=== PATIENT | female | born 1940 | race Caucasian/White ===

== ENCOUNTER 2017-02-23 02:13 | Emergency (ER) | payer BC, OTHER ==
[~2017-02-23] VITALS: Ht 172.7 cm; Wt 88.4 kg
[2017-02-23] MEDS ORDERED: SODIUM CHLORIDE 0.9% 1000ML 1,000 ML IV SCH (02:14)
[2017-02-23] MEDS ORDERED: SUCCINYLCHOLINE CHLORIDE 20 MG/ML 10 ML VIAL IV ONE (02:16)
[2017-02-23] MEDS ORDERED: ETOMIDATE 2 MG/ML 20 ML VIAL IV ONE (02:16)
[2017-02-23] MEDS ORDERED: MIDAZOLAM HCL 5 MG/ML 1 ML VIAL IV ONE (02:16)
[2017-02-23] MEDS ORDERED: FENTANYL CITRATE INJ 50 MCG/1 ML 2 ML VIAL IV ONE ×3 (02:16→03:00)
[2017-02-23 02:20] VITALS: Ht 172.7 cm; Wt 88.4 kg
[2017-02-23] MEDS ORDERED: DIAZEPAM INJ 5 MG/ML 2 ML CARP IV STA (02:24)
[2017-02-23] MEDS ORDERED: ONDANSETRON INJ 2 MG/ML 2 ML VIAL ONE (02:28)
[2017-02-23] MEDS ORDERED: LABETALOL HCL IV 5 MG/ML 20ML IV ONE (02:28)
--- NOTE | 2017-02-23 02:35 | EMERGENCY ROOM VISIT NOTE ---
History Report prepared by Lele: Fredy Garibay Under the Supervision of: Dr. Sylvester Bray M.D. First contact with patient: 02:14 Stated Complaint: STROKE ALERT History of Present Illness The patient is a 76 year old female who presents to the Emergency Room with complaints of acute stroke symptoms that started when she woke up at approximately 0200 this morning. She was feeling completely fine when she went to bed between [id number].The patient woke up with a severe headache and dizziness, as well as right-sided weakness. She was initially unable to use her right arm or leg. She also had a right facial droop and her noticed that she was slurring her speech. EMS gave her 4 mg Zofran en route. Upon arrival to the ED, the patient's right arm weakness was improving. She was taken to CT scan immediately upon arrival, and had continued improvement of her right arm and leg weakness. Her facial droop and speech slurring resolved. She is still feeling severely nauseous and dizzy. She has also been vomiting. The patient denies any recent injuries or trauma. She is on Plavix. She denies any history of strokes. She does have a history of hypertension, diabetes, and dyslipidemia. She is s/p open heart surgery 20 years ago. The patient had a stress test within the past few years which her believes was normal. She has been very anxious and stressed recently. Her believes that the patient has been taking her medications. Source of History: patient, spouse/significant other Onset: 0200 this morning Position: other (neurologic) Quality: other (stroke symptoms) Timing: other (acute) Associated Symptoms: + nausea, + vomiting, + weakness Review of Systems See HPI for pertinent positives & negatives. A total of 10 systems reviewed and were otherwise negative. Past Medical & Surgical Medical Problems: (1) Diabetes (2) Dyslipidemia (3) HTN (hypertension) Surgical Problems: (1) History of open heart surgery Family History No pertinent family history Social History Marital Status: Housing Status: lives with family Current/Historical Medications Scheduled Aspirin (Aspirin Ec), 81 MG PO DAILY Atorvastatin (Lipitor), 40 MG PO DAILY Carvedilol (Coreg), 25 MG PO BIDM Clopidogrel (Plavix), 75 MG PO DAILY Isosorbide Mononitrate (Isosorbide Mononitrate ER), 60 MG PO BID Metformin Hcl (Glucophage), 500 MG PO BIDM Nitroglycerin (Nitrostat), 0.4 MG UT PRN Valsartan (Diovan), 160 MG PO DAILY Allergies Coded Allergies: Niacin (Verified Allergy, Intermediate, RASH, 02/23/17) PALPITATIONS Morphine (Verified Allergy, Unknown, unknown, 02/23/17) Penicillins (Verified Allergy, Unknown, unknown, 02/23/17) Physical Exam Vital Signs Date Time Temp Pulse Resp B/P Pulse Ox O2 Delivery O2 Flow Rate FiO2 02/23/17 04:30 190/86 02/23/17 04:27 69 98 02/23/17 04:25 182/80 02/23/17 04:22 71 98 02/23/17 04:22 71 12 174/83 98 Mechanical Ventilator 02/23/17 03:58 69 99 02/23/17 03:55 130/62 02/23/17 03:54 143/71 02/23/17 03:53 70 100 02/23/17 03:48 212/101 02/23/17 03:25 162/79 02/23/17 03:20 66 154/74 97 02/23/17 03:16 143/71 02/23/17 03:10 66 137/79 97 02/23/17 03:05 67 138/72 97 02/23/17 03:00 67 135/72 02/23/17 02:58 50 02/23/17 02:55 72 142/76 98 02/23/17 02:54 166/92 02/23/17 02:50 68 247/120 99 02/23/17 02:48 248/104 02/23/17 02:47 66 02/23/17 02:47 227/119 02/23/17 02:43 99 02/23/17 02:40 70 88 02/23/17 02:37 202/116 02/23/17 02:20 77 20 231/107 99 Room Air Physical Exam GENERAL: Patient is severely upset and anxious appearing, persistently vomiting on exam. Covered in vomit. HEENT: No acute trauma, normocephalic atraumatic, mucous membranes moist, no nasal congestion, no scleral icterus. NECK: No stridor, no adenopathy, no meningismus, trachea is midline. LUNGS: No dyspnea. Clear to auscultation and equal bilaterally. No wheeze, no rhonchi. HEART: Regular rate and rhythm. No murmurs, rubs, gallops appreciated. ABDOMEN: Soft, nontender, bowel sounds positive, no masses appreciated, no peritonitis. BACK: No midline tenderness, no CVA tenderness EXTREMITIES: Normal motion all extremities, no cyanosis, no edema. NEUROLOGIC: Generalized weakness all extremities without focal deficits. Severe horizontal left nystagmus, unable to get visual field acuity. SKIN: No rash, no jaundice, no diaphoresis. Medical Decision & Procedures ER Provider Diagnostic Interpretation: X ray results are stated below per my interpretation. Chest: One view mildly rotated: Diffuse haziness bilateral lung perrin without overt infiltrate nor effusion. Enlarged heart with previous sternotomy. ET tube appears to be in place. Radiology results and stated below per my review and radiologist interpretation: CT HEAD: No evidence of acute intracranial hemorrhage or abnormal extra axial fluid collection. Nagy-white matter differentiation appears preserved. There is patchy hypoattenuation in the periventricular and deep cerebral white matter, likely the sequel of chronic small vessel ischemic disease. There is intracranial atherosclerosis. No evidence of skull fracture. Mild mucosal thickening in the ethmoid air cells. Visualized paranasal sinuses and mastoid air cells are otherwise clear. Radiologist: Cleve Bonilla MD. CTA HEAD Bilateral intracranial vertebral arteries, basilar artery, and bilateral P1 segments are patent. The bilateral intracranial internal carotid arteries demonstrate atherosclerotic calcifications with multifocal mild narrowing. The bilateral M1 segments are patent. The bilateral A1 segments are patent with hypoplastic right A1 segment. The anterior communicating artery is visualized. No evidence of vascular malformation or aneurysm. Radiologist Cleve Bonilla MD. Laboratory Results 02/23/17 02:38 Red Blood Count 4.21, Mean Corpuscular Volume 91.9, Mean Corpuscular Hemoglobin 30.9, Mean Corpuscular Hemoglobin Concent 33.6, Mean Platelet Volume 11.0, Neutrophils (%) (Auto) 54.0, Lymphocytes (%) (Auto) 32.8, Monocytes (%) (Auto) 9.0, Eosinophils (%) (Auto) 3.3, Basophils (%) (Auto) 0.7, Neutrophils # (Auto) 4.96, Lymphocytes # (Auto) 3.01, Monocytes # (Auto) 0.83, Eosinophils # (Auto) 0.30, Basophils # (Auto) 0.06 02/23/17 02:38 Test 02/23/17 02:27 02/23/17 02:38 02/23/17 03:05 02/23/17 03:15 Bedside Prothrombin Time INR 1.0 (0.9-1.1) White Blood Count 9.18 K/uL (4.8-10.8) Red Blood Count 4.21 M/uL (4.2-5.4) Hemoglobin 13.0 g/dL (12.0-16.0) Hematocrit 38.7 % (37-47) Mean Corpuscular Volume 91.9 fL (80-100) Mean Corpuscular Hemoglobin 30.9 pg (25-34) Mean Corpuscular Hemoglobin Concent 33.6 g/dl (32-36) Platelet Count 228 K/uL (130-400) Mean Platelet Volume 11.0 fL (7.4-10.4) Neutrophils (%) (Auto) 54.0 % Lymphocytes (%) (Auto) 32.8 % Monocytes (%) (Auto) 9.0 % Eosinophils (%) (Auto) 3.3 % Basophils (%) (Auto) 0.7 % Neutrophils # (Auto) 4.96 K/uL (1.4-6.5) Lymphocytes # (Auto) 3.01 K/uL (1.2-3.4) Monocytes # (Auto) 0.83 K/uL (0.11-0.59) Eosinophils # (Auto) 0.30 K/uL (0-0.5) Basophils # (Auto) 0.06 K/uL (0-0.2) RDW Standard Deviation 45.8 fL (36.4-46.3) RDW Coefficient of Variation 13.6 % (11.5-14.5) Immature Granulocyte % (Auto) 0.2 % Immature Granulocyte # (Auto) 0.02 K/uL (0.00-0.02) Prothrombin Time 10.3 SECONDS (9.0-12.0) Prothromb Time International Ratio 1.0 (0.9-1.1) Activated Partial Thromboplast Time 20.9 SECONDS (21.0-31.0) Partial Thromboplastin Ratio 0.8 Anion Gap 8.0 mmol/L (3-11) Est Creatinine Clear Calc Drug Dose 57.4 ml/min Estimated GFR () 65.8 Estimated GFR (Non- 56.7 BUN/Creatinine Ratio 20.8 (10-20) Calcium Level 9.1 mg/dl (8.5-10.1) Total Creatine Kinase 66 U/L (26-192) Creatine Kinase MB 0.5 ng/ml (0.5-3.6) Creatine Kinase MB Ratio 0.8 (0-3.0) Troponin I < 0.015 ng/ml (0-0.045) Chemistry Specimen Hemolysis Urine Opiates Screen NEG (NEG) Urine Methadone, Qualitative NEG (NEG) Urine Barbiturates NEG (NEG) Urine Phencyclidine (PCP) Level NEG (NEG) Ur Amphetamine/Methamphetamine NEG (NEG) MDMA (Ecstasy) Screen NEG (NEG) Urine Benzodiazepines Screen NEG (NEG) Urine Cocaine Metabolite NEG (NEG) Urine Marijuana (THC) NEG (NEG) Arterial Blood pH 7.39 (7.35-7.45) Arterial Blood Partial Pressure CO2 45 mmHg (35-46) Arterial Blood Partial Pressure O2 80 mm/Hg (80-95) Arterial Blood HCO3 27 mmol/L (19-24) Arterial Blood Oxygen Saturation 95.8 % (90-95) Arterial Blood Base Excess 1.3 mEq/L (-9-1.8) Arterial Blood Gas Delivery 50% Huseyin Test POS (POS) Laboratory results as reviewed by me. Medications Administered Medications (Trade) Dose Ordered Sig/Isidra Route Start Time Stop Time Status Last Admin Dose Admin Sodium Chloride (Nss 1000ml) 1,000 ml @ 50 mls/hr Q20H IV 02/23/17 02:14 02/23/17 05:20 DC 02/23/17 03:12 50 MLS/HR Ondansetron HCl (Zofran Inj) 4 mg STK-MED ONCE .ROUTE 02/23/17 02:28 02/23/17 02:29 DC 02/23/17 02:35 4 MG Labetalol HCl (Normodyne IV) 5 mg STK-MED ONCE IV 02/23/17 02:28 02/23/17 02:29 DC 02/23/17 02:34 20 MG Diazepam (Valium Inj) 5 mg NOW STAT IV 02/23/17 02:24 02/23/17 02:25 DC 02/23/17 02:34 5 MG Midazolam HCl (Versed Inj) 5 mg NOW STAT IV 02/23/17 02:47 02/23/17 02:49 DC 02/23/17 02:49 5 MG Fentanyl Citrate (Fentanyl Inj) 100 mcg NOW ONCE IV 02/23/17 03:00 02/23/17 03:01 DC 02/23/17 02:51 100 MCG Propofol (Diprivan Iv Emulsion 100ml Vial) 1 dose UD PRN IV 02/23/17 03:00 02/23/17 05:20 DC 02/23/17 03:08 1 DOSE Fentanyl Citrate (Fentanyl Inj) 50 mcg NOW STAT IV 02/23/17 03:50 02/23/17 03:51 DC 02/23/17 03:54 50 MCG Midazolam HCl (Versed Inj) 5 mg NOW STAT IV 02/23/17 03:50 02/23/17 03:51 DC 02/23/17 03:54 5 MG Midazolam HCl (Versed Inj) 10 mg STK-MED ONCE .ROUTE 02/23/17 04:54 02/23/17 04:55 DC 02/23/17 04:50 5 MG Procedure Endotracheal Intubation Indication: Respiratory failure and protection of airway. The patient was on 100% oxygen via NRB prior to the procedure. Suction, airway equipment, RSI drugs, respiratory equipment, and appropriate personnel were prepared prior to the initiation of the procedure. A time out was taken. Induction was performed with 20 mg Etomidate 150 mg succinylcholine. After observing the clinical benefit of the medications, the airway was easily visualized utilizing a GlideScope. Emesis was noted in the posterior pharynx. There was erythema and mild edema of the arytenoids. A 7.5 size ETT tube was placed atraumatically to 23 cm at the lip using standard technique. The cuff inflated without signs of malfunction. There were bilateral breath sounds, positive colormetric change, no gastric sounds, a good capnography waveform, and oxygen saturation was maintained throughout the procedure. Post intubation sedation and paralysis was administered using versed, fentanyl, and a propofol infusion. There were no complications. ECG Indication: weakness Rate (beats per minute): 81 Rhythm: normal sinus Findings: no acute ischemic change, no ectopy ED Course 0210: The patient was evaluated in room B1. A complete history and physical exam was performed. 0214: NSS 1000 ml @ 50 mls/hr. 0220: The patient is still vomiting. 0224: Valium 5 mg IV. 0228: The [facility] was paged. 0238: The patient became unresponsive. I discussed the pros and cons of intubation with the and he agrees. 0242: Endotracheal intubation performed. Please see procedural note above. 0247: Versed 5 mg IV. 0250: Normodyne 20 mg IV. 0250: Updated the patient's . 0257: Propofol 150 mg IV. 0258: The patient's blood pressure is down to 140/80. 0300: Fentanyl 100 mcg IV, Fentanyl 50 mcg IV. 0310: Discussed the case with Dr. Funes, [facility]. He agrees with getting a CTA. 0330: Discussed the case with Dr. Stover, [facility]. They will accept the patient for transfer. 0345: The patient is biting her tube and coughing. Her blood pressure is up to 210. 0350: Versed 5 mg IV, Fentanyl 50 mcg IV. 0412: The patient is periodically moving hands and feet. She is calm and heavily sedated. Blood pressure 145/77. 0440: [facility] is at bedside. The patient is starting to fight against the vent and is moving more with increased blood pressure. Medical Decision Differential: Sepsis, Infectious (UTI/Pneumonia/Meningitis/etc), Metabolic/ Electrolyte Abnormality, Cardiac, Hepatic, Endocrine, Toxicologic, Neurologic, amongst other pathologies entertained. 76 yr old female with history of HTN, DMII, CAD, DLP who is on Plavix amongst other medications. CABG 20 yrs ago. Notes increased stress over last few weeks. Severely stressed today. Went to bed normal at 11-1130pm. awoke to hear commotion in her room. She was unable to use right arm/leg/face. Slurred speech. Vomiting. EMS arrived and confirmed symptoms. Stroke alert called prior to arrival. Quite hypertensive to SBP 240 on arrival. Vomiting profusely with severe vertiginous symptoms and horizontal nystagmus. No focal neuro deficits though generally weak. No meningitic findings nor evidence of sepsis by exam history. Sent immediately to CT with negative CT head on arrival. Given Labetalol for BP and Valium for vertiginous symptoms. Initially doing better symptom koenig, SBP improving to 200 and talking though started vomiting again and became obtunded. Unable to awaken and patient dry heaving not protecting airway. RSI for airway protection. Sedation given with improvement further in BP. Sent to CTA head which read as negative for acute findings. During this discussed with [facility] ED physician and will transfer emergently there for possibly neuro intervention. Unclear if this is posterior stroke, hypertensive emergency, complex seizure, though clearly element of this is severe stress. Symptoms highly concerning for posterior stroke which we are unable to care for here in this facility. Given EMS confirms she was acutely weak on right side and had slurred speech, along with vertiginous symptoms and nystagmus found here she will need stroke neurologist. Throughout I did do phone consultation with [facility] though with patient being [facility] will transfer to [facility] for definitive care. BP did start going up when patient started awakening thus propofol increased along with PRN dosing fentanyl/versed. Unfortunately due to weather helicopter had to turn around. If this is basilar stroke may still benefit several hours out I feel ground transport with CC team is reasonable at this time. Throughout this all I kept in close contact with patient making him aware of findings and reasons we are doing what we are doing. He agreed with intubation and transfer. Consults Time Called: 227 Consulting Physician: [facility]. Returned Call: [phone]: Discussed the case with [facility]. Additional Consults: Time Called: 032 Consulted Physician: Dr. Stover, [facility] ED Returned Call: 0330 Additional Comments: 0330: Discussed the case with Dr. Stover [facility] ED. They will accept the patient for transfer. Impression Primary Impression: Altered mental status Additional Impressions: Acute right-sided weakness HTN (hypertension) Vertigo Respiratory failure Critical Care I have personally spent greater than 180 minutes of critical care time in the direct management of this patient. This was a life/limb threatening event. This includes time spent evaluating patient, direct bedside care, chart review, placing orders, interpretation of diagnostic studies, discussion with consultants, patient, and family members, as well as other required patient management activities. This 180 minutes is in excess of all separately billable procedures. Scribe Attestation The scribe's documentation has been prepared under my direction and personally reviewed by me in its entirety. I confirm that the note above accurately reflects all work, treatment, procedures, and medical decision making performed by me. Departure Information Dispostion Transfer Acute Care Facility Stroke History Time Last Known Well 2300 Stroke t-PA Criteria Reviewed Does NOT meet criteria for t-PA Reason t-PA Not Given Treatment not indicated (improvement of symptoms ) Strict Exclusion Criteria Complete resolution of symptoms (NI (Still with vertigo/vomiting/headache though no further focal weaknesses. Labile HTN. Unclear etiology of symptoms.) Problem Qualifiers Primary Impression: Altered mental status Altered mental status type: stupor Qualified Codes: R40.1 - Stupor Additional Impressions: Respiratory failure Chronicity: acute Respiratory failure complication: unspecified whether with hypoxia or hypercapnia Qualified Codes: J96.00 - Acute respiratory failure, unspecified whether with hypoxia or hypercapnia
[2017-02-23] MEDS ORDERED: GLC/500 PO (02:41)
[2017-02-23] MEDS ORDERED: ISOS-10 PO (02:43)
[2017-02-23] MEDS ORDERED: ATOR-24 PO (02:44)
[2017-02-23] MEDS ORDERED: RAPID SEQUENCE INDUCTION BAG ONE (02:44)
[2017-02-23] MEDS ORDERED: CARV25TA2 PO (02:45)
[2017-02-23] MEDS ORDERED: DVN/160 PO (02:46)
[2017-02-23] MEDS ORDERED: CLOP1TAB15 PO (02:47)
[2017-02-23] MEDS ORDERED: MIDAZOLAM HCL 5 MG/ML 1 ML VIAL IV STA ×2 (02:47→03:50)
[2017-02-23 02:48] LABS: BASO % 0.7 %; BASO ABS # 0.06 K/uL (0-0.2); COMPLETE YES; EOS % 3.3 %; HEMATOCRIT 38.7 % (37-47); IG% 0.2 %; LYMPH % 32.8 %; LYMPH ABS # 3.01 K/uL (1.2-3.4); MEAN CELL VOLUME 91.9 fL (80-100); MEAN CORPUSCULAR HEMOGLOBIN 30.9 pg (25-34); MEAN CORPUSCULAR HGB CONC 33.6 g/dl (32-36); PLATELET COUNT 228 K/uL (130-400); RED BLOOD COUNT 4.21 M/uL (4.2-5.4); WHITE BLOOD COUNT 9.18 K/uL (4.8-10.8)
[2017-02-23] MEDS ORDERED: LABETALOL HCL IV 5 MG/ML 20ML IV STA ×3 (02:50→05:14)
[2017-02-23] MEDS ORDERED: ASPI81TA28 PO (02:51)
[2017-02-23] MEDS ORDERED: NTRGSL/4 UT (02:53)
[2017-02-23] MEDS ORDERED: PROPOFOL IV EMULSION 10 MG/ML 20 ML VIAL IV STA (02:57)
[2017-02-23 02:58] LABS: PARTIAL THROMBOPLASTIN RATIO 0.8; PROTHROMBIN TIME (PATIENT) 10.3 SECONDS (9.0-12.0)
[2017-02-23] MEDS ORDERED: PROPOFOL IV EMULSION 10 MG/ML 100 ML VIAL IV PRN (03:00)
[2017-02-23 03:14] LABS: BLOOD UREA NITROGEN 20 mg/dl (7-18); BUN/CREATININE RATIO 20.8 (10-20); CALCIUM 9.1 mg/dl (8.5-10.1); CARBON DIOXIDE 26 mmol/L (21-32); CHLORIDE 110 mmol/L (98-107); CKMB/CK RATIO 0.8 (0-3.0); CREATININE 0.97 mg/dl (0.60-1.20); GLUCOSE 121 mg/dl (70-99); POTASSIUM 4.4 mmol/L (3.5-5.1); SODIUM 144 mmol/L (136-145)
[2017-02-23 03:23] LABS: ARTERIAL BLD GAS O2 SATURATION 95.8 % (90-95); ARTERIAL BLOOD GAS BASE EXCESS 1.3 mEq/L (-9-1.8); ARTERIAL BLOOD GAS HCO3 27 mmol/L (19-24); ARTERIAL BLOOD GAS PO2 80 mm/Hg (80-95); ARTERIAL BLOOD GAS pH 7.39 (7.35-7.45)
[2017-02-23 03:25] LABS: ALLEN TEST POS (POS); O2 ADMINISTRATION 50%
[2017-02-23] MEDS ORDERED: OPTIRAY 320 IV PRN (03:30)
[2017-02-23 03:36] LABS: BENZODIAZEPINE, URINE NEG (NEG); COCAINE,URINE NEG (NEG); PHENCYCLIDINE, URINE NEG (NEG)
[2017-02-23] MEDS ORDERED: FENTANYL CITRATE INJ 50 MCG/1 ML 2 ML VIAL IV STA ×2 (03:50→05:13)
[2017-02-23] MEDS ORDERED: MIDAZOLAM HCL 5 MG/ML 2ML VIAL ONE ×2 (03:58→04:54)
[2017-02-23 04:27] VITALS: PULSE 69; O2SAT 98
[2017-02-23 04:30] VITALS: BP 190/86
[2017-02-23] MEDS ORDERED: NURSING VERBAL MED ORDER ONE (05:00)
[2017-02-23] MEDS ORDERED: MIDAZOLAM HCL 5 MG/ML 2ML VIAL IV STA (05:12)
--- NOTE | 2017-02-23 06:38 | DIAGNOSTIC IMAGING REPORT ---
HEAD CTA HISTORY: Mental status change stroke TECHNIQUE: Multiaxial CT images of the head were performed both before and after the intravenous administration of contrast to evaluate the major cerebral vessels. Maximum intensity projection images were also obtained. COMPARISON: None. FINDINGS: There is no mass, hematoma, midline shift, or acute infarct. Visualized intracranial internal carotid arteries, distal vertebral arteries, and basilar artery are widely patent. There is no significant stenosis, occlusion, or aneurysm seen within the bilateral ACAs, MCAs, or trauma counsellor. Findings of mild scattered atherosclerotic plaque formation. Several minimal to very mild areas of narrowing including right A1 segment, intracranial carotid arterial vasculature, with minimal scattered additional intracranial narrowing. The major component of narrowing is not appreciated IMPRESSION: No significant stenosis, occlusion, or aneurysm within the [place]. Minimal to very mild scattered atelectatic change Electronically signed by: Bruce Hemphill M.D. 02/23/2017 6:36 AM Dictated Date/Time: 02/23/2017 6:35 AM
--- NOTE | 2017-02-23 06:40 | DIAGNOSTIC IMAGING REPORT ---
HEAD CT NONCONTRAST CT DOSE: 614.27 mGy.cm HISTORY: Mental status change Stroke TECHNIQUE: Multiaxial CT images of the head were performed without the use of intravenous contrast. Comparison: None. Findings: The paranasal sinuses and mastoid air cells are clear. The calvarium and skull base are intact. The ventricles and sulci are within normal limits. There is no mass, hematoma, midline shift, or acute infarct. Impression: No acute intracranial abnormality. Chronic small vessel change Electronically signed by: Bruce Hemphill M.D. 02/23/2017 6:38 AM Dictated Date/Time: 02/23/2017 6:37 AM
--- NOTE | 2017-02-23 07:13 | DIAGNOSTIC IMAGING REPORT ---
CHEST ONE VIEW PORTABLE CLINICAL HISTORY: Post intubation. COMPARISON STUDY: No previous studies for comparison. FINDINGS: The tip of the endotracheal tube is 4 cm above the clarissa. There are median sternotomy wires. The patient is rotated. This may account for mediastinal widening. There is mild interstitial thickening which suggests pulmonary edema. There is no lobar consolidation. Mild cardiomegaly is noted. There is no pneumothorax. IMPRESSION: 1. Tip of endotracheal tube 4 cm above the clarissa. 2. Interstitial thickening suggestive of mild pulmonary edema. Electronically signed by: [place] March M.D. 02/23/2017 7:11 AM Dictated Date/Time: 02/23/2017 7:09 AM
== END 2017-02-23 05:03 | disposition short-term general hospital (02) ==
LOC: EDUNIT# 02:13 → C.EDB 02:15
DX: R41.82 Altered mental status, unspecified (principal); R53.1 Weakness; I10 Essential (primary) hypertension; R42 Dizziness and giddiness; J96.90 Respiratory failure, unspecified, unspecified whether with hypoxia or hypercapnia; E11.9 Type 2 diabetes mellitus without complications; E78.5 Hyperlipidemia, unspecified; Z98.890 Other specified postprocedural states; Z79.82 Long term (current) use of aspirin; Z79.84 Long term (current) use of oral hypoglycemic drugs; Z79.899 Other long term (current) drug therapy; Z88.0 Allergy status to penicillin; Z88.5 Allergy status to narcotic agent; Z88.8 Allergy status to other drugs, medicaments and biological substances

== ENCOUNTER → 2017-11-10 | Outpatient (CLI) | payer OTHER ==
[~2017-11-10] MED LIST: ACET-1311 PO; AMOX500T PO; ASPI81TA28 PO; ATOR-24 PO; BISA10SU3 PR; CARV25TA2 PO; CLOP1TAB15 PO; CYCL10TA6 PO; DVN/160 PO; EMOL-63 TOP; FLUO10CA48 PO; GLC/500 PO; IPRASOL4 INH; ISOS-10 PO; MOMLX PO; NTRGSL/4 UT; ONDA4TAB46 PO; OXYC-57 PO; RXC5 PO; SKINCRE34 TOP; VLTG EXT; WARF1TAB6 PO; [UNRECOGNIZED DRUG - OTHER] RE
[2017-11-10 06:58] LABS: BASO % 0.3 %; BASO ABS # 0.03 K/uL (0-0.2); EOS % 1.6 %; EOS ABS # 0.14 K/uL (0-0.5); HEMATOCRIT 32.1 % (37-47); HEMOGLOBIN 10.4 g/dL (12.0-16.0); IG# 0.02 K/uL (0.00-0.02); LYMPH % 18.4 %; LYMPH ABS # 1.58 K/uL (1.2-3.4); MEAN CELL VOLUME 92.8 fL (80-100); MEAN CORPUSCULAR HEMOGLOBIN 30.1 pg (25-34); MEAN CORPUSCULAR HGB CONC 32.4 g/dl (32-36); MEAN PLATELET VOLUME 10.2 fL (7.4-10.4); MONO % 10.8 %; MONO ABS # 0.93 K/uL (0.11-0.59); NEUT % 68.7 %; NEUT ABS # 5.91 K/uL (1.4-6.5); PLATELET COUNT 252 K/uL (130-400); RED CELL DISTRIBUTION WIDTH CV 15.1 % (11.5-14.5); RED CELL DISTRIBUTION WIDTH SD 51.2 fL (36.4-46.3); WHITE BLOOD COUNT 8.61 K/uL (4.8-10.8)
[2017-11-10 07:10] LABS: ALBUMIN 2.5 gm/dl (3.4-5.0); ALT/SGPT 24 U/L (12-78); AST/SGOT 32 U/L (15-37); BLOOD UREA NITROGEN 8 mg/dl (7-18); CALCIUM 8.5 mg/dl (8.5-10.1); CARBON DIOXIDE 28 mmol/L (21-32); CREATININE 0.71 mg/dl (0.60-1.20); GLUCOSE 116 mg/dl (70-99); POTASSIUM 4.3 mmol/L (3.5-5.1); SODIUM 140 mmol/L (136-145)
[2017-11-10 07:13] LABS: ALKALINE PHOSPHATASE 70 U/L (45-117); TOTAL PROTEIN 6.3 gm/dl (6.4-8.2)
--- NOTE | 2017-11-16 07:57 | CODING QUERY NO DIAGNOSIS ---
TREATMENT RENDERED WITHOUT A DIAGNOSIS Edilma AVILA, To promote full compliance with coding requirements relating to patient care, physician participation is requested in all cases of institutional cook uncertainty. Please assist us with providing a diagnosis/symptom for the test(s) below: A diagnosis/symptom was not documented on your Order. A valid diagnosis/symptom is required to bill all insurances. Please remember that we are unable to code a diagnosis of rule out, probable, possible, questionable, or suspected. Tests that require a diagnosis: * CBC W/AUTO DIFF DIAGNOSIS: * SED RATE AUTOMATED DIAGNOSIS: * CMP DIAGNOSIS: DATE OF SERVICE: 11/10/17 Provider Signature: Date: Thank you Les Caruso [facility] Information Management Once completed, please kindly fax back to [phone] For questions please call [phone]
== END | disposition home or self-care (01) ==
LOC: C.LABUPNIT 10:26
PROVIDERS: ATTEND Nurse Practitioner Family
DX: R79.9 Abnormal finding of blood chemistry, unspecified (principal); R73.09 Other abnormal glucose

== ENCOUNTER 2017-11-13 13:41 | Inpatient (IN) | payer OTHER ==
[~2017-11-13] VITALS: Ht 165.1 cm; Wt 83.9 kg
[2017-11-13] VITALS (12 sets, daily range): BP systolic 107–159; BP diastolic 65–93; PULSE 80–88; TEMP 36.5–37.1; O2SAT 94–99; Ht 165.1 cm; Wt 83.9 kg
[~2017-11-13 13:41] MED LIST changes: -ACET-1311 PO; -AMOX500T PO; -BISA10SU3 PR; -CYCL10TA6 PO; -EMOL-63 TOP; -FLUO10CA48 PO; -IPRASOL4 INH; -MOMLX PO; -ONDA4TAB46 PO; -OXYC-57 PO; -RXC5 PO; -SKINCRE34 TOP; -VLTG EXT; -WARF1TAB6 PO; -[UNRECOGNIZED DRUG - OTHER] RE
[2017-11-13] MEDS ORDERED: SODIUM CHLORIDE 0.9% 1000ML 1,000 ML IV STA (14:20)
[2017-11-13 14:34] LABS: BASO % 0.3 %; BASO ABS # 0.03 K/uL (0-0.2); EOS % 1.3 %; EOS ABS # 0.13 K/uL (0-0.5); HEMOGLOBIN 8.5 g/dL (12.0-16.0); IG# 0.03 K/uL (0.00-0.02); LYMPH % 19.7 %; LYMPH ABS # 1.92 K/uL (1.2-3.4); MEAN CELL VOLUME 91.8 fL (80-100); MEAN CORPUSCULAR HEMOGLOBIN 28.9 pg (25-34); MEAN CORPUSCULAR HGB CONC 31.5 g/dl (32-36); MEAN PLATELET VOLUME 9.9 fL (7.4-10.4); MONO % 11.3 %; NEUT % 67.1 %; NEUT ABS # 6.56 K/uL (1.4-6.5); PLATELET COUNT 310 K/uL (130-400); RED CELL DISTRIBUTION WIDTH CV 14.5 % (11.5-14.5); RED CELL DISTRIBUTION WIDTH SD 48.9 fL (36.4-46.3); WHITE BLOOD COUNT 9.77 K/uL (4.8-10.8)
--- NOTE | 2017-11-13 14:34 | DIAGNOSTIC IMAGING REPORT ---
CHEST ONE VIEW PORTABLE CLINICAL HISTORY: EVALUATE ALTERED MENTAL STATUS/WEAKNESS mental status change COMPARISON STUDY: 02/23/2017 FINDINGS: Mild stable cardiomegaly. Prior median sternotomy. Chronic bibasilar atelectatic change. Mid and upper lungs are considered clear. IMPRESSION: Chronic and postoperative change. No acute process. The above report was generated using voice recognition software. It may contain grammatical, syntax or spelling errors. Electronically signed by: Bruce Hemphill M.D. 11/13/2017 2:33 PM Dictated Date/Time: 11/13/2017 2:31 PM
[2017-11-13 14:43] LABS: ALBUMIN 2.2 gm/dl (3.4-5.0); ALT/SGPT 24 U/L (12-78); BLOOD UREA NITROGEN 18 mg/dl (7-18); CALCIUM 8.3 mg/dl (8.5-10.1); CARBON DIOXIDE 33 mmol/L (21-32); CREATININE 0.86 mg/dl (0.60-1.20); GLUCOSE 93 mg/dl (70-99); LIPASE 92 U/L (73-393); POTASSIUM 4.4 mmol/L (3.5-5.1); SODIUM 138 mmol/L (136-145)
--- NOTE | 2017-11-13 14:49 | DIAGNOSTIC IMAGING REPORT ---
CT SCAN OF THE BRAIN WITHOUT IV CONTRAST CLINICAL HISTORY: Change in mental status. COMPARISON STUDY: CT of the brain dated 02/23/2017. TECHNIQUE: Unenhanced axial CT scan of the brain is performed from the vertex to the skull base. A dose lowering technique was utilized adhering to the principles of ALARA. CT DOSE: 537.48 mGy.cm FINDINGS: Brain parenchyma: There are age-related involutional changes noting mild subcortical and periventricular microangiopathic change. Foci of encephalomalacia in the left desmond and the left cerebellar hemisphere consistent with remote infarcts. There is no hemorrhage, mass effect, or evidence of acute territorial ischemia by CT criteria. Nagy-white matter is preserved. No extra-axial fluid collection is seen. Ventricles, sulci, cisterns: Prominent secondary to involutional change. Intracranial vasculature: There is atherosclerotic calcification of the cavernous carotid and vertebral arteries. Calvarium: Unremarkable. Sinuses and mastoids: The visualized paranasal sinuses are clear. The mastoid air cells are well pneumatized. Orbits: The bony orbits are grossly intact. There are bilateral ocular lens implants. IMPRESSION: 1. There is no hemorrhage, mass effect, or evidence of acute territorial ischemia by CT criteria. 2. 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 Electronically signed by: Juan J Amaya M.D. 11/13/2017 2:47 PM Dictated Date/Time: 11/13/2017 2:45 PM
[2017-11-13 14:51] LABS: ALKALINE PHOSPHATASE 62 U/L (45-117); AST/SGOT 40 U/L (15-37); CKMB 3.2 ng/ml (0.5-3.6); TOTAL PROTEIN 6.1 gm/dl (6.4-8.2)
[2017-11-13 14:58] LABS: INR 4.3 (0.9-1.1)
[2017-11-13] MEDS ORDERED: MOMLX PO (16:02)
[2017-11-13] MEDS ORDERED: AMOX500T PO (16:02)
[2017-11-13] MEDS ORDERED: ONDA4TAB46 PO (16:02)
[2017-11-13] MEDS ORDERED: ACET-1311 PO (16:02)
[2017-11-13] MEDS ORDERED: WARF1TAB6 PO (16:02)
[2017-11-13] MEDS ORDERED: OXYC-57 PO (16:02)
[2017-11-13] MEDS ORDERED: OPTIRAY 320 IV PRN (16:15)
[2017-11-13] MEDS ORDERED: BISA10SU3 PR (16:26)
[2017-11-13] MEDS ORDERED: EMOL-63 TOP (16:26)
[2017-11-13] MEDS ORDERED: FLUO10CA48 PO (16:26)
[2017-11-13] MEDS ORDERED: CYCL10TA6 PO (16:26)
[2017-11-13] MEDS ORDERED: SKINCRE34 TOP (16:26)
[2017-11-13] MEDS ORDERED: IPRA-64 INH (16:26)
[2017-11-13] MEDS ORDERED: [UNRECOGNIZED DRUG - OTHER] RE (16:26)
--- NOTE | 2017-11-13 16:49 | DIAGNOSTIC IMAGING REPORT ---
ABD/PELVIS IV CONTRAST ONLY CLINICAL HISTORY: 77 years-old Female presenting with r/o retroperitoneal bleeding. TECHNIQUE: Multidetector CT of the abdomen and pelvis was performed after the administration of intravenous contrast. IV contrast: 93 mL of Optiray 320. A dose lowering technique was used consistent with the principles of ALARA (as low as reasonably achievable). COMPARISON: None. CT DOSE (mGy.cm): The estimated cumulative dose is 736.30 mGy.cm. FINDINGS: [employer] Steward/Stewardess topogram: Cholecystectomy clips noted. Lung bases: Minimal basilar opacities, likely atelectasis. Multichamber enlargement of the heart. Coronary artery and aortic valve calcification. No pericardial or pleural effusion. Liver: Normal morphology. No liver lesion. Patent hepatic vasculature. Biliary: Mild biliary ductal prominence likely a reservoir effect in the post cholecystectomy state. Gallbladder surgically absent. Pancreas: Moderate parenchymal atrophy. Spleen: Normal. Adrenal glands: Normal. Kidneys and ureters: Excretion of contrast bilaterally. Renal parenchyma normal. No hydronephrosis. Ureters normal. Bladder: Incompletely evaluated secondary to underdistention. The bladder is decompressed with a Cassidy catheter. Pelvic organs: Uterus and ovaries normal. Bowel: Moderate stool burden in the transverse and right colon. No bowel obstruction. Peritoneal cavity: No free fluid or intraperitoneal gas. Infiltration of the extraperitoneal pelvis along the presacral space and pelvic sidewalls. Trace retroperitoneal fluid in the right lower quadrant. Lymph nodes: No enlarged lymph nodes in the abdomen or pelvis. Vasculature: Atherosclerosis of the abdominal aorta, which demonstrates mild ectasia in the infrarenal portion measuring up to 2.7 cm in maximal transverse dimension. IVC patent. Abdominal wall: Extensive swelling and hyperdensity of the bilateral rectus abdominis in the inferior portion, right greater than left. Diffuse body wall edema greater on the right. Musculoskeletal: Osteopenia. IMPRESSION: 1. Findings consistent with rectus sheath hematoma. The hematoma likely extends into the extraperitoneal pelvis, minimally into the retroperitoneum of the abdomen, and along the right lateral abdominal superficial subcutaneous tissue. The report will be called/faxed according to standard departmental protocol. Electronically signed by: Felipe Malik M.D. 11/13/2017 4:48 PM Dictated Date/Time: 11/13/2017 4:40 PM
[2017-11-13] MEDS ORDERED: PHYTONADIONE INJ 5 MG in SODIUM CHLORIDE 0.9% 50ML 50 ML IV ONE (17:00)
--- NOTE | 2017-11-13 18:06 | EMERGENCY ROOM VISIT NOTE ---
History Report prepared by Lele: Ascencion Morris Under the Supervision of: Dr. Lane Harden D.O. First contact with patient: 14:11 Chief Complaint: STROKE SYMPTOMS Stated Complaint: SLURRED SPEECH Nursing Triage Summary: pt arrived als from [facility], pt states her speech has been altered since sunday pt reports having a stroke in february and she has some deficits from then but the speech problem is new. pt recently treated for celulitis of the leg. pt bp in route 70/50 pt hx of afib, strokes History of Present Illness The patient is a 77 year old female who presents to the Emergency Room with complaints of constant trouble with her speech beginning four days ago. The patient states she had a stroke in February and since then, her speech has been impaired, and she has been weak. She reports she cannot ambulate, and she uses a wheelchair. She states she also has severe arthritis in her knees that makes ambulating difficult. The patient notes her speech worsened yesterday to the point where she had to repeat herself multiple times. She states she was a [facility] for a few days, per her PCP, because her cellulitis was worsening. The patient notes she is on an antibiotic for her cellulitis, but she cannot remember what the name is. The patient reports eating makes her tired, and she has been able to drink okay. She denies any other complaint. Review of EMR shows the patient is on Augmentin. Source of History: patient Onset: four days ago Position: other (global) Quality: other (trouble speaking) Timing: constant Associated Symptoms: + weakness Note: Denies: trouble eating and drinking Review of Systems See HPI for pertinent positives & negatives. A total of 10 systems reviewed and were otherwise negative. Past Medical & Surgical Medical Problems: (1) Diabetes (2) Dyslipidemia (3) HTN (hypertension) (4) Stroke Surgical Problems: (1) History of open heart surgery Family History No pertinent family history Social History Smoking Status: Former Smoker Marital Status: Housing Status: lives with family Current/Historical Medications Scheduled Amoxicillin & Pot Clavulanate (Augmentin 500MG), 500 MG PO TID Atorvastatin (Lipitor), 40 MG PO DAILY Bisacodyl (Dulcolax), 1 SUPP AR PRN UD Carvedilol (Coreg), 25 MG PO BIDM Clopidogrel (Plavix), 75 MG PO DAILY Eucerin (Eucerin), 1 APPLN TOP BID Fluoxetine (Prozac), 10 MG PO DAILY Magnesium Hydroxide (Milk of Magnesia), 30 ML PO UD Mineral Oil (Fleet Oil), 1 UNIT RE PRN UD Valsartan (Diovan), 160 MG PO DAILY Warfarin Sod (Jantoven), 7 MG PO DAILY Scheduled PRN Acetaminophen (Tylenol), 650 MG PO Q6 PRN for Pain or Fever Cyclobenzaprine Hcl (Flexeril), 10 MG PO Q8 PRN for Muscle Spasms Emollient (Eucerin), 1 APPLN TOP Q8 PRN for SOILAGE Ipratropium-Albuterol (Duoneb), 1 TREATMENT INH Q4H PRN for Wheezing Ondansetron Hcl (Zofran), 4 MG PO Q4 PRN for Nausea Oxycodone/Acetaminophen 5MG/325MG (Percocet 5MG/325MG), 1 TABLET PO Q4H PRN for Pain Allergies Coded Allergies: Niacin (Verified Allergy, Intermediate, RASH, 02/23/17) PALPITATIONS Morphine (Verified Allergy, Unknown, unknown, 02/23/17) Penicillins (Verified Allergy, Unknown, unknown, 02/23/17) Physical Exam Vital Signs Date Time Temp Pulse Resp B/P (MAP) Pulse Ox O2 Delivery O2 Flow Rate FiO2 11/13/17 17:57 91 11/13/17 17:19 92 14 105/67 95 11/13/17 16:11 80 20 11/13/17 16:02 116/64 11/13/17 15:56 82 15 11/13/17 15:47 135/63 11/13/17 15:41 77 17 11/13/17 15:32 108/59 11/13/17 15:26 77 17 11/13/17 15:17 113/61 11/13/17 15:11 76 20 11/13/17 15:05 77 16 103/47 98 11/13/17 15:03 102/47 11/13/17 14:31 104/66 11/13/17 14:26 79 20 97 11/13/17 14:17 100/30 11/13/17 14:11 76 16 98 11/13/17 14:03 93 Nasal Cannula 2.0 11/13/17 14:01 107/60 11/13/17 13:57 101/58 11/13/17 13:56 77 21 11/13/17 13:53 78 11/13/17 13:50 36.9 80 20 96/49 93 Room Air 11/13/17 13:46 96/49 Physical Exam VITAL SIGNS: were reviewed as above. GENERAL:Non-toxic in appearance. SKIN: Warm dry and pink. HEAD: Normocephalic and atraumatic. OROPHARYNX: Is clear and dry. NECK: Supple without lymphadenopathy or meningismus. LUNGS: clear. HEART: Regular rate and rhythm. ABDOMEN: Soft and nontender. RECTAL: Guaiac negative. Light brown stool. EXTREMITIES: Warm and well perfused. NEUROLOGICALLY: Converses properly. Generalized weakness. No focal deficits. MUSCULOSKELETAL: Good muscle tone. No evidence of trauma. Medical Decision & Procedures ER Provider Diagnostic Interpretation: Radiology results as stated below per my review and radiologist interpretation: CT SCAN OF THE BRAIN WITHOUT IV CONTRAST CLINICAL HISTORY: Change in mental status. COMPARISON STUDY: CT of the brain dated 02/23/2017. TECHNIQUE: Unenhanced axial CT scan of the brain is performed from the vertex to the skull base. A dose lowering technique was utilized adhering to the principles of ALARA. CT DOSE: 537.48 mGy.cm FINDINGS: Brain parenchyma: There are age-related involutional changes noting mild subcortical and periventricular microangiopathic change. Foci of encephalomalacia in the left desmond and the left cerebellar hemisphere consistent with remote infarcts. There is no hemorrhage, mass effect, or evidence of acute territorial ischemia by CT criteria. Nagy-white matter is preserved. No extra-axial fluid collection is seen. Ventricles, sulci, cisterns: Prominent secondary to involutional change. Intracranial vasculature: There is atherosclerotic calcification of the cavernous carotid and vertebral arteries. Calvarium: Unremarkable. Sinuses and mastoids: The visualized paranasal sinuses are clear. The mastoid air cells are well pneumatized. Orbits: The bony orbits are grossly intact. There are bilateral ocular lens implants. IMPRESSION: 1. There is no hemorrhage, mass effect, or evidence of acute territorial ischemia by CT criteria. 2. 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 Electronically signed by: Juan J Amaya M.D. 11/13/2017 2:47 PM Dictated Date/Time: 11/13/2017 2:45 PM CHEST ONE VIEW PORTABLE CLINICAL HISTORY: EVALUATE ALTERED MENTAL STATUS/WEAKNESS mental status change COMPARISON STUDY: 02/23/2017 FINDINGS: Mild stable cardiomegaly. Prior median sternotomy. Chronic bibasilar atelectatic change. Mid and upper lungs are considered clear. IMPRESSION: Chronic and postoperative change. No acute process. The above report was generated using voice recognition software. It may contain grammatical, syntax or spelling errors. Electronically signed by: Bruce Hemphill M.D. 11/13/2017 2:33 PM Dictated Date/Time: 11/13/2017 2:31 PM ABD/PELVIS IV CONTRAST ONLY CLINICAL HISTORY: 77 years-old Female presenting with r/o retroperitoneal bleeding. TECHNIQUE: Multidetector CT of the abdomen and pelvis was performed after the administration of intravenous contrast. IV contrast: 93 mL of Optiray 320. A dose lowering technique was used consistent with the principles of ALARA (as low as reasonably achievable). COMPARISON: None. CT DOSE (mGy.cm): The estimated cumulative dose is 736.30 mGy.cm. FINDINGS: [employer] topogram: Cholecystectomy clips noted. Lung bases: Minimal basilar opacities, likely atelectasis. Multichamber enlargement of the heart. Coronary artery and aortic valve calcification. No pericardial or pleural effusion. Liver: Normal morphology. No liver lesion. Patent hepatic vasculature. Biliary: Mild biliary ductal prominence likely a reservoir effect in the post cholecystectomy state. Gallbladder surgically absent. Pancreas: Moderate parenchymal atrophy. Spleen: Normal. Adrenal glands: Normal. Kidneys and ureters: Excretion of contrast bilaterally. Renal parenchyma normal. No hydronephrosis. Ureters normal. Bladder: Incompletely evaluated secondary to underdistention. The bladder is decompressed with a Cassidy catheter. Pelvic organs: Uterus and ovaries normal. Bowel: Moderate stool burden in the transverse and right colon. No bowel obstruction. Peritoneal cavity: No free fluid or intraperitoneal gas. Infiltration of the extraperitoneal pelvis along the presacral space and pelvic sidewalls. Trace retroperitoneal fluid in the right lower quadrant. Lymph nodes: No enlarged lymph nodes in the abdomen or pelvis. Vasculature: Atherosclerosis of the abdominal aorta, which demonstrates mild ectasia in the infrarenal portion measuring up to 2.7 cm in maximal transverse dimension. IVC patent. Abdominal wall: Extensive swelling and hyperdensity of the bilateral rectus abdominis in the inferior portion, right greater than left. Diffuse body wall edema greater on the right. Musculoskeletal: Osteopenia. IMPRESSION: 1. Findings consistent with rectus sheath hematoma. The hematoma likely extends into the extraperitoneal pelvis, minimally into the retroperitoneum of the abdomen, and along the right lateral abdominal superficial subcutaneous tissue. The report will be called/faxed according to standard departmental protocol. Electronically signed by: Felipe Malik M.D. 11/13/2017 4:48 PM Dictated Date/Time: 11/13/2017 4:40 PM Laboratory Results 11/13/17 13:25 Red Blood Count 2.94, Mean Corpuscular Volume 91.8, Mean Corpuscular Hemoglobin 28.9, Mean Corpuscular Hemoglobin Concent 31.5, Mean Platelet Volume 9.9, Neutrophils (%) (Auto) 67.1, Lymphocytes (%) (Auto) 19.7, Monocytes (%) (Auto) 11.3, Eosinophils (%) (Auto) 1.3, Basophils (%) (Auto) 0.3, Neutrophils # (Auto ) 6.56, Lymphocytes # (Auto) 1.92, Monocytes # (Auto) 1.10, Eosinophils # (Auto ) 0.13, Basophils # (Auto) 0.03 11/13/17 13:25 Test 11/13/17 13:25 11/13/17 15:30 White Blood Count 9.77 K/uL (4.8-10.8) Red Blood Count 2.94 M/uL (4.2-5.4) Hemoglobin 8.5 g/dL (12.0-16.0) Hematocrit 27.0 % (37-47) Mean Corpuscular Volume 91.8 fL (80-100) Mean Corpuscular Hemoglobin 28.9 pg (25-34) Mean Corpuscular Hemoglobin Concent 31.5 g/dl (32-36) Platelet Count 310 K/uL (130-400) Mean Platelet Volume 9.9 fL (7.4-10.4) Neutrophils (%) (Auto) 67.1 % Lymphocytes (%) (Auto) 19.7 % Monocytes (%) (Auto) 11.3 % Eosinophils (%) (Auto) 1.3 % Basophils (%) (Auto) 0.3 % Neutrophils # (Auto) 6.56 K/uL (1.4-6.5) Lymphocytes # (Auto) 1.92 K/uL (1.2-3.4) Monocytes # (Auto) 1.10 K/uL (0.11-0.59) Eosinophils # (Auto) 0.13 K/uL (0-0.5) Basophils # (Auto) 0.03 K/uL (0-0.2) RDW Standard Deviation 48.9 fL (36.4-46.3) RDW Coefficient of Variation 14.5 % (11.5-14.5) Immature Granulocyte % (Auto) 0.3 % Immature Granulocyte # (Auto) 0.03 K/uL (0.00-0.02) Red Blood Cell Morphology Unremarkable Prothrombin Time 44.1 SECONDS (9.0-12.0) Prothromb Time International Ratio 4.3 (0.9-1.1) Activated Partial Thromboplast Time 51.0 SECONDS (21.0-31.0) Partial Thromboplastin Ratio 2.0 Anion Gap 3.0 mmol/L (3-11) Est Creatinine Clear Calc Drug Dose 60.1 ml/min Estimated GFR () 75.5 Estimated GFR (Non- 65.2 BUN/Creatinine Ratio 20.6 (10-20) Calcium Level 8.3 mg/dl (8.5-10.1) Magnesium Level 2.3 mg/dl (1.8-2.4) Total Bilirubin 0.6 mg/dl (0.2-1) Direct Bilirubin 0.1 mg/dl (0-0.2) Aspartate Amino Transf (AST/SGOT) 40 U/L (15-37) Alanine Aminotransferase (ALT/SGPT) 24 U/L (12-78) Alkaline Phosphatase 62 U/L (45-117) Total Creatine Kinase 529 U/L (26-192) Creatine Kinase MB 3.2 ng/ml (0.5-3.6) Creatine Kinase MB Ratio 0.6 (0-3.0) Troponin I < 0.015 ng/ml (0-0.045) Total Protein 6.1 gm/dl (6.4-8.2) Albumin 2.2 gm/dl (3.4-5.0) Lipase 92 U/L (73-393) Thyroid Stimulating Hormone (TSH) 3.110 uIu/ml (0.300-4.500) Urine Color YELLOW Urine Appearance CLOUDY (CLEAR) Urine pH 5.0 (4.5-7.5) Urine Specific [place] 1.014 (1.000-1.030) Urine Protein NEG (NEG) Urine Glucose (UA) NEG (NEG) Urine Ketones NEG (NEG) Urine Occult Blood NEG (NEG) Urine Nitrite NEG (NEG) Urine Bilirubin NEG (NEG) Urine Urobilinogen NEG (NEG) Urine Leukocyte Esterase NEG (NEG) Urine WBC (Auto) 1-5 /hpf (0-5) Urine RBC (Auto) 0-4 /hpf (0-4) Urine Hyaline Casts (Auto) 1-5 /lpf (0-5) Urine Epithelial Cells (Auto) 10-20 /lpf (0-5) Urine Bacteria (Auto) NEG (NEG) Laboratory results as stated above per my review. Medications Administered Medications (Trade) Dose Ordered Sig/Isidra Route Start Time Stop Time Status Last Admin Dose Admin Sodium Chloride 1,000 ml @ 999 mls/hr Q1H1M STAT IV 11/13/17 14:20 11/13/17 15:20 DC 11/13/17 14:20 999 MLS/HR Phytonadione 5 mg/ Sodium Chloride 50.5 ml @ 101 mls/hr ONE ONCE IV 11/13/17 17:00 11/13/17 17:29 DC 11/13/17 17:24 101 MLS/HR ECG Indication: weakness Rate (beats per minute): 78 Rhythm: normal sinus Findings: no acute ischemic change, no ectopy ED Course 1415: Previous medical records were reviewed. The patient was evaluated in room B10. A complete history and physical examination was performed. 1420: Ordered Sodium Chloride 1000 ml @ 999 mls/hr IV 1554: I reevaluated the patient and performed a rectal exam. Refer to the PE for further information. 1700: Ordered Phytonadione 5mg/Sodium Chloride 50.5 ml @ 101 mls/hr Protocol IV 1721: I discussed the patient's case with Dr. Antoine, [facility] Hospitalist. He states give the patient blood and FFP. Medical Decision Differential includes acute coronary syndrome, myocardial infarction, CVA, TIA, anemia, infection, pneumonia, UTI, pyelonephritis, poor nutrition, dehydration, electrolyte disturbance,hypoglycemia. This is a 77-year-old female who presents to the ED with a chief complaint of some trouble speaking. The patient states that it started on Sunday. Him and started as early as Sunday evening. It seemed to be worse yesterday. The patient has no other specific complaints. She does report a history of CVA. She has some chronic generalized weakness and was recently placed in the [facility] for this. The patient denies any headaches, chest pains or shortness of breath. On exam the patient's mouth was dry. Her vital signs are normal. She was reportedly hypotensive in route here with a blood pressure around 70 systolic by EMS. The blood pressure when I saw her was 109 systolic. The patient currently is on Augmentin for cellulitis of the lower extremities. She has been taking this for the past 4 days. She is not had any diarrhea. The patient's exam did not reveal any focal neurologic deficits. She has generalized weakness primarily to the lower extremities but less so in the upper extremities. She reports that she has been wheelchair-bound since being placed at [facility] last week. The patient currently. Some of her speech difficulty might be related to her dry mouth and dry tongue. A twelve- lead EKG reveals a normal sinus rhythm at a rate of 78. CT scan of the head did not show acute process. There are some chronic strokelike findings. Chest x-ray did not show acute disease. Complete metabolic panel was unremarkable. Hemoglobin is 8.5. INR is 4.3. Troponin was negative and a TSH was normal. Hemoglobin was 10.4, 3 days ago. Guaiac testing of stool is guaiac negative light brown stool. CT scan of the abdomen and pelvis reveals a rectal she hematoma. Details noted above. I did order the patient 5 mg of vitamin K. The hospitalist I spoke with requested that the patient be given FFP as well as 1 unit of packed RBCs. This has been ordered. Medication Reconcilliation Current Medication List: was personally reviewed by me Blood Pressure Screening Patient's blood pressure: Low blood pressure Monitored by hospitalist. Consults Time Called: 1700 Consulting Physician: Dr. Antoine [facility] Hospitalist Returned Call: 1721 I discussed the patient's case with Dr. Antoine [facility] Hospitalist. He states give the patient blood and FFP. Impression Primary Impression: Anemia Additional Impressions: Rectus sheath hematoma Elevated INR Scribe Attestation The scribe's documentation has been prepared under my direction and personally reviewed by me in its entirety. I confirm that the note above accurately reflects all work, treatment, procedures, and medical decision making performed by me. Departure Information Dispostion Being Evaluated By Hospitalist Referrals Ksenia Lund (PCP) Patient Instructions My [facility] Health Problem Qualifiers
[2017-11-13] MEDS ORDERED: MAGNESIUM HYDROXIDE SUSP 30 ML UDC PO PRN ×2 (19:30→19:45)
[2017-11-13] MEDS ORDERED: ALBUT/IPRATROP 3MG/0.5MG NEB 3 ML VIAL INH PRN (19:30)
[2017-11-13] MEDS ORDERED: ACETAMINOPHEN 325 MG TAB PO PRN ×2 (19:30→19:45)
[2017-11-13] MEDS ORDERED: ALUMINUM/MAGNESIUM/SIMETH (MAALOX MAX) 30 ML UDC PO PRN (19:45)
[2017-11-13] MEDS ORDERED: ZOLPIDEM TARTRATE 5 MG TAB PO PRN (19:45)
[2017-11-13] MEDS ORDERED: ONDANSETRON INJ 2 MG/ML 2 ML VIAL ONE (20:07)
[2017-11-13] MEDS: OXYCODONE/ACETAMINOPHEN 5-325 TAB PO PRN (20:12)
--- NOTE | 2017-11-13 20:12 | History and Physical ---
History & Physical Date & Time of Service: Nov 13, 2017 at 19:53 Chief Complaint: Slurred Speech Primary Care Physician: Amish Denise M.D. History of Present Illness Source: patient, family, partner 77 year old female with past medical history of dyslipidemia, hypertension, CAD status post CABG, was recently discharged from [facility] to rehabilitation after being treated for left lower ext on chin of tibia. She was on amoxicillin on rehabilitation. She takes Coumadin for atrial fibrillation. She is also on Plavix for a previous CABG surgery. She felt severely fatigued, weak and had abdominal pain. Pain is mild to severe in the lower part of her abdomen. As per family also started to having some slurred speech from her severe weakness that improved after hydration in ED. CT scan abdomen was done in the ED and showed a rectus sheath hematoma She also was found to have Coumadin coagulopathy , INR 4.6 Hemoglobin dropped from 10.4 to 8.5 She will be admitted for further evaluation of and management Denies any blood in the urine or in the stool Past Medical/Surgical History Medical Problems: (1) Diabetes Status: Chronic (2) Dyslipidemia Status: Chronic (3) HTN (hypertension) Status: Chronic (4) Stroke Status: Resolved Surgical Problems: (1) History of open heart surgery Status: Resolved Family History No pertinent family history Social History Smoking Status: Former Smoker Marital Status: Multi-Drug Resistant Organisms History of MDRO: No Allergies Coded Allergies: Niacin (Verified Allergy, Intermediate, RASH, 02/23/17) PALPITATIONS Morphine (Verified Allergy, Unknown, unknown, 02/23/17) Penicillins (Verified Allergy, Unknown, unknown, 02/23/17) Home Medications Scheduled Amoxicillin & Pot Clavulanate (Augmentin 500MG), 500 MG PO TID Atorvastatin (Lipitor), 40 MG PO DAILY Bisacodyl (Dulcolax), 1 SUPP ME PRN UD Carvedilol (Coreg), 25 MG PO BIDM Clopidogrel (Plavix), 75 MG PO DAILY Eucerin (Eucerin), 1 APPLN TOP BID Fluoxetine (Prozac), 10 MG PO DAILY Magnesium Hydroxide (Milk of Magnesia), 30 ML PO UD Mineral Oil (Fleet Oil), 1 UNIT RE PRN UD Valsartan (Diovan), 160 MG PO DAILY Warfarin Sod (Jantoven), 7 MG PO DAILY Scheduled PRN Acetaminophen (Tylenol), 650 MG PO Q6 PRN for Pain or Fever Cyclobenzaprine Hcl (Flexeril), 10 MG PO Q8 PRN for Muscle Spasms Emollient (Eucerin), 1 APPLN TOP Q8 PRN for SOILAGE Ipratropium-Albuterol (Duoneb), 1 TREATMENT INH Q4H PRN for Wheezing Ondansetron Hcl (Zofran), 4 MG PO Q4 PRN for Nausea Oxycodone/Acetaminophen 5MG/325MG (Percocet 5MG/325MG), 1 TABLET PO Q4H PRN for Pain Review of Systems Constitutional: + weakness, + fatigue, No fever, No chills, No sweats, No weight loss, No problem reported Eyes: No worsening of vision, No eye pain, No redness, No discharge, No diplopia, No problem reported ENT: No hearing loss, No unusual epistaxis, No nasal symptoms, No sore throat, No tinnitus, No dental problems, No trouble swallowing, No problem reported Respiratory: No cough, No sputum, No wheezing, No shortness of breath, No dyspnea on exertion, No dyspnea at rest, No hemoptysis, No problem reported Cardiovascular: No chest pain, No orthopnea, No PND, No edema, No claudication , No palpitations, No problem reported Abdomen: + pain, No nausea, No vomiting, No diarrhea, No constipation, No GI bleeding, No problem reported Musculoskeletal: No joint pain, No muscle pain, No swelling, No calf pain, No problem reported Genitourinary - Female: No dysuria, No urinary frequency, No urinary urgency, No urinary incontinence, No urinary retention, No hematuria, No dysmenorrhea, No menorrhagia, No metrorrhagia, No rash, No vaginal bleeding, No vaginal discharge, No vaginal itching, No vulvodynia, No , No problem reported Neurologic: No memory loss, No paralysis, No weakness, No numbness/tingling, No vertigo, No balance problems, No problem reported Psychiatric: No depression symptoms, No anhedonism, No anxiety, No insomnia, No substance abuse, No problem reported Hematologic / Lymphatic: No abnormal bleeding/bruising, No clotting problems, No swollen lymph nodes, No night sweats, No problem reported Integumentary: No rash, No itch, No new/changing skin lesions, No color change , No bleeding, No problem reported Allergic / Immunologic: No environmental allergies, No seasonal allergies, No pet sensitivities, No food allergies, No hives, No frequent infections, No poor healing, No prolonged convalescence, No problem reported Physical Exam Vital Signs Date Time Temp Pulse Resp B/P (MAP) Pulse Ox O2 Delivery O2 Flow Rate FiO2 11/13/17 19:00 36.7 84 18 119/65 98 11/13/17 18:50 36.6 88 18 114/71 98 11/13/17 18:44 37.0 90 20 112/53 96 Room Air 11/13/17 18:32 116/69 11/13/17 18:31 90 19 11/13/17 18:17 115/63 11/13/17 18:16 90 22 11/13/17 18:02 127/67 11/13/17 18:01 95 33 93 11/13/17 17:57 91 11/13/17 17:47 104/60 11/13/17 17:46 91 19 93 11/13/17 17:31 95 18 126/65 95 11/13/17 17:19 92 14 105/67 95 11/13/17 17:18 105/67 11/13/17 17:16 91 22 97 11/13/17 17:01 90 21 93 11/13/17 16:17 117/58 11/13/17 16:16 80 30 11/13/17 16:11 80 20 11/13/17 16:02 116/64 11/13/17 15:56 82 15 11/13/17 15:47 135/63 11/13/17 15:41 77 17 11/13/17 15:32 108/59 11/13/17 15:26 77 17 11/13/17 15:17 113/61 11/13/17 15:11 76 20 11/13/17 15:05 77 16 103/47 98 11/13/17 15:03 102/47 11/13/17 14:31 104/66 11/13/17 14:26 79 20 97 11/13/17 14:17 100/30 11/13/17 14:11 76 16 98 11/13/17 14:03 93 Nasal Cannula 2.0 11/13/17 14:01 107/60 11/13/17 13:57 101/58 11/13/17 13:56 77 21 11/13/17 13:53 78 11/13/17 13:50 36.9 80 20 96/49 93 Room Air 11/13/17 13:46 96/49 General Appearance: + mild distress Eyes: normal inspection, EOMI ENT: normal ENT inspection, hearing grossly normal Neck: supple Respiratory/Chest: chest non-tender, lungs clear, normal breath sounds, no respiratory distress, no accessory muscle use Cardiovascular: regular rate, rhythm, no edema, no gallop, no JVD, no murmur, normal peripheral pulses Abdomen/GI: normal bowel sounds, soft, no organomegaly, no pulsatile mass, + tenderness Back: normal inspection Extremities/Musculoskelatal: normal inspection, no calf tenderness, + pertinent finding (left lower extremity chin off TPN has 2 x 5 cm superficial wound) Neurologic/Psych: model and dye person II-XII nml as tested, no motor/sensory deficits, alert, normal mood/affect, normal reflexes, oriented x 3 Skin: normal color, warm/dry, no rash Diagnostics Laboratory Results Results Past 24 Hours Test 11/13/17 13:25 11/13/17 15:30 11/13/17 19:33 Range/Units White Blood Count 9.77 4.8-10.8 K/uL Red Blood Count 2.94 4.2-5.4 M/uL Hemoglobin 8.5 12.0-16.0 g/dL Hematocrit 27.0 37-47 % Mean Corpuscular Volume 91.8 80-100 fL Mean Corpuscular Hemoglobin 28.9 25-34 pg Mean Corpuscular Hemoglobin Concent 31.5 32-36 g/dl Platelet Count 310 130-400 K/uL Mean Platelet Volume 9.9 7.4-10.4 fL Neutrophils (%) (Auto) 67.1 % Lymphocytes (%) (Auto) 19.7 % Monocytes (%) (Auto) 11.3 % Eosinophils (%) (Auto) 1.3 % Basophils (%) (Auto) 0.3 % Neutrophils # (Auto) 6.56 1.4-6.5 K/uL Lymphocytes # (Auto) 1.92 1.2-3.4 K/uL Monocytes # (Auto) 1.10 0.11-0.59 K/uL Eosinophils # (Auto) 0.13 0-0.5 K/uL Basophils # (Auto) 0.03 0-0.2 K/uL RDW Standard Deviation 48.9 36.4-46.3 fL RDW Coefficient of Variation 14.5 11.5-14.5 % Immature Granulocyte % (Auto) 0.3 % Immature Granulocyte # (Auto) 0.03 0.00-0.02 K/uL Red Blood Cell Morphology Unremarkable Prothrombin Time 44.1 9.0-12.0 SECONDS Prothromb Time International Ratio 4.3 0.9-1.1 Activated Partial Thromboplast Time 51.0 21.0-31.0 SECONDS Partial Thromboplastin Ratio 2.0 Sodium Level 138 136-145 mmol/L Potassium Level 4.4 3.5-5.1 mmol/L Chloride Level 102 98-107 mmol/L Carbon Dioxide Level 33 21-32 mmol/L Anion Gap 3.0 3-11 mmol/L Blood Urea Nitrogen 18 7-18 mg/dl Creatinine 0.86 0.60-1.20 mg/dl Est Creatinine Clear Calc Drug Dose 60.1 ml/min Estimated GFR () 75.5 Estimated GFR (Non- 65.2 BUN/Creatinine Ratio 20.6 10-20 Random Glucose 93 70-99 mg/dl Calcium Level 8.3 8.5-10.1 mg/dl Magnesium Level 2.3 1.8-2.4 mg/dl Total Bilirubin 0.6 0.2-1 mg/dl Direct Bilirubin 0.1 0-0.2 mg/dl Aspartate Amino Transf (AST/SGOT) 40 15-37 U/L Alanine Aminotransferase (ALT/SGPT) 24 12-78 U/L Alkaline Phosphatase 62 45-117 U/L Total Creatine Kinase 529 26-192 U/L Creatine Kinase MB 3.2 0.5-3.6 ng/ml Creatine Kinase MB Ratio 0.6 0-3.0 Troponin I < 0.015 0-0.045 ng/ml Total Protein 6.1 6.4-8.2 gm/dl Albumin 2.2 3.4-5.0 gm/dl Lipase 92 73-393 U/L Thyroid Stimulating Hormone (TSH) 3.110 0.300-4.500 uIu/ml Urine Color YELLOW Urine Appearance CLOUDY CLEAR Urine pH 5.0 4.5-7.5 Urine Specific [place] 1.014 1.000-1.030 Urine Protein NEG NEG Urine Glucose (UA) NEG NEG Urine Ketones NEG NEG Urine Occult Blood NEG NEG Urine Nitrite NEG NEG Urine Bilirubin NEG NEG Urine Urobilinogen NEG NEG Urine Leukocyte Esterase NEG NEG Urine WBC (Auto) 1-5 0-5 /hpf Urine RBC (Auto) 0-4 0-4 /hpf Urine Hyaline Casts (Auto) 1-5 0-5 /lpf Urine Epithelial Cells (Auto) 10-20 0-5 /lpf Urine Bacteria (Auto) NEG NEG Microbiology Results 11/13/17 Urine Culture, Received Pending Impression Assessment and Plan 77-year-old female with past medical history of CAD status post CABG, hypertension, dyslipidemia, atrial fibrillation on Coumadin presented to the ED with abdominal pain, slurred speech, generalized weakness and fatigue. CT scan head was normal CT scan of abdomen showed a rectus sheath hematoma, labs showed significant hemoglobin drop Assessment Acute rectus sheath hematoma Acute blood loss anemia Coumadin coagulopathy Start speech secondary to anemia and weakness, improved Hypertension currently borderline hypotensive Dyslipidemia Chronic multiple strokes on CT scan head new since February 2017 Paroxysmal A. fib on Coumadin, currently sinus rhythm CAD status post CABG Severe bilateral knee arthritis Left lower extremity cellulitis Plan Hold Coumadin, one unit fresh frozen plasma, one unit packed RBCs Check hemoglobin level every 12 hours Family assured me that patient does not have any prosthetic heart valve and have no history of blood clots, Coumadin is given only for atrial fibrillation Gentle IV fluid hydration Pain control Hold blood pressure medications, except beta ingrid, will lower the dose Hold Plavix, family assured me patient has no stents Lower extremity cellulitis, hold antibiotics, wound appear to be clean, start patient on lactobacillus, wound care consult SCD boot for DVT prophylaxis VTE Prophylaxis VTE Risk Assessment Done? Y/N: Yes Risk Level: High
--- NOTE | 2017-11-13 22:15 | NUR ---
Pt received from ed with c/o altered mental status and changes in speech. she is oriented to person. c/o generalized pain particularly in both legs. ulceration with small amounts of bloody drainage noted to right graham. vital signs stable on 2 liters nasal o2. lungs are diminished, shallow resp effort. nsr 70s on desk monitor. trace lower extremity edema. romero catheter patent for yellow urine. iv saline lock patent. oriented to room and call valle. call valle in reach. no family present at this time and no contact number left on chart. care assumed by Dipesh JONES pts primary nurse.
[2017-11-13] MEDS: SODIUM CHLORIDE 0.9% 1000ML 1,000 ML IV SCH (22:52)
[2017-11-13 22:57] LABS: HEMATOCRIT 27.5 % (37-47); HEMOGLOBIN 9.1 g/dL (12.0-16.0)
--- NOTE | 2017-11-14 | NUR ---
pt sleeping,no needs at this time,call valle in reach,will continue to monitor
--- NOTE | 2017-11-14 04:00 | NUR ---
aa&ox4,medicated for pain,repositioning q2h,call valle in reach,will continue to monitor
[2017-11-14 04:02] VITALS: BP 128/74; PULSE 85; TEMP 37.5; O2SAT 97
[2017-11-14] MEDS: OXYCODONE/ACETAMINOPHEN 5-325 TAB PO PRN ×3 (04:39→20:22)
[2017-11-14] MEDS: ONDANSETRON INJ 2 MG/ML 2 ML VIAL IV PRN (04:41)
[2017-11-14 06:15] LABS: BASO % 0.4 %; BASO ABS # 0.04 K/uL (0-0.2); EOS % 1.6 %; EOS ABS # 0.15 K/uL (0-0.5); HEMATOCRIT 28.2 % (37-47); HEMOGLOBIN 9.3 g/dL (12.0-16.0); IG# 0.03 K/uL (0.00-0.02); LYMPH % 12.6 %; LYMPH ABS # 1.21 K/uL (1.2-3.4); MEAN CELL VOLUME 90.7 fL (80-100); MEAN CORPUSCULAR HEMOGLOBIN 29.9 pg (25-34); MEAN PLATELET VOLUME 9.6 fL (7.4-10.4); MONO % 10.9 %; MONO ABS # 1.05 K/uL (0.11-0.59); NEUT % 74.2 %; NEUT ABS # 7.11 K/uL (1.4-6.5); PLATELET COUNT 286 K/uL (130-400); RED CELL DISTRIBUTION WIDTH CV 14.8 % (11.5-14.5); RED CELL DISTRIBUTION WIDTH SD 49.1 fL (36.4-46.3); WHITE BLOOD COUNT 9.59 K/uL (4.8-10.8)
[2017-11-14 06:46] LABS: ALBUMIN 2.3 gm/dl (3.4-5.0); CALCIUM 8.2 mg/dl (8.5-10.1); CREATININE 0.62 mg/dl (0.60-1.20)
[2017-11-14 08:00] VITALS: BP 118/69; PULSE 79; TEMP 36.6; O2SAT 97
[2017-11-14] MEDS ORDERED: INFLUENZA ADMINISTRATION CHARGE ONE (08:00)
[2017-11-14] MEDS ORDERED: INFLUENZA VIRUS QUAD VACCINE 0.5 ML SYR IM. ONE (08:00)
[2017-11-14] MEDS ORDERED: PNEUMOCOCCAL ADMINISTRATION CHARGE ONE (08:00)
[2017-11-14] MEDS ORDERED: PNEUMOCOCCAL POLYSACCHARIDES 25 MCG/0.5 ML VIAL/SYR IM. ONE (08:00)
--- NOTE | 2017-11-14 08:00 | NUR ---
a: assessment completed, no changes noted from prev shift verbal report. alert/oriented. speech slurred, hx cva with residual. ble contracted with legs flexed at knee and hip. lungs cta/dim. spo2 mid 90s on 1lpm o2 nc. SR. vss/afeb. refused breakfast despite encouragement, refused to discuss menu with kitchen aid. chronic fc. optifoam c/d/i R pretib. old scabbed area L pretib open to air. ns 25 cc/h. repositioned, elevated heels and placed pillow btwn knees. reviewed plan of care.
--- NOTE | 2017-11-14 09:35 | Clinical Documentation Query ---
MESERET Gusman : CLINICAL DOCUMENTATION QUERY Patient is a 77 year old female admitted for evaluation of abdominal pain, weakness, fatigue, and slurred speech. Assessment revealed an acute rectus sheath hematoma and acute blood loss anemia in the setting of Coumadin and Plavix use with INR of 4.3. Coumadin held, Plavix held, FFP transfused, unit of PRBC's transfused, IVF, serial hematology. As appropriate, consider documentation as suggested below as this impacts severity of illness and risk of mortality. In your clinical opinion is this patient being managed for: ( x ) Hemorrhagic disorder due to extrinsic circulating anticoagulants (Coumadin, Plavix) ( ) Not Agree ( ) Other explanation of clinical findings (Please Explain) ( ) Unable to determine (Please Define) ( ) Need to Discuss The medical record reflects the following clinical findings, treatment, and risk factors. Clinical Indicators: As above Treatment: Coumadin held, Plavix held, FFP transfused, unit of PRBC's transfused, IVF, serial hematology Risk Factors: Coumadin and Plavix use, INR 4.3, age CC: Bleeding d/t Therapeutic Anticoagulation Coding [facility] [id number], p14 Question: Should bleeding due to therapeutic anticoagulant be coded as a hemorrhagic disorder (category D68)? Answer: For the most part, "hemorrhagic disorder" or "coagulation defects" must be specifically diagnosed and documented by the provider, in order to assign codes at category D68, Other coagulation defects. However, for bleeding such as hemoptysis, hematuria, hematemesis, hematochezia, etc., that is associated with a drug, as part of anticoagulation therapy, assign code D68.32, Hemorrhagic disorder due to extrinsic circulating anticoagulants. This is supported by the inclusion term at D68.32 of "Drug-induced hemorrhagic disorder." The sequencing of code D68.32 and other codes describing the type or site of bleeding, (e.g., hemoptysis or hematuria), would be dependent on the circumstances of the admission. Copyright (2017), [employer] [facility] [employer] ("[employer]"), [place], [place]. Reproduced with permission. No portion of this publication may be copied without the express, written consent of [employer]. Please clarify and document your clinical opinion in the progress notes and discharge summary. Terms such as "probable", "suspected", "likely", "questionable", "possible", or "still to be ruled out" are acceptable. IF IN AGREEMENT, YOU MUST DOCUMENT ABOVE DIAGNOSTIC STATEMENT IN DAILY PROGRESS NOTES AND DISCHARGE SUMMARY. This document is not part of the patient's record. Thank You, Jose Salmon, KAREN [phone]
[2017-11-14] MEDS: LACTOBACILLUS ACIDOPHILUS 1 GM PACK PO SCH ×3 (09:44→16:44)
[2017-11-14] MEDS: EUCERIN CR 120 GM JAR EXT SCH ×2 (09:45→20:20)
[2017-11-14] MEDS: CARVEDILOL 25 MG TAB PO SCH ×2 (09:45→16:47)
[2017-11-14] MEDS: ATORVASTATIN 20 MG TAB PO SCH (09:46)
[2017-11-14] MEDS: FLUOXETINE HCL 10 MG CAP PO SCH (09:46)
[2017-11-14 10:21] LABS: INR 1.1 (0.9-1.1)
--- NOTE | 2017-11-14 11:14 | NUR ---
c/o ble pain, medicated with tylenol. bedside
[2017-11-14 12:00] VITALS: BP 119/77; PULSE 74; TEMP 36.4; O2SAT 99
--- NOTE | 2017-11-14 12:00 | NUR ---
a: repositioned, "comfortable". reassessed as charted, no changes. vss/afeb. spo2 hi 90s on 1lpm O2 via nc, discontinued nc.
--- NOTE | 2017-11-14 14:30 | NUR ---
Finished PT. PT gave a good explanation to pt of how contractures occur and how they can be reversed. pt asked for pain med, percoset in particular. said "always take medicine for nausea at the same time". po zofran and 1 percoset given for ble pain after stretching contracted lower extremities.
[2017-11-14] MEDS: ONDANSETRON 4 MG TAB PO PRN ×2 (14:33→20:22)
[2017-11-14] MEDS: POLYETHYLENE (MIRALAX) 17 GM PACK PO PRN (14:38)
--- NOTE | 2017-11-14 14:39 | NUR ---
pt states "no bm for a week". offered and pt accepted miralax.
--- NOTE | 2017-11-14 14:48 | NUR ---
Case management note. Pt identified on screening tool as living in snf. Spoke with pt and with permission . Pt does not want to return to [facility]. Pt is dependent with adl's. Pt agreeable to snf. List of snf's given. Pt and choose referral to [facility]. With permission made referrals. [employer] to fax. Will need insurance auth prior to discharge. Case management to follow with pt.
--- NOTE | 2017-11-14 15:05 | NUR ---
CWOCN: RECEIVED REQUEST FOR CONSULT, RE: LEFT LOWER EXT ON CHIN OF TIBIA. FOUND LARGE SUPERFICIAL OPEN BLISTER RIGHT LOWER LEG. WOUND BED CLEAN. RE-EPITHELIZATION NOTED ALONG EDGES. NO SURROUNDING ERYTHEMA. LARGE AMOUNT OF SEROSANGUINEOUS DRAINAGE NOTED ON DRESSING REMOVED. WILL COVER WITH AQUACEL AG AND OPTIFOAM.
--- NOTE | 2017-11-14 15:08 | Progress Note ---
Subjective Date of Service: Nov 14, 2017. Subjective pt is tearful laying on her side saying she does not know where she is or what is happening to her, came here from [facility] with some change in mentation and was found to have a rectus sheath hematoma with pre hospital use of plavix and coumadin. She remains stable with only some abdominal pain, she otherwise has fairly fluent speech. Problem List Medical Problems: (1) Acute right-sided weakness Status: Acute (2) Altered mental status Status: Acute (3) Anemia Status: Acute (4) Elevated INR Status: Acute (5) Rectus sheath hematoma Status: Acute (6) Respiratory failure Status: Acute (7) Vertigo Status: Acute Review of Systems Constitutional: + weakness, No fever, No chills Respiratory: No cough, No shortness of breath, No dyspnea on exertion Cardiac: + edema, No chest pain Abdomen: + pain, No nausea, No vomiting, No diarrhea, No constipation Musculoskeletal: No joint pain, No muscle pain Psychiatric: No depression symptoms, No anxiety Objective Vital Signs Date Time Temp Pulse Resp B/P (MAP) Pulse Ox O2 Delivery O2 Flow Rate FiO2 11/14/17 12:00 36.4 74 20 119/77 (91) 99 Nasal Cannula 1.0 11/14/17 12:00 Nasal Cannula 11/14/17 08:00 Nasal Cannula 2.0 11/14/17 08:00 36.6 79 20 118/69 (85) 97 Nasal Cannula 1.0 11/14/17 04:02 37.5 85 18 128/74 (92) 97 11/14/17 04:00 Nasal Cannula 2.0 11/14/17 00:00 Nasal Cannula 2.0 11/13/17 22:37 37.1 80 19 107/67 94 Nasal Cannula 2.0 11/13/17 21:48 139/96 11/13/17 21:37 87 18 81 11/13/17 21:32 154/89 11/13/17 21:28 36.8 82 18 155/91 98 11/13/17 21:22 83 17 11/13/17 21:17 155/93 11/13/17 21:15 36.7 84 14 155/93 97 11/13/17 21:12 84 23 11/13/17 21:02 132/95 11/13/17 20:57 87 14 11/13/17 20:47 159/82 11/13/17 20:45 36.5 84 16 159/82 97 11/13/17 20:42 85 20 11/13/17 20:32 134/77 11/13/17 20:27 85 19 98 11/13/17 20:17 139/78 11/13/17 20:15 36.8 84 14 136/78 99 11/13/17 20:12 86 15 96 11/13/17 20:02 135/78 11/13/17 20:00 36.6 86 20 135/78 97 11/13/17 19:57 86 10 94 11/13/17 19:46 122/75 11/13/17 19:45 36.7 84 16 122/75 98 11/13/17 19:42 85 16 97 11/13/17 19:40 36.7 84 18 122/68 97 11/13/17 19:37 85 9 132/77 95 11/13/17 19:35 36.6 84 16 132/77 98 11/13/17 19:31 129/81 11/13/17 19:29 36.7 86 16 129/81 98 11/13/17 19:22 84 17 11/13/17 19:17 120/73 11/13/17 19:07 87 12 11/13/17 19:02 119/65 11/13/17 19:01 132/65 11/13/17 19:00 36.7 84 18 119/65 98 11/13/17 18:52 88 21 114/71 96 11/13/17 18:50 36.6 88 18 114/71 98 11/13/17 18:47 136/66 11/13/17 18:44 112/53 11/13/17 18:44 37.0 90 20 112/53 96 Room Air 11/13/17 18:37 86 20 82 11/13/17 18:32 116/69 11/13/17 18:31 90 19 11/13/17 18:17 115/63 11/13/17 18:16 90 22 11/13/17 18:02 127/67 11/13/17 18:01 95 33 93 11/13/17 17:57 91 11/13/17 17:47 104/60 11/13/17 17:46 91 19 93 11/13/17 17:31 95 18 126/65 95 11/13/17 17:19 92 14 105/67 95 11/13/17 17:18 105/67 11/13/17 17:16 91 22 97 11/13/17 17:01 90 21 93 11/13/17 16:17 117/58 11/13/17 16:16 80 30 11/13/17 16:11 80 20 11/13/17 16:02 116/64 11/13/17 15:56 82 15 11/13/17 15:47 135/63 11/13/17 15:41 77 17 11/13/17 15:32 108/59 11/13/17 15:26 77 17 11/13/17 15:17 113/61 11/13/17 15:11 76 20 11/13/17 15:05 77 16 103/47 98 11/13/17 15:03 102/47 Physical Exam General Appearance: WD/WN, + moderate distress Eyes: normal inspection, sclerae normal Neck: supple, no JVD Respiratory/Chest: chest non-tender, + decreased breath sounds Cardiovascular: regular rate, rhythm, no murmur Abdomen: normal bowel sounds, soft, + tenderness Extremities: no pedal edema, no calf tenderness Neurologic/Psychiatric: alert, oriented x 3 Laboratory Results Last 24 Hours Test 11/13/17 15:30 11/13/17 22:34 11/14/17 05:39 11/14/17 09:26 Urine Color YELLOW Urine Appearance CLOUDY Urine pH 5.0 Urine Specific [place] 1.014 Urine Protein NEG Urine Glucose (UA) NEG Urine Ketones NEG Urine Occult Blood NEG Urine Nitrite NEG Urine Bilirubin NEG Urine Urobilinogen NEG Urine Leukocyte Esterase NEG Urine WBC (Auto) 1-5 /hpf Urine RBC (Auto) 0-4 /hpf Urine Hyaline Casts (Auto) 1-5 /lpf Urine Epithelial Cells (Auto) 10-20 /lpf Urine Bacteria (Auto) NEG Hemoglobin 9.1 g/dL 9.3 g/dL Hematocrit 27.5 % 28.2 % White Blood Count 9.59 K/uL Red Blood Count 3.11 M/uL Mean Corpuscular Volume 90.7 fL Mean Corpuscular Hemoglobin 29.9 pg Mean Corpuscular Hemoglobin Concent 33.0 g/dl Platelet Count 286 K/uL Mean Platelet Volume 9.6 fL Neutrophils (%) (Auto) 74.2 % Lymphocytes (%) (Auto) 12.6 % Monocytes (%) (Auto) 10.9 % Eosinophils (%) (Auto) 1.6 % Basophils (%) (Auto) 0.4 % Neutrophils # (Auto) 7.11 K/uL Lymphocytes # (Auto) 1.21 K/uL Monocytes # (Auto) 1.05 K/uL Eosinophils # (Auto) 0.15 K/uL Basophils # (Auto) 0.04 K/uL RDW Standard Deviation 49.1 fL RDW Coefficient of Variation 14.8 % Immature Granulocyte % (Auto) 0.3 % Immature Granulocyte # (Auto) 0.03 K/uL Sodium Level 138 mmol/L Potassium Level 4.0 mmol/L Chloride Level 105 mmol/L Carbon Dioxide Level 30 mmol/L Anion Gap 3.0 mmol/L Blood Urea Nitrogen 12 mg/dl Creatinine 0.62 mg/dl Est Creatinine Clear Calc Drug Dose 82.8 ml/min Estimated GFR () 100.8 Estimated GFR (Non- 87.0 BUN/Creatinine Ratio 19.5 Random Glucose 102 mg/dl Calcium Level 8.2 mg/dl Total Bilirubin 1.0 mg/dl Aspartate Amino Transf (AST/SGOT) 37 U/L Alanine Aminotransferase (ALT/SGPT) 24 U/L Alkaline Phosphatase 61 U/L Total Protein 6.0 gm/dl Albumin 2.3 gm/dl Globulin 3.7 gm/dl Albumin/Globulin Ratio 0.6 Prothrombin Time 11.4 SECONDS Prothromb Time International Ratio 1.1 Assessment and Plan 77F presented with acute blood loss anemia, hemorrhagic disorder due to extrinsic circulating anticoagulants of coumadin and plavis, with past medical history of CAD status post CABG, hypertension, dyslipidemia, atrial fibrillation Acute blood loss anemia is stable, this is secondary to Coumadin coagulopathy, s /p one unit fresh frozen plasma, one unit packed RBCs Acute rectus sheath hematoma, will not continue anticoagulants and have local pain control Start speech secondary to anemia and weakness, improved, will have PT/OT/Speech evaluation Hypertension reduce dose of b ingrid Dyslipidemia Chronic multiple strokes on CT scan head new since February 2017, will hold plavix with hematoma Paroxysmal A. fib currently sinus rhythm, continue lower dose of b ingrid CAD status post CABG Severe bilateral knee arthritis, tylenol for pain Hold Plavix, family assured me patient has no stents Lower extremity cellulitis, hold antibiotics, wound care consult SCD boot for DVT prophylaxis
[2017-11-14 15:48] VITALS: BP 112/58; PULSE 68; TEMP 36.7; O2SAT 96
--- NOTE | 2017-11-14 16:00 | NUR ---
a: son and dgtrnlaw bedside visiting with pt. pt brightens up considerably with son present. smiling/cooperative, more positive attitude. reassessed as charted.
--- NOTE | 2017-11-14 16:57 | NUR ---
pt told son to "feed me" in this rn's presence. Enc'd pt independence, "exercise", warned against disuse. son supportive of pt independence. pt feeding herself without any difficulties.
[2017-11-14 19:36] VITALS: BP 128/64; PULSE 78; TEMP 36.4; O2SAT 94
--- NOTE | 2017-11-14 20:00 | NUR ---
aa&ox4,repositioned,vss,medicated for pain,call valle in reach,will continue to monitor
[2017-11-14] MEDS: BOOST VANILLA OR BOOST GLUCOSE CONTROL CHOCOLATE PO SCH (20:19)
[2017-11-14 20:49] LABS: HEMATOCRIT 29.5 % (37-47); HEMOGLOBIN 9.3 g/dL (12.0-16.0)
[2017-11-14] MEDS: SODIUM CHLORIDE 0.9% 1000ML 1,000 ML IV SCH (22:42)
[2017-11-14 23:40] VITALS: BP 126/61; PULSE 81; TEMP 37.2; O2SAT 91
[2017-11-15 03:40] VITALS: BP 135/72; PULSE 89; TEMP 37.3; O2SAT 90
--- NOTE | 2017-11-15 04:00 | NUR ---
assessment unchanged,vss,repositioned,call valle in reach,will continue to monitor
[2017-11-15] MEDS: OXYCODONE/ACETAMINOPHEN 5-325 TAB PO PRN ×4 (05:24→21:35)
[2017-11-15 07:29] VITALS: BP 126/66; PULSE 84; TEMP 36.9; O2SAT 93
[2017-11-15] MEDS: LACTOBACILLUS ACIDOPHILUS 1 GM PACK PO SCH ×3 (07:58→17:11)
[2017-11-15] MEDS: CARVEDILOL 25 MG TAB PO SCH ×2 (07:58→17:11)
[2017-11-15] MEDS: EUCERIN CR 120 GM JAR EXT SCH ×2 (07:58→21:00)
[2017-11-15] MEDS: BOOST VANILLA OR BOOST GLUCOSE CONTROL CHOCOLATE PO SCH ×2 (07:59→17:11)
[2017-11-15] MEDS: FLUOXETINE HCL 10 MG CAP PO SCH (08:00)
[2017-11-15] MEDS: ATORVASTATIN 20 MG TAB PO SCH (08:02)
[2017-11-15 08:17] LABS: HEMATOCRIT 30.6 % (37-47); HEMOGLOBIN 10.2 g/dL (12.0-16.0)
--- NOTE | 2017-11-15 09:42 | NUR ---
Case Management: Received call from Kristina at [facility]. They are able to offer pt. a bed when medically stable, case management to follow. Addendum: 11/15/17 at 1411 by Georgina Arechiga SERV [facility] is not able to accept pt. at discharge. Will make pt. aware. Addendum: 11/15/17 at 1450 by Georgina Arechiga SERV Made patient and son aware of SNF availability. They are requesting w/c transport at d/c. Dr. De Oliveira says pt. is ready for d/c. Will fax updates to Leelee at [facility] so she can submit for ins. authLuisa Dixon states that pt. has a meeting with her at 930am Sunday. Updated as well.
[2017-11-15 11:43] VITALS: BP 147/76; PULSE 85; TEMP 36.6; O2SAT 90
--- NOTE | 2017-11-15 12:34 | NUR ---
Pt screened for initiation of PO supplement. Please refer to linked assessment Addendum: 11/15/17 at [address] Amended: Links added.
[2017-11-15] MEDS: ONDANSETRON 4 MG TAB PO PRN ×3 (12:44→21:34)
[2017-11-15 15:46] VITALS: BP 138/71; PULSE 81; TEMP 37.1; O2SAT 93
--- NOTE | 2017-11-15 16:51 | Progress Note ---
Subjective Date of Service: Nov 15, 2017. Subjective this pt is still with significant abdominal pain, she is tearful. Reportedly is checking on alf Problem List Medical Problems: (1) Acute right-sided weakness Status: Acute (2) Altered mental status Status: Acute (3) Anemia Status: Acute (4) Elevated INR Status: Acute (5) Rectus sheath hematoma Status: Acute (6) Respiratory failure Status: Acute (7) Vertigo Status: Acute Review of Systems Constitutional: + weakness, + fatigue, No fever, No chills Respiratory: No cough, No shortness of breath Cardiac: No chest pain, No edema Abdomen: + pain, No nausea, No vomiting, No diarrhea Musculoskeletal: No joint pain, No muscle pain Female : No dysuria, No hematuria Psychiatric: + depression symptoms, + anhedonism, + anxiety Objective Vital Signs Date Time Temp Pulse Resp B/P (MAP) Pulse Ox O2 Delivery O2 Flow Rate FiO2 11/15/17 16:00 Room Air 11/15/17 15:46 37.1 81 18 138/71 (93) 93 Room Air 11/15/17 12:00 Room Air 11/15/17 11:43 36.6 85 18 147/76 (99) 90 11/15/17 08:00 Room Air 11/15/17 07:29 36.9 84 18 126/66 (86) 93 11/15/17 04:00 Room Air 11/15/17 03:40 37.3 89 20 135/72 (93) 90 Room Air 11/15/17 00:00 Room Air 11/14/17 23:40 37.2 81 16 126/61 (82) 91 Room Air 11/14/17 20:00 Room Air 11/14/17 19:36 36.4 78 20 128/64 (85) 94 Room Air Physical Exam General Appearance: WD/WN, + moderate distress Eyes: normal inspection, sclerae normal Respiratory/Chest: chest non-tender, lungs clear, normal breath sounds Cardiovascular: regular rate, rhythm, no murmur Abdomen: normal bowel sounds, soft, + tenderness Extremities: normal range of motion, no calf tenderness Neurologic/Psychiatric: alert, oriented x 3 Laboratory Results Last 24 Hours Test 11/14/17 20:35 11/15/17 08:04 Hemoglobin 9.3 g/dL 10.2 g/dL Hematocrit 29.5 % 30.6 % Assessment and Plan 77F presented with acute blood loss anemia, hemorrhagic disorder due to extrinsic circulating anticoagulants of coumadin and plavix, with past medical history of CAD status post CABG, hypertension, dyslipidemia, atrial fibrillation Acute blood loss anemia is stable, this is secondary to Coumadin coagulopathy, s /p one unit fresh frozen plasma, one unit packed RBCs Acute rectus sheath hematoma, will not continue anticoagulants and have local pain control, she still is painful, but improving Start speech secondary to anemia and weakness, improved, will have PT/OT/Speech evaluation, will need subacute rehab Hypertension reduce dose of b ingrid Dyslipidemia Chronic multiple strokes on CT scan head new since February 2017, will hold plavix with hematoma Paroxysmal A. fib currently sinus rhythm, continue lower dose of b ingrid CAD status post CABG Severe bilateral knee arthritis, tylenol for pain Hold Plavix, family assured me patient has no stents Lower extremity cellulitis, hold antibiotics, wound care consult SCD boot for DVT prophylaxis
[2017-11-15 19:41] VITALS: BP 115/70; PULSE 79; TEMP 36.5; O2SAT 92
[2017-11-15 19:43] LABS: HEMATOCRIT 30.6 % (37-47); HEMOGLOBIN 10.1 g/dL (12.0-16.0)
--- NOTE | 2017-11-15 20:00 | NUR ---
Alert and oriented. family at bedside. no complaints of nausea. NSR, slurred speech. lungs diminished on room air. not oob. saline locked x 2. chronic romero draining clear yellow. SNF upon d/c
[2017-11-15] MEDS ORDERED: NURSING VERBAL MED ORDER ONE (22:00)
[2017-11-15 23:51] VITALS: BP 137/74; PULSE 87; TEMP 36.8; O2SAT 90
[2017-11-16] VITALS (8 sets, daily range): BP systolic 92–136; BP diastolic 56–72; PULSE 73–88; TEMP 36.5–37.2; O2SAT 90–93
--- NOTE | 2017-11-16 | NUR ---
A: Pt alert and oriented, VSS on room air. SR on monitor. Pt denies pain or SOB at this time. Cassidy draining clear yellow urine. D/c plans uncertain at this time. Call valle in reach. Will continue to monitor.
[2017-11-16] MEDS: ONDANSETRON 4 MG TAB PO PRN ×2 (03:30→07:48)
[2017-11-16] MEDS: OXYCODONE/ACETAMINOPHEN 5-325 TAB PO PRN ×3 (03:30→11:50)
--- NOTE | 2017-11-16 04:00 | NUR ---
A: Assessment and vitals as charted. Abdominal pain treated with prn medication. No other needs verbalized at this time. Monitoring to continue.
[2017-11-16] MEDS: CARVEDILOL 25 MG TAB PO SCH ×2 (07:48→18:05)
[2017-11-16] MEDS: EUCERIN CR 120 GM JAR EXT SCH ×2 (07:48→20:14)
[2017-11-16] MEDS: LACTOBACILLUS ACIDOPHILUS 1 GM PACK PO SCH ×3 (07:48→18:03)
[2017-11-16] MEDS: ATORVASTATIN 20 MG TAB PO SCH (07:49)
[2017-11-16] MEDS: FLUOXETINE HCL 10 MG CAP PO SCH (07:49)
[2017-11-16 07:50] LABS: HEMOGLOBIN 9.6 g/dL (12.0-16.0)
[2017-11-16] MEDS: BOOST VANILLA OR BOOST GLUCOSE CONTROL CHOCOLATE PO SCH ×3 (07:51→17:50)
[2017-11-16] MEDS ORDERED: hydrOXYzine HCL 25 MG TAB PO ONE (09:00)
--- NOTE | 2017-11-16 09:08 | NUR ---
pt alert and orientedx4, pt anxious and agitated at times, pt forgets about deficits at times, pt lungs dim on ra no sob noted, pt c/o some pain in lower ext and back this am, Percocet and Zofran given prn, pt am care done and sat on side of bed stated she needed to have a bm, pt sat up on side of bed with crissy Root, went to get bedside commode, pt had slid self onto the floor without any assistance, ski maker wood witnessed pt lower self to floor unable to stop her, pt insisted she was falling and was not, pt slid self to floor, no injuries noted, pt denies injuries, pt anxious at times, sr on monitor, pt has legs contracted by herself attempted to do passive range of motion and pt curls legs into chest, pt uncooperative with passive range of motion, at times very anxious and aggressive, pt given prn meds, carmel pac notified of fall and anxiety new orders received, pt has a open area on ankle area, dressing intact will changed today, pt moved repositioned and turned, pt at bedside and notified. pt resting in bed will continue to monitor call valle and monitor intact.
[2017-11-16] MEDS ORDERED: LORAZEPAM 1 MG TAB PO STA (09:35)
--- NOTE | 2017-11-16 10:32 | NUR ---
pt resting in bed at this time, pt much more calmly no c/o at this time, did not give ativan at this time, pt has calmed down, will continue to monitor call valle and monitor intact.
[2017-11-16] MEDS ORDERED: BISACODYL 10 MG SUPP PR SCH (10:45)
--- NOTE | 2017-11-16 11:35 | NUR ---
Case Management Note- Plan remains for patient to discharge to [facility] when medically stable. Per Dr. De Oliveira, anticipate discharge Sunday. Updated Kristina at [facility] with plan. She already obtained insurance auth and will be ready to accept patient tomorrow. Patient will need wheelchair van for transport. Per previous notes, family aware and agree to out of pocket cost. Will continue to follow. Addendum: 11/16/17 at 1321 by Cadence Gallego SERV Patient transferred to room 453. Unit [employer] to follow.
[2017-11-16] MEDS: ONDANSETRON INJ 2 MG/ML 2 ML VIAL IV PRN ×2 (11:51→18:00)
--- NOTE | 2017-11-16 12:02 | NUR ---
pt in bed resting, pt awake and alert stated she only wanted her boost for lunch and did not want suppository until alittle later at this time, pt resting in bed, no c/o sob, pt given pain pill for c/o back and knee pain, pt turned and repositioned, will continue to monitor awaiting transfer.
--- NOTE | 2017-11-16 14:45 | NUR ---
A note: Patient arrived to floor at 1300, patient family present at bedside, call valle in reach, saline locked, vital signs stable, blood pressure runs hypotensive, patient alert and oriented x4 but is very anxious with slurred speech, patient lung sounds clear on RA, trace generalized edema, all pulses palpable, bowel sounds present, patient reported passing gas, patient has orders to void in the bedside commode, patient currently on bedrest with bathroom privileges, bilateral lower legs dry and flaky, optifoam intact to right ankle, patient pain being controlled with percocet, patient currently sleeping in bed, call valle in reach, will continue to monitor
--- NOTE | 2017-11-16 16:01 | Progress Note ---
Subjective Date of Service: Nov 16, 2017. Subjective pt is with B/L knee pain, has difficulty bearing weight, her abdominal pain is fair, will escalate pain control Problem List Medical Problems: (1) Acute right-sided weakness Status: Acute (2) Altered mental status Status: Acute (3) Anemia Status: Acute (4) Elevated INR Status: Acute (5) Rectus sheath hematoma Status: Acute (6) Respiratory failure Status: Acute (7) Vertigo Status: Acute Review of Systems Constitutional: + weakness, + fatigue, No fever, No chills Eyes: No worsening of vision ENT: No hearing loss, No nasal symptoms Respiratory: No cough, No sputum, No wheezing Cardiac: No chest pain, No orthopnea, No PND Abdomen: + pain, No nausea, No vomiting Musculoskeletal: + joint pain, + muscle pain Female : No dysuria, No hematuria Neurologic: No memory loss, No paralysis Psychiatric: + depression symptoms, + anxiety, No anhedonism Objective Vital Signs Date Time Temp Pulse Resp B/P (MAP) Pulse Ox O2 Delivery O2 Flow Rate FiO2 11/16/17 13:37 36.5 73 20 92/56 (68) 93 Room Air 11/16/17 12:02 Room Air 11/16/17 11:14 36.9 80 16 127/59 (81) 90 11/16/17 10:23 37.0 88 20 92 11/16/17 09:11 37.0 88 20 136/72 (93) 92 11/16/17 08:05 Room Air 11/16/17 04:00 Room Air 11/16/17 03:57 37.2 88 20 131/71 (91) 92 Room Air 11/16/17 00:00 Room Air 11/15/17 23:51 36.8 87 22 137/74 (95) 90 Room Air 11/15/17 19:41 36.5 79 18 115/70 (85) 92 Room Air 11/15/17 19:40 Room Air 11/15/17 16:00 Room Air 11/15/17 15:46 37.1 81 18 138/71 (93) 93 Room Air Physical Exam General Appearance: WD/WN, + mild distress Respiratory/Chest: chest non-tender, lungs clear, normal breath sounds Cardiovascular: regular rate, rhythm, no murmur Abdomen: + guarding, + tenderness Extremities: + pedal edema, + swelling Neurologic/Psychiatric: alert, oriented x 3 Laboratory Results Last 24 Hours Test 11/15/17 19:36 11/16/17 07:31 Hemoglobin 10.1 g/dL 9.6 g/dL Hematocrit 30.6 % 30.0 % Assessment and Plan 77F presented with acute blood loss anemia, hemorrhagic disorder due to extrinsic circulating anticoagulants of coumadin and plavix, with past medical history of CAD status post CABG, hypertension, dyslipidemia, atrial fibrillation Acute blood loss anemia remains stable, this is secondary to Coumadin coagulopathy, s/p one unit fresh frozen plasma, one unit packed RBCs Acute rectus sheath hematoma, will not continue anticoagulants and have local pain control, she still is painful, but improving PT/OT/Speech evaluation, will need subacute rehab, pt did have controlled ground level fall Hypertension reduce dose of b ingrid Dyslipidemia Chronic multiple strokes on CT scan head new since February 2017, will hold plavix with hematoma Paroxysmal A. fib currently sinus rhythm, continue lower dose of b ingrid CAD status post CABG Severe bilateral knee arthritis, tylenol for pain will be BID, voltaren gel and oxycodone Hold Plavix, family assured that has no stents Lower extremity cellulitis, hold antibiotics, wound care consult SCD boot for DVT prophylaxis
[2017-11-16] MEDS: ACETAMINOPHEN 500 MG TAB PO SCH (18:07)
[2017-11-16 19:36] LABS: HEMATOCRIT 29.8 % (37-47); HEMOGLOBIN 9.4 g/dL (12.0-16.0)
[2017-11-16] MEDS: OXYCODONE HCL IR 5 MG TAB (IMMEDIATE RELEASE) PO PRN (20:16)
[2017-11-16] MEDS: POLYETHYLENE (MIRALAX) 17 GM PACK PO PRN (20:20)
[2017-11-16] MEDS: DICLOFENAC SOD 1% GEL 100 GM TUBE EXT SCH (20:43)
--- NOTE | 2017-11-17 05:17 | DIAGNOSTIC IMAGING REPORT ---
L HIP UNILATERAL 2 VIEWS CLINICAL HISTORY: 77 years-old Female presenting with LEFT HIP PAIN. TECHNIQUE: Portable crosstable lateral and frog-leg lateral views of the left hip were obtained. COMPARISON: CT performed on 11/13/2017. FINDINGS: Image quality degraded by portable technique, patient body habitus, and suboptimal positioning. Allowing for this, degenerative change at the right hip joint suspected. Right hip joint congruent. No fracture or malalignment. Cortical convexity along the superior femoral neck may indicate degenerative change or chronic impingement. IMPRESSION: No convincing evidence of a displaced fracture. Degenerative changes of the hip suspected. Electronically signed by: Felipe Malik M.D. 11/17/2017 5:16 AM Dictated Date/Time: 11/17/2017 5:12 AM
[2017-11-17] MEDS: OXYCODONE HCL IR 5 MG TAB (IMMEDIATE RELEASE) PO PRN (05:51)
[2017-11-17] MEDS: ONDANSETRON INJ 2 MG/ML 2 ML VIAL IV PRN (05:55)
[2017-11-17 06:45] LABS: HEMATOCRIT 29.7 % (37-47); HEMOGLOBIN 9.6 g/dL (12.0-16.0); MEAN CELL VOLUME 91.4 fL (80-100); MEAN CORPUSCULAR HEMOGLOBIN 29.5 pg (25-34); MEAN CORPUSCULAR HGB CONC 32.3 g/dl (32-36); MEAN PLATELET VOLUME 9.3 fL (7.4-10.4); PLATELET COUNT 345 K/uL (130-400); RED CELL DISTRIBUTION WIDTH CV 14.3 % (11.5-14.5); RED CELL DISTRIBUTION WIDTH SD 47.8 fL (36.4-46.3); WHITE BLOOD COUNT 9.99 K/uL (4.8-10.8)
[2017-11-17 07:14] LABS: CALCIUM 8.5 mg/dl (8.5-10.1); CREATININE 0.68 mg/dl (0.60-1.20); POTASSIUM 4.2 mmol/L (3.5-5.1)
[2017-11-17 07:23] VITALS: BP 123/65; PULSE 73; TEMP 36.7; O2SAT 92
[2017-11-17] MEDS: ATORVASTATIN 20 MG TAB PO SCH (07:23)
[2017-11-17] MEDS: LACTOBACILLUS ACIDOPHILUS 1 GM PACK PO SCH ×2 (07:23→12:00)
[2017-11-17] MEDS: CARVEDILOL 25 MG TAB PO SCH (07:23)
[2017-11-17] MEDS: EUCERIN CR 120 GM JAR EXT SCH (07:24)
[2017-11-17] MEDS: DICLOFENAC SOD 1% GEL 100 GM TUBE EXT SCH (07:25)
[2017-11-17] MEDS: ACETAMINOPHEN 500 MG TAB PO SCH (07:25)
[2017-11-17] MEDS: BOOST VANILLA OR BOOST GLUCOSE CONTROL CHOCOLATE PO SCH ×2 (07:26→12:12)
[2017-11-17] MEDS ORDERED: VLTG EXT (07:53)
[2017-11-17] MEDS ORDERED: ACET-1311 PO (07:53)
[2017-11-17] MEDS ORDERED: RXC5 PO (07:53)
--- NOTE | 2017-11-17 07:58 | Discharge Instructions ---
Discharge Instructions Date of Service Nov 17, 2017. Admission Reason for Admission: Abdominal Hemorrhage Discharge Discharge Diagnosis / Problem: RECTUS SHEATH HEMATOMA FROM COUMADIN Discharge Goals Goal(s): Diagnostic testing, Therapeutic intervention Activity Recommendations Activity Level: Assistance Required Therapies: Physical Therapy, Occupational Therapy . Additional Information Patient informed of condition: Yes Advance Directives: Yes DNR: No Level of Care: Skilled Communicable Disease: No Prognosis: Stable Cassidy Catheter: No Instructions / Follow-Up Instructions / Follow-Up 77F presented with acute blood loss anemia, hemorrhagic disorder due to extrinsic circulating anticoagulants of coumadin and plavix, with past medical history of CAD status post CABG, hypertension, dyslipidemia, atrial fibrillation Acute blood loss anemia remains stable, this is secondary to Coumadin coagulopathy, s/p one unit fresh frozen plasma, one unit packed RBCs, She typically takes coumadin for reduced risk of embolic issues from afib, this has been reversed, recommend restarting anticoagulation once rectus sheath heals. will recommend restart plavix on discharge Acute rectus sheath hematoma, will not continue anticoagulants and have local pain control, she still is painful, but improving Depression, pt is markedly tearful and at times refuses care, prozac dose increased transfer to subacute rehab with continued rehab for recent CVA Hypertension reduce dose of b ingrid, stopped ARB Dyslipidemia, continue statin this is also secondary risk prevention for stroke Chronic multiple strokes on CT scan head new since February 2017,plavix Paroxysmal A. fib currently sinus rhythm, continue lower dose of b ingrid CAD status post CABG Severe bilateral knee arthritis, tylenol for pain will be BID, voltaren gel and oxycodone Pt has had some issues with LE cellulitis in past and attention to edema will help to reduce this Current Hospital Diet Patient's current hospital diet: AHA Diet (Heart Healthy) Discharge Diet Recommended Diet: Regular Diet Pending Studies Studies pending at discharge: no Medical Emergencies . Who to Call and When: Medical Emergencies: If at any time you feel your situation is an emergency, please call 911 immediately. . Non-Emergent Contact Non-Emergency issues call your: Primary Care Provider Call Non-Emergent contact if: temperature is above 101, your pain is unusual for you . . "Provider Documentation" section prepared by Franklyn De Oliveira. . Core Measure Problem Core Measures: None
[2017-11-17] MEDS ORDERED: FLUOXETINE HCL 20 MG CAP PO SCH (08:00)
--- NOTE | 2017-11-17 09:00 | NUR ---
ID: Patient admitted with abdominal hemorrhage. A&OX4. Denies N/V. Patient appears to be SOB but denies it, oxygen level is 96% on room air. Patient complains of generalized pain, PO medication given, will continue to monitor. Trace BLE edema, weak pedal pulses. Lungs are clear on room air. Abdomen is soft, nontender, nondistended. Poor appetite, pt refused breakfast but did drink her boost. Cassidy intact, chronic. SL left hand. Pt may be discharged this afternoon to a SNF. Q2h turn and reposition. Generalized weakness noted. Pillow between legs due to lower extremities being contracted. Bed alarm on. Hourly rounding. Encouraged to ring for assistance. Will continue to monitor.
[2017-11-17 10:10] VITALS: BP 123/65; PULSE 73; TEMP 36.7; O2SAT 92
--- NOTE | 2017-11-17 11:00 | NUR ---
Case Management Note- Per MD, patient ready for discharge. Spoke with KAREN Dawkins, at [facility] and they are able to accept patient today. [facility] Link to provide transportation viz wheelchair van at 12:00pm. Consultant and RN aware. Unable to reach patient . Messages left, awaiting call back. Addendum: 11/17/17 at 1118 by Cadence StyleQ SERV 2 more calls made to , but unable to reach. Another message left. Awaiting call back. Addendum: 11/17/17 at 1123 by [employer] SERV Notified KAREN Dawkins, at [facility] of discharge time Addendum: 11/17/17 at 1149 by Cadence Gallego SERV Met with patient and , Terence, at bedside. They are both aware of discharge plan and agree. No further needs at this time.
--- NOTE | 2017-11-17 12:34 | NUR ---
Pt discharged to [facility]. All belongings packed with patient. is taking them. IV site removed. Copy of chart, discharge instructions and prescriptions sent to SNF with patient. [facility] the patient. Report called to KAREN Dawkins.
--- NOTE | 2017-11-17 12:41 | Discharge Summary ---
Discharge Summary Date of Service Nov 17, 2017. Discharge Summary Admission Date: Nov 13, 2017 at 19:47 Discharge Date: Nov 17, 2017 Discharge Disposition: nursing home facility Principal Diagnosis: rectus sheath hematoma from coagulathy from extrinsic medications Medication Reconciliation New Medications: Diclofenac Sod (Voltaren) 100 Appln/100 Gm Gel 1 APPLN EXT BID, #1 TUBE Oxycodone HCl (Oxycodone HCl) 5 Mg Tab 10 MG PO Q6 PRN for Pain, #30 TAB Changed Medications: Acetaminophen (Tylenol) 325 Mg Tab 1000 MG PO BID, #30 TAB (Changed from: 650 MG; Q6; Removed Reason; Removed Instructions) Continued Medications: Atorvastatin (Lipitor) 40 Mg Tab 40 MG PO DAILY, TAB Bisacodyl (Dulcolax) 10 Mg Sup 1 SUPP TN PRN UD for Constipation, SUP Carvedilol (Coreg) 25 Mg Tab 12.5 MG PO BIDM, TAB Clopidogrel (Plavix) 75 Mg Tab 75 MG PO DAILY, TAB Emollient (Eucerin) 1 Lot Lot 1 APPLN TOP Q8 PRN for SOILAGE Eucerin (Eucerin) Cre 1 APPLN TOP BID APPLY TO B/L LOWER EXTREMITIES Fluoxetine (Prozac) 10 Mg Cap 20 MG PO DAILY, CAP Ipratropium-Albuterol (Duoneb) 3 Ml Nebu 1 TREATMENT INH Q4H PRN for Wheezing, INHA STOP 11/16/17 Magnesium Hydroxide (Milk of Magnesia) 30 Ml Susp 30 ML PO UD GIVE Q 72HR IF NO BM Mineral Oil (Fleet Oil) 1 Mindy Mindy 1 UNIT RE PRN UD Ondansetron Hcl (Zofran) 4 Mg Tab 4 MG PO Q4 PRN for Nausea, TAB Discontinued Medications: Amoxicillin & Pot Clavulanate (Augmentin 500MG) 1 Tab Tab 500 MG PO TID for 7 Days, TAB END 11/17/17 Cyclobenzaprine Hcl (Flexeril) 10 Mg Tab 10 MG PO Q8 PRN for Muscle Spasms, #21 TAB Oxycodone/Acetaminophen 5MG/325MG (Percocet 5MG/325MG) Tab 1 TABLET PO Q4H PRN for Pain, TAB PAIN Valsartan (Diovan) 160 Mg Tab 160 MG PO DAILY, TAB Warfarin Sod (Jantoven) 1 Mg Tab 7 MG PO DAILY, TAB Discharge Exam Review of Systems: Constitutional: No fever, No chills Respiratory: No cough, No sputum, No shortness of breath Cardiovascular: No chest pain, No orthopnea, No edema Abdomen: + pain, No nausea, No vomiting Musculoskeletal: + joint pain, + problem reported (OA of knees), No swelling Physical Exam: General Appearance: WD/WN, + mild distress Eyes: normal inspection, sclerae normal Respiratory/Chest: chest non-tender, lungs clear, normal breath sounds Cardiovascular: regular rate, rhythm, no murmur Abdomen / GI: normal bowel sounds, + tenderness Neurologic/Psychiatric: alert, oriented x 3 Hospital Course 77F presented with acute blood loss anemia, hemorrhagic disorder due to extrinsic circulating anticoagulants of coumadin and plavix, with past medical history of CAD status post CABG, hypertension, dyslipidemia, atrial fibrillation Acute blood loss anemia remains stable, this is secondary to Coumadin coagulopathy, s/p one unit fresh frozen plasma, one unit packed RBCs, She typically takes coumadin for reduced risk of embolic issues from afib, this has been reversed, recommend restarting anticoagulation once rectus sheath heals. will recommend restart plavix on discharge Acute rectus sheath hematoma, will not continue anticoagulants and have local pain control, she still is painful, but improving Depression, pt is markedly tearful and at times refuses care, prozac dose increased transfer to subacute rehab with continued rehab for recent CVA Hypertension reduce dose of b ingrid, stopped ARB Dyslipidemia, continue statin this is also secondary risk prevention for stroke Chronic multiple strokes on CT scan head new since February 2017,plavix Paroxysmal A. fib currently sinus rhythm, continue lower dose of b ingrid CAD status post CABG Severe bilateral knee arthritis, tylenol for pain will be BID, voltaren gel and oxycodone Pt has had some issues with LE cellulitis in past and attention to edema will help to reduce this Total Time Spent: Greater than 30 minutes This includes examination of the patient, discharge planning, medication reconciliation, and communication with other providers. Discharge Instructions Please refer to the electronic Patient Visit Report (Discharge Instructions) for additional information.
[2017-12-25] MEDS ORDERED: LRS10 PO (10:51)
[2017-12-25] MEDS ORDERED: CEPH500C2 PO (10:51)
[2017-12-25] MEDS ORDERED: ACET-1256 PO (10:51)
[2017-12-25] MEDS ORDERED: ATV5 PO (10:51)
[2017-12-25] MEDS ORDERED: CLC100 PO (10:51)
[2017-12-28] MEDS ORDERED: IPRA-64 INH (15:44)
[2018-01-08] MEDS ORDERED: BACL1TAB PO (10:10)
[2018-01-08] MEDS ORDERED: MRPL PO (10:10)
[2018-01-08] MEDS ORDERED: FLUO10CA24 PO (10:10)
[2018-01-08] MEDS ORDERED: IBUP-1450 PO (10:10)
[2018-01-08] MEDS ORDERED: NRN300 PO (10:10)
[2018-01-08] MEDS ORDERED: ONDA8TAB62 SL (10:10)
== END 2017-11-17 12:35 | DRG 813 ==
LOC: EDBD 13:41 → C.EDB 13:42 → C.2T 19:47 → ENRESERV 19:54 → EDBEDREQ 11-16 10:36 → ENRESERV 11-16 11:58 → C.MS4W 11-16 13:05
PROVIDERS: ADMIT Internal Medicine; ATTEND Internal Medicine
DX: D68.32 Hemorrhagic disorder due to extrinsic circulating anticoagulants (principal); D62 Acute posthemorrhagic anemia; L03.116 Cellulitis of left lower limb; M79.81 Nontraumatic hematoma of soft tissue; T45.515A Adverse effect of anticoagulants, initial encounter; T45.8X5A Adverse effect of other primarily systemic and hematological agents, initial encounter; M17.0 Bilateral primary osteoarthritis of knee; I25.10 Atherosclerotic heart disease of native coronary artery without angina pectoris; I11.9 Hypertensive heart disease without heart failure; I48.0 Paroxysmal atrial fibrillation; E78.5 Hyperlipidemia, unspecified; E11.9 Type 2 diabetes mellitus without complications; F32.9 Major depressive disorder, single episode, unspecified; Z79.899 Other long term (current) drug therapy; Z79.01 Long term (current) use of anticoagulants; Z79.02 Long term (current) use of antithrombotics/antiplatelets; Z86.73 Personal history of transient ischemic attack (TIA), and cerebral infarction without residual deficits; Z95.1 Presence of aortocoronary bypass graft; Z87.891 Personal history of nicotine dependence

== ENCOUNTER → 2017-11-13 | Outpatient (CLI) | payer OTHER ==
[2017-11-13 09:07] LABS: INR 3.5 (0.9-1.1); PROTHROMBIN TIME (PATIENT) 35.9 SECONDS (9.0-12.0)
== END ==
LOC: C.LABUPNIT 08:37
PROVIDERS: ATTEND Nurse Practitioner Family
DX: I25.10 Atherosclerotic heart disease of native coronary artery without angina pectoris (principal)

== ENCOUNTER → 2017-11-27 | Outpatient (CLI) | payer OTHER ==
[~2017-11-27] MED LIST changes: +ACET-1311 PO; -ASPI81TA28 PO; +BISA10SU3 PR; -DVN/160 PO; +EMOL-63 TOP; +FLUO10CA48 PO; -GLC/500 PO; +IPRASOL4 INH; -ISOS-10 PO; +MOMLX PO; -NTRGSL/4 UT; +ONDA4TAB46 PO; +RXC5 PO; +SKINCRE34 TOP; +VLTG EXT; +[UNRECOGNIZED DRUG - OTHER] RE
[2017-11-27 08:16] LABS: HEMATOCRIT 33.7 % (37-47); HEMOGLOBIN 10.8 g/dL (12.0-16.0); MEAN CELL VOLUME 91.3 fL (80-100); MEAN CORPUSCULAR HEMOGLOBIN 29.3 pg (25-34); MEAN PLATELET VOLUME 9.9 fL (7.4-10.4); PLATELET COUNT 373 K/uL (130-400); RED CELL DISTRIBUTION WIDTH CV 15.3 % (11.5-14.5); RED CELL DISTRIBUTION WIDTH SD 50.8 fL (36.4-46.3); WHITE BLOOD COUNT 5.89 K/uL (4.8-10.8)
== END ==
LOC: C.LABCC 07:57
PROVIDERS: ATTEND Internal Medicine
DX: S36.62XA Contusion of rectum, initial encounter (principal); X58.XXXA Exposure to other specified factors, initial encounter

== ENCOUNTER 2017-12-22 14:18 | Inpatient (IN) | payer OTHER ==
[2017-12-22] VITALS (7 sets, daily range): BP systolic 102–125; BP diastolic 59–72; PULSE 81–82; TEMP 36.5–36.6; O2SAT 95–97; Ht 165.1 cm; Wt 90.3 kg
[~2017-12-22] VITALS: Ht 165.1 cm; Wt 90.3 kg
[2017-12-22] MEDS ORDERED: SODIUM CHLORIDE 0.9% 500ML 500 ML IV STA (14:48)
[2017-12-22] MEDS ORDERED: ONDANSETRON INJ 2 MG/ML 2 ML VIAL IV STA (14:52)
[2017-12-22] MEDS ORDERED: SULF800T23 PO (15:08)
[2017-12-22] MEDS ORDERED: DABI150C PO (15:08)
[2017-12-22] MEDS ORDERED: CEPH500C2 PO (15:08)
[2017-12-22] MEDS ORDERED: ACET-1256 PO (15:12)
[2017-12-22 15:24] LABS: BASO % 0.3 %; BASO ABS # 0.03 K/uL (0-0.2); EOS % 0.5 %; EOS ABS # 0.05 K/uL (0-0.5); HEMATOCRIT 33.6 % (37-47); HEMOGLOBIN 10.9 g/dL (12.0-16.0); IG# 0.03 K/uL (0.00-0.02); LYMPH % 11.6 %; LYMPH ABS # 1.25 K/uL (1.2-3.4); MEAN CELL VOLUME 92.1 fL (80-100); MEAN CORPUSCULAR HEMOGLOBIN 29.9 pg (25-34); MEAN CORPUSCULAR HGB CONC 32.4 g/dl (32-36); MEAN PLATELET VOLUME 9.6 fL (7.4-10.4); MONO % 9.1 %; MONO ABS # 0.98 K/uL (0.11-0.59); NEUT % 78.2 %; NEUT ABS # 8.39 K/uL (1.4-6.5); PLATELET COUNT 337 K/uL (130-400); RED CELL DISTRIBUTION WIDTH CV 15.3 % (11.5-14.5); RED CELL DISTRIBUTION WIDTH SD 52.1 fL (36.4-46.3); WHITE BLOOD COUNT 10.73 K/uL (4.8-10.8)
[2017-12-22 15:38] LABS: INR 1.1 (0.9-1.1); PTT PATIENT 32.8 SECONDS (21.0-31.0)
[2017-12-22 15:41] LABS: BLOOD UREA NITROGEN 11 mg/dl (7-18); CALCIUM 8.8 mg/dl (8.5-10.1); CARBON DIOXIDE 27 mmol/L (21-32); CREATININE 0.83 mg/dl (0.60-1.20); GLUCOSE 109 mg/dl (70-99); SODIUM 135 mmol/L (136-145)
[2017-12-22 15:46] LABS: CKMB 7.6 ng/ml (0.5-3.6)
[2017-12-22 16:20] LABS: ALBUMIN 3.1 gm/dl (3.4-5.0); ALKALINE PHOSPHATASE 94 U/L (45-117); ALT/SGPT 17 U/L (12-78); AST/SGOT 29 U/L (15-37); TOTAL PROTEIN 6.9 gm/dl (6.4-8.2)
--- NOTE | 2017-12-22 16:22 | DIAGNOSTIC IMAGING REPORT ---
CT OF THE HEAD WITHOUT CONTRAST CLINICAL HISTORY: Stroke. Weakness. COMPARISON STUDY: Head CT November 13, 2017. CT DOSE: 1228.53 mGy.cm TECHNIQUE: Helical axial images of the head were obtained without IV contrast. Automated exposure control was utilized for the study. A dose lowering technique was utilized adhering to the principles of ALARA. FINDINGS: Exam is moderately compromised by motion artifact. No acute intracranial hemorrhage, midline shift or mass effect is present. Ventricular system is stable. The basilar cisterns are patent. Old infarcts within the left cerebellar hemisphere and left aspect of the desmond are unchanged. White matter hypodensity suggests small vessel disease. No calvarial fracture is identified. Mastoid air cells are clear. There is no significant sinus opacification. IMPRESSION: 1. No acute intracranial findings. 2. Old infarcts within the left cerebral hemisphere and left aspect of the desmond. 3. Study mildly compromised by motion artifact. Electronically signed by: Berlin March M.D. 12/22/2017 4:20 PM Dictated Date/Time: 12/22/2017 4:14 PM
--- NOTE | 2017-12-22 16:24 | DIAGNOSTIC IMAGING REPORT ---
CHEST ONE VIEW PORTABLE CLINICAL HISTORY: Stroke. Weakness. COMPARISON STUDY: Chest radiograph November 13, 2017. FINDINGS: Patient is rotated. There are median sternotomy wires and mediastinal surgical clips. Mild cardiomegaly is unchanged. There's no evidence for pulmonary edema. There is mild left basilar retrocardiac opacity. There is no pneumothorax or pleural effusion. There are cholecystectomy clips. IMPRESSION: 1. Mild left basilar retrocardiac opacity which could reflect atelectasis or a small focus of pneumonia. 2. Mild cardiomegaly without evidence of pulmonary edema. Electronically signed by: Berlin March M.D. 12/22/2017 4:22 PM Dictated Date/Time: 12/22/2017 4:21 PM
[2017-12-22] MEDS ORDERED: CEFEPIME IV 2,000 MG in DEXTROSE 5% 100ML 100 ML IV STA (16:28)
--- NOTE | 2017-12-22 16:54 | EMERGENCY ROOM VISIT NOTE ---
History Report prepared by Lele: Carmen Sanchez Under the Supervision of: Dr. Juan J Trinidad M.D. First contact with patient: 14:41 Chief Complaint: WEAKNESS Stated Complaint: WEAKNESS Nursing Triage Summary: Pt with c/o increased left sided weakness since last nihgt at 6pm. History of stroke in february 2017 with left sided deficits. Pt reports her left side is weak but today it is more weak. Speech clear. Legs contracted. Pt able to move left arm up against gravity. Pt tachypneic with audible wheezes at times. Also states she is being seen for cellulitis and a nure was in to change her dressings yesterday. She is on an ATB. Also reports falling 3 times today attempting to get to toilet, was helping. Denies hitting head. History of Present Illness The patient is a 77 year old female who presents to the Emergency Room with complaints of worsening left sided weakness starting 21 hours ago. She presents to the ED by EMS. The patient has a history of stroke which resulted in left sided weakness. Yesterday at 1800, her weakness worsened. She is now unable to stand on her own. She was able to bear some weight on her legs prior to yesterday evening. She has fallen 2 times today because of this weakness. Her was there to help her down each time. Her left arm movements have become more jerky. She is nauseous. She felt like she needed to urinate today, but was unable to urinate. She denies any fever, cough, congestion, vomiting, or diarrhea. She was on Coumadin, but was switched to Pradaxa 1 week ago after a bleed. She was admitted to the hospital for 1 week with cellulitis on her legs several weeks ago. She was sent to [facility] from the hospital. She returned home several weeks ago. She was started on Keflex and Bactrim 3-4 days ago for worsening cellulitis. Source of History: patient, family Onset: 21 hours ago Position: other (left sided) Quality: other (weakness) Timing: worsening Associated Symptoms: + nausea, + urinary symptoms, No fevers, No cough, No vomiting, No diarrhea Review of Systems See HPI for pertinent positives & negatives. A total of 10 systems reviewed and were otherwise negative. Past Medical & Surgical Medical Problems: (1) Abdominal hemorrhage (2) Diabetes (3) Dyslipidemia (4) HTN (hypertension) (5) Left leg weakness (6) Stroke Surgical Problems: (1) History of open heart surgery Family History No pertinent family history Social History Smoking Status: Former Smoker Marital Status: Housing Status: lives with significant other Occupation Status: retired Current/Historical Medications Scheduled Acetaminophen (Tylenol), 1,000 MG PO BID Atorvastatin (Lipitor), 40 MG PO HS Carvedilol (Coreg), 25 MG PO BIDM Cephalexin Monohydrate (Keflex), 500 MG PO TID Clopidogrel (Plavix), 75 MG PO QAM Dabigatran Etexilate Mesylate (Pradaxa), 150 MG PO BID Diclofenac Sod (Voltaren), 1 APPLN EXT BID Eucerin (Eucerin), 1 APPLN TOP BID Fluoxetine (Prozac), 20 MG PO QAM Sulfa/Trimethoprim (Bactrim Ds 800MG/160MG), 1 TAB PO BID Scheduled PRN Emollient (Eucerin), 1 APPLN TOP Q8 PRN for SOILAGE Ondansetron Hcl (Zofran), 4 MG PO Q4 PRN for Nausea Oxycodone HCl (Oxycodone HCl), 10 MG PO Q6 PRN for Pain Allergies Coded Allergies: Tramadol (Unverified Allergy, Severe, VOMITING, 12/22/17) Niacin (Verified Allergy, Intermediate, RASH, 12/22/17) PALPITATIONS Morphine (Verified Allergy, Unknown, unknown, 12/22/17) Penicillins (Verified Allergy, Unknown, unknown, 12/22/17) Physical Exam Vital Signs Date Time Temp Pulse Resp B/P (MAP) Pulse Ox O2 Delivery O2 Flow Rate FiO2 12/22/17 17:10 90 28 133/69 97 Nasal Cannula 3.0 12/22/17 16:20 95 Nasal Cannula 3.0 12/22/17 16:20 82 22 107/61 96 Nasal Cannula 3.0 12/22/17 14:33 78 12/22/17 14:25 36.9 82 23 163/93 95 Room Air Physical Exam GENERAL: Patient is in no acute distress. HEENT: No acute trauma, normocephalic atraumatic, mucous membranes moist, no nasal congestion, no scleral icterus. NECK: No stridor, no adenopathy, no meningismus, trachea is midline. LUNGS: Clear to auscultation bilaterally, no wheeze, no rhonchi, breath sounds equal. HEART: Without murmurs gallops or rubs, regular rate and rhythm. ABDOMEN: Soft, nontender, bowel sounds positive, no hernias, no peritonitis. EXTREMITIES: Cellulitis of both lower extremities around the distal legs, worse on the right. There is erythema and warmth, no drainage. Both knees and hips are flexed and she has difficulty extending her legs. NEUROLOGIC: Awake, alert. No facial droop or speech slur. Left arm and left leg weaker than the right, but the exam is compromised by her issues with mobility. SKIN: No rash, no jaundice, no diaphoresis. Medical Decision & Procedures ER Provider Diagnostic Interpretation: X-ray results as stated below per interpretation by me and the radiologist. Radiology results as stated below per my review and radiologist interpretation: CHEST ONE VIEW PORTABLE CLINICAL HISTORY: Stroke. Weakness. COMPARISON STUDY: Chest radiograph November 13, 2017. FINDINGS: Patient is rotated. There are median sternotomy wires and mediastinal surgical clips. Mild cardiomegaly is unchanged. There's no evidence for pulmonary edema. There is mild left basilar retrocardiac opacity. There is no pneumothorax or pleural effusion. There are cholecystectomy clips. IMPRESSION: 1. Mild left basilar retrocardiac opacity which could reflect atelectasis or a small focus of pneumonia. 2. Mild cardiomegaly without evidence of pulmonary edema. Electronically signed by: Berlin March M.D. 12/22/2017 4:22 PM Dictated Date/Time: 12/22/2017 4:[address] OF THE HEAD WITHOUT CONTRAST CLINICAL HISTORY: Stroke. Weakness. COMPARISON STUDY: Head CT November 13, 2017. CT DOSE: 1228.53 mGy.cm TECHNIQUE: Helical axial images of the head were obtained without IV contrast. Automated exposure control was utilized for the study. A dose lowering technique was utilized adhering to the principles of ALARA. FINDINGS: Exam is moderately compromised by motion artifact. No acute intracranial hemorrhage, midline shift or mass effect is present. Ventricular system is stable. The basilar cisterns are patent. Old infarcts within the left cerebellar hemisphere and left aspect of the desmond are unchanged. White matter hypodensity suggests small vessel disease. No calvarial fracture is identified. Mastoid air cells are clear. There is no significant sinus opacification. IMPRESSION: 1. No acute intracranial findings. 2. Old infarcts within the left cerebral hemisphere and left aspect of the desmond. 3. Study mildly compromised by motion artifact. Electronically signed by: Berlin March M.D. 12/22/2017 4:20 PM Dictated Date/Time: 12/22/2017 4:14 PM Laboratory Results 12/22/17 15:11 Red Blood Count 3.65, Mean Corpuscular Volume 92.1, Mean Corpuscular Hemoglobin 29.9, Mean Corpuscular Hemoglobin Concent 32.4, Mean Platelet Volume 9.6, Neutrophils (%) (Auto) 78.2, Lymphocytes (%) (Auto) 11.6, Monocytes (%) (Auto) 9.1, Eosinophils (%) (Auto) 0.5, Basophils (%) (Auto) 0.3, Neutrophils # (Auto) 8.39, Lymphocytes # (Auto) 1.25, Monocytes # (Auto) 0.98, Eosinophils # (Auto) 0.05, Basophils # (Auto) 0.03 12/22/17 15:11 Test 12/22/17 15:11 12/22/17 16:15 White Blood Count 10.73 K/uL (4.8-10.8) Red Blood Count 3.65 M/uL (4.2-5.4) Hemoglobin 10.9 g/dL (12.0-16.0) Hematocrit 33.6 % (37-47) Mean Corpuscular Volume 92.1 fL (80-100) Mean Corpuscular Hemoglobin 29.9 pg (25-34) Mean Corpuscular Hemoglobin Concent 32.4 g/dl (32-36) Platelet Count 337 K/uL (130-400) Mean Platelet Volume 9.6 fL (7.4-10.4) Neutrophils (%) (Auto) 78.2 % Lymphocytes (%) (Auto) 11.6 % Monocytes (%) (Auto) 9.1 % Eosinophils (%) (Auto) 0.5 % Basophils (%) (Auto) 0.3 % Neutrophils # (Auto) 8.39 K/uL (1.4-6.5) Lymphocytes # (Auto) 1.25 K/uL (1.2-3.4) Monocytes # (Auto) 0.98 K/uL (0.11-0.59) Eosinophils # (Auto) 0.05 K/uL (0-0.5) Basophils # (Auto) 0.03 K/uL (0-0.2) RDW Standard Deviation 52.1 fL (36.4-46.3) RDW Coefficient of Variation 15.3 % (11.5-14.5) Immature Granulocyte % (Auto) 0.3 % Immature Granulocyte # (Auto) 0.03 K/uL (0.00-0.02) Prothrombin Time 11.5 SECONDS (9.0-12.0) Prothromb Time International Ratio 1.1 (0.9-1.1) Activated Partial Thromboplast Time 32.8 SECONDS (21.0-31.0) Partial Thromboplastin Ratio 1.3 Anion Gap 6.0 mmol/L (3-11) Est Creatinine Clear Calc Drug Dose 60.7 ml/min Estimated GFR () 78.8 Estimated GFR (Non- 68.0 BUN/Creatinine Ratio 12.7 (10-20) Lactic Acid Level 1.0 mmol/L (0.4-2.0) Calcium Level 8.8 mg/dl (8.5-10.1) Magnesium Level 1.9 mg/dl (1.8-2.4) Total Bilirubin 0.6 mg/dl (0.2-1) Direct Bilirubin 0.2 mg/dl (0-0.2) Aspartate Amino Transf (AST/SGOT) 29 U/L (15-37) Alanine Aminotransferase (ALT/SGPT) 17 U/L (12-78) Alkaline Phosphatase 94 U/L (45-117) Total Creatine Kinase 559 U/L (26-192) Creatine Kinase MB 7.6 ng/ml (0.5-3.6) Creatine Kinase MB Ratio 1.4 (0-3.0) Troponin I < 0.015 ng/ml (0-0.045) Total Protein 6.9 gm/dl (6.4-8.2) Albumin 3.1 gm/dl (3.4-5.0) Urine Color YELLOW Urine Appearance CLEAR (CLEAR) Urine pH 5.0 (4.5-7.5) Urine Specific [place] 1.019 (1.000-1.030) Urine Protein NEG (NEG) Urine Glucose (UA) NEG (NEG) Urine Ketones TRACE (NEG) Urine Occult Blood NEG (NEG) Urine Nitrite NEG (NEG) Urine Bilirubin NEG (NEG) Urine Urobilinogen NEG (NEG) Urine Leukocyte Esterase TRACE (NEG) Urine WBC (Auto) 1-5 /hpf (0-5) Urine RBC (Auto) 0-4 /hpf (0-4) Urine Hyaline Casts (Auto) 1-5 /lpf (0-5) Urine Epithelial Cells (Auto) 10-20 /lpf (0-5) Urine Bacteria (Auto) NEG (NEG) Urine Opiates Screen NEG (NEG) Urine Methadone, Qualitative NEG (NEG) Urine Barbiturates NEG (NEG) Urine Phencyclidine (PCP) Level NEG (NEG) Ur Amphetamine/Methamphetamine NEG (NEG) MDMA (Ecstasy) Screen NEG (NEG) Urine Benzodiazepines Screen NEG (NEG) Urine Cocaine Metabolite NEG (NEG) Urine Marijuana (THC) NEG (NEG) Laboratory results reviewed by me. Medications Administered Medications (Trade) Dose Ordered Sig/Isidra Route Start Time Stop Time Status Last Admin Dose Admin Sodium Chloride 500 ml @ 999 mls/hr Q31M STAT IV 12/22/17 14:48 12/22/17 15:18 DC 12/22/17 15:26 999 MLS/HR Ondansetron HCl (Zofran Inj) 4 mg NOW STAT IV 12/22/17 14:52 12/22/17 14:54 DC 12/22/17 15:26 4 MG Cefepime HCl 2000 mg/Dextrose 112.5 ml @ 200 mls/hr ONE STAT IV 12/22/17 16:28 12/22/17 17:01 DC 12/22/17 17:09 200 MLS/HR ECG Indication: weakness Rate (beats per minute): 79 Rhythm: normal sinus Findings: no acute ischemic change, no ectopy, other (baseline artifact) Change: Patient's electrocardiogram interpreted by me. ED Course 1442: The patient was evaluated in room C2B. A complete history and physical exam was performed. 1448: NSS 500 ml @ 999 mls/hr IV. 1452: Zofran Inj 4 mg IV. 1628: Cefepime HCl 2000 mg/Dextrose 112.5 ml @ 200 mls/hr IV. 1631: I discussed the patient's case with Dr. De Oliveira, [facility] [place]. The patient will be evaluated for further management. 1634: Upon reexamination the patient is feeling better. I discussed results and treatment plan with the patient. She verbalizes agreement and understanding. The patient will be evaluated for further management. Medical Decision Differential diagnoses considered include stroke, intracranial bleeding, infection, cellulitis, UTI, dehydration, electrolyte imbalance, [place], dysrhythmia. There is no leukocytosis or concerning anemia. No significant electrolyte abnormality, kidney failure or hepatitis. Urinalysis does not show infection. Lactic acid level is not elevated making sepsis less likely. Chest film does not show an obvious pneumonia-radiologist questioned some left base atelectasis or small infiltrate, no CHF. Brain CT shows no acute bleed or mass effect. EKG shows a normal sinus rhythm, no acute ischemic change. Cardiac enzyme testing times one is not consistent with acute cardiac injury. Urine tox is negative. The patient presents with increasing weakness on the left side since last night , she is not a TPA candidate as she is out of the TPA window. She is currently being treated for cellulitis. The patient may have a small acute CVA worsening her left sided weakness. Certainly, the cellulitis/infection could be causing worsening weakness. Given the circumstances, further workup in the hospital is warranted. The patient was given IV saline, IV Zofran. She received a dose of IV cefepime. I did speak to the patient and case management. The on-call hospitalist was consulted. Medication Reconcilliation Current Medication List: was personally reviewed by me Blood Pressure Screening Patient's blood pressure: Elevated blood pressure Blood pressure disposition: Elevated BP felt to be situational Consults Time Called: 1628 Consulting Physician: Dr. De Oliveira, [facility] [place] Returned Call: 1631 Discussed the patient's case. The patient will be evaluated for further management. Impression Primary Impression: Weakness Additional Impressions: Falls Cellulitis Failure of outpatient treatment Scribe Attestation The scribe's documentation has been prepared under my direction and personally reviewed by me in its entirety. I confirm that the note above accurately reflects all work, treatment, procedures, and medical decision making performed by me. Departure Information Dispostion Being Evaluated By Hospitalist Referrals Erwin Willoughby (PCP) Patient Instructions My [facility] Stroke History Time Last Known Well 21 hours ago Stroke t-PA Criteria Reviewed Does NOT meet criteria for t-PA Reason t-PA Not Given Treatment not indicated Problem Qualifiers
[2017-12-22] MEDS ORDERED: OXYCODONE HCL IR 5 MG TAB (IMMEDIATE RELEASE) PO PRN (17:15)
[2017-12-22] MEDS ORDERED: ONDANSETRON 4 MG TAB PO PRN (17:15)
[2017-12-22] MEDS ORDERED: FUROSEMIDE INJ 40 MG in SYRINGE 0 ML IV ONE (17:30)
[2017-12-22] MEDS ORDERED: ONDANSETRON INJ 2 MG/ML 2 ML VIAL IV PRN (17:30)
[2017-12-22] MEDS ORDERED: NITROGLYCERIN 0.4 MG SL PER TAB CHARGE SL PRN (17:30)
[2017-12-22] MEDS ORDERED: FUROSEMIDE 40 MG/4 ML VIAL ONE (17:30)
[2017-12-22] MEDS ORDERED: ACETAMINOPHEN 325 MG TAB PO PRN (17:30)
[2017-12-22] MEDS ORDERED: PHARMACIST DISCHARGE MED REC CONSULT PRN (17:30)
[2017-12-22] MEDS ORDERED: ALUMINUM/MAGNESIUM/SIMETH (MAALOX MAX) 30 ML UDC PO PRN (17:30)
[2017-12-22] MEDS ORDERED: MAGNESIUM HYDROXIDE SUSP 30 ML UDC PO PRN (17:30)
--- NOTE | 2017-12-22 17:37 | History and Physical ---
History & Physical Date & Time of Service: Dec 22, 2017 at 17:28 Chief Complaint: Weakness Primary Care Physician: No Doctor, Assigned History of Present Illness Source: patient, family Past Medical/Surgical History Medical Problems: (1) Diabetes Status: Chronic this patient must be diet-controlled there is no mention of medications in her chart (2) Dyslipidemia Status: Chronic (3) HTN (hypertension) Status: Chronic (4) Stroke Status: Resolved Surgical Problems: (1) History of open heart surgery Status: Resolved she did have her left arm vein harvest Atrial fibrillation currently in sinus Acute blood loss anemia due to Coumadin with rectus sheath hematoma resolved Depression currently managed with Prozac Family History No pertinent family history Family history is inclusive her diabetes and hypertension Social History Smoking Status: Former Smoker Smokeless Tobacco Use: No Marital Status: Occupational Status: retired Multi-Drug Resistant Organisms History of MDRO: No Allergies Coded Allergies: Tramadol (Unverified Allergy, Severe, VOMITING, 12/22/17) Niacin (Verified Allergy, Intermediate, RASH, 12/22/17) PALPITATIONS Morphine (Verified Allergy, Unknown, unknown, 12/22/17) Penicillins (Verified Allergy, Unknown, unknown, 12/22/17) Home Medications Scheduled Acetaminophen (Tylenol), 1,000 MG PO BID Atorvastatin (Lipitor), 40 MG PO HS Carvedilol (Coreg), 25 MG PO BIDM Cephalexin Monohydrate (Keflex), 500 MG PO TID Clopidogrel (Plavix), 75 MG PO QAM Dabigatran Etexilate Mesylate (Pradaxa), 150 MG PO BID Diclofenac Sod (Voltaren), 1 APPLN EXT BID Eucerin (Eucerin), 1 APPLN TOP BID Fluoxetine (Prozac), 20 MG PO QAM Sulfa/Trimethoprim (Bactrim Ds 800MG/160MG), 1 TAB PO BID Scheduled PRN Emollient (Eucerin), 1 APPLN TOP Q8 PRN for SOILAGE Ondansetron Hcl (Zofran), 4 MG PO Q4 PRN for Nausea Oxycodone HCl (Oxycodone HCl), 10 MG PO Q6 PRN for Pain Review of Systems ROS: well nourished well developed but appears chronically ill No double vision blurry vision No problems with speech or swallowing although has a strained voice No palpitations, chest pain or pressure No Wheezing or breathing issues No abdominal pain nausea vomiting diarrhea changes in appetite or weight No burning urine urine frequency or changes in color Unable to straighten her legs or bear weight on her left leg this appears to be acute No skin rashes or oral lesions No unusual bruising or bleeding Chronic lower back pain but no numbness or loss of strength seems focal to the left side worse than left foot and hand No changes in memory or confusion Physical Exam Vital Signs Date Time Temp Pulse Resp B/P (MAP) Pulse Ox O2 Delivery O2 Flow Rate FiO2 12/22/17 17:10 90 28 133/69 97 Nasal Cannula 3.0 12/22/17 16:20 95 Nasal Cannula 3.0 12/22/17 16:20 82 22 107/61 96 Nasal Cannula 3.0 12/22/17 14:33 78 12/22/17 14:25 36.9 82 23 163/93 95 Room Air General Appearance: WD/WN, + mild distress Head: normocephalic, atraumatic Eyes: normal inspection, PERRL, sclerae normal ENT: hearing grossly normal, pharynx normal Neck: supple, + JVD Respiratory/Chest: chest non-tender, + decreased breath sounds, + rales (left base) Cardiovascular: regular rate, rhythm, + systolic murmur Abdomen/GI: normal bowel sounds, non tender, soft Back: no CVA tenderness, no muscle spasm Extremities/Musculoskelatal: + pertinent finding (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 marked 2-3+ edema to the knee erythema circumferentially to the lower leg weeping skin and small bullae) Neurologic/Psych: alert, oriented x 3 Skin: + pertinent finding (please see extremity description) Diagnostics Laboratory Results Results Past 24 Hours Test 12/22/17 15:11 12/22/17 16:15 12/22/17 17:20 Range/Units White Blood Count 10.73 4.8-10.8 K/uL Red Blood Count 3.65 4.2-5.4 M/uL Hemoglobin 10.9 12.0-16.0 g/dL Hematocrit 33.6 37-47 % Mean Corpuscular Volume 92.1 80-100 fL Mean Corpuscular Hemoglobin 29.9 25-34 pg Mean Corpuscular Hemoglobin Concent 32.4 32-36 g/dl Platelet Count 337 130-400 K/uL Mean Platelet Volume 9.6 7.4-10.4 fL Neutrophils (%) (Auto) 78.2 % Lymphocytes (%) (Auto) 11.6 % Monocytes (%) (Auto) 9.1 % Eosinophils (%) (Auto) 0.5 % Basophils (%) (Auto) 0.3 % Neutrophils # (Auto) 8.39 1.4-6.5 K/uL Lymphocytes # (Auto) 1.25 1.2-3.4 K/uL Monocytes # (Auto) 0.98 0.11-0.59 K/uL Eosinophils # (Auto) 0.05 0-0.5 K/uL Basophils # (Auto) 0.03 0-0.2 K/uL RDW Standard Deviation 52.1 36.4-46.3 fL RDW Coefficient of Variation 15.3 11.5-14.5 % Immature Granulocyte % (Auto) 0.3 % Immature Granulocyte # (Auto) 0.03 0.00-0.02 K/uL Prothrombin Time 11.5 9.0-12.0 SECONDS Prothromb Time International Ratio 1.1 0.9-1.1 Activated Partial Thromboplast Time 32.8 21.0-31.0 SECONDS Partial Thromboplastin Ratio 1.3 Sodium Level 135 136-145 mmol/L Potassium Level 4.0 3.5-5.1 mmol/L Chloride Level 102 98-107 mmol/L Carbon Dioxide Level 27 21-32 mmol/L Anion Gap 6.0 3-11 mmol/L Blood Urea Nitrogen 11 7-18 mg/dl Creatinine 0.83 0.60-1.20 mg/dl Est Creatinine Clear Calc Drug Dose 60.7 ml/min Estimated GFR () 78.8 Estimated GFR (Non- 68.0 BUN/Creatinine Ratio 12.7 10-20 Random Glucose 109 70-99 mg/dl Lactic Acid Level 1.0 0.4-2.0 mmol/L Calcium Level 8.8 8.5-10.1 mg/dl Magnesium Level 1.9 1.8-2.4 mg/dl Total Bilirubin 0.6 0.2-1 mg/dl Direct Bilirubin 0.2 0-0.2 mg/dl Aspartate Amino Transf (AST/SGOT) 29 15-37 U/L Alanine Aminotransferase (ALT/SGPT) 17 12-78 U/L Alkaline Phosphatase 94 45-117 U/L Total Creatine Kinase 559 26-192 U/L Creatine Kinase MB 7.6 0.5-3.6 ng/ml Creatine Kinase MB Ratio 1.4 0-3.0 Troponin I < 0.015 0-0.045 ng/ml Total Protein 6.9 6.4-8.2 gm/dl Albumin 3.1 3.4-5.0 gm/dl Urine Color YELLOW Urine Appearance CLEAR CLEAR Urine pH 5.0 4.5-7.5 Urine Specific [place] 1.019 1.000-1.030 Urine Protein NEG NEG Urine Glucose (UA) NEG NEG Urine Ketones TRACE NEG Urine Occult Blood NEG NEG Urine Nitrite NEG NEG Urine Bilirubin NEG NEG Urine Urobilinogen NEG NEG Urine Leukocyte Esterase TRACE NEG Urine WBC (Auto) 1-5 0-5 /hpf Urine RBC (Auto) 0-4 0-4 /hpf Urine Hyaline Casts (Auto) 1-5 0-5 /lpf Urine Epithelial Cells (Auto) 10-20 0-5 /lpf Urine Bacteria (Auto) NEG NEG Urine Opiates Screen NEG NEG Urine Methadone, Qualitative NEG NEG Urine Barbiturates NEG NEG Urine Phencyclidine (PCP) Level NEG NEG Ur Amphetamine/Methamphetamine NEG NEG MDMA (Ecstasy) Screen NEG NEG Urine Benzodiazepines Screen NEG NEG Urine Cocaine Metabolite NEG NEG Urine Marijuana (THC) NEG NEG Microbiology Results 12/22/17 Blood Culture, Received Pending 12/22/17 Blood Culture, Received Pending Diagnostic Radiology CT head with no acute strokes other (CXR is normal with discussion of atelectasis vs pneumonia, but she has no pneumonia symptoms) other (appears to normal sinus rhythm) Impression Assessment and Plan 77-year-old female previous history of embolic strokes who presents with an acute left lower extremity weakness that began yesterday around 6 PM she is out of the window for thrombolytic therapy and although no new strokes were seen, and she is other concerns for metabolic encephalopathy, will bring her in as a possible stroke without TPA. Possibility of this being stroke and MRI of the undertaken and the patient requests some Membreno Xiao surrounding that study, we'll continue Plavix as well as Lipitor for secondary stroke prevention will not employ a neurology consult unless we see evidence of stroke Atrial fibrillation although very irregular baseline the patient appears to be in sinus rhythm on EKG we'll maintain her Coreg and Pradaxa Elevated CK but not troponin no acute EKG changes we'll check troponin in the morning do not suspect acute coronary syndrome CK may be from lower extremity muscle injury Possible metabolic encephalopathy present on admission although the chest x-ray is read as possible pneumonia she has no pneumonia symptoms she is concurrently being treated for lower extremity cellulitis with Keflex and Bactrim, she was given cefepime in the ER and this will be continued blood cultures are pending as well as a urine culture. Lower extremity stasis dermatitis possibly cellulitis the patient is evidence of JVD on exam we will give 1 dose of Lasix will have a wound care consult History of depression this is assessed as clinically stable the patient will continue her Prozac DVT prevention is Pradaxa I personally phoned her and gave him an update PT and OT evaluation will be required we'll perform a speech evaluation although she was speaking fluently is not complaining of coughing with eating during my evaluation in the ER Level of Care Telemetry Advanced Directives Existing Advance Directive: Yes Resuscitation Status FULL RESUSCITATION VTE Prophylaxis VTE Risk Assessment Done? Y/N: Yes Risk Level: Moderate Given or contraindicated: Other Anticoagulation (pradaxa)
[2017-12-22] MEDS ORDERED: LORAZEPAM 0.5 MG TAB PO PRN (17:45)
[2017-12-22] MEDS ORDERED: LORAZEPAM 2 MG/ML 1 ML VIAL IV PRN ×2 (17:45)
[2017-12-22] MEDS ORDERED: LORAZEPAM 2 MG/ML 1 ML VIAL ONE (17:50)
--- NOTE | 2017-12-22 19:07 | DIAGNOSTIC IMAGING REPORT ---
MRI OF THE BRAIN WITHOUT CONTRAST CLINICAL HISTORY: Stroke. Left-sided weakness. COMPARISON STUDY: Head CT November 13, 2017 and December 22, 2017. TECHNIQUE: Utilizing a 1.5 Briana magnet and dedicated coil, multiplanar, multiecho imaging of the brain was performed without IV contrast. FINDINGS: This study is moderately compromised by motion artifact. There is a possible punctate focus of restricted diffusion within the posterior limb of the right internal capsule/right thalamus shown on axial image 13 of 52. There is corresponding hypointensity on the ADC map. No additional abnormalities are identified on the diffusion-weighted sequence. Old infarcts within the left cerebellar hemisphere and left aspect of the desmond are noted. Moderate atrophy is noted. The basilar cisterns are patent. There are no extra-axial collections. Flow-voids for the major intracranial vessels are grossly present. There is mild mucosal thickening of the ethmoid sinuses. White matter T2 hyperintense foci suggest moderate small vessel disease. There is no acute intracranial hemorrhage, midline shift or mass effect. IMPRESSION: 1. Possible punctate acute infarct within the right thalamus/posterior limb of the right internal capsule. 2. Study moderately compromised by motion artifact. 3. Old left pontine and left cerebellar hemispheric infarcts. 4. No acute intracranial hemorrhage. Electronically signed by: [place] March M.D. 12/22/2017 7:06 PM Dictated Date/Time: 12/22/2017 6:58 PM
[2017-12-22] MEDS ORDERED: LORAZEPAM INJ 1 MG in SYRINGE 0.5 ML IV PRN (19:30)
[2017-12-22] MEDS ORDERED: LORAZEPAM INJ 0.5 MG in SYRINGE 0.75 ML IV PRN (19:30)
[2017-12-22] MEDS: DABIGATRAN ELEXILATE 75 MG CAP PO SCH (20:29)
[2017-12-22] MEDS: ATORVASTATIN 40 MG TAB PO SCH (20:29)
[2017-12-22] MEDS: CARVEDILOL 25 MG TAB PO SCH (20:29)
[2017-12-22] MEDS: ACETAMINOPHEN 500 MG TAB PO SCH (20:30)
[2017-12-22] MEDS: EUCERIN CR 120 GM JAR EXT SCH (20:31)
[2017-12-22] MEDS: DICLOFENAC SOD 1% GEL 100 GM TUBE EXT SCH (20:31)
[2017-12-22] MEDS ORDERED: INFLUENZA ADMINISTRATION CHARGE ONE (21:00)
[2017-12-22] MEDS ORDERED: PNEUMOCOCCAL ADMINISTRATION CHARGE ONE (21:00)
[2017-12-22] MEDS ORDERED: INFLUENZA VIRUS QUAD VACCINE 0.5 ML SYR IM. ONE (21:00)
[2017-12-22] MEDS ORDERED: PNEUMOCOCCAL POLYSACCHARIDES 25 MCG/0.5 ML VIAL/SYR IM. ONE (21:00)
[2017-12-22] MEDS ORDERED: CEFEPIME IV 1,000 MG in DEXTROSE 5% 100ML 100 ML IV SCH (22:00)
[2017-12-23] VITALS (10 sets, daily range): BP systolic 101–148; BP diastolic 55–75; PULSE 75–81; TEMP 36.6–37.3; O2SAT 92–99
[2017-12-23] MEDS: CEFEPIME IV 1,000 MG in SYRINGE 0 ML IV SCH ×3 (01:11→16:55)
[2017-12-23 07:34] LABS: BASO % 0.6 %; BASO ABS # 0.05 K/uL (0-0.2); EOS % 1.2 %; EOS ABS # 0.11 K/uL (0-0.5); HEMATOCRIT 34.1 % (37-47); IG# 0.01 K/uL (0.00-0.02); LYMPH ABS # 1.25 K/uL (1.2-3.4); MEAN CELL VOLUME 92.2 fL (80-100); MEAN CORPUSCULAR HEMOGLOBIN 29.7 pg (25-34); MEAN CORPUSCULAR HGB CONC 32.3 g/dl (32-36); MEAN PLATELET VOLUME 9.8 fL (7.4-10.4); MONO ABS # 0.99 K/uL (0.11-0.59); NEUT % 73.1 %; NEUT ABS # 6.55 K/uL (1.4-6.5); PLATELET COUNT 325 K/uL (130-400); RED CELL DISTRIBUTION WIDTH CV 15.2 % (11.5-14.5); RED CELL DISTRIBUTION WIDTH SD 51.6 fL (36.4-46.3); WHITE BLOOD COUNT 8.96 K/uL (4.8-10.8)
[2017-12-23 08:05] LABS: CALCIUM 8.5 mg/dl (8.5-10.1); CREATININE 0.87 mg/dl (0.60-1.20); POTASSIUM 3.5 mmol/L (3.5-5.1)
[2017-12-23] MEDS: EUCERIN CR 120 GM JAR EXT SCH ×2 (08:19→21:10)
[2017-12-23] MEDS: ACETAMINOPHEN 500 MG TAB PO SCH ×2 (08:19→21:12)
[2017-12-23] MEDS: CARVEDILOL 25 MG TAB PO SCH ×2 (08:20→16:55)
[2017-12-23] MEDS: DICLOFENAC SOD 1% GEL 100 GM TUBE EXT SCH ×2 (08:20→21:10)
[2017-12-23] MEDS: DABIGATRAN ELEXILATE 75 MG CAP PO SCH ×2 (08:20→21:11)
[2017-12-23] MEDS: CLOPIDOGREL BISULFATE 75 MG TAB PO SCH (08:21)
[2017-12-23] MEDS: FLUOXETINE HCL 20 MG CAP PO SCH (08:21)
--- NOTE | 2017-12-23 10:36 | Neurology Consultation ---
Neurology Consultation Date of Consultation: Dec 23, 2017. Attending Physician: Sylvester Guajardo MD, PhD Primary Care Physician: No Doctor, Assigned Reason for Consultation: Stroke History of Present Illness Source: patient, hospital records The patient is a 77-year-old female with a chief complaint of weakness. She complains of inability to stand and pivot using her walker which began on December 21, the day prior to admission to the hospital. She complains of bilateral leg weakness and spastic contractures at the knees which have been present for several month with associated pain radiating down the back of both legs. However, she believes her left leg weakness is worse than usual. She denies numbness in either lower extremity. 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 She had presented to the hospital in February 2017 with a stroke characterized by left-sided weakness and was subsequently transferred to [facility] for further care at that time. She has a history of atrial fibrillation and had been prescribed warfarin. This medication was discontinued after she developed an abdominal wall hematoma. She is currently prescribed Plavix and Pradaxa. History also notable for diabetes mellitus, hyperlipidemia, and recent treatment for left lower extremity cellulitis. A recently completed CT of the head reveals old left cerebellar infarcts and an infarct within the left desmond. There is chronic scattered small vessel ischemic disease. I reviewed the images as well as the radiologist's interpretation of this test. Electrocardiogram reveals a normal sinus rhythm, 79 bpm. A follow-up brain MRI has been completed. I reviewed the images and radiologist's interpretation of this test. There is a very small, pain, area of restricted diffusion within the right thalamus/posterior limb of the right internal capsule potentially consistent with a punctate acute/ subacute infarct. There are scattered, patchy, foci of increased T2/FLAIR signal throughout the brain parenchyma, subcortically, and throughout the brainstem, especially the upper desmond. Within the upper desmond there is an area of increased T2/FLAIR signal corresponding to the previously identified chronic left pontine infarct. There is also an area of increased signal at the same level located just to the right of midline, within the anterior desmodn. A CTA of the head completed in February 2017 revealed mild atheromatous changes and was otherwise unremarkable. Currently, the patient denies headache, vision loss, diplopia, vertigo, hearing loss, or new weakness in either upper limb. She does admit to some chronic residual left upper extremity weakness related to her previous stroke. Past Medical/Surgical History Medical Problems: (1) Acute right-sided weakness Status: Acute (2) Altered mental status Status: Acute (3) Anemia Status: Acute (4) Cellulitis Status: Acute (5) Elevated INR Status: Acute (6) Failure of outpatient treatment Status: Acute (7) Falls Status: Acute (8) Rectus sheath hematoma Status: Acute (9) Respiratory failure Status: Acute (10) Vertigo Status: Acute (11) Weakness Status: Acute Family History Noncontributory Social History Smokeless Tobacco Use: No Marital Status: Housing Status: lives with significant other Occupation Status: retired Allergies Coded Allergies: Tramadol (Unverified Allergy, Severe, VOMITING, 12/22/17) Niacin (Verified Allergy, Intermediate, RASH, 12/22/17) PALPITATIONS Morphine (Verified Allergy, Unknown, unknown, 12/22/17) Penicillins (Verified Allergy, Unknown, unknown, 12/22/17) Current Inpatient Medications Current Inpatient Medications Medications (Trade) Dose Ordered Sig/Isidra Route Start Time Stop Time Status Last Admin Dose Admin Acetaminophen (Tylenol Tab) 1,000 mg BID PO 12/22/17 21:00 01/21/18 20:59 12/23/17 08:19 1,000 MG Atorvastatin Calcium (Lipitor Tab) 40 mg HS PO 12/22/17 21:00 01/21/18 20:59 12/22/17 20:29 40 MG Carvedilol (Coreg Tab) 25 mg BIDM PO 12/22/17 18:00 01/21/18 17:59 12/23/17 08:20 25 MG Clopidogrel Bisulfate (plAVix TAB) 75 mg QAM PO 12/23/17 09:00 01/22/18 08:59 12/23/17 08:21 75 MG Dabigatran (Pradaxa Cap) 150 mg BID PO 12/22/17 21:00 01/21/18 20:59 12/23/17 08:20 150 MG Diclofenac Sodium (Voltaren 1% Top Gel) 1 appln BID EXT 12/22/17 21:00 01/21/18 20:59 12/23/17 08:20 1 APPLN Multi-Ingredient Ointment (Eucerin Unscented Cr) 1 appln BID EXT 2/3/18 21:00 01/21/18 20:59 12/23/17 08:19 1 APPLN Fluoxetine HCl (Prozac Cap) 20 mg QAM PO 12/23/17 09:00 01/22/18 08:59 12/23/17 08:21 20 MG Ondansetron HCl (Zofran Tab) 4 mg Q4 PRN PO 12/22/17 17:15 01/21/18 17:14 Oxycodone HCl (Roxicodone Immediate Rel Tab) 10 mg Q6 PRN PO 12/22/17 17:15 01/05/18 17:14 Acetaminophen (Tylenol Tab) 650 mg Q4H PRN PO 12/22/17 17:30 01/21/18 17:29 Al Hydrox/Mg Hydrox/Simethicone (Maalox Max Susp) 15 ml Q4H PRN PO 12/22/17 17:30 01/21/18 17:29 Magnesium Hydroxide (Milk Of Magnesia Susp) 30 ml Q12H PRN PO 12/22/17 17:30 01/21/18 17:29 Ondansetron HCl (Zofran Inj) 4 mg Q6H PRN IV 12/22/17 17:30 01/21/18 17:29 Nitroglycerin (Nitrostat Tab) 0.4 mg UD PRN SL 12/22/17 17:30 01/21/18 17:29 Miscellaneous Information (Pharmacist Discharge Med Rec Consult) 1 ea UD PRN N/A 12/22/17 17:30 01/21/18 17:29 Lorazepam (Ativan Tab) 0.5 mg Q6 PRN PO 12/22/17 17:45 01/21/18 17:44 Lorazepam (Ativan Inj) 0.5 mg Q4H PRN IV 12/22/17 17:45 01/21/18 17:44 Lorazepam (Ativan Inj) 1 mg Q4H PRN IV 12/22/17 17:45 01/21/18 17:44 Cefepime HCl 1000 mg/Syringe 11 ml @ 5.5 mls/min Q8H IV 12/23/17 02:00 01/01/18 01:59 12/23/17 01:11 5.5 MLS/MIN Lorazepam 0.5 mg/ Syringe 1 ml @ 1 mls/min Q4H PRN IV 12/22/17 19:30 01/21/18 19:29 12/23/17 01:11 1 MLS/MIN Lorazepam 1 mg/ Syringe 1 ml @ 1 mls/min Q4H PRN IV 12/22/17 19:30 01/21/18 19:29 Review of Systems Constitutional: Patient denies fever or chills Eyes: No vision loss or diplopia ENT: No vertigo or hearing loss or change in speech or swallowing Cardiovascular: No chest pain or palpitations Respiratory: No coughing wheezing or shortness of breath Neurological: As per history of present illness Musculoskeletal: Chronic hip and knee pain. Intermittent low back pain. Psychiatric: Depression, taking medication Skin: Distal left lower extremity cellulitis as described in the history of present illness A full 10 point review of systems was obtained from this patient with pertinent positives and negatives described in the history of present illness and otherwise listed above. All remaining systems were reviewed and are negative. Physical Exam Vital Signs (Past 24 Hrs): Date Time Temp Pulse Resp B/P (MAP) Pulse Ox O2 Delivery O2 Flow Rate FiO2 12/23/17 07:49 36.6 81 20 148/74 (98) 98 Nasal Cannula 2.0 12/23/17 03:43 37.3 75 18 145/57 (86) 96 Nasal Cannula 3.0 12/23/17 03:30 92 Nasal Cannula 3.0 12/22/17 23:38 36.5 82 20 102/59 (73) 95 Nasal Cannula 3.0 12/22/17 23:15 95 Nasal Cannula 3.0 12/22/17 20:25 82 120/68 (85) 12/22/17 20:00 97 Nasal Cannula 3.0 12/22/17 19:40 95 Nasal Cannula 3.0 12/22/17 19:38 36.6 81 22 125/72 12/22/17 19:10 97 Nasal Cannula 3.0 12/22/17 17:10 90 28 133/69 97 Nasal Cannula 3.0 12/22/17 16:20 95 Nasal Cannula 3.0 12/22/17 16:20 82 22 107/61 96 Nasal Cannula 3.0 12/22/17 14:33 78 12/22/17 14:25 36.9 82 23 163/93 95 Room Air The patient is a well-developed, well-nourished elderly female. She is lying on her right hand side, keeping both legs flexed at the knees. She appears modestly uncomfortable. She is alert and fully oriented. Recent and remote memory intact. Attention and concentration slightly impaired. Processing speed is slightly slow. Patient exhibits a normal spontaneous speech pattern. She is able to name and repeat. She exhibits an age-appropriate fund of knowledge and normal vocabulary. Visual perrin full to confrontation. Visual acuity normal. Pupils equal round reactive to light and accommodation. Eye movements normal. There is no nystagmus. Facial sensation intact bilaterally. There is normal facial symmetry and strength. Hearing intact to finger rub bilaterally. Palate elevates to midline. Shoulder shrug intact bilaterally. Tongue protrudes to midline. Sensation intact to all modalities in all 4 limbs. Deep tendon reflexes are generally increased although patellar tendon reflexes cannot be adequately assessed due to persistent contractures at the knees. Plantar responses upgoing bilaterally. There is mild to moderate dysmetria with finger to nose on the left. We are to nose with the right normal. Testing of coordination for either lower limb cannot be performed. Ophthalmoscopic examination reveals normal-appearing optic disks and posterior segments. Carotid pulses normal bilaterally, no bruits to auscultation. Gait and station cannot be tested. Muscle strength for both upper extremities is normal proximally and distally although there is a slight left upper extremity pronator drift. Muscle tone for both upper limbs normal. There is considerable flexor spasm of both knees which I am unable to overcome with direct testing. There is no atrophy. No abnormal movements observed. Laboratory Results Past 24 Hours: 12/23/17 07:18 Red Blood Count 3.70, Mean Corpuscular Volume 92.2, Mean Corpuscular Hemoglobin 29.7, Mean Corpuscular Hemoglobin Concent 32.3, Mean Platelet Volume 9.8, Neutrophils (%) (Auto) 73.1, Lymphocytes (%) (Auto) 14.0, Monocytes (%) (Auto) 11.0, Eosinophils (%) (Auto) 1.2, Basophils (%) (Auto) 0.6, Neutrophils # (Auto ) 6.55, Lymphocytes # (Auto) 1.25, Monocytes # (Auto) 0.99, Eosinophils # (Auto ) 0.11, Basophils # (Auto) 0.05 12/23/17 07:18 Test 12/22/17 15:11 12/22/17 16:15 12/22/17 20:52 12/23/17 07:18 Prothrombin Time 11.5 SECONDS (9.0-12.0) Prothromb Time International Ratio 1.1 (0.9-1.1) Activated Partial Thromboplast Time 32.8 SECONDS (21.0-31.0) Partial Thromboplastin Ratio 1.3 Lactic Acid Level 1.0 mmol/L (0.4-2.0) Magnesium Level 1.9 mg/dl (1.8-2.4) Total Bilirubin 0.6 mg/dl (0.2-1) Direct Bilirubin 0.2 mg/dl (0-0.2) Aspartate Amino Transf (AST/SGOT) 29 U/L (15-37) Alanine Aminotransferase (ALT/SGPT) 17 U/L (12-78) Alkaline Phosphatase 94 U/L (45-117) Total Creatine Kinase 559 U/L (26-192) Creatine Kinase MB 7.6 ng/ml (0.5-3.6) Creatine Kinase MB Ratio 1.4 (0-3.0) Total Protein 6.9 gm/dl (6.4-8.2) Albumin 3.1 gm/dl (3.4-5.0) Urine Color YELLOW Urine Appearance CLEAR (CLEAR) Urine pH 5.0 (4.5-7.5) Urine Specific [place] 1.019 (1.000-1.030) Urine Protein NEG (NEG) Urine Glucose (UA) NEG (NEG) Urine Ketones TRACE (NEG) Urine Occult Blood NEG (NEG) Urine Nitrite NEG (NEG) Urine Bilirubin NEG (NEG) Urine Urobilinogen NEG (NEG) Urine Leukocyte Esterase TRACE (NEG) Urine WBC (Auto) 1-5 /hpf (0-5) Urine RBC (Auto) 0-4 /hpf (0-4) Urine Hyaline Casts (Auto) 1-5 /lpf (0-5) Urine Epithelial Cells (Auto) 10-20 /lpf (0-5) Urine Bacteria (Auto) NEG (NEG) Urine Opiates Screen NEG (NEG) Urine Methadone, Qualitative NEG (NEG) Urine Barbiturates NEG (NEG) Urine Phencyclidine (PCP) Level NEG (NEG) Ur Amphetamine/Methamphetamine NEG (NEG) MDMA (Ecstasy) Screen NEG (NEG) Urine Benzodiazepines Screen NEG (NEG) Urine Cocaine Metabolite NEG (NEG) Urine Marijuana (THC) NEG (NEG) Bedside Glucose 117 mg/dl (70-90) White Blood Count 8.96 K/uL (4.8-10.8) Red Blood Count 3.70 M/uL (4.2-5.4) Hemoglobin 11.0 g/dL (12.0-16.0) Hematocrit 34.1 % (37-47) Mean Corpuscular Volume 92.2 fL (80-100) Mean Corpuscular Hemoglobin 29.7 pg (25-34) Mean Corpuscular Hemoglobin Concent 32.3 g/dl (32-36) Platelet Count 325 K/uL (130-400) Mean Platelet Volume 9.8 fL (7.4-10.4) Neutrophils (%) (Auto) 73.1 % Lymphocytes (%) (Auto) 14.0 % Monocytes (%) (Auto) 11.0 % Eosinophils (%) (Auto) 1.2 % Basophils (%) (Auto) 0.6 % Neutrophils # (Auto) 6.55 K/uL (1.4-6.5) Lymphocytes # (Auto) 1.25 K/uL (1.2-3.4) Monocytes # (Auto) 0.99 K/uL (0.11-0.59) Eosinophils # (Auto) 0.11 K/uL (0-0.5) Basophils # (Auto) 0.05 K/uL (0-0.2) RDW Standard Deviation 51.6 fL (36.4-46.3) RDW Coefficient of Variation 15.2 % (11.5-14.5) Immature Granulocyte % (Auto) 0.1 % Immature Granulocyte # (Auto) 0.01 K/uL (0.00-0.02) Anion Gap 8.0 mmol/L (3-11) Est Creatinine Clear Calc Drug Dose 56.6 ml/min Estimated GFR () 74.5 Estimated GFR (Non- 64.3 BUN/Creatinine Ratio 10.7 (10-20) Calcium Level 8.5 mg/dl (8.5-10.1) Troponin I 0.019 ng/ml (0-0.045) Triglycerides Level 105 mg/dl (0-150) Cholesterol Level 127 mg/dl (0-200) HDL Cholesterol 51 mg/dl LDL Cholesterol, Calculated 55 mg/dl VLDL Cholesterol, Calculated 21 mg/dl Cholesterol/HDL Ratio 2.5 Impression This patient has significant flexor spasm at both knees which according to the patient has been present for several months. Yet, she also reports that she had been able to stand and pivot using her walker up until a few days ago. She has a history of several old cerebellar and pontine strokes and persistent moderate left-sided weakness. The recent brain MRI reveals a very small, punctate, acute or subacute infarct within the right thalamus/posterior limb of the right internal capsule which probably explains her recent worsening left-sided weakness. Strokes in this location are typically due to small vessel thrombosis. Risk factors include hypertension and hyperlipidemia. This patient also has a history of atrial fibrillation which may have been a factor in her previous strokes. Plan Continue Plavix and Pradaxa Permissive hypertension, systolic blood pressure 140-[address] angiogram of the head and neck to exclude vertebrobasilar thrombosis PT/OT Consider a trial of low-dose baclofen or tizanidine to address patient's persistent lower extremity flexor spasms.
[2017-12-23] MEDS ORDERED: OPTIRAY 320 IV PRN (10:45)
--- NOTE | 2017-12-23 13:05 | Hospitalist Progress Note ---
Hospitalist Progress Note Date of Service Dec 23, 2017. Subjective Pt evaluation today including: conversation w/ patient, physical exam, chart review, lab review, review of studies, review of inpatient medication list Pain: 8/10 discomfort in legs due to spasm PO Intake: Tolerating PO diet Voiding: no voiding problems Patient complains of muscle spasms in both upper legs, which she rates an 8/10 in discomfort. She states this has been an intermittent issue since her last stroke in February 2017. She has has severe flexor contractures of her knees, which again have been present since February but are now acutely worse. The patient was previously able to stand and pivot to a wheelchair but now cannot stand due to acute LLE weakness. She states that her left leg "doesn't feel like it belongs to me." The patient also complains of shortness of breath. She is currently on 2L NC. She states she normally only wears 2L oxygen at nighttime, not during the day. The patient denies fevers, chills, sweats, chest pain, palpitations, claudication, cough, wheezing, nausea, vomiting, abdominal pain, dysuria, hematuria, urinary retention, paralysis. Additional Comments: See HPI for pertinent positives and negatives. All other systems reviewed and negative. Objective Vital Signs Date Time Temp Pulse Resp B/P (MAP) Pulse Ox O2 Delivery O2 Flow Rate FiO2 12/23/17 12:00 94 Nasal Cannula 2.0 12/23/17 08:00 98 Nasal Cannula 2.0 12/23/17 07:49 36.6 81 20 148/74 (98) 98 Nasal Cannula 2.0 12/23/17 03:43 37.3 75 18 145/57 (86) 96 Nasal Cannula 3.0 12/23/17 03:30 92 Nasal Cannula 3.0 12/22/17 23:38 36.5 82 20 102/59 (73) 95 Nasal Cannula 3.0 12/22/17 23:15 95 Nasal Cannula 3.0 12/22/17 20:25 82 120/68 (85) 12/22/17 20:00 97 Nasal Cannula 3.0 12/22/17 19:40 95 Nasal Cannula 3.0 12/22/17 19:38 36.6 81 22 125/72 12/22/17 19:10 97 Nasal Cannula 3.0 12/22/17 17:10 90 28 133/69 97 Nasal Cannula 3.0 12/22/17 16:20 95 Nasal Cannula 3.0 12/22/17 16:20 82 22 107/61 96 Nasal Cannula 3.0 12/22/17 14:33 78 12/22/17 14:25 36.9 82 23 163/93 95 Room Air Physical Exam Notes: General appearance: +Appears chronically ill. Mild distress secondary to pain. Well-developed, well-nourished Head: Normocephalic, atraumatic Eyes: Normal inspection, PERRL, EOMI ENT: Normal ENT inspection, hearing grossly normal, pharynx normal Neck: Supple, no JVD, trachea midline Respiratory/Chest: +On 2L NC. Decreased breath sounds, poor respiratory effort. Lungs clear to auscultation, no respiratory distress Cardiovascular: Regular rate & rhythm, no gallop, no murmur Abdomen/GI: Normal bowel sounds, non-tender, soft Extremities/Musculoskeletal: +Lower legs with flexor contractures at the knees. Difficult to assess motor strength. Erythema circumferentially in lower legs. 1-2+ pitting edema. No calf tenderness Neurological/Psych: Alert, normal mood/affect, oriented x 3 Skin: +Erythema as above. Normal color, warm/dry, no rash Laboratory Results Last 24 Hours Test 12/22/17 15:11 12/22/17 16:15 12/22/17 20:52 12/22/17 22:56 White Blood Count 10.73 K/uL Red Blood Count 3.65 M/uL Hemoglobin 10.9 g/dL Hematocrit 33.6 % Mean Corpuscular Volume 92.1 fL Mean Corpuscular Hemoglobin 29.9 pg Mean Corpuscular Hemoglobin Concent 32.4 g/dl Platelet Count 337 K/uL Mean Platelet Volume 9.6 fL Neutrophils (%) (Auto) 78.2 % Lymphocytes (%) (Auto) 11.6 % Monocytes (%) (Auto) 9.1 % Eosinophils (%) (Auto) 0.5 % Basophils (%) (Auto) 0.3 % Neutrophils # (Auto) 8.39 K/uL Lymphocytes # (Auto) 1.25 K/uL Monocytes # (Auto) 0.98 K/uL Eosinophils # (Auto) 0.05 K/uL Basophils # (Auto) 0.03 K/uL RDW Standard Deviation 52.1 fL RDW Coefficient of Variation 15.3 % Immature Granulocyte % (Auto) 0.3 % Immature Granulocyte # (Auto) 0.03 K/uL Prothrombin Time 11.5 SECONDS Prothromb Time International Ratio 1.1 Activated Partial Thromboplast Time 32.8 SECONDS Partial Thromboplastin Ratio 1.3 Sodium Level 135 mmol/L Potassium Level 4.0 mmol/L Chloride Level 102 mmol/L Carbon Dioxide Level 27 mmol/L Anion Gap 6.0 mmol/L Blood Urea Nitrogen 11 mg/dl Creatinine 0.83 mg/dl Est Creatinine Clear Calc Drug Dose 60.7 ml/min Estimated GFR () 78.8 Estimated GFR (Non- 68.0 BUN/Creatinine Ratio 12.7 Random Glucose 109 mg/dl Lactic Acid Level 1.0 mmol/L Calcium Level 8.8 mg/dl Magnesium Level 1.9 mg/dl Total Bilirubin 0.6 mg/dl Direct Bilirubin 0.2 mg/dl Aspartate Amino Transf (AST/SGOT) 29 U/L Alanine Aminotransferase (ALT/SGPT) 17 U/L Alkaline Phosphatase 94 U/L Total Creatine Kinase 559 U/L Creatine Kinase MB 7.6 ng/ml Creatine Kinase MB Ratio 1.4 Troponin I < 0.015 ng/ml 0.018 ng/ml Total Protein 6.9 gm/dl Albumin 3.1 gm/dl Urine Color YELLOW Urine Appearance CLEAR Urine pH 5.0 Urine Specific [place] 1.019 Urine Protein NEG Urine Glucose (UA) NEG Urine Ketones TRACE Urine Occult Blood NEG Urine Nitrite NEG Urine Bilirubin NEG Urine Urobilinogen NEG Urine Leukocyte Esterase TRACE Urine WBC (Auto) 1-5 /hpf Urine RBC (Auto) 0-4 /hpf Urine Hyaline Casts (Auto) 1-5 /lpf Urine Epithelial Cells (Auto) 10-20 /lpf Urine Bacteria (Auto) NEG Urine Opiates Screen NEG Urine Methadone, Qualitative NEG Urine Barbiturates NEG Urine Phencyclidine (PCP) Level NEG Ur Amphetamine/Methamphetamine NEG MDMA (Ecstasy) Screen NEG Urine Benzodiazepines Screen NEG Urine Cocaine Metabolite NEG Urine Marijuana (THC) NEG Bedside Glucose 117 mg/dl Test 12/23/17 07:18 White Blood Count 8.96 K/uL Red Blood Count 3.70 M/uL Hemoglobin 11.0 g/dL Hematocrit 34.1 % Mean Corpuscular Volume 92.2 fL Mean Corpuscular Hemoglobin 29.7 pg Mean Corpuscular Hemoglobin Concent 32.3 g/dl Platelet Count 325 K/uL Mean Platelet Volume 9.8 fL Neutrophils (%) (Auto) 73.1 % Lymphocytes (%) (Auto) 14.0 % Monocytes (%) (Auto) 11.0 % Eosinophils (%) (Auto) 1.2 % Basophils (%) (Auto) 0.6 % Neutrophils # (Auto) 6.55 K/uL Lymphocytes # (Auto) 1.25 K/uL Monocytes # (Auto) 0.99 K/uL Eosinophils # (Auto) 0.11 K/uL Basophils # (Auto) 0.05 K/uL RDW Standard Deviation 51.6 fL RDW Coefficient of Variation 15.2 % Immature Granulocyte % (Auto) 0.1 % Immature Granulocyte # (Auto) 0.01 K/uL Sodium Level 139 mmol/L Potassium Level 3.5 mmol/L Chloride Level 104 mmol/L Carbon Dioxide Level 27 mmol/L Anion Gap 8.0 mmol/L Blood Urea Nitrogen 9 mg/dl Creatinine 0.87 mg/dl Est Creatinine Clear Calc Drug Dose 56.6 ml/min Estimated GFR () 74.5 Estimated GFR (Non- 64.3 BUN/Creatinine Ratio 10.7 Random Glucose 89 mg/dl Calcium Level 8.5 mg/dl Troponin I 0.019 ng/ml Triglycerides Level 105 mg/dl Cholesterol Level 127 mg/dl HDL Cholesterol 51 mg/dl LDL Cholesterol, Calculated 55 mg/dl VLDL Cholesterol, Calculated 21 mg/dl Cholesterol/HDL Ratio 2.5 Diagnostic Results Reviewed the following studies and agree with interpretation as follows: MRI OF THE BRAIN WITHOUT CONTRAST CLINICAL HISTORY: Stroke. Left-sided weakness. COMPARISON STUDY: Head CT November 13, 2017 and December 22, 2017. TECHNIQUE: Utilizing a 1.5 Briaan magnet and dedicated coil, multiplanar, multiecho imaging of the brain was performed without IV contrast. FINDINGS: This study is moderately compromised by motion artifact. There is a possible punctate focus of restricted diffusion within the posterior limb of the right internal capsule/right thalamus shown on axial image 13 of 52. There is corresponding hypointensity on the ADC map. No additional abnormalities are identified on the diffusion-weighted sequence. Old infarcts within the left cerebellar hemisphere and left aspect of the desmond are noted. Moderate atrophy is noted. The basilar cisterns are patent. There are no extra-axial collections. Flow-voids for the major intracranial vessels are grossly present. There is mild mucosal thickening of the ethmoid sinuses. White matter T2 hyperintense foci suggest moderate small vessel disease. There is no acute intracranial hemorrhage, midline shift or mass effect. IMPRESSION: 1. Possible punctate acute infarct within the right thalamus/posterior limb of the right internal capsule. 2. Study moderately compromised by motion artifact. 3. Old left pontine and left cerebellar hemispheric infarcts. 4. No acute intracranial hemorrhage. Assessment and Plan 77 y/o female with a history of CAD, CABG, HTN, HLD, CVA, a-fib, DM II, anxiety and depression who presents with LLE weakness. CVA -Admit to telemetry. No acute events overnight. Pt in sinus rhythm with HR in 70s-90s -Brain MRI with small punctate acute infarct in right thalamus/posterior limb of right internal capsule -Neurology consulted, appreciate recs: Continue Plavix and Pradaxa. Allow for permissive HTN. Will order CTA head and neck. Consider trial of baclofen or tizanidine for muscle spasms. -CTA head and neck pending -PT/OT ordered -Speech cleared for regular diet with aspiration precautions -Troponin negative x 3 -Lipids WNL -HgbA1c pending Muscle pain/spasm, contractures -Continue oxycodone IR 10 mg PO q6h prn pain -Start Zanaflex 2 mg PO TID for spasms Lower extremity cellulitis -Continue Cefepime, day #2 -Wound care nurse consulted CAD, CABG, HTN, HLD--stable. BP in 140s systolically today, acceptable as it has been nearly 48 hours since symptoms started -Continue Plavix 75 mg PO qd, Coreg 25 mg PO BID, Lipitor 40 mg PO qd A-fib--stable, NSR -Continue Coreg as above, Pradaxa 150 mg PO BID DM II--last HgbA1c in 2007. Repeat pending -Possibly remote history or h/o prediabetes. Last A1c in 2007 was 6.1 -BSG WNL now, hold off on ISS Anxiety/depression -Continue Prozac 20 mg PO qd DVT prophylaxis -Pradaxa Code Status -Level I, FULL RESUSCITATION STATUS
--- NOTE | 2017-12-23 14:42 | DIAGNOSTIC IMAGING REPORT ---
NECK ANGIO WITH CONTRAST CLINICAL HISTORY: 77 years-old Female presenting with posterior circulation stroke. TECHNIQUE: Multidetector CT angiography of the neck was performed after the administration of intravenous contrast. 3-D volumetric and/or maximum intensity projection (MIP) images were subsequently reconstructed for review. IV contrast: 119 mL of Optiray 320. A dose lowering technique was used consistent with the principles of ALARA (as low as reasonably achievable). Stenosis measurements were based on NASCET-like criteria. COMPARISON: None. CT DOSE (mGy.cm): The estimated cumulative dose is 1181.31. FINDINGS: Magneto Electrician topogram: Median sternotomy wires. Atherosclerosis of the aortic arch. Origins of the cervical vessels remain patent. Bilateral common carotid arteries patent. Calcified atherosclerotic plaque at the carotid bulbs mildly narrows the origins of the internal carotid arteries (less than 25% stenosis. The bilateral internal carotid arteries are widely patent. Atherosclerotic plaque within 1 cm of the origin of the right vertebral artery does not significantly narrow the lumen (less than 25%). Tortuous origin of the left vertebral artery. Both vertebral arteries are widely patent. No evidence of dissection, focal vessel occlusion, or significant stenosis. Remaining soft tissues of the neck remarkable for a multinodular thyroid. No lymphadenopathy. Multilevel degenerative changes of the cervical spine. IMPRESSION: Atherosclerosis without evidence of dissection, focal vessel occlusion, or significant stenosis of the cervical arteries. Electronically signed by: Feilpe Malik M.D. 12/23/2017 2:41 PM Dictated Date/Time: 12/23/2017 2:36 PM
--- NOTE | 2017-12-23 14:54 | DIAGNOSTIC IMAGING REPORT ---
ANGIOGRAPHY HEAD COMBO CLINICAL HISTORY: 77 years-old Female presenting with posterior circulation stroke. TECHNIQUE: Multidetector CT angiography of the head was performed after the administration of intravenous contrast. 3-D volumetric and/or maximum intensity projection (MIP) images were subsequently reconstructed for review. IV contrast: 119 mL of Optiray 320. A dose lowering technique was used consistent with the principles of ALARA (as low as reasonably achievable). COMPARISON: 02/23/2017. CT DOSE (mGy.cm): The estimated cumulative dose is 1181.31 mGy.cm. FINDINGS: Cemetery Laborer topogram: Unremarkable. NONCONTRAST CT HEAD: Ventricles and sulci normal in size. Old infarct in the left brachium pontis and left cerebellar hemisphere. Periventricular white matter hypoattenuation nonspecific but likely chronic small vessel ischemic change. No mass effect or midline shift. No hemorrhage or acute territorial infarct. No extra-axial fluid collection. Paranasal sinuses and mastoid air cells clear. Calvarium intact. CTA HEAD: Anterior circulation demonstrates atherosclerosis of the intracranial portions of the internal carotid arteries including prominently in the cavernous segments. Less than 50% stenosis observed. Relatively hypoplastic A1 segment of the right anterior cerebral artery. Bilateral anterior and middle cerebral arteries patent. Anterior commuting artery patent. Posterior circulation demonstrates codominant vertebral arteries with mild atherosclerotic change. The basilar artery is widely patent. Bilateral posterior inferior cerebellar, anterior inferior cerebellar, superior cerebellar, and posterior cerebral arteries patent. Right posterior communicating artery patent. Left posterior communicating artery hypoplastic or aplastic. No focal vessel occlusion, significant stenosis, or aneurysm. Cortical veins and dural venous sinuses patent. For the phase of contrast, no abnormal enhancement of the brain parenchyma. IMPRESSION: 1. No acute intracranial abnormality. 2. 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 3. Atherosclerosis of the intracranial portions of the internal carotid arteries without hemodynamically significant stenosis. 4. No evidence of focal vessel occlusion, significant stenosis, or aneurysm. Specifically, the posterior circulation is patent. Electronically signed by: Felipe Malik M.D. 12/23/2017 2:52 PM Dictated Date/Time: 12/23/2017 2:45 PM
[2017-12-23] MEDS ORDERED: NURSING VERBAL MED ORDER ONE (18:15)
[2017-12-23] MEDS: SODIUM CHLORIDE 0.9% 1000ML 1,000 ML IV SCH (18:29)
[2017-12-23] MEDS: ATORVASTATIN 40 MG TAB PO SCH (21:11)
[2017-12-24] VITALS (8 sets, daily range): BP systolic 99–148; BP diastolic 63–74; PULSE 74–83; TEMP 36.5–37.2; O2SAT 91–96
[2017-12-24] MEDS: CEFEPIME IV 1,000 MG in SYRINGE 0 ML IV SCH ×3 (02:23→17:17)
[2017-12-24 07:40] LABS: BASO % 0.6 %; BASO ABS # 0.05 K/uL (0-0.2); EOS % 3.3 %; EOS ABS # 0.26 K/uL (0-0.5); HEMATOCRIT 33.5 % (37-47); HEMOGLOBIN 10.7 g/dL (12.0-16.0); IG# 0.02 K/uL (0.00-0.02); LYMPH ABS # 1.19 K/uL (1.2-3.4); MEAN CELL VOLUME 93.6 fL (80-100); MEAN CORPUSCULAR HEMOGLOBIN 29.9 pg (25-34); MEAN CORPUSCULAR HGB CONC 31.9 g/dl (32-36); MEAN PLATELET VOLUME 10.2 fL (7.4-10.4); MONO % 11.1 %; MONO ABS # 0.88 K/uL (0.11-0.59); NEUT % 69.7 %; NEUT ABS # 5.53 K/uL (1.4-6.5); PLATELET COUNT 302 K/uL (130-400); RED CELL DISTRIBUTION WIDTH CV 15.5 % (11.5-14.5); RED CELL DISTRIBUTION WIDTH SD 53.2 fL (36.4-46.3); WHITE BLOOD COUNT 7.93 K/uL (4.8-10.8)
[2017-12-24] MEDS: CARVEDILOL 25 MG TAB PO SCH ×2 (07:45→17:17)
[2017-12-24] MEDS: DABIGATRAN ELEXILATE 75 MG CAP PO SCH ×2 (07:46→19:39)
[2017-12-24] MEDS: FLUOXETINE HCL 20 MG CAP PO SCH (07:46)
[2017-12-24] MEDS: EUCERIN CR 120 GM JAR EXT SCH ×2 (07:46→19:39)
[2017-12-24] MEDS: CLOPIDOGREL BISULFATE 75 MG TAB PO SCH (07:46)
[2017-12-24 07:47] LABS: HEMOGLOBIN A1C 5.4 % (4.5-5.6)
[2017-12-24] MEDS: ACETAMINOPHEN 500 MG TAB PO SCH ×2 (07:47→19:39)
[2017-12-24] MEDS: DICLOFENAC SOD 1% GEL 100 GM TUBE EXT SCH ×2 (07:47→12:26)
[2017-12-24 08:05] LABS: CALCIUM 8.4 mg/dl (8.5-10.1); CREATININE 0.59 mg/dl (0.60-1.20); POTASSIUM 3.7 mmol/L (3.5-5.1)
--- NOTE | 2017-12-24 09:04 | Neurology Progress Notes ---
Neurology Progress Note Date of Service Dec 24, 2017. Subjective Patient is complaining of bilateral leg pain and spasms. This has been going on for many months. She received a dose of tizanidine last evening and felt that it helped. She was given Ativan in the auger operator hours of today and feels sleepy. She is very stiff with her legs this morning. Her arm on the left is weaker than usual. She tells me that, over time, physical therapy has not helped. MRI of the brain shows a suspect, very tiny right thalamic subacute stroke. I reviewed this with radiology and they concur that this is a borderline finding. She has old left cerebellar and left pontine infarcts seen. I reviewed the films with Radiology. She has mild anemia which is constant. Her lipid profile is quite good. Her Chem profile was unremarkable. Her blood pressure is slightly low. CT angiography of the head and neck were unremarkable with no significant stenoses and no aneurysms. Objective Date Time Temp Pulse Resp B/P (MAP) Pulse Ox O2 Delivery O2 Flow Rate FiO2 12/24/17 07:26 37.1 83 18 147/69 (95) 91 Room Air 12/24/17 04:00 Room Air 12/24/17 03:38 37.2 77 20 115/67 (83) 91 Nasal Cannula 0.0 12/24/17 00:00 Room Air 12/23/17 23:40 37.3 77 18 108/55 (72) 95 Room Air 12/23/17 20:00 Nasal Cannula 3.0 12/23/17 19:23 36.7 75 22 133/68 (89) 95 Nasal Cannula 3.0 12/23/17 16:00 93 Nasal Cannula 2.0 12/23/17 15:17 37.2 79 18 101/67 (78) 96 Nasal Cannula 3.0 12/23/17 12:47 36.6 78 20 125/75 (92) 99 Nasal Cannula 2.0 12/23/17 12:00 94 Nasal Cannula 2.0 Last 24 Hours Test 12/24/17 06:50 White Blood Count 7.93 K/uL Red Blood Count 3.58 M/uL Hemoglobin 10.7 g/dL Hematocrit 33.5 % Mean Corpuscular Volume 93.6 fL Mean Corpuscular Hemoglobin 29.9 pg Mean Corpuscular Hemoglobin Concent 31.9 g/dl Platelet Count 302 K/uL Mean Platelet Volume 10.2 fL Neutrophils (%) (Auto) 69.7 % Lymphocytes (%) (Auto) 15.0 % Monocytes (%) (Auto) 11.1 % Eosinophils (%) (Auto) 3.3 % Basophils (%) (Auto) 0.6 % Neutrophils # (Auto) 5.53 K/uL Lymphocytes # (Auto) 1.19 K/uL Monocytes # (Auto) 0.88 K/uL Eosinophils # (Auto) 0.26 K/uL Basophils # (Auto) 0.05 K/uL RDW Standard Deviation 53.2 fL RDW Coefficient of Variation 15.5 % Immature Granulocyte % (Auto) 0.3 % Immature Granulocyte # (Auto) 0.02 K/uL Sodium Level 141 mmol/L Potassium Level 3.7 mmol/L Chloride Level 106 mmol/L Carbon Dioxide Level 25 mmol/L Anion Gap 9.0 mmol/L Blood Urea Nitrogen 8 mg/dl Creatinine 0.59 mg/dl Est Creatinine Clear Calc Drug Dose 88.5 ml/min Estimated GFR () 102.5 Estimated GFR (Non- 88.4 BUN/Creatinine Ratio 12.8 Random Glucose 77 mg/dl Calcium Level 8.4 mg/dl Magnesium Level 2.1 mg/dl Imaging: NECK ANGIO WITH CONTRAST CLINICAL HISTORY: 77 years-old Female presenting with posterior circulation stroke. TECHNIQUE: Multidetector CT angiography of the neck was performed after the administration of intravenous contrast. 3-D volumetric and/or maximum intensity projection (MIP) images were subsequently reconstructed for review. IV contrast: 119 mL of Optiray 320. A dose lowering technique was used consistent with the principles of ALARA (as low as reasonably achievable). Stenosis measurements were based on NASCET-like criteria. COMPARISON: None. CT DOSE (mGy.cm): The estimated cumulative dose is 1181.31. FINDINGS: Ribbon Hand topogram: Median sternotomy wires. Atherosclerosis of the aortic arch. Origins of the cervical vessels remain patent. Bilateral common carotid arteries patent. Calcified atherosclerotic plaque at the carotid bulbs mildly narrows the origins of the internal carotid arteries (less than 25% stenosis. The bilateral internal carotid arteries are widely patent. Atherosclerotic plaque within 1 cm of the origin of the right vertebral artery does not significantly narrow the lumen (less than 25%). Tortuous origin of the left vertebral artery. Both vertebral arteries are widely patent. No evidence of dissection, focal vessel occlusion, or significant stenosis. Remaining soft tissues of the neck remarkable for a multinodular thyroid. No lymphadenopathy. Multilevel degenerative changes of the cervical spine. IMPRESSION: Atherosclerosis without evidence of dissection, focal vessel occlusion, or significant stenosis of the cervical arteries. Electronically signed by: Felipe Malik M.D. 12/23/2017 2:41 PM ANGIOGRAPHY HEAD COMBO CLINICAL HISTORY: 77 years-old Female presenting with posterior circulation stroke. TECHNIQUE: Multidetector CT angiography of the head was performed after the administration of intravenous contrast. 3-D volumetric and/or maximum intensity projection (MIP) images were subsequently reconstructed for review. IV contrast: 119 mL of Optiray 320. A dose lowering technique was used consistent with the principles of ALARA (as low as reasonably achievable). COMPARISON: 02/23/2017. CT DOSE (mGy.cm): The estimated cumulative dose is 1181.31 mGy.cm. FINDINGS: Ribbon Hand topogram: Unremarkable. NONCONTRAST CT HEAD: Ventricles and sulci normal in size. Old infarct in the left brachium pontis and left cerebellar hemisphere. Periventricular white matter hypoattenuation nonspecific but likely chronic small vessel ischemic change. No mass effect or midline shift. No hemorrhage or acute territorial infarct. No extra-axial fluid collection. Paranasal sinuses and mastoid air cells clear. Calvarium intact. CTA HEAD: Anterior circulation demonstrates atherosclerosis of the intracranial portions of the internal carotid arteries including prominently in the cavernous segments. Less than 50% stenosis observed. Relatively hypoplastic A1 segment of the right anterior cerebral artery. Bilateral anterior and middle cerebral arteries patent. Anterior commuting artery patent. Posterior circulation demonstrates codominant vertebral arteries with mild atherosclerotic change. The basilar artery is widely patent. Bilateral posterior inferior cerebellar, anterior inferior cerebellar, superior cerebellar, and posterior cerebral arteries patent. Right posterior communicating artery patent. Left posterior communicating artery hypoplastic or aplastic. No focal vessel occlusion, significant stenosis, or aneurysm. Cortical veins and dural venous sinuses patent. For the phase of contrast, no abnormal enhancement of the brain parenchyma. IMPRESSION: 1. No acute intracranial abnormality. 2. 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 3. Atherosclerosis of the intracranial portions of the internal carotid arteries without hemodynamically significant stenosis. 4. No evidence of focal vessel occlusion, significant stenosis, or aneurysm. Specifically, the posterior circulation is patent. Electronically signed by: Felipe Malik M.D. 12/23/2017 2:52 PM Exam: She is awake and alert. Speech is without aphasia or dysarthria. Mood seems somewhat down affect is appropriate. Thought processes are reasonable for conversation. Extraocular eye muscles are intact without nystagmus. There is no obvious facial droop. With outstretched arms there is drift on the left. She has 5/5 strength essentially for age in the right upper extremity diffusely. In the left upper extremity she has 4/5 strength diffusely and has decreased facility in the left hand compared to the right. Leg strength is difficult because she is contracted at the hips and knees. She can move her toes. She has pain with attempting to straighten out either leg toes are downgoing with plantar stimulation bilaterally and there is some withdrawal. Reflexes are 3/4 in the arms bilaterally and trace in the legs bilaterally. Current Inpatient Medications Medications (Trade) Dose Ordered Sig/Isidra Route Start Time Stop Time Status Last Admin Dose Admin Acetaminophen (Tylenol Tab) 1,000 mg BID PO 12/22/17 21:00 01/21/18 20:59 12/24/17 07:47 1,000 MG Atorvastatin Calcium (Lipitor Tab) 40 mg HS PO 12/22/17 21:00 01/21/18 20:59 12/23/17 21:11 40 MG Carvedilol (Coreg Tab) 25 mg BIDM PO 12/22/17 18:00 01/21/18 17:59 12/24/17 07:45 25 MG Clopidogrel Bisulfate (plAVix TAB) 75 mg QAM PO 12/23/17 09:00 01/22/18 08:59 12/24/17 07:46 75 MG Dabigatran (Pradaxa Cap) 150 mg BID PO 12/22/17 21:00 01/21/18 20:59 12/24/17 07:46 150 MG Diclofenac Sodium (Voltaren 1% Top Gel) 1 appln BID EXT 12/22/17 21:00 01/21/18 20:59 12/24/17 07:47 1 APPLN Multi-Ingredient Ointment (Eucerin Unscented Cr) 1 appln BID EXT 12/22/17 21:00 01/21/18 20:59 12/24/17 07:46 1 APPLN Fluoxetine HCl (Prozac Cap) 20 mg QAM PO 12/23/17 09:00 01/22/18 08:59 12/24/17 07:46 20 MG Ondansetron HCl (Zofran Tab) 4 mg Q4 PRN PO 12/22/17 17:15 01/21/18 17:14 Oxycodone HCl (Roxicodone Immediate Rel Tab) 10 mg Q6 PRN PO 12/22/17 17:15 01/05/18 17:14 Acetaminophen (Tylenol Tab) 650 mg Q4H PRN PO 12/22/17 17:30 01/21/18 17:29 Al Hydrox/Mg Hydrox/Simethicone (Maalox Max Susp) 15 ml Q4H PRN PO 12/22/17 17:30 01/21/18 17:29 Magnesium Hydroxide (Milk Of Magnesia Susp) 30 ml Q12H PRN PO 12/22/17 17:30 01/21/18 17:29 Ondansetron HCl (Zofran Inj) 4 mg Q6H PRN IV 12/22/17 17:30 01/21/18 17:29 Nitroglycerin (Nitrostat Tab) 0.4 mg UD PRN SL 12/22/17 17:30 01/21/18 17:29 Miscellaneous Information (Pharmacist Discharge Med Rec Consult) 1 ea UD PRN N/A 12/22/17 17:30 01/21/18 17:29 Lorazepam (Ativan Tab) 0.5 mg Q6 PRN PO 12/22/17 17:45 01/21/18 17:44 Lorazepam (Ativan Inj) 0.5 mg Q4H PRN IV 12/22/17 17:45 01/21/18 17:44 12/23/17 13:55 0.5 MG Lorazepam (Ativan Inj) 1 mg Q4H PRN IV 12/22/17 17:45 01/21/18 17:44 Cefepime HCl 1000 mg/Syringe 11 ml @ 5.5 mls/min Q8H IV 12/23/17 02:00 01/01/18 01:59 12/24/17 02:23 5.5 MLS/MIN Lorazepam 0.5 mg/ Syringe 1 ml @ 1 mls/min Q4H PRN IV 12/22/17 19:30 01/21/18 19:29 12/23/17 01:11 1 MLS/MIN Lorazepam 1 mg/ Syringe 1 ml @ 1 mls/min Q4H PRN IV 12/22/17 19:30 01/21/18 19:29 Ioversol (Optiray 320) 100 ml UD PRN IV 12/23/17 10:45 12/27/17 10:44 Tizanidine HCl (Zanaflex Tab) 2 mg TID PO 12/23/17 14:00 01/22/18 13:59 12/24/17 07:44 2 MG Sodium Chloride 1,000 ml @ 50 mls/hr Q20H IV 12/23/17 18:15 01/22/18 18:14 12/23/17 18:29 50 MLS/HR Impression 1. 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 There is a question of a tiny new/subacute stroke in the right thalamus/internal capsule (borderline). This is questionable in review with Radiology. Patient herself feels that her left arm is weaker than previous but she has no numbness. She is on Plavix She had some hypertension on admission but this has been quite controlled. Fasting lipid profile is quite good with a cholesterol of 120. 2. 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 3. MRI with mild to moderate old small vessel ischemic change Plan 1. Avoid over controlling blood pressure, trying for a mean arterial pressure of approximately 100. 2. Given her age and cholesterol level, I see no indication for high-dose statins. Keep her on her usual dose of statin. 3. Continue clopidogrel 75 mg daily. There is no indication to add aspirin and there is no indication for anticoagulation. 4. Increase activity as able and consider intensive physical and occupational therapy 5. Consider rehabilitation hospital stay after stable. 6. Avoid Ativan and other benzodiazepines if possible. She has sleepy and confused reactions to this medication 7. I recommend baclofen 10 mg 3 times a day for now, and increasing to 20 mg 3 times a day in a week or so if needed, and discontinuing tizanidine. Tizanidine could make her sleepy. I have spoken to Dr. Guajardo regarding this case including differential diagnosis and treatment options. Overall, I spent a total of 60 minutes with this case, including records review , discussion of radiographic films with the radiologist, discussion with Dr. Guajardo , and discussion with the patient at bedside including direct care.
[2017-12-24] MEDS: BACLOFEN 10 MG TAB PO SCH ×2 (13:09→19:39)
[2017-12-24] MEDS: SODIUM CHLORIDE 0.9% 1000ML 1,000 ML IV SCH (14:20)
--- NOTE | 2017-12-24 14:30 | Hospitalist Progress Note ---
Hospitalist Progress Note Date of Service Dec 24, 2017. Subjective Pt evaluation today including: conversation w/ patient, physical exam, chart review, lab review, review of inpatient medication list Pain: 8/10 aching pain in legs PO Intake: Tolerating PO diet Voiding: no voiding problems The patient still complains of 8/10 aching pain in her legs. She states that this morning she was able to straighten her left leg, which is improvement. Her spasms are somewhat improved with Zanaflex, but she feels very sleepy today. She otherwise denies any new complaints. Patient in general looks better today. The patient denies fevers, chills, sweats, chest pain, palpitations, claudication, cough, wheezing, shortness of breath, nausea, vomiting, abdominal pain, dysuria, hematuria, urinary retention, paralysis. Additional Comments: See HPI for pertinent positives and negatives. All other systems reviewed and negative. Objective Vital Signs Date Time Temp Pulse Resp B/P (MAP) Pulse Ox O2 Delivery O2 Flow Rate FiO2 12/24/17 12:00 91 Room Air 0.0 12/24/17 11:23 36.5 74 18 99/63 (75) 96 Room Air 12/24/17 08:00 91 Room Air 0.0 12/24/17 07:26 37.1 83 18 147/69 (95) 91 Room Air 12/24/17 04:00 Room Air 12/24/17 03:38 37.2 77 20 115/67 (83) 91 Nasal Cannula 0.0 12/24/17 00:00 Room Air 12/23/17 23:40 37.3 77 18 108/55 (72) 95 Room Air 12/23/17 20:00 Nasal Cannula 3.0 12/23/17 19:23 36.7 75 22 133/68 (89) 95 Nasal Cannula 3.0 12/23/17 16:00 93 Nasal Cannula 2.0 12/23/17 15:17 37.2 79 18 101/67 (78) 96 Nasal Cannula 3.0 Physical Exam Notes: General appearance: +Appears chronically ill. Well-developed, well-nourished , no apparent distress. Head: Normocephalic, atraumatic Eyes: Normal inspection, PERRL, EOMI ENT: Normal ENT inspection, hearing grossly normal, pharynx normal Neck: Supple, no JVD, trachea midline Respiratory/Chest: +On room air. Decreased breath sounds, poor respiratory effort. Lungs clear to auscultation, no respiratory distress Cardiovascular: Regular rate & rhythm, no gallop, no murmur Abdomen/GI: Normal bowel sounds, non-tender, soft Extremities/Musculoskeletal: +Lower legs with flexor contractures at the knees. Difficult to assess motor strength. Erythema anterior lower legs appears improved. 1+ pitting edema. No calf tenderness Neurological/Psych: Alert, normal mood/affect, oriented x 3 Skin: +Erythema as above. Normal color, warm/dry, no rash Laboratory Results Last 24 Hours Test 12/24/17 06:50 White Blood Count 7.93 K/uL Red Blood Count 3.58 M/uL Hemoglobin 10.7 g/dL Hematocrit 33.5 % Mean Corpuscular Volume 93.6 fL Mean Corpuscular Hemoglobin 29.9 pg Mean Corpuscular Hemoglobin Concent 31.9 g/dl Platelet Count 302 K/uL Mean Platelet Volume 10.2 fL Neutrophils (%) (Auto) 69.7 % Lymphocytes (%) (Auto) 15.0 % Monocytes (%) (Auto) 11.1 % Eosinophils (%) (Auto) 3.3 % Basophils (%) (Auto) 0.6 % Neutrophils # (Auto) 5.53 K/uL Lymphocytes # (Auto) 1.19 K/uL Monocytes # (Auto) 0.88 K/uL Eosinophils # (Auto) 0.26 K/uL Basophils # (Auto) 0.05 K/uL RDW Standard Deviation 53.2 fL RDW Coefficient of Variation 15.5 % Immature Granulocyte % (Auto) 0.3 % Immature Granulocyte # (Auto) 0.02 K/uL Sodium Level 141 mmol/L Potassium Level 3.7 mmol/L Chloride Level 106 mmol/L Carbon Dioxide Level 25 mmol/L Anion Gap 9.0 mmol/L Blood Urea Nitrogen 8 mg/dl Creatinine 0.59 mg/dl Est Creatinine Clear Calc Drug Dose 88.5 ml/min Estimated GFR () 102.5 Estimated GFR (Non- 88.4 BUN/Creatinine Ratio 12.8 Random Glucose 77 mg/dl Calcium Level 8.4 mg/dl Magnesium Level 2.1 mg/dl Assessment and Plan 77 y/o female with a history of CAD, CABG, HTN, HLD, CVA, a-fib, DM II, anxiety and depression who presents with LLE weakness. CVA -Admit to telemetry. No acute events overnight. Pt in sinus rhythm with HR in 70s -Brain MRI with small punctate acute infarct in right thalamus/posterior limb of right internal capsule -Neurology consulted, appreciate recs: No indication to add aspirin. Avoid benzos as pt becomes sleepy with these. Recommend baclofen 10 mg TID, can increase to 20 mg TID in a week if needed and d/c Zanaflex due to sleepiness. -CTA head and neck without hemodynamically significant stenosis. No acute disease. -PT/OT ordered, recommend rehab/SNF -Speech cleared for regular diet with aspiration precautions -Troponin negative x 3 -Lipids WNL -HgbA1c 5.4 on 12/22 Muscle pain/spasm, contractures--improving -Continue oxycodone IR 10 mg PO q6h prn pain -D/C Zanaflex -Baclofen 10 mg PO TID Lower extremity cellulitis--improving -Continue Cefepime, day #3 -Wound care nurse consulted CAD, CABG, HTN, HLD--stable. -Continue Plavix 75 mg PO qd, Coreg 25 mg PO BID, Lipitor 40 mg PO qd A-fib--stable, NSR -Continue Coreg as above, Pradaxa 150 mg PO BID DM II--HgbA1c 5.4 on 12/22 -No need for ISS, BSGs have been WNL Anxiety/depression -Continue Prozac 20 mg PO qd DVT prophylaxis -Pradaxa Code Status -Level I, FULL RESUSCITATION STATUS Dispo -Will need inpatient rehab
[2017-12-24] MEDS: ATORVASTATIN 40 MG TAB PO SCH (19:40)
[2017-12-24] MEDS: DOCUSATE SODIUM 100 MG CAP PO SCH (19:40)
[2017-12-25] VITALS (7 sets, daily range): BP systolic 138–171; BP diastolic 66–80; PULSE 64–73; TEMP 36.6–36.7; O2SAT 91–96
[2017-12-25] MEDS: CEFEPIME IV 1,000 MG in SYRINGE 0 ML IV SCH ×2 (01:56→10:06)
[2017-12-25 07:52] LABS: BASO % 0.6 %; BASO ABS # 0.04 K/uL (0-0.2); EOS % 5.2 %; EOS ABS # 0.35 K/uL (0-0.5); HEMATOCRIT 34.2 % (37-47); HEMOGLOBIN 10.8 g/dL (12.0-16.0); IG# 0.02 K/uL (0.00-0.02); LYMPH % 22.3 %; LYMPH ABS # 1.49 K/uL (1.2-3.4); MEAN CORPUSCULAR HEMOGLOBIN 29.7 pg (25-34); MEAN CORPUSCULAR HGB CONC 31.6 g/dl (32-36); MEAN PLATELET VOLUME 9.5 fL (7.4-10.4); MONO % 10.6 %; MONO ABS # 0.71 K/uL (0.11-0.59); NEUT ABS # 4.07 K/uL (1.4-6.5); PLATELET COUNT 284 K/uL (130-400); RED CELL DISTRIBUTION WIDTH CV 15.5 % (11.5-14.5); RED CELL DISTRIBUTION WIDTH SD 53.7 fL (36.4-46.3); WHITE BLOOD COUNT 6.68 K/uL (4.8-10.8)
[2017-12-25] MEDS: FLUOXETINE HCL 20 MG CAP PO SCH (07:56)
[2017-12-25] MEDS: ACETAMINOPHEN 500 MG TAB PO SCH (07:56)
[2017-12-25] MEDS: CLOPIDOGREL BISULFATE 75 MG TAB PO SCH (07:57)
[2017-12-25] MEDS: DOCUSATE SODIUM 100 MG CAP PO SCH (07:57)
[2017-12-25] MEDS: DABIGATRAN ELEXILATE 75 MG CAP PO SCH (07:57)
[2017-12-25] MEDS: BACLOFEN 10 MG TAB PO SCH (07:57)
[2017-12-25] MEDS: CARVEDILOL 25 MG TAB PO SCH (07:57)
[2017-12-25] MEDS: EUCERIN CR 120 GM JAR EXT SCH (07:58)
[2017-12-25] MEDS: DICLOFENAC SOD 1% GEL 100 GM TUBE EXT SCH (07:58)
[2017-12-25 08:29] LABS: CALCIUM 8.1 mg/dl (8.5-10.1); CREATININE 0.6 mg/dl (0.60-1.20); POTASSIUM 3.7 mmol/L (3.5-5.1)
[2017-12-25] MEDS: SODIUM CHLORIDE 0.9% 1000ML 1,000 ML IV SCH (10:46)
[2017-12-25] MEDS ORDERED: ACET-1256 PO (10:51)
[2017-12-25] MEDS ORDERED: CLC100 PO (10:51)
[2017-12-25] MEDS ORDERED: CEPH500C2 PO (10:51)
[2017-12-25] MEDS ORDERED: LRS10 PO (10:51)
[2017-12-25] MEDS ORDERED: ATV5 PO (10:51)
--- NOTE | 2017-12-25 10:52 | Discharge Instructions ---
Discharge Instructions Date of Service Dec 25, 2017. Admission Reason for Admission: Left Leg Weakness Discharge Discharge Diagnosis / Problem: Acute CVA, Bilateral knee pain/Contractures Discharge Goals Goal(s): Improve disease control, Diagnostic testing, Therapeutic intervention Activity Recommendations Activity Limitations: as noted below Exercise/Sports Limitations: gradually increase as tolerated . Instructions / Follow-Up Instructions / Follow-Up Risk Factors for Stroke: You can reduce your chances of stroke by working with your medical provider to adopt a healthy lifestyle. Some specific ways to lower your chance of stroke are: * If you are a smoker, now is the time to stop smoking cigarettes * If you are diabetic, improve the control of your blood sugars * Avoid excessive amounts of alcohol * Control high blood pressure * Lose weight if you are overweight * Be sure to lead an active lifestyle * Eat a healthy diet low in salt, cholesterol and fat You should know about other risk factors for stroke that you are unable to control. These include: * Age 55 years or older * Male gender * Certain racial groups: , or / * Family History of Stroke, Mini stroke or Heart Attack * Sickle Cell Disease Follow Up: It is important for you to keep your follow up appointments with your medical provider. Current Hospital Diet Patient's current hospital diet: Low Sodium Diet (2gm Na) Discharge Diet Recommended Diet: Low Sodium Diet (2gm Na) Pending Studies Studies pending at discharge: no Laboratory Results Hemoglobin A1c Test 12/22/17 15:11 Range/Units Estimated Average Glucose 108 mg/dl Hemoglobin A1c 5.4 4.5-5.6 % Lipid Panel Test 12/23/17 07:18 Range/Units Triglycerides Level 105 0-150 mg/dl Cholesterol Level 127 0-200 mg/dl HDL Cholesterol 51 mg/dl Cholesterol/HDL Ratio 2.5 LDL Cholesterol, Calculated 55 mg/dl Medical Emergencies . Who to Call and When: Medical Emergencies: Call 911 immediately if you experience any of the following warning signs and symptoms of Stroke: * Sudden numbness or weakness of the face, arm or leg, especially on one side of the body * Sudden confusion, trouble speaking or understanding * Sudden trouble seeing in one or both eyes * Sudden trouble walking, dizziness, loss of balance or coordination * Sudden severe headache with no cause Do not delay calling 911 if you experience any warning signs or symptoms of a stroke. Delay in seeking medical attention may affect what treatments can be given to you. . Non-Emergent Contact Non-Emergency issues call your: Primary Care Provider, Neurologist Call Non-Emergent contact if: temperature is above 101, your pain is not controlled, your pain is worsening, your pain is unusual for you, your pain is concerning you, wound has increased drainage, wound has increased redness, wound has increased pain, you have any medication questions . . "Provider Documentation" section prepared by Shital Forde. . Stroke Core Measures Reason no t-PA for Stroke: Treatment not indicated Reason no antithrom by day 2: Treatment provided - N/A Reason no antithrom at D/C: Treatment provided - N/A Reason no statin at D/C: Treatment provided - N/A Reason no anticoag w/a fib: Treatment provided - N/A VTE Core Measure Inpt VTE Proph given/why not?: Other Anticoagulation (pradaxa)
--- NOTE | 2017-12-25 11:01 | Discharge Instructions ---
Discharge Instructions Date of Service Dec 25, 2017. Admission Reason for Admission: Left Leg Weakness Discharge Discharge Diagnosis / Problem: Acute CVA, Intractable bilateral knee pain/ Contractures Discharge Goals Goal(s): Improve disease control, Diagnostic testing, Therapeutic intervention Activity Recommendations Activity Level: Assistance Required Therapies: Physical Therapy, Occupational Therapy . Additional Information Patient informed of condition: Yes Advance Directives: Yes DNR: No Level of Care: Skilled Communicable Disease: No Prognosis: Stable Oxygen at (LPM): N/A Cassidy Catheter: No Instructions / Follow-Up Instructions / Follow-Up Pt is a 77 y/o female with a history of CAD, CABG, HTN, HLD, CVA, paroxysmal a- fib, DM II, anxiety and depression who presents with LLE weakness. Acute CVA -Admitted to telemetry. Remains in sinus rhythm with some 1.5 sec sinus pauses -Brain MRI with small punctate acute infarct in right thalamus/posterior limb of right internal capsule -Neurology consulted, appreciate recs: No indication to add aspirin. Recommended baclofen 10 mg TID, and increase to 20 mg TID -CTA head and neck without hemodynamically significant stenosis. No acute disease. -PT/OT ordered, recommend rehab/SNF -Speech cleared for regular diet with aspiration precautions -Troponin negative x 3 -Lipids WNL -HgbA1c 5.4 on 12/22 Muscle pain/spasm, contractures--improving/stable, present for 6 months and worsening, with bilat knee pain, effusions -does not tolerate opioids -continue Baclofen and increase to 20 mg PO TID today -continue tylenol 1000mg po tid -lorazepam helps for muscle relaxer as ell-use with caution due to drowsiness -Follow up with Neuro within 2 weeks for adjustment of Baclofen and/or referral to Orthopedics or Pain Management in future Lower extremity cellulitis--improving -Received Cefepime x 3 days, continue on Keflex for 7 more days -Wound care CAD, CABG, HTN, HLD--stable. -Continue Plavix 75 mg PO qd, Coreg 25 mg PO BID, Lipitor 40 mg PO qd A-fib--stable, NSR here -Continue Coreg as above, Pradaxa 150 mg PO BID DM II--HgbA1c 5.4 on 12/22 -No need for ISS, BSGs have been WNL Anxiety/depression -Continue Prozac 20 mg PO qd DVT prophylaxis -Pradaxa Code Status -Level I, FULL RESUSCITATION STATUS Dispo to [facility] today Current Hospital Diet Patient's current hospital diet: Low Sodium Diet (2gm Na) Discharge Diet Recommended Diet: Low Sodium Diet (2gm Na) Procedures Procedures Performed: MRI Brain CT Head CTA Head/Neck CXR Pending Studies Studies pending at discharge: yes List of pending studies: FInal Blood cultures Urine culture Physician Orders On Transfer Special Precautions: Fall risk Dressing Changes: Wound care bilateral legs IV Therapy: None Vital Signs: Routine Weigh: Routine Laboratory Results Hemoglobin A1c Test 12/22/17 15:11 Range/Units Estimated Average Glucose 108 mg/dl Hemoglobin A1c 5.4 4.5-5.6 % Lipid Panel Test 12/23/17 07:18 Range/Units Triglycerides Level 105 0-150 mg/dl Cholesterol Level 127 0-200 mg/dl HDL Cholesterol 51 mg/dl Cholesterol/HDL Ratio 2.5 LDL Cholesterol, Calculated 55 mg/dl Medical Emergencies . Who to Call and When: Medical Emergencies: If at any time you feel your situation is an emergency, please call 911 immediately. . Non-Emergent Contact Non-Emergency issues call your: Primary Care Provider, Neurologist Call Non-Emergent contact if: temperature is above 100.5, your pain is not controlled, your pain is worsening, your pain is unusual for you, your pain is concerning you, wound has increased drainage, wound has increased redness, wound has increased pain, you have any medication questions . . "Provider Documentation" section prepared by Shital Forde. . Core Measure Problem Core Measures: Stroke Stroke Core Measures Reason no t-PA for Stroke: Treatment not indicated Reason no antithrom by day 2: Treatment provided - N/A Reason no antithrom at D/C: Treatment provided - N/A Reason no statin at D/C: Treatment provided - N/A Reason no anticoag w/a fib: Treatment provided - N/A
--- NOTE | 2017-12-26 07:15 | Discharge Summary ---
Discharge Summary Date of Service Dec 25, 2017. 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 DM II anxiety/depression Lower extremity cellulitis Procedures: MRI Brain CTA Head and Neck CXR Head CT Consultations: Neurology Medication Reconciliation New Medications: Baclofen (Baclofen) 10 Mg Tab 20 MG PO TID for 30 Days Docusate Sodium (Docusate Sodium) 100 Mg Cap 100 MG PO BID for 30 Days, #60 CAP Lorazepam (Lorazepam) 0.5 Mg Tab 0.5 MG PO Q6 PRN for Anxiety for 3 Days, #12 TAB Changed Medications: Acetaminophen (Tylenol) 500 Mg Tab 1000 MG PO TID for 30 Days (Changed from: BID) Continued Medications: Atorvastatin (Lipitor) 40 Mg Tab 40 MG PO HS Carvedilol (Coreg) 25 Mg Tab 25 MG PO BIDM Cephalexin Monohydrate (Keflex) 500 Mg Cap 500 MG PO TID for 7 Days (This prescription has been renewed) Clopidogrel (Plavix) 75 Mg Tab 75 MG PO QAM Dabigatran Etexilate Mesylate (Pradaxa) 150 Mg Cap 150 MG PO BID Diclofenac Sod (Voltaren) 100 Appln/100 Gm Gel 1 APPLN EXT BID, #1 TUBE Emollient (Eucerin) 1 Lot Lot 1 APPLN TOP Q8 PRN for SOILAGE Eucerin (Eucerin) Cre 1 APPLN TOP BID APPLY TO B/L LOWER EXTREMITIES Fluoxetine (Prozac) 10 Mg Cap 20 MG PO QAM Ondansetron Hcl (Zofran) 4 Mg Tab 4 MG PO Q4 PRN for Nausea Discontinued Medications: Oxycodone HCl (Oxycodone HCl) 5 Mg Tab 10 MG PO Q6 PRN for Pain, #30 TAB Sulfa/Trimethoprim (Bactrim Ds 800MG/160MG) Tab 1 TAB PO BID Discharge Exam Still with significant pain in bilateral knees, ativan helps relax her, Baclofen not helping yet but discussed increasing dose. This has been going on since 05/2017, a few months after her CVA. Remains in NSR on tele Review of Systems: Constitutional: No problem reported Eyes: No problem reported ENT: No problem reported Respiratory: No problem reported Cardiovascular: No problem reported Abdomen: No problem reported Musculoskeletal: + joint pain Genitourinary - Female: No problem reported Neurologic: + weakness (still in left leg) Psychiatric: + anxiety Endocrine: + fatigue Hematologic / Lymphatic: No problem reported Integumentary: No bleeding, No problem reported Physical Exam: General Appearance: + mild distress (in pain, agitated) Eyes: normal inspection, sclerae normal ENT: hearing grossly normal Neck: trachea midline Respiratory/Chest: lungs clear, normal breath sounds, no respiratory distress, no accessory muscle use Cardiovascular: regular rate, rhythm, no edema, no gallop, no murmur, normal peripheral pulses Abdomen / GI: normal bowel sounds, non tender, soft, no organomegaly Extremities: + pertinent finding (bilateral LEs in flexed position, knees with effusions and tenderness, no erythema or warmth) Neurologic/Psychiatric: alert, + pertinent finding (cannot straighten out legs for strength testing) Skin: normal color, warm/dry, no rash Hospital Course Pt is a 77 y/o female with a history of CAD, CABG, HTN, HLD, CVA, paroxysmal a- fib, DM II, anxiety and depression who presents with LLE weakness. Acute CVA -Admitted to telemetry. Remains in sinus rhythm with some 1.5 sec sinus pauses -Brain MRI with small punctate acute infarct in right thalamus/posterior limb of right internal capsule -Neurology consulted, appreciate recs: No indication to add aspirin. Recommended baclofen 10 mg TID, and increase to 20 mg TID -CTA head and neck without hemodynamically significant stenosis. No acute disease. -PT/OT ordered, recommend rehab/SNF -Speech cleared for regular diet with aspiration precautions -Troponin negative x 3 -Lipids WNL -HgbA1c 5.4 on 2/3 Muscle pain/spasm, contractures--improving/stable, present for 6 months and worsening, with bilat knee pain, effusions -does not tolerate opioids -continue Baclofen and increase to 20 mg PO TID today -continue tylenol 1000mg po tid -lorazepam helps for muscle relaxer as ell-use with caution due to drowsiness -Follow up with Neuro within 2 weeks for adjustment of Baclofen and/or referral to Orthopedics or Pain Management in future Lower extremity cellulitis--improving -Received Cefepime x 3 days, continue on Keflex for 7 more days -Wound care CAD, CABG, HTN, HLD--stable. -Continue Plavix 75 mg PO qd, Coreg 25 mg PO BID, Lipitor 40 mg PO qd A-fib--stable, NSR here -Continue Coreg as above, Pradaxa 150 mg PO BID DM II--HgbA1c 5.4 on 12/22 -No need for ISS, BSGs have been WNL Anxiety/depression -Continue Prozac 20 mg PO qd DVT prophylaxis -Pradaxa Code Status -Level I, FULL RESUSCITATION STATUS Dispo to [facility] today Total Time Spent: Greater than 30 minutes This includes examination of the patient, discharge planning, medication reconciliation, and communication with other providers. Discharge Instructions Please refer to the electronic Patient Visit Report (Discharge Instructions) for additional information. Follow-Up PCP within 1-2 weeks Neuro within 1 month Consider Pain Management referral Additional Copies To [facility]mar[facility]; Ken Bo M.D.
[2018-01-08] MEDS ORDERED: MRPL PO (10:10)
[2018-01-08] MEDS ORDERED: BACL1TAB PO (10:10)
[2018-01-08] MEDS ORDERED: NRN300 PO (10:10)
[2018-01-08] MEDS ORDERED: IBUP-1450 PO (10:10)
[2018-01-08] MEDS ORDERED: ONDA8TAB62 SL (10:10)
[2018-01-08] MEDS ORDERED: FLUO10CA24 PO (10:10)
== END 2017-12-25 12:48 | DRG 64 ==
LOC: EDBD 14:18 → C.EDC 14:19 → C.2T 17:26 → ENRESERV 17:44
PROVIDERS: ADMIT Internal Medicine; ATTEND Family Medicine
DX: I63.8 Other cerebral infarction (principal); G93.41 Metabolic encephalopathy; I69.354 Hemiplegia and hemiparesis following cerebral infarction affecting left non-dominant side; L03.115 Cellulitis of right lower limb; L03.116 Cellulitis of left lower limb; I48.0 Paroxysmal atrial fibrillation; I87.2 Venous insufficiency (chronic) (peripheral); E11.9 Type 2 diabetes mellitus without complications; E78.5 Hyperlipidemia, unspecified; I10 Essential (primary) hypertension; I25.10 Atherosclerotic heart disease of native coronary artery without angina pectoris; M24.561 Contracture, right knee; M24.562 Contracture, left knee; F32.9 Major depressive disorder, single episode, unspecified; Z79.02 Long term (current) use of antithrombotics/antiplatelets; Z79.899 Other long term (current) drug therapy; Z87.891 Personal history of nicotine dependence; Z88.0 Allergy status to penicillin; Z88.5 Allergy status to narcotic agent; Z88.8 Allergy status to other drugs, medicaments and biological substances; Z95.1 Presence of aortocoronary bypass graft

== ENCOUNTER 2017-12-28 14:25 | Inpatient (IN) | payer OTHER ==
[~2017-12-28] VITALS: Ht 165.1 cm; Wt 80.5 kg
[~2017-12-28 14:25] MED LIST changes: +ACET-1256 PO; -ACET-1311 PO; +ATV5 PO; -BISA10SU3 PR; +CEPH500C2 PO; +CLC100 PO; +DABI150C PO; -IPRASOL4 INH; +LRS10 PO; -MOMLX PO; -RXC5 PO; -[UNRECOGNIZED DRUG - OTHER] RE
[2017-12-28] MEDS ORDERED: SODIUM CHLORIDE 0.9% 1000ML 1,000 ML IV SCH (14:51)
[2017-12-28 15:07] LABS: BASO % 0.3 %; BASO ABS # 0.03 K/uL (0-0.2); EOS % 2.6 %; EOS ABS # 0.22 K/uL (0-0.5); HEMATOCRIT 42.2 % (37-47); HEMOGLOBIN 13.6 g/dL (12.0-16.0); IG# 0.04 K/uL (0.00-0.02); LYMPH ABS # 1.72 K/uL (1.2-3.4); MEAN CELL VOLUME 94.4 fL (80-100); MEAN CORPUSCULAR HEMOGLOBIN 30.4 pg (25-34); MEAN CORPUSCULAR HGB CONC 32.2 g/dl (32-36); MEAN PLATELET VOLUME 10.1 fL (7.4-10.4); MONO % 8.6 %; MONO ABS # 0.74 K/uL (0.11-0.59); NEUT ABS # 5.85 K/uL (1.4-6.5); PLATELET COUNT 368 K/uL (130-400); RED CELL DISTRIBUTION WIDTH CV 15.7 % (11.5-14.5); RED CELL DISTRIBUTION WIDTH SD 54.1 fL (36.4-46.3)
--- NOTE | 2017-12-28 15:19 | EMERGENCY ROOM VISIT NOTE ---
History Report prepared by Lele: Ger Noonan Under the Supervision of: Dr. Lane Carrasquillo M.D. First contact with patient: 14:47 History of Present Illness The patient is a 77 year old female who presents to the Emergency Room with complaints of a sudden fall occurring two days ago. The patient states that she fell out of bed two days ago, and since then she has been having slurred speech. The patient's also states that the patient had a stroke around a week ago, and she has been having some left sided weakness. She is currently on Pradaxa, and the patient hit her head falling out of bed. Source of History: patient, spouse/significant other Onset: two days ago Position: other (global) Quality: other (fall) Timing: other (sudden) Note: Associated symptoms: Slurred speech. Review of Systems See HPI for pertinent positives & negatives. A total of 10 systems reviewed and were otherwise negative. Past Medical & Surgical Medical Problems: (1) Abdominal hemorrhage (2) Diabetes (3) Dyslipidemia (4) HTN (hypertension) (5) Left leg weakness (6) Stroke Surgical Problems: (1) History of open heart surgery Family History No pertinent family history Social History Smoking Status: Former Smoker Marital Status: Housing Status: lives with significant other Occupation Status: retired Current/Historical Medications Scheduled Atorvastatin (Lipitor), 40 MG PO HS Baclofen (Lioresal), 20 MG PO TID Carvedilol (Coreg), 25 MG PO BIDM Cephalexin Monohydrate (Keflex), 500 MG PO TID Clopidogrel (Plavix), 75 MG PO QAM Dabigatran Etexilate Mesylate (Pradaxa), 150 MG PO BID Docusate Sodium (Docusate Sodium), 100 MG PO BID Fluoxetine (Prozac), 20 MG PO QAM Insulin Lispro (Human) (Humalog Kwikpen), 8-18 UNITS SC DIRECTED Scheduled PRN Acetaminophen (Tylenol), 1,000 MG PO TID PRN for Pain Ipratropium-Albuterol (Duoneb), 1 TREATMENT INH QID PRN for Wheezing Lorazepam (Ativan), 0.5 MG PO Q6H PRN for Anxiety Ondansetron Hcl (Zofran), 4 MG PO Q4 PRN for Nausea Allergies Coded Allergies: Morphine (Verified Allergy, Unknown, unknown, 2/3/18) Penicillins (Verified Allergy, Unknown, unknown, 12/22/17) Niacin (Verified Adverse Reaction, Intermediate, PALPITATIONS, 12/28/17) PALPITATIONS Tramadol (Unverified Adverse Reaction, Intermediate, VOMITING, 12/28/17) Physical Exam Vital Signs Date Time Temp Pulse Resp B/P (MAP) Pulse Ox O2 Delivery O2 Flow Rate FiO2 12/28/17 19:00 76 24 12/28/17 18:36 77 12/28/17 17:57 75 18 155/75 95 Room Air 12/28/17 17:01 77 18 160/86 96 Room Air 12/28/17 15:48 67 16 167/88 96 Room Air 12/28/17 14:53 96 Room Air 12/28/17 14:50 36.4 63 16 143/74 96 Room Air 12/28/17 14:39 70 Physical Exam GENERAL: Patient is a healthy-appearing well-nourished female HEAD: Normocephalic atraumatic EYES: Ocular movements intact pupils equal and react to light OROPHARYNX mucous membranes are moist no exudates present no erythema or edema present NECK: Supple no nuchal rigidity CHEST: 2/6 systolic murmur. LUNGS: Clear and equal to auscultation CARDIAC: Normal S1 and S2 ABDOMEN: Soft nontender no guarding BACK: No CVA tenderness EXTREMITIES: Chronic contractions to her legs. NEURO: Patient is following commands and answering questions appropriately. Alert and oriented x3 Cranial Nerves 2-12 grossly intact Medical Decision & Procedures ER Provider Diagnostic Interpretation: Radiology results as stated below per my review and radiologist interpretation: CT SCAN OF THE BRAIN WITHOUT IV CONTRAST CLINICAL HISTORY: Strokelike symptoms. COMPARISON STUDY: CT of the brain dated 12/23/2017. TECHNIQUE: Unenhanced axial CT scan of the brain is performed from the vertex to the skull base. A dose lowering technique was utilized adhering to the principles of ALARA. CT DOSE: 537.48 mGy.cm FINDINGS: Brain parenchyma: There are age-related involutional changes noting moderate subcortical and periventricular microangiopathic change. Chronic infarcts are again seen in the left cerebellar hemisphere and the left desmond. There is no hemorrhage, mass effect, or evidence of acute territorial ischemia by CT criteria. Nagy-white matter is preserved. No extra-axial fluid collection is seen. Ventricles, sulci, cisterns: Prominent secondary to involutional change. Intracranial vasculature: There is atherosclerotic calcification of the cavernous carotid and vertebral arteries. Calvarium: Unremarkable. Sinuses and mastoids: The visualized paranasal sinuses are clear. The mastoid air cells are well pneumatized. Orbits: The bony orbits are grossly intact. There are bilateral ocular lens implants. IMPRESSION: Senescent changes and remote infarcts as above. There is no hemorrhage, mass effect, or evidence of acute territorial ischemia by CT criteria. Electronically signed by: Juan J Amaya M.D. 12/28/2017 3:25 PM Dictated Date/Time: 12/28/2017 3:23 PM SINGLE VIEW CHEST CLINICAL HISTORY: Strokelike symptoms. FINDINGS: An AP, portable, upright chest radiograph is compared to study dated 12/22/2017. The examination is degraded by portable technique and patient rotation. The heart is enlarged and there is atherosclerotic calcification of the thoracic aorta. There is mild pulmonary vascular congestion. There is chronic elevation of the right hemidiaphragm as well as left basilar atelectasis. No airspace consolidation or large pleural effusion is identified. No pneumothorax is seen. The skeletal structures are osteopenic. The bony thorax is grossly intact. IMPRESSION: 1. Cardiomegaly with mild pulmonary vascular congestion. 2. No airspace consolidation or large pleural effusion is identified. Electronically signed by: Juan J Amaya M.D. 12/28/2017 3:26 PM Dictated Date/Time: 12/28/2017 3:25 PM PELVIS 1 OR 2 VIEW ROUTINE CLINICAL HISTORY: Pt c/o b/l hip pain pain COMPARISON: 11/16/2017 DISCUSSION: Angled appearance to the right as well as left femoral neck regions. This is a pre-existing. No well-defined acute abnormality is identified. No evidence for acetabular protrusion. There is no evidence for soft tissue swelling. IMPRESSION: Generalized degenerative change of both hips with mild deformity of the left and to lesser extent right hip suggesting the possibility of an old healed fracture. The above report was generated using voice recognition software. It may contain grammatical, syntax or spelling errors. Electronically signed by: Bruce Hemphill M.D. 12/28/2017 7:29 PM Dictated Date/Time: 12/28/2017 7:27 PM Laboratory Results Test 2/9/18 14:55 12/28/17 15:19 12/28/17 17:10 Total Creatine Kinase 72 U/L (26-192) Creatine Kinase MB 1.5 ng/ml (0.5-3.6) Creatine Kinase MB Ratio 2.1 (0-3.0) Troponin I < 0.015 ng/ml (0-0.045) Bedside Prothrombin Time INR 1.2 (0.9-1.1) Urine Color YELLOW Urine Appearance CLEAR (CLEAR) Urine pH 5.0 (4.5-7.5) Urine Specific Brooks 1.024 (1.000-1.030) Urine Protein NEG (NEG) Urine Glucose (UA) NEG (NEG) Urine Ketones NEG (NEG) Urine Occult Blood NEG (NEG) Urine Nitrite NEG (NEG) Urine Bilirubin NEG (NEG) Urine Urobilinogen NEG (NEG) Urine Leukocyte Esterase NEG (NEG) Labs reviewed by ED physician. Medications Administered Medications (Trade) Dose Ordered Sig/Isidra Route Start Time Stop Time Status Last Admin Dose Admin Sodium Chloride 1,000 ml @ 50 mls/hr Q20H IV 12/28/17 14:51 12/28/17 22:54 DC 12/28/17 15:18 50 MLS/HR Sodium Chloride 500 ml @ 999 mls/hr Q31M STAT IV 12/28/17 17:34 12/28/17 18:04 DC 12/28/17 17:53 999 MLS/HR Ondansetron HCl (Zofran Inj) 4 mg NOW STAT IV 12/28/17 17:56 12/28/17 17:59 DC 12/28/17 18:05 4 MG Acetaminophen 100 ml @ 400 mls/hr NOW STAT IV 12/28/17 17:56 12/28/17 18:10 DC 12/28/17 18:09 400 MLS/HR Baclofen (Lioresal Tab) 20 mg NOW STAT PO 12/28/17 17:59 12/28/17 18:00 DC 12/28/17 18:42 20 MG Lorazepam (Ativan Inj) 0.5 mg NOW STAT IV 12/28/17 18:00 12/28/17 18:01 DC 12/28/17 18:42 0.5 MG Acetaminophen 100 ml @ 400 mls/hr Q8H PRN IV 12/28/17 20:45 01/27/18 20:44 12/29/17 08:58 400 MLS/HR ECG Indication: weakness Rate (beats per minute): 63 Rhythm: normal sinus Findings: other (Left atrial enlargement. No ST elevatoin or depression.) Change: Patient's electrocardiogram per my interpretation. ED Course 144: Past medical records reviewed. The patient was evaluated in room C2. A complete history and physical examination was performed. 1451: Sodium Chloride 1000 ml @ 50 mls/hr IV 1734: Sodium Chloride 500 ml @ 999 mls/hr IV 1756: Dilaudid 0.25mg IV, Acetaminophen 100ml @ 400mls/hr IV, Zofran 4mg IV 175: Baclofen 20mg PO 1800: Ativan 0.5mg IV 1924:Upon reexamination the patient is doing well. I discussed results and treatment plan with the patient and her family. They verbalize agreement and understanding. The patient will be evaluated for further management. 1930: I discussed the patient's [facility], he has agreed to evaluate the patient for further management and care. Medical Decision Differential diagnosis: Etiologies such as metabolic, infection, hypo/hyperglycemia, electrolyte abnormalities, cardiac sources, intracerebral event, toxicologic, neurologic, as well as others were entertained. This is a 77-year-old female who presents emergency department complaining of a fall at happened 2 days ago. The patient has a wide variety of symptoms and reports different symptoms at different times. She is claiming that her speech is slurred however her speech goes and an out of being slurred. She states that she does not wish to return to her alf. She was sent for CAT scan of the head which found to be normal. She has no evidence of fracture to her arms or legs. The patient was given her normal medications for her stiffness including baclofen and Ativan. I did discuss this case with the hospitalist service who was kind enough to admit her. Medication Reconcilliation Current Medication List: was personally reviewed by me Blood Pressure Screening Patient's blood pressure: Elevated blood pressure Monitored by the hospitalist. Consults Time Called: 1899 Consulting Physician: Dr. Siobhan De La Fuente Returned Call: 1928 I discussed the patient's case with [facility], he has agreed to evaluate the patient for further management and care. Impression Primary Impression: Fall Scribe Attestation The scribe's documentation has been prepared under my direction and personally reviewed by me in its entirety. I confirm that the note above accurately reflects all work, treatment, procedures, and medical decision making performed by me. Departure Information Dispostion Being Evaluated By Hospitalist Referrals No Doctor, Assigned (PCP) Problem Qualifiers Primary Impression: Fall Encounter type: initial encounter Qualified Codes: W19.XXXA - Unspecified fall, initial encounter
[2017-12-28 15:24] LABS: BLOOD UREA NITROGEN 11 mg/dl (7-18); CALCIUM 9.3 mg/dl (8.5-10.1); CARBON DIOXIDE 30 mmol/L (21-32); CREATININE 0.85 mg/dl (0.60-1.20); GLUCOSE 109 mg/dl (70-99); SODIUM 141 mmol/L (136-145)
--- NOTE | 2017-12-28 15:26 | DIAGNOSTIC IMAGING REPORT ---
CT SCAN OF THE BRAIN WITHOUT IV CONTRAST CLINICAL HISTORY: Strokelike symptoms. COMPARISON STUDY: CT of the brain dated 12/23/2017. TECHNIQUE: Unenhanced axial CT scan of the brain is performed from the vertex to the skull base. A dose lowering technique was utilized adhering to the principles of ALARA. CT DOSE: 537.48 mGy.cm FINDINGS: Brain parenchyma: There are age-related involutional changes noting moderate subcortical and periventricular microangiopathic change. Chronic infarcts are again seen in the left cerebellar hemisphere and the left desmond. There is no hemorrhage, mass effect, or evidence of acute territorial ischemia by CT criteria. Nagy-white matter is preserved. No extra-axial fluid collection is seen. Ventricles, sulci, cisterns: Prominent secondary to involutional change. Intracranial vasculature: There is atherosclerotic calcification of the cavernous carotid and vertebral arteries. Calvarium: Unremarkable. Sinuses and mastoids: The visualized paranasal sinuses are clear. The mastoid air cells are well pneumatized. Orbits: The bony orbits are grossly intact. There are bilateral ocular lens implants. IMPRESSION: Senescent changes and remote infarcts as above. There is no hemorrhage, mass effect, or evidence of acute territorial ischemia by CT criteria. Electronically signed by: Juan J Amaya M.D. 12/28/2017 3:25 PM Dictated Date/Time: 12/28/2017 3:23 PM
--- NOTE | 2017-12-28 15:27 | DIAGNOSTIC IMAGING REPORT ---
SINGLE VIEW CHEST CLINICAL HISTORY: Strokelike symptoms. FINDINGS: An AP, portable, upright chest radiograph is compared to study dated 12/22/2017. The examination is degraded by portable technique and patient rotation. The heart is enlarged and there is atherosclerotic calcification of the thoracic aorta. There is mild pulmonary vascular congestion. There is chronic elevation of the right hemidiaphragm as well as left basilar atelectasis. No airspace consolidation or large pleural effusion is identified. No pneumothorax is seen. The skeletal structures are osteopenic. The bony thorax is grossly intact. IMPRESSION: 1. Cardiomegaly with mild pulmonary vascular congestion. 2. No airspace consolidation or large pleural effusion is identified. Electronically signed by: Juan J Amaya M.D. 12/28/2017 3:26 PM Dictated Date/Time: 12/28/2017 3:25 PM
[2017-12-28 15:29] LABS: CKMB 1.5 ng/ml (0.5-3.6); INR 1.2 (0.9-1.1); PTT PATIENT 35.8 SECONDS (21.0-31.0)
[2017-12-28] MEDS ORDERED: ACET-1256 PO (15:44)
[2017-12-28] MEDS ORDERED: BACL1TAB PO (15:44)
[2017-12-28] MEDS ORDERED: IPRASOL4 INH (15:44)
[2017-12-28] MEDS ORDERED: DOCU100C31 PO (15:44)
[2017-12-28] MEDS ORDERED: CEPH500C2 PO (15:44)
[2017-12-28] MEDS ORDERED: LORA-741 PO (15:45)
[2017-12-28] MEDS ORDERED: INSU100I2 SC (15:45)
[2017-12-28] MEDS ORDERED: SODIUM CHLORIDE 0.9% 500ML 500 ML IV STA (17:34)
[2017-12-28] MEDS ORDERED: ONDANSETRON INJ 2 MG/ML 2 ML VIAL IV STA (17:56)
[2017-12-28] MEDS ORDERED: ACETAMINOPHEN IV 100 ML IV STA (17:56)
[2017-12-28] MEDS ORDERED: HYDROmorphone INJ 0.5 MG/0.5 ML SYR IV STA (17:56)
[2017-12-28] MEDS ORDERED: BACLOFEN TAB 20 MG TAB PO STA (17:59)
[2017-12-28] MEDS ORDERED: LORAZEPAM 2 MG/ML 1 ML VIAL IV STA (18:00)
--- NOTE | 2017-12-28 19:31 | DIAGNOSTIC IMAGING REPORT ---
PELVIS 1 OR 2 VIEW ROUTINE CLINICAL HISTORY: Pt c/o b/l hip pain pain COMPARISON: 11/16/2017 DISCUSSION: Angled appearance to the right as well as left femoral neck regions. This is a pre-existing. No well-defined acute abnormality is identified. No evidence for acetabular protrusion. There is no evidence for soft tissue swelling. IMPRESSION: Generalized degenerative change of both hips with mild deformity of the left and to lesser extent right hip suggesting the possibility of an old healed fracture. The above report was generated using voice recognition software. It may contain grammatical, syntax or spelling errors. Electronically signed by: Bruce Hemphill M.D. 12/28/2017 7:29 PM Dictated Date/Time: 12/28/2017 7:27 PM
[2017-12-28] MEDS ORDERED: GLUCAGON FOR INJ 1 MG VIAL SQ PRN (20:45)
[2017-12-28] MEDS ORDERED: DEXTROSE 50% 50 ML SYR IV PRN (20:45)
[2017-12-28] MEDS ORDERED: GLUCOSE 40% GEL 15 GM TUBE PO PRN (20:45)
[2017-12-28] MEDS ORDERED: GLUCOSE 10 TABS/TUBE PO PRN (20:45)
[2017-12-28] MEDS ORDERED: ALBUT/IPRATROP 3MG/0.5MG NEB 3 ML VIAL INH PRN (20:45)
[2017-12-28] MEDS ORDERED: ENOXAPARIN 40 MG/0.4 ML SYR SQ SCH (20:45)
[2017-12-28] MEDS ORDERED: BACLOFEN 10 MG TAB PO SCH (21:00)
[2017-12-28] MEDS ORDERED: IV FLUIDS COMPLETED PRN (21:15)
--- NOTE | 2017-12-28 22:38 | DIAGNOSTIC IMAGING REPORT ---
BRAIN COMBO CLINICAL HISTORY: ALTERED MENTAL STATUS COMPARISON STUDY: 12/22/2017. TECHNIQUE: Utilizing a 1.5 Briana magnet and dedicated coil, multiplanar, multiecho imaging of the brain was performed pre and postcontrast administration. IV administration of 8 mL of Gadavist contrast was uneventful. FINDINGS: Diffusion images currently show no evidence for an acute ischemic insult. Old infarcts of the medial left cerebellum and left lateral pontine region are again noted. Moderate chronic small vessel change is stable. The ventricular system is midline. Age-related atrophy and chronic small vessel change is stable. IMPRESSION: 1. No evidence for an acute ischemic insult. 2. Pre-existing left cerebellar and left pontine infarcts unchanged. 3. Age-related atrophy and chronic small vessel change also stable. The above report was generated using voice recognition software. It may contain grammatical, syntax or spelling errors. Electronically signed by: Bruce Hemphill M.D. 12/28/2017 10:37 PM Dictated Date/Time: 12/28/2017 10:34 PM
[2017-12-28 22:56] VITALS: BP 146/70; PULSE 74; TEMP 36.9; O2SAT 93
[2017-12-29] VITALS (8 sets, daily range): BP systolic 161–189; BP diastolic 64–80; PULSE 76–82; TEMP 36.6–37.1; O2SAT 91–94; Ht 165.1 cm; Wt 80.5 kg
--- NOTE | 2017-12-29 00:01 | History and Physical ---
History & Physical Date & Time of Service: Dec 29, 2017 at 00:00. The patient was seen and examined on 12/28/17 Chief Complaint: Altered Mental Status, Left Leg Weakness Primary Care Physician: Amish Denise M.D. History of Present Illness Source: patient, family, hospital records The patient is a 77-year-old female most recently admitted to [facility] from December 22 - December 25 for right thalamic and internal capsule punctate acute infarct, as noted on the MRI, and adjustment of baclofen for bilateral lower extremity muscle spasms present for the past 6 months, who presents to the emergency department with a reported sudden fall that occurred 2 days prior to arrival. She reports that she fell out of bed 2 days ago, and since that time, she has been having slurred speech. Her also reports that she has been having some left-sided weakness since the previous CVA. She does report having hit her head when she fell out of bed, and is currently on Pradaxa. The patient 's oral intake has been decreased of recent per her family, and her mouth is very dry. Past Medical/Surgical History Medical Problems: (1) Diabetes Status: Chronic (2) Dyslipidemia Status: Chronic (3) HTN (hypertension) Status: Chronic (4) Stroke Status: Resolved Surgical Problems: (1) History of open heart surgery Status: Resolved Family History No pertinent family history Social History Smoking Status: Former Smoker Smokeless Tobacco Use: No Alcohol Use: none Drug Use: none Marital Status: Occupational Status: retired Immunizations History of Influenza Vaccine: Unknown History of Tetanus Vaccine?: Unknown History of Pneumococcal: Unknown History of Hepatitis B Vaccine: Unknown Multi-Drug Resistant Organisms History of MDRO: No Allergies Coded Allergies: Morphine (Verified Allergy, Unknown, unknown, 12/22/17) Penicillins (Verified Allergy, Unknown, unknown, 12/22/17) Niacin (Verified Adverse Reaction, Intermediate, PALPITATIONS, 12/28/17) PALPITATIONS Tramadol (Unverified Adverse Reaction, Intermediate, VOMITING, 12/28/17) Home Medications Scheduled Atorvastatin (Lipitor), 40 MG PO HS Baclofen (Lioresal), 20 MG PO TID Carvedilol (Coreg), 25 MG PO BIDM Cephalexin Monohydrate (Keflex), 500 MG PO TID Clopidogrel (Plavix), 75 MG PO QAM Dabigatran Etexilate Mesylate (Pradaxa), 150 MG PO BID Docusate Sodium (Docusate Sodium), 100 MG PO BID Fluoxetine (Prozac), 20 MG PO QAM Insulin Lispro (Human) (Humalog Kwikpen), 8-18 UNITS SC DIRECTED Scheduled PRN Acetaminophen (Tylenol), 1,000 MG PO TID PRN for Pain Ipratropium-Albuterol (Duoneb), 1 TREATMENT INH QID PRN for Wheezing Lorazepam (Ativan), 0.5 MG PO Q6H PRN for Anxiety Ondansetron Hcl (Zofran), 4 MG PO Q4 PRN for Nausea Review of Systems The patient denies chest pain, palpitations, shortness of breath, dyspnea on exertion, cough, lower extremity swelling, sore throat, fevers, chills, sweats, weight change, nausea, vomiting, diarrhea , constipation, abdominal pain, pelvic pain, blood in urine or stool, dysuria, urinary frequency or urgency, lightheadedness , dizziness, headache, memory loss, loss of consciousness, rash. The review of systems is otherwise negative other than for that already noted above, and at least 10 systems have been reviewed. Physical Exam Vital Signs Date Time Temp Pulse Resp B/P (MAP) Pulse Ox O2 Delivery O2 Flow Rate FiO2 12/28/17 22:56 36.9 74 18 146/70 (95) 93 Room Air 12/28/17 22:39 70 20 147/87 99 12/28/17 22:00 74 19 12/28/17 21:30 78 22 98 Room Air 12/28/17 21:12 167/96 12/28/17 19:00 76 24 12/28/17 18:36 77 12/28/17 17:57 75 18 155/75 95 Room Air 12/28/17 17:01 77 18 160/86 96 Room Air 12/28/17 15:48 67 16 167/88 96 Room Air 12/28/17 14:53 96 Room Air 12/28/17 14:50 36.4 63 16 143/74 96 Room Air 12/28/17 14:39 70 The patient is awake, alert and oriented 3, normocephalic and atraumatic, lying in bed and in no acute distress mouth is dry,, and speech is intermittently garbled. HEENT--PERRL, EOMI, mucous membranes and oropharynx very dry. Neck--supple. No JVD. No bruits. Thyroid normal, trachea midline, no adenopathy. Heart--normal S1 and S2. No murmurs, rubs or gallops. Lungs--clear bilaterally, no respiratory distress, no accessory muscle use. Abdomen--normal bowel sounds and soft. Nontender. Nondistended, no hernias or masses, no organomegaly. Extremities--no cyanosis or clubbing. No edema. There are good distal pulses b/ l. Dermatologic--normal skin turgor, normal color, no abnormal lymph nodes, no rash. Neurologic--cranial nerves II through XII grossly intact, but limited exam Rheumatologic--lower extremity with legs curled in the position. Psychiatric--affect is difficult to assess Diagnostics Laboratory Results Results Past 24 Hours Test 12/28/17 14:55 12/28/17 15:19 12/28/17 17:10 Range/Units White Blood Count 8.60 4.8-10.8 K/uL Red Blood Count 4.47 4.2-5.4 M/uL Hemoglobin 13.6 12.0-16.0 g/dL Hematocrit 42.2 37-47 % Mean Corpuscular Volume 94.4 80-100 fL Mean Corpuscular Hemoglobin 30.4 25-34 pg Mean Corpuscular Hemoglobin Concent 32.2 32-36 g/dl Platelet Count 368 130-400 K/uL Mean Platelet Volume 10.1 7.4-10.4 fL Neutrophils (%) (Auto) 68.0 % Lymphocytes (%) (Auto) 20.0 % Monocytes (%) (Auto) 8.6 % Eosinophils (%) (Auto) 2.6 % Basophils (%) (Auto) 0.3 % Neutrophils # (Auto) 5.85 1.4-6.5 K/uL Lymphocytes # (Auto) 1.72 1.2-3.4 K/uL Monocytes # (Auto) 0.74 0.11-0.59 K/uL Eosinophils # (Auto) 0.22 0-0.5 K/uL Basophils # (Auto) 0.03 0-0.2 K/uL RDW Standard Deviation 54.1 36.4-46.3 fL RDW Coefficient of Variation 15.7 11.5-14.5 % Immature Granulocyte % (Auto) 0.5 % Immature Granulocyte # (Auto) 0.04 0.00-0.02 K/uL Prothrombin Time 12.2 9.0-12.0 SECONDS Prothromb Time International Ratio 1.2 0.9-1.1 Activated Partial Thromboplast Time 35.8 21.0-31.0 SECONDS Partial Thromboplastin Ratio 1.4 Sodium Level 141 136-145 mmol/L Potassium Level 4.0 3.5-5.1 mmol/L Chloride Level 106 98-107 mmol/L Carbon Dioxide Level 30 21-32 mmol/L Anion Gap 5.0 3-11 mmol/L Blood Urea Nitrogen 11 7-18 mg/dl Creatinine 0.85 0.60-1.20 mg/dl Est Creatinine Clear Calc Drug Dose 58.1 ml/min Estimated GFR () 76.6 Estimated GFR (Non- 66.1 BUN/Creatinine Ratio 12.4 10-20 Random Glucose 109 70-99 mg/dl Calcium Level 9.3 8.5-10.1 mg/dl Magnesium Level 2.3 1.8-2.4 mg/dl Total Creatine Kinase 72 26-192 U/L Creatine Kinase MB 1.5 0.5-3.6 ng/ml Creatine Kinase MB Ratio 2.1 0-3.0 Troponin I < 0.015 0-0.045 ng/ml Bedside Prothrombin Time INR 1.2 0.9-1.1 Bedside Glucose 96 70-90 mg/dl Urine Color YELLOW Urine Appearance CLEAR CLEAR Urine pH 5.0 4.5-7.5 Urine Specific [place] 1.024 1.000-1.030 Urine Protein NEG NEG Urine Glucose (UA) NEG NEG Urine Ketones NEG NEG Urine Occult Blood NEG NEG Urine Nitrite NEG NEG Urine Bilirubin NEG NEG Urine Urobilinogen NEG NEG Urine Leukocyte Esterase NEG NEG Diagnostic Radiology Patient Name: MARY DELGADO Unit Number: [id number] Dictated: 12/28/171522 Transcribed: 12/28/171522 EV Printed Date/Time: [~ rep prt dt]/[~ rep prt tm] [~ rep ct labl] - [~ rep ct ivnm] [facility] [place] [address] Dictated: 12/28/171522 Transcribed: 12/28/17 1523 EV Printed Date/Time: [~ rep prt dt]/[~ rep prt tm] [~ rep ct labl] - [~ rep ct ivnm] CT SCAN OF THE BRAIN WITHOUT IV CONTRAST CLINICAL HISTORY: Strokelike symptoms. COMPARISON STUDY: CT of the brain dated 12/23/2017. TECHNIQUE: Unenhanced axial CT scan of the brain is performed from the vertex to the skull base. A dose lowering technique was utilized adhering to the principles of ALARA. CT DOSE: 537.48 mGy.cm FINDINGS: Brain parenchyma: There are age-related involutional changes noting moderate subcortical and periventricular microangiopathic change. Chronic infarcts are again seen in the left cerebellar hemisphere and the left desmond. There is no hemorrhage, mass effect, or evidence of acute territorial ischemia by CT criteria. Nagy-white matter is preserved. No extra-axial fluid collection is seen. Ventricles, sulci, cisterns: Prominent secondary to involutional change. Intracranial vasculature: There is atherosclerotic calcification of the cavernous carotid and vertebral arteries. Calvarium: Unremarkable. Sinuses and mastoids: The visualized paranasal sinuses are clear. The mastoid air cells are well pneumatized. Orbits: The bony orbits are grossly intact. There are bilateral ocular lens implants. IMPRESSION: Senescent changes and remote infarcts as above. There is no hemorrhage, mass effect, or evidence of acute territorial ischemia by CT criteria. Electronically signed by: Juan J Amaya M.D. 12/28/2017 3:25 PM Dictated Date/Time: 12/28/2017 3:23 PM The status of this report is Signed. Draft = Not yet reviewed or approved by Radiologist. Signed = Reviewed and approved by Radiologist. <AttendingPhy></AttendingPhy> <FamilyPhy>No Doctor, Assigned</FamilyPhy> < PrimaryPhy>No Doctor, Assigned</PrimaryPhy> <UnitNumber>[id number]</UnitNumber> <VisitNumber>[id number]</VisitNumber> <PatientName>LONG DELGADON</ PatientName> <DateOfBirth>1940</DateOfBirth> <Location>[facility]</Location> < ServiceDate>12/28/17</ServiceDate> <MNE>ESINDI</MNE> <OrderingPhy>Lane Carrasquillo MD</OrderingPhy> <OrderingPhyMNE>f rep ord dr simon</OrderingPhyMNE> < DictatingPhyMNE>f rep dict dr simon</DictatingPhyMNE> <CCListMNE>f rep ct mne</ CCListMNE> <AdmittingPhyMNE>f pt admit dr simon</AdmittingPhyMNE> <AttendingPhyMNE >f pt attend dr simon</AttendingPhyMNE> <ConsultingPhyMNE>f pt consult dr simon</ConsultingPhyMNE> <FamilyPhyMNE>f pt fam dr simon</FamilyPhyMNE> <OtherPhyMNE>f pt other dr simon</OtherPhyMNE> < PrimaryPhyMNE>f pt prim care dr simon</PrimaryPhyMNE> <ReferringPhyMNE>f pt referring dr simon</ReferringPhyMNE> Patient Name: MARY DELGADO Unit Number: [id number] Dictated: 12/28/17 152 Transcribed: 12/28/17 1525 EV Printed Date/Time: [~ rep prt dt]/[~ rep prt tm] [~ rep ct labl] - [~ rep ct ivnm] [facility] [place] [address] Dictated: 12/28/17 1525 Transcribed: 12/28/17 1525 EV Printed Date/Time: [~ rep prt dt]/[~ rep prt tm] [~ rep ct labl] - [~ rep ct ivnm] [~ rep ct add3]] SINGLE VIEW CHEST CLINICAL HISTORY: Strokelike symptoms. FINDINGS: An AP, portable, upright chest radiograph is compared to study dated 12/22/2017. The examination is degraded by portable technique and patient rotation. The heart is enlarged and there is atherosclerotic calcification of the thoracic aorta. There is mild pulmonary vascular congestion. There is chronic elevation of the right hemidiaphragm as well as left basilar atelectasis. No airspace consolidation or large pleural effusion is identified. No pneumothorax is seen. The skeletal structures are osteopenic. The bony thorax is grossly intact. IMPRESSION: 1. Cardiomegaly with mild pulmonary vascular congestion. 2. No airspace consolidation or large pleural effusion is identified. Electronically signed by: Juan J Amaya M.D. 12/28/2017 3:26 PM Dictated Date/Time: 12/28/2017 3:25 PM The status of this report is Signed. Draft = Not yet reviewed or approved by Radiologist. Signed = Reviewed and approved by Radiologist. <AttendingPhy></AttendingPhy> <FamilyPhy>No Doctor, Assigned</FamilyPhy> < PrimaryPhy>No Doctor, Assigned</PrimaryPhy> <UnitNumber>[id number]</UnitNumber> <VisitNumber>[id number]</VisitNumber> <PatientName>MARY DELGADO</ PatientName> <DateOfBirth>1940</DateOfBirth> <Location>[facility]</Location> < ServiceDate>12/28/17</ServiceDate> <MNE>ESINDI</MNE> <OrderingPhy>Lane Carrasquillo MD</OrderingPhy> <OrderingPhyMNE>f rep ord dr simon</OrderingPhyMNE> < DictatingPhyMNE>f rep dict dr simon</DictatingPhyMNE> <CCListMNE>f rep ct mne</ CCListMNE> <AdmittingPhyMNE>f pt admit dr simon</AdmittingPhyMNE> <AttendingPhyMNE >f pt attend dr simon</AttendingPhyMNE> <ConsultingPhyMNE>f pt consult dr simon</ConsultingPhyMNE> <FamilyPhyMNE>f pt fam dr simon</FamilyPhyMNE> <OtherPhyMNE>f pt other dr simon</OtherPhyMNE> < PrimaryPhyMNE>f pt prim care dr simon</PrimaryPhyMNE> <ReferringPhyMNE>f pt referring dr simon</ReferringPhyMNE> Patient Name: MARY DELGADO Unit Number: [id number] Dictated: 12/28/171926 Transcribed: 12/28/171926 MS Printed Date/Time: [~ rep prt dt]/[~ rep prt tm] [~ rep ct labl] - [~ rep ct ivnm] [facility] [place] [address] Dictated: 12/28/171926 Transcribed: 12/28/171926 MS Printed Date/Time: [~ rep prt dt]/[~ rep prt tm] [~ rep ct labl] - [~ rep ct ivnm] CLINICAL HISTORY: Pt c/o b/l hip pain pain COMPARISON: 11/16/2017 DISCUSSION: Angled appearance to the right as well as left femoral neck regions. This is a pre-existing. No well-defined acute abnormality is identified. No evidence for acetabular protrusion. There is no evidence for soft tissue swelling. IMPRESSION: Generalized degenerative change of both hips with mild deformity of the left and to lesser extent right hip suggesting the possibility of an old healed fracture. The above report was generated using voice recognition software. It may contain grammatical, syntax or spelling errors. Electronically signed by: Bruce Hemphill M.D. 12/28/2017 7:29 PM Dictated Date/Time: 12/28/2017 7:27 PM The status of this report is Signed. Draft = Not yet reviewed or approved by Radiologist. Signed = Reviewed and approved by Radiologist. <AttendingPhy></AttendingPhy> <FamilyPhy>Amish Denise M.D.</FamilyPhy> < PrimaryPhy>Amish Denise M.D.</PrimaryPhy> <UnitNumber>[id number]</ UnitNumber> <VisitNumber>[id number]</VisitNumber> <PatientName>MARY DELGADO </PatientName> <DateOfBirth>1940</DateOfBirth> <Location>[facility]</Location> <ServiceDate>12/28/17</ServiceDate> <MNE>ESINDI</MNE> <OrderingPhy>Lane Carrasquillo MD</OrderingPhy> <OrderingPhyMNE>f rep ord dr simon</OrderingPhyMNE> < DictatingPhyMNE>f rep dict dr simon</DictatingPhyMNE> <CCListMNE>f rep ct mne</ CCListMNE> <AdmittingPhyMNE>f pt admit dr simon</AdmittingPhyMNE> <AttendingPhyMNE >f pt attend dr simon</AttendingPhyMNE> <ConsultingPhyMNE>f pt consult dr simon</ConsultingPhyMNE> <FamilyPhyMNE>f pt fam dr simon</FamilyPhyMNE> <OtherPhyMNE>f pt other dr simon</OtherPhyMNE> < PrimaryPhyMNE>f pt prim care dr simon</PrimaryPhyMNE> <ReferringPhyMNE>f pt referring dr simon</ReferringPhyMNE> Patient Name: MARY DELGADO Unit Number: [id number] Dictated: 12/28/172233 Transcribed: 12/28/172233 MS Printed Date/Time: [~ rep prt dt]/[~ rep prt tm] [~ rep ct labl] - [~ rep ct ivnm] [facility] Radiology Department [place] [id number] Dictated: 12/28/172233 Transcribed: 12/28/172233 MS Printed Date/Time: [~ rep prt dt]/[~ rep prt tm] [~ rep ct labl] - [~ rep ct ivnm] CLINICAL HISTORY: ALTERED MENTAL STATUS COMPARISON STUDY: 12/22/2017. TECHNIQUE: Utilizing a 1.5 Briana magnet and dedicated coil, multiplanar, multiecho imaging of the brain was performed pre and postcontrast administration. IV administration of 8 mL of Gadavist contrast was uneventful. FINDINGS: Diffusion images currently show no evidence for an acute ischemic insult. Old infarcts of the medial left cerebellum and left lateral pontine region are again noted. Moderate chronic small vessel change is stable. The ventricular system is midline. Age-related atrophy and chronic small vessel change is stable. IMPRESSION: 1. No evidence for an acute ischemic insult. 2. Pre-existing left cerebellar and left pontine infarcts unchanged. 3. Age-related atrophy and chronic small vessel change also stable. The above report was generated using voice recognition software. It may contain grammatical, syntax or spelling errors. Electronically signed by: Bruce Hemphill M.D. 12/28/2017 10:37 PM Dictated Date/Time: 12/28/2017 10:34 PM The status of this report is Signed. Draft = Not yet reviewed or approved by Radiologist. Signed = Reviewed and approved by Radiologist. <AttendingPhy></AttendingPhy> <FamilyPhy>Amish Denise M.D.</FamilyPhy> < PrimaryPhy>Amish Denise M.D.</PrimaryPhy> <UnitNumber>[id number]</ UnitNumber> <VisitNumber>[id number]</VisitNumber> <PatientName>MARY DELGADO </PatientName> <DateOfBirth>1940</DateOfBirth> <Location>[facility]</Location> <ServiceDate>12/28/17</ServiceDate> <MNE>ESINDI</MNE> <OrderingPhy>Iam Mccann M.D.</OrderingPhy> <OrderingPhyMNE>f rep ord dr simon</OrderingPhyMNE> < DictatingPhyMNE>f rep dict dr simon</DictatingPhyMNE> <CCListMNE>f rep ct mne</ CCListMNE> <AdmittingPhyMNE>f pt admit dr simon</AdmittingPhyMNE> <AttendingPhyMNE >f pt attend dr simon</AttendingPhyMNE> <ConsultingPhyMNE>f pt consult dr simon</ConsultingPhyMNE> <FamilyPhyMNE>f pt fam dr simon</FamilyPhyMNE> <OtherPhyMNE>f pt other dr simon</OtherPhyMNE> < PrimaryPhyMNE>f pt prim care dr simon</PrimaryPhyMNE> <ReferringPhyMNE>f pt referring dr simon</ReferringPhyMNE> EKG EKG shows normal sinus rhythm at 65 bpm, there is no acute ST-T changes, and is no change compared to December 22, 2017 Impression Assessment and Plan Cerebrovascular disease/recent right thalamic and right internal capsule CVA/ persistent muscle spasms greater than 6 months involving lower extremities/ ambulatory dysfunction/depression-- No new findings on imaging studies, including MRI of brain. Patient has been on baclofen and increased dose of 20 mg 3 times daily as adjusted at last visit, but still complains of lower extremity pain. Symptoms are likely a combination of muscle spasm, and depression associated with recent medical issues and SN stay. Continue fluoxetine 20 mg every morning and baclofen 20 mg p.o. 3 times daily. Could consider a trial of Zanaflex instead of baclofen. Could consider a change from fluoxetine to duloxetine. She does appear mildly dehydrated, and will therefore place on NSS plus KCl 20 mEq at 100 mils per hour. She has received 1 1/2 L of normal saline in the ED. Consult neurology for their opinion. Consult social media assistant. Hypertension/CVA-- Continue carvedilol 25 mg p.o. twice daily, clopidogrel 75 mg p.o. every morning , Pradaxa 150 mg p.o. twice daily. Diabetes mellitus-- Hemoglobin A1c was 5.6 at last admission, and therefore has not been on routine insulin We will place on Accu-Cheks before meals and at bedtime with NovoLog coverage per scale. Level of Care Med/Surg Advanced Directives Existing Advance Directive: No Existing Living Will: No Existing Power of Humanities And Languages Professor: No Resuscitation Status FULL RESUSCITATION VTE Prophylaxis VTE Risk Assessment Done? Y/N: Yes Risk Level: Moderate Given or contraindicated: Unfractionated heparin SQ, SCD's Social Service Consult Lives in Long Term
[2017-12-29] MEDS: DABIGATRAN ELEXILATE 75 MG CAP PO SCH ×3 (04:45→19:51)
[2017-12-29] MEDS: INSULIN ASPART 100 UNITS/ML 3 ML PEN SC SCH ×5 (05:16→19:51)
[2017-12-29] MEDS: NSS + 20MEQ KCL 1000ML 1,000 ML IV SCH ×2 (05:31→14:54)
[2017-12-29 07:48] LABS: BASO % 0.3 %; BASO ABS # 0.03 K/uL (0-0.2); EOS % 2.9 %; EOS ABS # 0.26 K/uL (0-0.5); HEMATOCRIT 39.1 % (37-47); HEMOGLOBIN 12.1 g/dL (12.0-16.0); IG# 0.04 K/uL (0.00-0.02); MEAN CELL VOLUME 94.2 fL (80-100); MEAN CORPUSCULAR HEMOGLOBIN 29.2 pg (25-34); MEAN CORPUSCULAR HGB CONC 30.9 g/dl (32-36); MEAN PLATELET VOLUME 9.9 fL (7.4-10.4); MONO % 8.4 %; MONO ABS # 0.74 K/uL (0.11-0.59); NEUT % 70.9 %; NEUT ABS # 6.27 K/uL (1.4-6.5); PLATELET COUNT 363 K/uL (130-400); RED CELL DISTRIBUTION WIDTH CV 15.7 % (11.5-14.5); RED CELL DISTRIBUTION WIDTH SD 53.9 fL (36.4-46.3); WHITE BLOOD COUNT 8.84 K/uL (4.8-10.8)
[2017-12-29 08:05] LABS: PTT PATIENT 28.2 SECONDS (21.0-31.0)
[2017-12-29 08:26] LABS: CALCIUM 8.7 mg/dl (8.5-10.1); CREATININE 0.53 mg/dl (0.60-1.20); POTASSIUM 3.7 mmol/L (3.5-5.1)
[2017-12-29] MEDS: ACETAMINOPHEN IV 100 ML IV PRN (08:58)
[2017-12-29] MEDS: CARVEDILOL 25 MG TAB PO SCH ×2 (08:58→17:19)
[2017-12-29] MEDS: CLOPIDOGREL BISULFATE 75 MG TAB PO SCH (08:58)
[2017-12-29] MEDS: BACLOFEN 10 MG TAB PO SCH ×3 (08:59→19:51)
--- NOTE | 2017-12-29 09:12 | Neurology Consultation ---
Neurology Consultation Date of Consultation: Dec 29, 2017. Attending Physician: Franklyn De Oliveira M.D. Primary Care Physician: Amish Denise M.D. Reason for Consultation: Patient is a 77-year-old, was asked to see the request of Dr. Mccann, for neurologic consultation regarding new onset slurred speech and weakness. History of Present Illness Source: patient, caregiver, hospital records The patient apparently had the onset of weakness in February of 2017 and was transferred to [place] for stroke care. I have very little information regarding next 6 months. This patient was admitted on December 21 was some left upper extremity weakness. MRI of the brain showed a tiny right the acute/subacute infarct in the border between the right thalamus and right internal capsule. The MRI also showed old left pontine and left cerebellar small strokes as well. By the time I saw her on December 24, she was having severe bilateral leg pain and spasms ( which have been going on for months in a progressive fashion, at least since the summer). She was contracted at the hips and knees and in discomfort. Her mood was poor and she was quite stressed feeling depressed and anxious about her chronic pain. At the time, laboratory studies were largely unremarkable although she had a mild anemia which was chronic. CT angiography of the head and neck were unremarkable with no significant stenoses or aneurysms. The Because of her spasm she was given a dose of tizanidine on December 24 but this made her sleepy. I recommended switching to baclofen at 10 milligrams 3 times a day for 1 week then increase to 20 milligrams 3 times a day if needed. Because of her depression she has been on fluoxetine 20 milligrams daily. She tolerates this. The patient was discharged to [facility] on December 25 on 20 milligrams 3 times a day baclofen. She continued on clopidogrel. She has been on Pradaxa chronically for her cardiac condition. She has a history of atrial fibrillation. About 2 days prior to admission, patient tells me that she was in bed and was attempting to maneuver but ended up rolling out of bed hitting above her left eye. She had no laceration and no loss of consciousness. Ever since, she feels that she has had some slurred speech, dizziness, dry mouth and some left- sided weakness. She arrived to the emergency room on December 28 at 1450 hours with a temperature of 36.4, pulse 63 and regular, respiratory rate 16, blood pressure 143/74, and O2 saturation 96 percent. She was described as having chronic leg contractions with no focal neurologic findings on exam in the ER. CT scan of the head showed no acute changes but the old infarcts in the left cerebellum and left demsond. Chest x-ray revealed cardiomegaly and mild pulmonary vascular congestion. X-rays of the pelvis showed no acute fractures. There was an old fracture seen. MRI of the brain showed no new infarct. It did show the old left pontine and cerebellar strokes as before with the mild generalized old small vessel ischemic disease and atrophy, as before. CBC, Chem profile, and urinalysis were largely unremarkable. Nursing reports no new events overnight. The patient herself feels that she is about the same over the last 2 days. She does not have a headache currently but feels pain all over. When questioned more closely she has some slight nonspecific forehead achiness, considerable pain at the elbow at a former IV site on the right and some right shoulder pain. She has some right lower extremity pain and pain at the hips and knees where she has contracted bilaterally. She denies abdominal pain and chest pain. She denies being sleepy or fatigued. She believes that her speech is slurred. She also says she is quite upset about all of her pain problems and admits to being depressed and anxious. Past Medical/Surgical History Medical Problems: (1) Acute right-sided weakness Status: Acute (2) Altered mental status Status: Acute (3) Anemia Status: Acute (4) Cellulitis Status: Acute (5) Elevated INR Status: Acute (6) Failure of outpatient treatment Status: Acute (7) Fall Status: Acute (8) Falls Status: Acute (9) Rectus sheath hematoma Status: Acute (10) Respiratory failure Status: Acute (11) Vertigo Status: Acute (12) Weakness Status: Acute Hypertension Dyslipidemia Diabetes History of atrial fibrillation on anticoagulation History of four-vessel coronary artery bypass grafting in the past in [place]. Post tonsillectomy and cholecystectomy. 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 Patient's father age 71 of a heart attack. Social History Patient smoked cigarettes in her 20s, quitting by age 30. 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 Smoking Status: Former smoker Smokeless Tobacco Use: No Alcohol Use: none Drug Use: none Marital Status: Housing Status: lives with significant other Occupation Status: retired Allergies Coded Allergies: Morphine (Verified Allergy, Unknown, unknown, 12/22/17) Penicillins (Verified Allergy, Unknown, unknown, 12/22/17) Niacin (Verified Adverse Reaction, Intermediate, PALPITATIONS, 12/28/17) PALPITATIONS Tramadol (Unverified Adverse Reaction, Intermediate, VOMITING, 12/28/17) Current Inpatient Medications Current Inpatient Medications Medications (Trade) Dose Ordered Sig/Isidra Route Start Time Stop Time Status Last Admin Dose Admin Baclofen (Lioresal Tab) 20 mg TID PO 12/28/17 21:00 01/27/18 20:59 Carvedilol (Coreg Tab) 25 mg BIDM PO 12/29/17 08:00 01/28/18 07:59 Clopidogrel Bisulfate (plAVix TAB) 75 mg QAM PO 12/29/17 08:00 01/28/18 08:59 Dabigatran (Pradaxa Cap) 150 mg BID PO 12/28/17 21:00 01/27/18 20:59 Albuterol/ Ipratropium (Duoneb) 3 ml QID PRN INH 12/28/17 20:45 01/27/18 20:44 Ondansetron HCl (Zofran Odt) 8 mg Q6H PRN PO 12/28/17 20:45 01/27/18 20:44 Insulin Aspart (novoLOG ASPART) SLIDING SCALE If C... ACHS SC 12/28/17 21:00 01/27/18 20:59 Glucose (Glucose 40% Gel) 15-30 GRAMS 15 GRAMS... UD PRN PO 12/28/17 20:45 01/27/18 20:44 Glucose (Glucose Chew Tab) 4-8 Tablets 4 Tabl... UD PRN PO 12/28/17 20:45 01/27/18 20:44 Dextrose (Dextrose 50% 50ML Syringe) 25-50ML OF 50% DW IV FOR... UD PRN IV 12/28/17 20:45 01/27/18 20:44 Glucagon (Glucagon Inj) 1 mg UD PRN SQ 12/28/17 20:45 01/27/18 20:44 Acetaminophen 100 ml @ 400 mls/hr Q8H PRN IV 12/28/17 20:45 01/27/18 20:44 Miscellaneous (Iv Fluids Completed) 1 ea PRN PRN N/A 12/28/17 21:15 12/28/18 21:14 Potassium Chloride/Sodium Chloride 1,000 ml @ 100 mls/hr Q10H IV 12/29/17 04:30 01/28/18 04:29 12/29/17 05:31 100 MLS/HR Review of Systems Constitutional: + weakness, No fever, No fatigue Eyes: No worsening of vision, No diplopia ENT: No hearing loss, No trouble swallowing Respiratory: No cough, No shortness of breath Cardiovascular: No chest pain, No palpitations Abdomen: No pain, No nausea Musculoskeletal: + joint pain, + muscle pain Genitourinary - Female: No dysuria, No urinary incontinence Neurologic: + weakness, No memory loss, No numbness/tingling Psychiatric: + depression symptoms, + anxiety Endocrine: No fatigue Hematologic / Lymphatic: No abnormal bleeding/bruising Integumentary: No rash Allergic / Immunologic: No hives Physical Exam Vital Signs (Past 24 Hrs): Date Time Temp Pulse Resp B/P (MAP) Pulse Ox O2 Delivery O2 Flow Rate FiO2 12/29/17 07:18 36.6 82 20 185/80 (115) 91 Room Air 12/29/17 03:32 36.7 76 18 161/78 Room Air 12/29/17 00:00 36.7 76 18 161/78 (105) 94 Room Air 12/28/17 22:56 36.9 74 18 146/70 (95) 93 Room Air 12/28/17 22:39 70 20 147/87 99 12/28/17 22:00 74 19 12/28/17 21:30 78 22 98 Room Air 12/28/17 21:12 167/96 12/28/17 19:00 76 24 12/28/17 18:36 77 12/28/17 17:57 75 18 155/75 95 Room Air 12/28/17 17:01 77 18 160/86 96 Room Air 12/28/17 15:48 67 16 167/88 96 Room Air 12/28/17 14:53 96 Room Air 12/28/17 14:50 36.4 63 16 143/74 96 Room Air 12/28/17 14:39 70 Patient is right-handed. The patient is awake and alert. Speech is normal without aphasia but I believe she has some dysarthria. She is understandable however and there is some fluctuation to it at times. Mentation and thought processes seem intact with conversation, orientation, and normal fund of knowledge. Mood is down and affect is anxious. Appearance and grooming are normal. Long and short-term memory seem intact. The discs are sharp with positive venous pulsations. There are no exudates, hemorrhages, or blood vessel changes seen. Pupils are 3mm bilaterally and reactive to light. Extraocular eye muscles are intact without nystagmus. Visual acuity and visual perrin seem normal grossly to confrontation. There are no deficits to sensation of the face bilaterally. Corneal reflexes are positive bilaterally. Facial strength and symmetry is normal bilaterally. Hearing seems intact grossly to voice and finger rub. Palate moves well without asymmetry. There is normal sternocleidomastoid and trapezius strength bilaterally. Tongue is midline with good strength bilaterally. Neck is with full range of motion without discomfort. There are no cervical bruits. There are no cranial or ocular bruits. Heart is without murmur. Cervical, thoracic, and lumbar spine are nontender to palpation. Gait is not testable as she is laying on her right side with her legs contracted up at the hips and knees, unable to straighten them. She cannot even sit up. With outstretched arms there is no drift. There are no resting, postural, or action tremors. There is no ataxia with [id number] testing. There is good facility in the hands. There are no abnormal involuntary movements noted. Motor strength is 5/5 diffusely in the arms bilaterally including deltoids, biceps, brachioradialis, wrist flexors and extensors, sheeter operator, and intrinsic hand muscles. Although she is sore and tender at her right elbow from a previous IV site, I really do not note any specific weakness in the arms. Motor strength is 5/5 in the tibialis anterior, toe extensor, and gastrocnemius muscles bilaterally. She is in pain from contractures at the hips and knees bilaterally and will not allow me to straighten them more than 10-15 degrees without significant pain. She can hold her legs quite tightly and I do not believe there is any true weakness. The arms have good tone. The legs have spasticity and/contractures at the hips and knees. Ankles are loose. Sensory examination is intact to pin and touch throughout all four limbs. Reflexes are 2/4 in the biceps, triceps, brachioradialis, and Achilles tendons bilaterally. Quadriceps tendon reflexes are absent due to contractures. Toes are downgoing with plantar stimulation on the left and upgoing with plantar stimulation on the right Peripheral pulses are present and of normal quality distally in all four limbs. There is no peripheral edema noted. Laboratory Results Past 24 Hours: 12/29/17 07:00 Red Blood Count 4.15, Mean Corpuscular Volume 94.2, Mean Corpuscular Hemoglobin 29.2, Mean Corpuscular Hemoglobin Concent 30.9, Mean Platelet Volume 9.9, Neutrophils (%) (Auto) 70.9, Lymphocytes (%) (Auto) 17.0, Monocytes (%) (Auto) 8.4, Eosinophils (%) (Auto) 2.9, Basophils (%) (Auto) 0.3, Neutrophils # (Auto) 6.27, Lymphocytes # (Auto) 1.50, Monocytes # (Auto) 0.74, Eosinophils # (Auto) 0.26, Basophils # (Auto) 0.03 12/29/17 07:00 Test 12/28/17 14:55 12/28/17 15:19 12/28/17 17:10 12/29/17 05:43 Total Creatine Kinase 72 U/L (26-192) Creatine Kinase MB 1.5 ng/ml (0.5-3.6) Creatine Kinase MB Ratio 2.1 (0-3.0) Troponin I < 0.015 ng/ml (0-0.045) Bedside Prothrombin Time INR 1.2 (0.9-1.1) Urine Color YELLOW Urine Appearance CLEAR (CLEAR) Urine pH 5.0 (4.5-7.5) Urine Specific Hinkle 1.024 (1.000-1.030) Urine Protein NEG (NEG) Urine Glucose (UA) NEG (NEG) Urine Ketones NEG (NEG) Urine Occult Blood NEG (NEG) Urine Nitrite NEG (NEG) Urine Bilirubin NEG (NEG) Urine Urobilinogen NEG (NEG) Urine Leukocyte Esterase NEG (NEG) Bedside Glucose 106 mg/dl (70-90) Test 12/29/17 07:00 White Blood Count 8.84 K/uL (4.8-10.8) Red Blood Count 4.15 M/uL (4.2-5.4) Hemoglobin 12.1 g/dL (12.0-16.0) Hematocrit 39.1 % (37-47) Mean Corpuscular Volume 94.2 fL (80-100) Mean Corpuscular Hemoglobin 29.2 pg (25-34) Mean Corpuscular Hemoglobin Concent 30.9 g/dl (32-36) Platelet Count 363 K/uL (130-400) Mean Platelet Volume 9.9 fL (7.4-10.4) Neutrophils (%) (Auto) 70.9 % Lymphocytes (%) (Auto) 17.0 % Monocytes (%) (Auto) 8.4 % Eosinophils (%) (Auto) 2.9 % Basophils (%) (Auto) 0.3 % Neutrophils # (Auto) 6.27 K/uL (1.4-6.5) Lymphocytes # (Auto) 1.50 K/uL (1.2-3.4) Monocytes # (Auto) 0.74 K/uL (0.11-0.59) Eosinophils # (Auto) 0.26 K/uL (0-0.5) Basophils # (Auto) 0.03 K/uL (0-0.2) RDW Standard Deviation 53.9 fL (36.4-46.3) RDW Coefficient of Variation 15.7 % (11.5-14.5) Immature Granulocyte % (Auto) 0.5 % Immature Granulocyte # (Auto) 0.04 K/uL (0.00-0.02) Prothrombin Time 11.0 SECONDS (9.0-12.0) Prothromb Time International Ratio 1.0 (0.9-1.1) Activated Partial Thromboplast Time 28.2 SECONDS (21.0-31.0) Partial Thromboplastin Ratio 1.1 Anion Gap 7.0 mmol/L (3-11) Est Creatinine Clear Calc Drug Dose 93.2 ml/min Estimated GFR () 106.1 Estimated GFR (Non- 91.6 BUN/Creatinine Ratio 13.3 (10-20) Calcium Level 8.7 mg/dl (8.5-10.1) Magnesium Level 2.1 mg/dl (1.8-2.4) Imaging BRAIN COMBO CLINICAL HISTORY: ALTERED MENTAL STATUS COMPARISON STUDY: 12/22/2017. TECHNIQUE: Utilizing a 1.5 Briana magnet and dedicated coil, multiplanar, multiecho imaging of the brain was performed pre and postcontrast administration. IV administration of 8 mL of Gadavist contrast was uneventful. FINDINGS: Diffusion images currently show no evidence for an acute ischemic insult. Old infarcts of the medial left cerebellum and left lateral pontine region are again noted. Moderate chronic small vessel change is stable. The ventricular system is midline. Age-related atrophy and chronic small vessel change is stable. IMPRESSION: 1. No evidence for an acute ischemic insult. 2. Pre-existing left cerebellar and left pontine infarcts unchanged. 3. Age-related atrophy and chronic small vessel change also stable. The above report was generated using voice recognition software. It may contain grammatical, syntax or spelling errors. Electronically signed by: Bruce Hemphill M.D. 12/28/2017 10:37 PM Impression 1. History of cerebral vascular disease, both remote and recent. The patient has old left pontine and left cerebellar strokes, which may be the event that Center to [facility] in February of 2017. December 21 she came in with a tiny right thalamic/internal capsule area stroke that may have given her some temporary left upper extremity weakness, which resolved by the time I saw her December 24. MRI of the brain this hospitalization showed no new stroke. Her risk factors for stroke include hypertension, diabetes, dyslipidemia, and her history of atrial fibrillation. She has been on anticoagulation with Pradaxa and antiplatelet therapy with clopidogrel (the anticoagulation will not prevent small vessel ischemic disease like the clopidogrel does) 2. Bilateral lower extremity contractures and spasms with pain at the hips and knees. This has been progressive and since at least the summer. She has chronic low back pain but the etiology of her contractures is not readily apparent to me. I cannot exclude lumbosacral radiculopathy. She does not seem to have spinal cord involvement but she does have an upgoing toe on the right. This is probably from the left pontine infarct. Reflexes are normal and symmetrical throughout however the absent quadriceps reflexes are due to contractures. These contractures are giving her significant pain She was discharged on 20 milligrams baclofen 3 times a day which was a rather large dose to be initiated on . Significant anxiety and depression, likely from her underlying physical conditions and pain. Unfortunately, this is not well controlled although she tolerates fluoxetine 20 milligrams daily. 4. Fall out of bed 2 or 3 days ago at the correction with some minor closed head trauma. I do not detect any significant concussion from this head trauma and she has no changes on MRI. 5. Slurred speech. This is been over the last 2-3 days. I am concerned that the relatively high dose of baclofen initiated on December 25, is responsible for the slurred speech and some of her dizziness and other generalized abnormal feelings. 6. Hypertension, fairly well controlled. Plan 1. Decrease baclofen to 10 milligrams 3 times a day. 2. Consider CT scan of the lumbar spine (I would prefer an MRI but I am not certain with her contractures and pain that she would tolerate an MRI). This study will likely have to be obtained when her mood and pain control is improved. 3. Increase fluoxetine to 30 milligrams for daily I have spoken to Dr. funes regarding this case including treatment options for her mood. We will keep fluoxetine 30 milligrams daily for 2-3 days. If necessary we will then increase to 40 milligrams daily. If after a few days on this she is not making improvements, we would then drop the fluoxetine back to 20 milligrams daily and add duloxetine 30 milligrams in the evening. 4. Physical and occupational therapy If qualified, consider a rehabilitation hospital stay. She certainly cannot go back to home at this time as she cannot care for herself. 5. Keep blood pressure around a mean arterial pressure of 100. 6. I would consider EMG and nerve conduction study of the legs but this would have to be done as an outpatient. I have spent a total of 75 minutes with this case including records review, including review of MRI films and labs, direct patient assessment, and discussion of the case with Dr. De Oliveira, Dr. Funes, clinical staff and the patient at bedside.
--- NOTE | 2017-12-29 09:23 | Hospitalist Progress Note ---
Hospitalist Progress Note Date of Service Dec 29, 2017. (Yuki Boateng PA-C) Subjective Pt evaluation today including: conversation w/ patient, physical exam, chart review, lab review, review of studies Pain: Generalized pain with multiple focal regions of worse pain PO Intake: NPO except meds Voiding: no voiding problems The patient was seen and examined this morning. Pt reports doing "awful" today. She tell me her pain is generalize - but is worse in the R shoulder and forearm after attempted IV site placement and also in her Left hip. He reports the arm pain is getting better. She notes her left arm where the IV is now placed is causing some mild burning discomfort. She notes lying on her left side actually has improved pain. She also tells me she wasn't able to wiggle her toes or bend her knees at all this morning, and since having the muscles relaxer she can slightly. She cannot fully dialysis nurse her legs. She has recieved injections from Dr. Mcdonough in the past for osteoarthritis in bilateral knees for pain. She has gotten a total of 3 nebulizer treatments since being here for wheezing, however I cannot appreciate any wheezing on exam. She denies shortness of breath, cp, cough. One of her main complaints is that she has not been able to get out of bed herself for months, and is very depressed from this. She intermittently becomes teary eyed when saying how kind and good her is to her. She refuses to go back to [facility]. Per nursing, has gotten a chair lift installed in his house and plans to take her home. ROS: 6 point ROS reviewed and negative otherwise. (Yuki Boateng, BAY) Objective Vital Signs Date Time Temp Pulse Resp B/P (MAP) Pulse Ox O2 Delivery O2 Flow Rate FiO2 12/29/17 07:18 36.6 82 20 185/80 (115) 91 Room Air 12/29/17 03:32 36.7 76 18 161/78 Room Air 12/29/17 00:00 36.7 76 18 161/78 (105) 94 Room Air 12/28/17 22:56 36.9 74 18 146/70 (95) 93 Room Air 12/28/17 22:39 70 20 147/87 99 12/28/17 22:00 74 19 2/9/18 21:30 78 22 98 Room Air 12/28/17 21:12 167/96 12/28/17 19:00 76 24 12/28/17 18:36 77 12/28/17 17:57 75 18 155/75 95 Room Air 12/28/17 17:01 77 18 160/86 96 Room Air 12/28/17 15:48 67 16 167/88 96 Room Air 12/28/17 14:53 96 Room Air 12/28/17 14:50 36.4 63 16 143/74 96 Room Air 12/28/17 14:39 70 (Yuki Boateng PA-C) Physical Exam General Appearance: WD/WN, no apparent distress Eyes: PERRL, EOMI ENT: hearing grossly normal, + pertinent finding (MM dry) Neck: supple, no JVD Respiratory/Chest: lungs clear, no respiratory distress, no accessory muscle use, + pertinent finding (on room air) Cardiovascular: regular rate, rhythm, no murmur Abdomen: normal bowel sounds, non tender, soft Extremities: + pertinent finding (legs with bilateral contractures, + can wiggle toes and bend knees about 10 degrees bilaterally. + no pain with calf palpation. Mild nonpitting edema BLE. ) Neurologic/Psychiatric: alert, oriented x 3, + depressed affect ( intermittently tearful) Skin: normal color, warm/dry (Yuki Boateng, MARY-C) Laboratory Results Last 24 Hours Test 12/28/17 14:55 12/28/17 15:19 12/28/17 17:10 12/29/17 05:43 White Blood Count 8.60 K/uL Red Blood Count 4.47 M/uL Hemoglobin 13.6 g/dL Hematocrit 42.2 % Mean Corpuscular Volume 94.4 fL Mean Corpuscular Hemoglobin 30.4 pg Mean Corpuscular Hemoglobin Concent 32.2 g/dl Platelet Count 368 K/uL Mean Platelet Volume 10.1 fL Neutrophils (%) (Auto) 68.0 % Lymphocytes (%) (Auto) 20.0 % Monocytes (%) (Auto) 8.6 % Eosinophils (%) (Auto) 2.6 % Basophils (%) (Auto) 0.3 % Neutrophils # (Auto) 5.85 K/uL Lymphocytes # (Auto) 1.72 K/uL Monocytes # (Auto) 0.74 K/uL Eosinophils # (Auto) 0.22 K/uL Basophils # (Auto) 0.03 K/uL RDW Standard Deviation 54.1 fL RDW Coefficient of Variation 15.7 % Immature Granulocyte % (Auto) 0.5 % Immature Granulocyte # (Auto) 0.04 K/uL Prothrombin Time 12.2 SECONDS Prothromb Time International Ratio 1.2 Activated Partial Thromboplast Time 35.8 SECONDS Partial Thromboplastin Ratio 1.4 Sodium Level 141 mmol/L Potassium Level 4.0 mmol/L Chloride Level 106 mmol/L Carbon Dioxide Level 30 mmol/L Anion Gap 5.0 mmol/L Blood Urea Nitrogen 11 mg/dl Creatinine 0.85 mg/dl Est Creatinine Clear Calc Drug Dose 58.1 ml/min Estimated GFR () 76.6 Estimated GFR (Non- 66.1 BUN/Creatinine Ratio 12.4 Random Glucose 109 mg/dl Calcium Level 9.3 mg/dl Magnesium Level 2.3 mg/dl Total Creatine Kinase 72 U/L Creatine Kinase MB 1.5 ng/ml Creatine Kinase MB Ratio 2.1 Troponin I < 0.015 ng/ml Bedside Prothrombin Time INR 1.2 Bedside Glucose 96 mg/dl 106 mg/dl Urine Color YELLOW Urine Appearance CLEAR Urine pH 5.0 Urine Specific Higden 1.024 Urine Protein NEG Urine Glucose (UA) NEG Urine Ketones NEG Urine Occult Blood NEG Urine Nitrite NEG Urine Bilirubin NEG Urine Urobilinogen NEG Urine Leukocyte Esterase NEG Test 12/29/17 07:00 White Blood Count 8.84 K/uL Red Blood Count 4.15 M/uL Hemoglobin 12.1 g/dL Hematocrit 39.1 % Mean Corpuscular Volume 94.2 fL Mean Corpuscular Hemoglobin 29.2 pg Mean Corpuscular Hemoglobin Concent 30.9 g/dl Platelet Count 363 K/uL Mean Platelet Volume 9.9 fL Neutrophils (%) (Auto) 70.9 % Lymphocytes (%) (Auto) 17.0 % Monocytes (%) (Auto) 8.4 % Eosinophils (%) (Auto) 2.9 % Basophils (%) (Auto) 0.3 % Neutrophils # (Auto) 6.27 K/uL Lymphocytes # (Auto) 1.50 K/uL Monocytes # (Auto) 0.74 K/uL Eosinophils # (Auto) 0.26 K/uL Basophils # (Auto) 0.03 K/uL RDW Standard Deviation 53.9 fL RDW Coefficient of Variation 15.7 % Immature Granulocyte % (Auto) 0.5 % Immature Granulocyte # (Auto) 0.04 K/uL Prothrombin Time 11.0 SECONDS Prothromb Time International Ratio 1.0 Activated Partial Thromboplast Time 28.2 SECONDS Partial Thromboplastin Ratio 1.1 Sodium Level 143 mmol/L Potassium Level 3.7 mmol/L Chloride Level 110 mmol/L Carbon Dioxide Level 26 mmol/L Anion Gap 7.0 mmol/L Blood Urea Nitrogen 7 mg/dl Creatinine 0.53 mg/dl Est Creatinine Clear Calc Drug Dose 93.2 ml/min Estimated GFR () 106.1 Estimated GFR (Non- 91.6 BUN/Creatinine Ratio 13.3 Random Glucose 91 mg/dl Calcium Level 8.7 mg/dl Magnesium Level 2.1 mg/dl (Yuki Boateng, BAY) Assessment and Plan 77 yo F with: Cerebrovascular disease/ Hx recent R thalamic and R 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 Persistent muscle spasms > 6 months involving lower extremities Ambulatory dysfunction - Symptoms are likely a combination of muscle spasm, and depression associated with recent medical issues and SNF ([facility]) stay. - MRI negative for acute findings. - Patient has been on baclofen at increased dose of 20 mg TID - reduce this to 10 mg TID to attempt improvement in drowsiness but still allow muscle relaxation with contractures in legs. - Neurology on board - appreciate recs - Continue clopidogrel 75 mg PO QAM and Pradaxa 150 mg PO BID - PT/OT on board - I do not feel she is able to return directly to home d/t safety despite how adamant she/family is about going home. Pt would be better suited for other snf placement. - Recent falls, consider lumbosacral imagining if pt does not have improvement in back pain. Pt would not be able to stand an MRI with contractures. Major Depressive Disorder, single episode s/p stroke, ongoing - Will increase Prozac to 30 mg QAM - pt has tolerated the 20 mg dosing well. Dehydration - cont on NSS plus KCl 20 mEq at 100ml/hr - she was NPO however has tolerated meds with thin liquids well. Will have nursing complete bedside dysphagia screening and speech eval for swallow function. Allow heart healthy diet at this time as no other testing to require her being NPO. - CM to assist since pt from home Hypertension - Continue carvedilol 25 mg PO BID Diabetes mellitus-- - Hemoglobin A1c was 5.6 at last admission, and therefore has not been on routine insulin - ISS with accu-Cheks achs CODE STATUS: FULL CODE Disposition: Pt refusing to go back to [facility], would like to take her home. CM to assist with d/c planning. (Yuki Boateng, BAY) PA Physician Supervision Note: I interviewed and examined the patient. Discussed with Yuki Boateng PAC and agree with findings and plan as documented in the note. Any exceptions or clarifications are listed here: None Patient is awake and alert she remained in a contracted state with a lower extremities with some pain. I do appreciate discussion had with Dr. Bo today regarding his recommendations on her neurological standpoint. The patient's understanding of this also. Patient's family is very anxious to have her return to home however with the degree of spasticity of her lower extremities I find it difficult as she is a maximum assist for transfers Vital signs are reviewed and showed mild elevation of systolic blood pressure this might be related to pain and anxiety Cardiac exam is regular lungs are clear her extremities of sensation intact there is a small erythematous area on her left inner ankle with a very small open area less than half a centimeter this was pointed out to nursing We'll continue medication modulation for her post stroke depression and lower extremity spasms under the direction of neurology with reevaluation by physical therapy with engagement of family to determine her best disposition Documented By: Franklyn De Oliveira (Franklyn De Oliveira M.D.)
[2017-12-29] MEDS: FLUOXETINE HCL 10 MG CAP PO SCH (12:40)
[2017-12-29] MEDS ORDERED: KETOROLAC TROMETHAMINE 15 MG/ML VIAL IV. STA (16:51)
[2017-12-29] MEDS ORDERED: KETOROLAC TROMETHAMINE 30 MG/ML VIAL ONE (17:12)
[2017-12-29] MEDS: KETOROLAC TROMETHAMINE 15 MG/ML VIAL IV. PRN (22:22)
[2017-12-30] MEDS: NSS + 20MEQ KCL 1000ML 1,000 ML IV SCH ×3 (01:16→19:30)
[2017-12-30] MEDS: OXYCODONE HCL IR 5 MG TAB (IMMEDIATE RELEASE) PO PRN ×2 (06:00→12:06)
[2017-12-30] MEDS: INSULIN ASPART 100 UNITS/ML 3 ML PEN SC SCH ×4 (06:30→20:21)
[2017-12-30 06:58] LABS: BASO % 0.7 %; BASO ABS # 0.06 K/uL (0-0.2); EOS % 2.9 %; EOS ABS # 0.24 K/uL (0-0.5); HEMATOCRIT 36.3 % (37-47); HEMOGLOBIN 11.4 g/dL (12.0-16.0); IG# 0.04 K/uL (0.00-0.02); LYMPH % 20.1 %; LYMPH ABS # 1.68 K/uL (1.2-3.4); MEAN CELL VOLUME 94.8 fL (80-100); MEAN CORPUSCULAR HEMOGLOBIN 29.8 pg (25-34); MEAN CORPUSCULAR HGB CONC 31.4 g/dl (32-36); MEAN PLATELET VOLUME 9.9 fL (7.4-10.4); MONO % 8.5 %; MONO ABS # 0.71 K/uL (0.11-0.59); NEUT % 67.3 %; NEUT ABS # 5.63 K/uL (1.4-6.5); PLATELET COUNT 325 K/uL (130-400); RED CELL DISTRIBUTION WIDTH CV 15.9 % (11.5-14.5); RED CELL DISTRIBUTION WIDTH SD 54.7 fL (36.4-46.3); WHITE BLOOD COUNT 8.36 K/uL (4.8-10.8)
[2017-12-30 07:08] LABS: INR 1.1 (0.9-1.1); PTT PATIENT 30.8 SECONDS (21.0-31.0)
[2017-12-30] MEDS: BACLOFEN 10 MG TAB PO SCH ×3 (07:28→19:06)
[2017-12-30] MEDS: ACETAMINOPHEN IV 100 ML IV PRN (07:28)
[2017-12-30] MEDS: CLOPIDOGREL BISULFATE 75 MG TAB PO SCH (07:29)
[2017-12-30] MEDS: DABIGATRAN ELEXILATE 75 MG CAP PO SCH ×2 (07:30→19:06)
[2017-12-30] MEDS: FLUOXETINE HCL 10 MG CAP PO SCH (07:31)
--- NOTE | 2017-12-30 07:35 | Hospitalist Progress Note ---
Hospitalist Progress Note Date of Service Dec 30, 2017. (Yuki Boateng PA-C) Subjective Pt evaluation today including: conversation w/ patient, conversation w/ family , physical exam, chart review, lab review, review of studies Pain: Generalized PO Intake: Poor Voiding: no voiding problems The patient was seen and examined this morning with her at bedside. She reports having pain overnight, continues this morning, and she has gotten doses of tylenol IV, percocet along with zofran and is also ordered toradol as needed. She reports hx of tramadol making her extremely nauseous. Her morphine allergy is also nausea, although she says this is much less severe than tramadol was. She is slightly fearful of PT/OT because of how she was treated at [facility], pt reports she did not tolerate PT due to the muscle spasms. Her muscles are still contracted today, but she reports relief with baclofen. Discussion was held regarding goals of care. Both the patient and her agree on no aggressive measures, and that she wants to be a DNR. They have discussed end of life care with palliative medicine before but not recently. When asked about keeping her comfortable, they both say that comfort is their main goal currently with the anticipation of being able to get her home. She does not want to keep returning to a hospital. They are agreeable to a palliative consult. Constitutional: + fatigue, No fever, No chills, No sweats Eyes: No redness, No diplopia ENT: No nasal symptoms, No trouble swallowing Respiratory: + shortness of breath (with long conversation and with movement ), No cough, No sputum, No wheezing, No dyspnea at rest Cardiovascular: No chest pain, No edema, No palpitations Abdomen: + nausea, No pain, No vomiting, No diarrhea, No constipation (last BM was 2 days ago) Musculoskeletal: + joint pain, + muscle pain, No calf pain Female : No dysuria Neurologic: + weakness, No numbness/tingling Endo: + fatigue (Yuki Boateng PA-C) Objective Vital Signs Date Time Temp Pulse Resp B/P (MAP) Pulse Ox O2 Delivery O2 Flow Rate FiO2 12/30/17 00:00 Room Air 12/29/17 23:03 36.6 80 21 189/64 (105) 92 Room Air 12/29/17 19:42 37.1 78 18 164/76 (105) 91 Room Air 12/29/17 16:00 37.1 78 18 164/76 (105) 91 Room Air 12/29/17 16:00 Room Air 12/29/17 14:22 37.1 78 18 164/76 (105) 91 Room Air 12/29/17 08:00 91 Room Air (Yuki Boateng PA-C) Physical Exam Notes: General Appearance: WD/WN, no apparent distress Eyes: PERRL, EOMI ENT: hearing grossly normal, + pertinent finding (MM dry) Neck: supple, no JVD Respiratory/Chest: lungs clear, no respiratory distress, no accessory muscle use, + pertinent finding (on room air) Cardiovascular: regular rate, rhythm, no murmur Abdomen: normal bowel sounds, non tender, soft Extremities: + pertinent finding (legs with bilateral contractures, + can wiggle toes and bend ankles, not knees, + no pain with calf palpation. Mild nonpitting edema BLE. ) Neurologic/Psychiatric: alert, oriented x 3, affect improved today with at bedside, less anxious. Skin: normal color, warm/dry (Yuki Boateng PA-C) Laboratory Results Last 24 Hours Test 12/29/17 11:29 12/29/17 12:19 12/29/17 17:22 12/29/17 19:50 Bedside Glucose 88 mg/dl 107 mg/dl 90 mg/dl 96 mg/dl Test 12/30/17 06:26 White Blood Count 8.36 K/uL Red Blood Count 3.83 M/uL Hemoglobin 11.4 g/dL Hematocrit 36.3 % Mean Corpuscular Volume 94.8 fL Mean Corpuscular Hemoglobin 29.8 pg Mean Corpuscular Hemoglobin Concent 31.4 g/dl Platelet Count 325 K/uL Mean Platelet Volume 9.9 fL Neutrophils (%) (Auto) 67.3 % Lymphocytes (%) (Auto) 20.1 % Monocytes (%) (Auto) 8.5 % Eosinophils (%) (Auto) 2.9 % Basophils (%) (Auto) 0.7 % Neutrophils # (Auto) 5.63 K/uL Lymphocytes # (Auto) 1.68 K/uL Monocytes # (Auto) 0.71 K/uL Eosinophils # (Auto) 0.24 K/uL Basophils # (Auto) 0.06 K/uL RDW Standard Deviation 54.7 fL RDW Coefficient of Variation 15.9 % Immature Granulocyte % (Auto) 0.5 % Immature Granulocyte # (Auto) 0.04 K/uL Prothrombin Time 11.6 SECONDS Prothromb Time International Ratio 1.1 Activated Partial Thromboplast Time 30.8 SECONDS Partial Thromboplastin Ratio 1.2 (Yuki Boateng PA-C) Assessment and Plan 77 yo F with: Goals of Care - Conversation held regarding goals of care - pt and are in agreement with DNR. They ultimately want to have her be comfortable. They do not want aggressive measures and would like to not have her return to the hospital. I have consulted palliative medicine to see her and they are agreeable to this. I believe they are leaning towards comfort care. They have discussed their goals before with a palliative team however this was some time ago. - Her pain is suboptimally controlled today with IV meds- pt unwilling to trial tylenol suppository/reduce IV meds, and she remains nauseous so I do not anticipate she will be ready for discharge tomorrow like family is hoping for. 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 Persistent muscle spasms > 6 months involving lower extremities Ambulatory dysfunction - Symptoms are likely a combination of muscle spasm, and depression associated with recent medical issues and SNF ([facility]) stay. - MRI negative for acute findings. - Recent falls, consider lumbosacral imagining if pt does not have improvement in back pain. Pt would not be able to stand an MRI with contractures. - Continue Baclofen at 10 mg TID - no drowsiness, has some relief of contractures in legs although not optimal - will order a 1x dose of baclofen 10 mg now. - Neurology on board - appreciate recs - Continue clopidogrel 75 mg PO QAM and Pradaxa 150 mg PO BID - PT/OT on board - see goals above. Major Depressive Disorder, single episode s/p stroke, ongoing - Cont increased dose of Prozac 30 mg QAM Dehydration - cont on NSS plus KCl 20 mEq at 100ml/hr - Speech eval for swallow function being completed today. Allow heart healthy diet at this time as no other testing to require her being NPO. Hypertension - Continue carvedilol 25 mg PO BID Diabetes mellitus-- - Hemoglobin A1c was 5.6 at last admission, and therefore has not been on routine insulin - ISS with accu-Cheks achs CODE STATUS: DNR - discussed with family - see above. Disposition: Possibly home with hospice, CM to assist with d/c planning. (Yuki Boateng, DENISEC) PA Physician Supervision Note: I interviewed and examined the patient. Discussed with Yuki Boateng PAC and agree with findings and plan as documented in the note. Any exceptions or clarifications are listed here: None Patient is tearful and in pain today. Per discussions with my PA when the family is now considering taking the patient home for comfort measures and not pursuing rehabilitative therapy. The patient is too uncomfortable to pursue any meaningful discussion regarding this today she is now agreeable to parenteral opiate therapy to try to treat her pain her pain seems to become from the spasticity of her lower extremities she was given an additional dose of baclofen with some improvement however higher dose of baclofen and cause mental status changes Vital signs are stable exception of hypertension which is probably from pain Cardiac exam shows her to be slightly tachycardic Her lower extremity remained in a flexed state she can feel and flex her feet Encephalopathy likely based on toxic encephalopathy from medications and now increased pain from lower extremity spasticity, will attempt use parenteral opiates and an oral opiates to help her improve her pain or to neurology for management of her specificity continuing her antidepressant therapy and have a palliative care consult for discussion of goals of care Documented By: Franklyn De Oliveira (Franklyn De Oliveira M.D.)
[2017-12-30 07:39] LABS: CALCIUM 8.4 mg/dl (8.5-10.1); CREATININE 0.57 mg/dl (0.60-1.20); POTASSIUM 4.2 mmol/L (3.5-5.1)
--- NOTE | 2017-12-30 07:58 | Neurology Progress Notes ---
Neurology Progress Note Date of Service Dec 30, 2017. Subjective Patient tells me that she did fairly well yesterday and slept well (when she fell asleep) overnight. She denies any headache, but still has some soreness where she bruised her right lutheran area from her fall out of bed 3-4 days ago. Patient does have some pain in her left hip, particularly with moving her left leg Nursing believes that her speech is improved and she is more alert. CBC shows some mild anemia (likely from hydration) and Chem profile is pending. Blood pressure has been stable, with a little bit of systolic hypertension still Objective Date Time Temp Pulse Resp B/P (MAP) Pulse Ox O2 Delivery O2 Flow Rate FiO2 12/30/17 00:00 Room Air 12/29/17 23:03 36.6 80 21 189/64 (105) 92 Room Air 12/29/17 19:42 37.1 78 18 164/76 (105) 91 Room Air 12/29/17 16:00 37.1 78 18 164/76 (105) 91 Room Air 12/29/17 16:00 Room Air 12/29/17 14:22 37.1 78 18 164/76 (105) 91 Room Air 12/29/17 08:00 91 Room Air Last 24 Hours Test 12/29/17 11:29 12/29/17 12:19 12/29/17 17:22 12/29/17 19:50 Bedside Glucose 88 mg/dl 107 mg/dl 90 mg/dl 96 mg/dl Test 12/30/17 06:26 White Blood Count 8.36 K/uL Red Blood Count 3.83 M/uL Hemoglobin 11.4 g/dL Hematocrit 36.3 % Mean Corpuscular Volume 94.8 fL Mean Corpuscular Hemoglobin 29.8 pg Mean Corpuscular Hemoglobin Concent 31.4 g/dl Platelet Count 325 K/uL Mean Platelet Volume 9.9 fL Neutrophils (%) (Auto) 67.3 % Lymphocytes (%) (Auto) 20.1 % Monocytes (%) (Auto) 8.5 % Eosinophils (%) (Auto) 2.9 % Basophils (%) (Auto) 0.7 % Neutrophils # (Auto) 5.63 K/uL Lymphocytes # (Auto) 1.68 K/uL Monocytes # (Auto) 0.71 K/uL Eosinophils # (Auto) 0.24 K/uL Basophils # (Auto) 0.06 K/uL RDW Standard Deviation 54.7 fL RDW Coefficient of Variation 15.9 % Immature Granulocyte % (Auto) 0.5 % Immature Granulocyte # (Auto) 0.04 K/uL Prothrombin Time 11.6 SECONDS Prothromb Time International Ratio 1.1 Activated Partial Thromboplast Time 30.8 SECONDS Partial Thromboplastin Ratio 1.2 Sodium Level 144 mmol/L Potassium Level 4.2 mmol/L Chloride Level 113 mmol/L Carbon Dioxide Level 24 mmol/L Anion Gap 7.0 mmol/L Creatinine 0.57 mg/dl Est Creatinine Clear Calc Drug Dose 86.6 ml/min Estimated GFR () 103.6 Estimated GFR (Non- 89.4 BUN/Creatinine Ratio 18.5 Random Glucose 91 mg/dl Calcium Level 8.4 mg/dl Magnesium Level 2.0 mg/dl Exam: The patient is calmer lying in bed compared to yesterday. She is less agitated/ anxious. Her speech is less dysarthric than yesterday and she seems a little more alert to me, able to converse and remember some details of her history somewhat better than yesterday. Extraocular eye muscles are intact without nystagmus. There is no facial droop. She follows commands well and is pleasant and cooperative. Arm strength is 5/5 bilaterally both proximally and distally She still has some mild tenderness in old bruising around her right lutheran area as before She has much less tenderness and pain at her right elbow compared to yesterday ( previous IV site). She is moving her right upper extremity better has lest shoulder discomfort. Her leg still have significant contractures at the hips and knees. She can move her ankles and feet very well with symmetrical strength Current Inpatient Medications Medications (Trade) Dose Ordered Sig/Isidra Route Start Time Stop Time Status Last Admin Dose Admin Carvedilol (Coreg Tab) 25 mg BIDM PO 12/29/17 08:00 01/28/18 07:59 12/29/17 17:19 25 MG Clopidogrel Bisulfate (plAVix TAB) 75 mg QAM PO 12/29/17 08:00 01/28/18 08:59 12/30/17 07:29 75 MG Dabigatran (Pradaxa Cap) 150 mg BID PO 12/28/17 21:00 01/27/18 20:59 2/11/18 07:30 150 MG Albuterol/ Ipratropium (Duoneb) 3 ml QID PRN INH 12/28/17 20:45 01/27/18 20:44 Ondansetron HCl (Zofran Odt) 8 mg Q6H PRN PO 12/28/17 20:45 01/27/18 20:44 Insulin Aspart (novoLOG ASPART) SLIDING SCALE If C... ACHS SC 12/28/17 21:00 01/27/18 20:59 Glucose (Glucose 40% Gel) 15-30 GRAMS 15 GRAMS... UD PRN PO 12/28/17 20:45 01/27/18 20:44 Glucose (Glucose Chew Tab) 4-8 Tablets 4 Tabl... UD PRN PO 12/28/17 20:45 01/27/18 20:44 Dextrose (Dextrose 50% 50ML Syringe) 25-50ML OF 50% DW IV FOR... UD PRN IV 12/28/17 20:45 01/27/18 20:44 Glucagon (Glucagon Inj) 1 mg UD PRN SQ 12/28/17 20:45 01/27/18 20:44 Acetaminophen 100 ml @ 400 mls/hr Q8H PRN IV 12/28/17 20:45 01/27/18 20:44 12/30/17 07:28 400 MLS/HR Miscellaneous (Iv Fluids Completed) 1 ea PRN PRN N/A 12/28/17 21:15 12/28/18 21:14 Potassium Chloride/Sodium Chloride 1,000 ml @ 100 mls/hr Q10H IV 12/29/17 04:30 01/28/18 04:29 12/30/17 01:16 100 MLS/HR Baclofen (Lioresal Tab) 10 mg TID PO 12/29/17 09:00 01/28/18 08:59 12/30/17 07:28 10 MG Fluoxetine HCl (Prozac Cap) 30 mg QAM PO 12/29/17 11:45 01/29/18 07:59 12/30/17 07:31 30 MG Ketorolac Tromethamine (Toradol Inj) 15 mg Q8H PRN IV. 12/29/17 17:00 01/03/18 16:59 12/29/17 22:22 15 MG Oxycodone HCl (Roxicodone Immediate Rel Tab) 5 mg Q6 PRN PO 12/29/17 17:00 01/12/18 16:59 12/30/17 06:00 5 MG Impression 1. History of cerebral vascular disease, both remote and recent. 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 December 21 she came in with a tiny right thalamic/internal capsule area stroke that gave her some temporary left upper extremity weakness, resolved by the time I saw her December 24. MRI of the brain this hospitalization showed no new stroke. Her risk factors for stroke include hypertension, diabetes, dyslipidemia, and her history of atrial fibrillation. She has been on anticoagulation with Pradaxa and antiplatelet therapy with clopidogrel (the anticoagulation will not prevent small vessel ischemic disease like the clopidogrel) 2. Bilateral lower extremity contractures and spasms with pain at the hips and knees. This has been progressive and since at least the summer. She has chronic low back pain but the etiology of her contractures is not readily apparent to me. I cannot exclude lumbosacral radiculopathy. She does not seem to have spinal cord involvement but she does have an upgoing toe on the right. This is probably from the left pontine infarct. The less she uses her legs the more the contractures will set in and make it harder to improve. Reflexes are normal and symmetrical throughout however the absent quadriceps reflexes are due to contractures. These contractures are giving her significant pain Plain x-rays of the pelvis and hips recently revealed some osteoarthritis in the hips and possibly some old compression type fractures. She was discharged on 20 milligrams baclofen 3 times a day which was a rather large dose to be initiated on 3. Significant anxiety and depression, likely from her underlying physical conditions and pain -improved today compared to yesterday. Fluoxetine was increased to 30 milligrams daily yesterday and I would keep this dose for now. 4. [facility] with some minor closed head trauma. I do not detect any significant concussion from this head trauma and she has no changes on MRI. She has some residual bruising and soreness at the right temporal head region. 5. Slurred speech (over the 2 or 3 days prior to admission) -much improved compared to yesterday I believe that the relatively high dose of baclofen initiated on December 25, was responsible for the slurred speech , as well as her dizziness and other generalized abnormal feelings. These other symptoms are improved as well The baclofen was lower yesterday to 10 milligrams 3 times a day 6. Hypertension, fairly well controlled. Plan 1. Continue baclofen 10 milligrams 3 times a day. 2. Consider CT scan of the lumbar spine - I would prefer an MRI but I am not certain with her contractures and pain that she would tolerate an MRI. 3. Continue fluoxetine to 30 milligrams for daily We will keep fluoxetine 30 milligrams daily at least for next 2-3 days. If necessary, we will then increase to 40 milligrams daily. Alternatively, if she is not getting significant help on fluoxetine 40, then drop the fluoxetine back to 20 milligrams daily and add duloxetine 30 milligrams in the evening. 4. Physical and occupational therapy If qualified, consider a rehabilitation hospital stay. She certainly cannot go back to home at this time as she cannot care for herself. 5. Keep blood pressure around a mean arterial pressure of 100, as you are doing. 6. I would consider EMG and nerve conduction study of the legs, but this would have to be done as an outpatient. 7. We could add a peripheral acting muscle relaxers such as methocarbamol 500 milligrams twice daily (in addition to the baclofen). Benzodiazepines would help nicely as muscle relaxers but have a high sedating risk Overall, I spent a total of 40 minutes evaluating the patient, discussing the case with Dr. De Oliveira and the clinical staff caring for the patient, records review.
[2017-12-30 08:00] VITALS: O2SAT 91
[2017-12-30] MEDS ORDERED: FLUOXETINE HCL 10 MG CAP PO SCH (08:00)
[2017-12-30 08:18] VITALS: BP 179/76; PULSE 74; TEMP 36.4; O2SAT 93
[2017-12-30] MEDS: CARVEDILOL 25 MG TAB PO SCH ×2 (09:14→16:05)
[2017-12-30] MEDS: KETOROLAC TROMETHAMINE 15 MG/ML VIAL IV. PRN (09:32)
[2017-12-30] MEDS ORDERED: BACLOFEN 10 MG TAB PO STA (11:35)
[2017-12-30] MEDS ORDERED: ONDANSETRON INJ 2 MG/ML 2 ML VIAL IV STA (12:50)
[2017-12-30] MEDS ORDERED: HYDROmorphone INJ 0.5 MG/0.5 ML SYR IV STA (12:50)
[2017-12-30 15:00] VITALS: BP 212/98; PULSE 78; TEMP 37.4; O2SAT 88
[2017-12-30] MEDS ORDERED: HYDROmorphone INJ 1 MG/ML SYR IV STA (15:13)
[2017-12-30 15:19] VITALS: O2SAT 94
[2017-12-30 16:03] VITALS: BP 182/79; O2SAT 91
[2017-12-30] MEDS ORDERED: OXYCODONE HCL IR 5 MG TAB (IMMEDIATE RELEASE) PO PRN (17:15)
[2017-12-30] MEDS: ONDANSETRON INJ 2 MG/ML 2 ML VIAL IV PRN (18:23)
[2017-12-30 23:31] VITALS: BP 178/81; PULSE 78; TEMP 36.5; O2SAT 93
[2017-12-31] MEDS: HYDROmorphone INJ 1 MG/ML SYR IV PRN ×2 (01:50→23:48)
[2017-12-31] MEDS: ONDANSETRON INJ 2 MG/ML 2 ML VIAL IV PRN ×2 (01:50→23:48)
[2017-12-31] MEDS: HYDROmorphone INJ 0.5 MG/0.5 ML SYR IV PRN (06:07)
[2017-12-31] MEDS: NSS + 20MEQ KCL 1000ML 1,000 ML IV SCH ×2 (06:11→15:30)
[2017-12-31] MEDS: INSULIN ASPART 100 UNITS/ML 3 ML PEN SC SCH ×4 (06:30→20:45)
[2017-12-31 07:08] VITALS: BP 150/73; PULSE 85; TEMP 36.1; O2SAT 92
[2017-12-31 07:15] LABS: BASO % 0.3 %; BASO ABS # 0.03 K/uL (0-0.2); EOS % 4.7 %; EOS ABS # 0.48 K/uL (0-0.5); HEMOGLOBIN 11.4 g/dL (12.0-16.0); IG# 0.04 K/uL (0.00-0.02); LYMPH % 15.4 %; LYMPH ABS # 1.57 K/uL (1.2-3.4); MEAN CELL VOLUME 94.5 fL (80-100); MEAN CORPUSCULAR HEMOGLOBIN 29.9 pg (25-34); MEAN CORPUSCULAR HGB CONC 31.7 g/dl (32-36); MEAN PLATELET VOLUME 9.6 fL (7.4-10.4); MONO % 6.5 %; MONO ABS # 0.66 K/uL (0.11-0.59); NEUT % 72.7 %; NEUT ABS # 7.39 K/uL (1.4-6.5); PLATELET COUNT 321 K/uL (130-400); RED CELL DISTRIBUTION WIDTH SD 55.3 fL (36.4-46.3); WHITE BLOOD COUNT 10.17 K/uL (4.8-10.8)
[2017-12-31 07:25] LABS: INR 1.1 (0.9-1.1); PTT PATIENT 30.3 SECONDS (21.0-31.0)
[2017-12-31] MEDS: BACLOFEN 10 MG TAB PO SCH ×3 (07:46→20:43)
[2017-12-31] MEDS: DABIGATRAN ELEXILATE 75 MG CAP PO SCH ×2 (07:46→20:43)
[2017-12-31] MEDS: CARVEDILOL 25 MG TAB PO SCH ×2 (07:46→17:48)
[2017-12-31] MEDS: CLOPIDOGREL BISULFATE 75 MG TAB PO SCH (07:46)
[2017-12-31 07:47] LABS: CALCIUM 8.5 mg/dl (8.5-10.1); CREATININE 0.61 mg/dl (0.60-1.20); POTASSIUM 4.4 mmol/L (3.5-5.1)
[2017-12-31] MEDS: FLUOXETINE HCL 10 MG CAP PO SCH (07:47)
[2017-12-31 08:00] VITALS: O2SAT 94
[2017-12-31] MEDS: KETOROLAC TROMETHAMINE 15 MG/ML VIAL IV. PRN ×2 (09:52→21:09)
--- NOTE | 2017-12-31 10:39 | Palliative Care Consultation ---
Consultation Date of Consultation: Dec 31, 2017. Requesting Physician: Ngoc Boateng PA-C Attending Physician: Maria T Boateng PA-C; Dr. De Oliveira Reason for Consultation: Goals of care History of Present Illness This 77 year old female patient with PMH previous CVA, htn, dyslipidemia, DM, and CAD s/p CABG 1996, presented to the hospital three days ago with c/o altered mental status and residual left leg weakness. She was just in hospital December 22 for small right thalamic and internal capsule punctate infarct as seen on MRI of brain. At that time, she was having severe spasms of bilateral lower extremities for which she was started on Baclofen. She went to [facility] upon discharge and apparently fell out of bed two days ago and hit her head per her . Since then, patient hasn't been acting right-- slurred speech, weakness, and poor PO intake. She is on Pradaxa. CT head this admission showed nothing acute, just remote infarcts. MRI brain again showed the known infarcts in left cerebellar and pontine regions as well as age-related chronic small vessel changes. Patient has been in severe pain since admission in bilateral hips. Her muscle spasms are so severe that her legs are contracted at the hips and knees and she really isn't able to straighten them out. Baclofen was decreased per neurology and patient is much more awake and alert. Yesterday , patient said that she just wanted to , didn't want to return to hospital, and wanted to go home on comfort. Palliative care is consulted. I met with the patient and her in room 459-2. Patient is awake, in moderate distress from the pain which is 10/10 in her hips. Nurse was in room giving IV Toradol when I entered. I offered to come back at a later time, but patient agreed to have conversation about goals of care and wanted to talk while her was there. We discussed goals of care. Patient states she wants to because she can't handle the pain any more. I asked if she would still want to if the pain was under control, she said no. agreed that the pain is really what is driving this decision. I asked patient and if they would want imaging of the spine done if we were able to get pain under control, they both said yes. Patient is on Prozac, just started recently at [facility]. Patient states she's never been on antidepressant before. She describes herself as a "realist" and just "deals with things as they come." Her depression is really situational since her first stroke in February 2017. See plan below. Past Medical/Surgical History Medical History: as above Surgical History: CABG Social History Smoking Status: Former Smoker History of Alcohol Use: No Drug Use: none Marital Status: Occupation Status: retired Review of Systems Constitutional: + weakness, No fever, No chills ENT: No trouble swallowing Respiratory: + problem reported (reports sleep apnea), No shortness of breath Cardiac: No chest pain, No edema Abdomen: + nausea (improved with Zofran), No pain, No vomiting Female : No problem reported Neurologic: No numbness/tingling Psychiatric: + depression symptoms, No anxiety Allergies Coded Allergies: Morphine (Verified Allergy, Unknown, unknown, 12/22/17) Penicillins (Verified Allergy, Unknown, unknown, 12/22/17) Niacin (Verified Adverse Reaction, Intermediate, PALPITATIONS, 12/28/17) PALPITATIONS Tramadol (Unverified Adverse Reaction, Intermediate, VOMITING, 12/28/17) Medications Current Inpatient Medications Medications (Trade) Dose Ordered Sig/Isidra Route Start Time Stop Time Status Last Admin Dose Admin Carvedilol (Coreg Tab) 25 mg BIDM PO 12/29/17 08:00 01/28/18 07:59 12/31/17 07:46 25 MG Clopidogrel Bisulfate (plAVix TAB) 75 mg QAM PO 12/29/17 08:00 01/28/18 08:59 12/31/17 07:46 75 MG Dabigatran (Pradaxa Cap) 150 mg BID PO 12/28/17 21:00 01/27/18 20:59 12/31/17 07:46 150 MG Albuterol/ Ipratropium (Duoneb) 3 ml QID PRN INH 12/28/17 20:45 01/27/18 20:44 Ondansetron HCl (Zofran Odt) 8 mg Q6H PRN PO 12/28/17 20:45 01/27/18 20:44 Insulin Aspart (novoLOG ASPART) SLIDING SCALE If C... ACHS SC 12/28/17 21:00 01/27/18 20:59 Glucose (Glucose 40% Gel) 15-30 GRAMS 15 GRAMS... UD PRN PO 12/28/17 20:45 01/27/18 20:44 Glucose (Glucose Chew Tab) 4-8 Tablets 4 Tabl... UD PRN PO 12/28/17 20:45 01/27/18 20:44 Dextrose (Dextrose 50% 50ML Syringe) 25-50ML OF 50% DW IV FOR... UD PRN IV 12/28/17 20:45 01/27/18 20:44 Glucagon (Glucagon Inj) 1 mg UD PRN SQ 12/28/17 20:45 01/27/18 20:44 Acetaminophen 100 ml @ 400 mls/hr Q8H PRN IV 12/28/17 20:45 01/27/18 20:44 12/30/17 07:28 400 MLS/HR Miscellaneous (Iv Fluids Completed) 1 ea PRN PRN N/A 12/28/17 21:15 12/28/18 21:14 Potassium Chloride/Sodium Chloride 1,000 ml @ 100 mls/hr Q10H IV 12/29/17 04:30 01/28/18 04:29 12/31/17 06:11 100 MLS/HR Baclofen (Lioresal Tab) 10 mg TID PO 12/29/17 09:00 01/28/18 08:59 12/31/17 07:46 10 MG Fluoxetine HCl (Prozac Cap) 30 mg QAM PO 12/29/17 11:45 01/29/18 07:59 12/31/17 07:47 30 MG Ketorolac Tromethamine (Toradol Inj) 15 mg Q8H PRN IV. 12/29/17 17:00 01/03/18 16:59 12/31/17 09:52 15 MG Oxycodone HCl (Roxicodone Immediate Rel Tab) 5 mg Q6 PRN PO 12/29/17 17:00 01/12/18 16:59 12/30/17 12:06 5 MG Ondansetron HCl (Zofran Inj) 4 mg Q6H PRN IV 12/30/17 12:45 01/29/18 12:44 12/31/17 01:50 4 MG Hydromorphone HCl (Dilaudid Inj) 0.5 mg Q6 PRN IV 12/30/17 12:45 01/13/18 12:44 12/31/17 06:07 0.5 MG Oxycodone HCl (Roxicodone Immediate Rel Tab) 10 mg Q6 PRN PO 12/30/17 17:15 01/13/18 17:14 12/31/17 07:45 10 MG Hydromorphone HCl (Dilaudid Inj) 1 mg Q4 PRN IV 12/30/17 17:15 01/13/18 17:14 12/31/17 01:50 1 MG Physical Exam Date Time Temp Pulse Resp B/P (MAP) Pulse Ox O2 Delivery O2 Flow Rate FiO2 12/31/17 08:00 94 Nasal Cannula 3.0 12/31/17 07:08 36.1 85 20 150/73 (98) 92 Nasal Cannula 2.0 12/31/17 00:00 Nasal Cannula 2.0 12/30/17 23:31 36.5 78 16 178/81 (113) 93 Nasal Cannula 2.0 12/30/17 16:03 182/79 (113) 91 Nasal Cannula 2.0 12/30/17 16:00 Nasal Cannula 2.0 12/30/17 15:19 94 Nasal Cannula 2.0 12/30/17 15:00 37.4 78 20 212/98 (136) 88 Room Air General Appearance: + moderate distress, + obese ENT: hearing grossly normal Neck: supple, no JVD Respiratory: lungs clear, no respiratory distress, no accessory muscle use Cardiovascular: regular rate, rhythm, no edema, + normal peripheral pulses Abdomen: normal bowel sounds, non tender, soft Neurologic/Psychiatric: oriented x 3, + pertinent finding (tearful and in pain) Skin: normal color Laboratory Results Last 24 Hours Test 12/30/17 11:27 12/30/17 16:51 12/30/17 20:05 12/31/17 06:44 Bedside Glucose 113 mg/dl 95 mg/dl 104 mg/dl White Blood Count 10.17 K/uL Red Blood Count 3.81 M/uL Hemoglobin 11.4 g/dL Hematocrit 36.0 % Mean Corpuscular Volume 94.5 fL Mean Corpuscular Hemoglobin 29.9 pg Mean Corpuscular Hemoglobin Concent 31.7 g/dl Platelet Count 321 K/uL Mean Platelet Volume 9.6 fL Neutrophils (%) (Auto) 72.7 % Lymphocytes (%) (Auto) 15.4 % Monocytes (%) (Auto) 6.5 % Eosinophils (%) (Auto) 4.7 % Basophils (%) (Auto) 0.3 % Neutrophils # (Auto) 7.39 K/uL Lymphocytes # (Auto) 1.57 K/uL Monocytes # (Auto) 0.66 K/uL Eosinophils # (Auto) 0.48 K/uL Basophils # (Auto) 0.03 K/uL RDW Standard Deviation 55.3 fL RDW Coefficient of Variation 16.0 % Immature Granulocyte % (Auto) 0.4 % Immature Granulocyte # (Auto) 0.04 K/uL Prothrombin Time 11.5 SECONDS Prothromb Time International Ratio 1.1 Activated Partial Thromboplast Time 30.3 SECONDS Partial Thromboplastin Ratio 1.2 Sodium Level 142 mmol/L Potassium Level 4.4 mmol/L Chloride Level 112 mmol/L Carbon Dioxide Level 23 mmol/L Anion Gap 7.0 mmol/L Blood Urea Nitrogen 10 mg/dl Creatinine 0.61 mg/dl Est Creatinine Clear Calc Drug Dose 81.0 ml/min Estimated GFR () 101.3 Estimated GFR (Non- 87.4 BUN/Creatinine Ratio 15.7 Random Glucose 90 mg/dl Calcium Level 8.5 mg/dl Magnesium Level 1.9 mg/dl Test 12/31/17 07:34 Bedside Glucose 84 mg/dl Assessment & Plan Problem list: Bilateral leg spasms Bilateral hip and leg pain Hx multiple CVAs including recent right thalamic CVA last week Generalized weakness and deconditioning Anxiety/situational depression Goals of care (Z51.5) Palliative care recs: -Patient confirmed she is a DNR. -Patient's goal at this time is pain control. Once pain is controlled, we can reassess long-term goals of care. In current condition, patient does not have a hospice-qualifying diagnosis. -Patient should have imaging of lumbar spine to rule out radiculopathy or other acute issue if possible. -Valium may be helpful for sedation prior to MRI scan and would also help as muscle relaxant. -For now, would start fentanyl patch at 25mcg/hr. Of note, allergy to morphine and tramadol is nausea/vomiting. -Discontinue Oxycodone. -Continue Dilaudid 1mg IV Q4h PRN pain and we can assess her needs in 24 hours. Would give Zofran along with narcotic. -Further goals of care and recs to be determined. Thank you kindly for this consult. I will follow. Total time spent 70 minutes with >50% of time spent with patient counseling and discussion goals of care.
[2017-12-31] MEDS: FENTANYL 25 MCG/HR TDSY TD SCH (13:46)
--- NOTE | 2017-12-31 13:46 | Hospitalist Progress Note ---
Hospitalist Progress Note Date of Service Dec 31, 2017. (Yuki Boateng PA-C) Subjective Pt evaluation today including: conversation w/ patient, physical exam, chart review, lab review, review of studies Pain: Bilateral leg pain, leg contractures PO Intake: poor Voiding: romero catheter in place The patient was seen and examined this morning. She was sleeping upon entry but was easily awakened. She is having increased dysarthria today today and has trouble with describing if shes better or worse. Palliative medicine was consulted and spoke with her and earlier today. Currently the pt reports still having pain in her legs bilaterally and that there are still spasms. She denies issues with pain, shortness of breath, chest tightness, palpitations. ROS: 6 point ROS reviewed and otherwise negative. (Yuki Boateng PA-C) Objective Vital Signs Date Time Temp Pulse Resp B/P (MAP) Pulse Ox O2 Delivery O2 Flow Rate FiO2 12/31/17 08:00 94 Nasal Cannula 3.0 12/31/17 07:08 36.1 85 20 150/73 (98) 92 Nasal Cannula 2.0 12/31/17 00:00 Nasal Cannula 2.0 12/30/17 23:31 36.5 78 16 178/81 (113) 93 Nasal Cannula 2.0 12/30/17 16:03 182/79 (113) 91 Nasal Cannula 2.0 12/30/17 16:00 Nasal Cannula 2.0 12/30/17 15:19 94 Nasal Cannula 2.0 12/30/17 15:00 37.4 78 20 212/98 (136) 88 Room Air (Yuki Boateng PA-C) Physical Exam Notes: General Appearance: WD/WN, no apparent distress, +dysarthria Eyes: PERRL, EOMI ENT: hearing grossly normal, + pertinent finding (MM dry) Neck: supple, no JVD Respiratory/Chest: lungs clear, no respiratory distress, no accessory muscle use, + pertinent finding (on room air) Cardiovascular: regular rate, rhythm, no murmur Abdomen: normal bowel sounds, non tender, soft Extremities: + pertinent finding (legs with bilateral contractures, + can wiggle toes and bend ankles, not knees, + no pain with calf palpation. + Nonpitting edema BLE. ) Neurologic/Psychiatric: alert, oriented x 3, + dysarthria today Skin: normal color, warm/dry (Yuki Boateng PA-C) Laboratory Results Last 24 Hours Test 12/30/17 16:51 12/30/17 20:05 12/31/17 06:44 12/31/17 07:34 Bedside Glucose 95 mg/dl 104 mg/dl 84 mg/dl White Blood Count 10.17 K/uL Red Blood Count 3.81 M/uL Hemoglobin 11.4 g/dL Hematocrit 36.0 % Mean Corpuscular Volume 94.5 fL Mean Corpuscular Hemoglobin 29.9 pg Mean Corpuscular Hemoglobin Concent 31.7 g/dl Platelet Count 321 K/uL Mean Platelet Volume 9.6 fL Neutrophils (%) (Auto) 72.7 % Lymphocytes (%) (Auto) 15.4 % Monocytes (%) (Auto) 6.5 % Eosinophils (%) (Auto) 4.7 % Basophils (%) (Auto) 0.3 % Neutrophils # (Auto) 7.39 K/uL Lymphocytes # (Auto) 1.57 K/uL Monocytes # (Auto) 0.66 K/uL Eosinophils # (Auto) 0.48 K/uL Basophils # (Auto) 0.03 K/uL RDW Standard Deviation 55.3 fL RDW Coefficient of Variation 16.0 % Immature Granulocyte % (Auto) 0.4 % Immature Granulocyte # (Auto) 0.04 K/uL Prothrombin Time 11.5 SECONDS Prothromb Time International Ratio 1.1 Activated Partial Thromboplast Time 30.3 SECONDS Partial Thromboplastin Ratio 1.2 Sodium Level 142 mmol/L Potassium Level 4.4 mmol/L Chloride Level 112 mmol/L Carbon Dioxide Level 23 mmol/L Anion Gap 7.0 mmol/L Blood Urea Nitrogen 10 mg/dl Creatinine 0.61 mg/dl Est Creatinine Clear Calc Drug Dose 81.0 ml/min Estimated GFR () 101.3 Estimated GFR (Non- 87.4 BUN/Creatinine Ratio 15.7 Random Glucose 90 mg/dl Calcium Level 8.5 mg/dl Magnesium Level 1.9 mg/dl Test 12/31/17 11:23 Bedside Glucose 94 mg/dl (Yuki Boateng PA-C) Assessment and Plan 77 yo F with: Goals of Care - Palliative medicine met with the patient and her this morning - Appreciate recs - Her pain is improved today, but has been started on IV dilaudid last evening. Will try fentanyl patch 25 mg and d/c the oxycodone 5-10 mg for better pain relief and anticipation of getting off IV meds. 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 Persistent muscle spasms > 6 months involving lower extremities Ambulatory dysfunction - Symptoms are likely a combination of muscle spasm, and depression associated with recent medical issues and SNF ([facility]) stay. - MRI negative for acute findings. - Recent falls, consider lumbosacral imagining if pt does not have improvement in back pain. Pt would not be able to stand an MRI with contractures. - Continue Baclofen at 10 mg TID - no drowsiness, has some relief of contractures in legs although not optimal. Got a 1x extra dose on 12/30. - Neurology on board - appreciate recs - Continue clopidogrel 75 mg PO QAM and Pradaxa 150 mg PO BID - PT/OT on board Major Depressive Disorder, single episode s/p stroke, ongoing - Cont increased dose of Prozac 30 mg QAM - would recommend continuing this dose for at least a 2 week period before another dose adjustment. Pt should see slight improvement within that time, if there is still room for mood improvement would increase to 40mg. As per Dr. English during last admission, cymbalta not as beneficial as prozac for depression sx. Dehydration - cont on NSS plus KCl 20 mEq at 100ml/hr - Speech eval complete. Allow heart healthy diet at this time as no other testing to require her being NPO. Hypertension - Continue carvedilol 25 mg PO BID Diabetes mellitus-- - Hemoglobin A1c was 5.6 at last admission, and therefore has not been on routine insulin - ISS with [facility] CODE STATUS: DNR - discussed with family - see above. Disposition: PT/OT on board, CM to assist with d/c planning. (Yuki Boateng PA-C) PA Physician Supervision Note: I interviewed and examined the patient. Discussed with Yuki Boateng PAC and agree with findings and plan as documented in the note. Any exceptions or clarifications are listed here: None Patient is at significant issues with pain mostly in knees and hamstring area she's been in a contracted state since her stroke almost 1 year ago with no explanation of why. 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
[2017-12-31 16:08] VITALS: BP 156/75; PULSE 79; TEMP 36.3; O2SAT 92
[2017-12-31] MEDS: CHECK FENTANYL PATCH PLACEMENT SCH (16:25)
[2017-12-31] MEDS: CeleBREX 100 MG CAP PO SCH (21:10)
[2017-12-31] MEDS: ACETAMINOPHEN 500 MG TAB PO SCH (21:11)
[2017-12-31 23:45] VITALS: BP 143/80; PULSE 75; TEMP 36.7; O2SAT 95
[2018-01-01] MEDS: CHECK FENTANYL PATCH PLACEMENT SCH ×4 (00:07→23:57)
[2018-01-01] MEDS: NSS + 20MEQ KCL 1000ML 1,000 ML IV SCH ×3 (01:47→22:46)
[2018-01-01] MEDS: KETOROLAC TROMETHAMINE 15 MG/ML VIAL IV. PRN ×2 (05:26→19:53)
[2018-01-01 07:22] VITALS: BP 146/78; PULSE 76; TEMP 36.6; O2SAT 96
[2018-01-01] MEDS: CeleBREX 100 MG CAP PO SCH ×2 (07:24→19:59)
[2018-01-01] MEDS: ACETAMINOPHEN 500 MG TAB PO SCH ×2 (07:26→19:59)
[2018-01-01] MEDS: FLUOXETINE HCL 10 MG CAP PO SCH (07:27)
[2018-01-01] MEDS: CARVEDILOL 25 MG TAB PO SCH ×2 (07:27→17:44)
[2018-01-01] MEDS: BACLOFEN 10 MG TAB PO SCH ×3 (07:27→19:58)
[2018-01-01] MEDS: CLOPIDOGREL BISULFATE 75 MG TAB PO SCH (07:27)
[2018-01-01] MEDS: DABIGATRAN ELEXILATE 75 MG CAP PO SCH ×2 (07:28→19:58)
[2018-01-01] MEDS: INSULIN ASPART 100 UNITS/ML 3 ML PEN SC SCH ×4 (10:26→21:40)
[2018-01-01 15:15] VITALS: BP 121/86; PULSE 76; TEMP 37.2; O2SAT 93
--- NOTE | 2018-01-01 16:51 | Palliative Care Progress Note ---
Palliative Care Progress Note Date of Service Jan 01, 2018. Subjective Pt evaluation today including: conversation w/ patient, conversation w/ family ( and son, Leonard), physical exam, chart review, conversation w/ customer consultant (Dr. De Oliveira), review of inpatient medication list Pain: none PO Intake: tolerating diet Voiding: incontinence -Patient is very pleasant and talkative today. Her son and were at bedside. -We discussed goals of care. Patient stated she really just wants to be comfortable and does not want to undergo further testing/procedures. Even if we found a problem with her spine, she would not want surgery. -Pain is well-controlled at this time. Fentanyl patch was started yesterday at 25mcg/hr, tolerating well. Has not used any PRN pain medications since yesterday. Review of Systems Constitutional: + weakness (actually improved, was able to move her legs some) ENT: No trouble swallowing Respiratory: No shortness of breath, No dyspnea on exertion Cardiac: No chest pain, No edema Abdomen: No pain, No nausea, No vomiting Female : No problem reported Psychiatric: No depression symptoms, No anxiety Objective Vital Signs Date Time Temp Pulse Resp B/P (MAP) Pulse Ox O2 Delivery O2 Flow Rate FiO2 01/01/18 15:57 Nasal Cannula 3.0 01/01/18 15:15 37.2 76 20 121/86 (98) 93 Nasal Cannula 2.0 01/01/18 07:56 Nasal Cannula 3.0 01/01/18 07:22 36.6 76 18 146/78 (100) 96 Nasal Cannula 3.0 01/01/18 00:00 Nasal Cannula 3.0 12/31/17 23:45 36.7 75 20 143/80 (101) 95 Nasal Cannula 3.0 12/31/17 19:25 Nasal Cannula 3.0 Physical Exam General Appearance: no apparent distress ENT: hearing grossly normal Neck: supple, no JVD Respiratory/Chest: lungs clear, no respiratory distress, no accessory muscle use Cardiovascular: regular rate, rhythm, + pertinent finding (+1 edema to bilateral feet) Abdomen: normal bowel sounds, non tender, soft Neurologic/Psychiatric: alert, normal mood/affect, oriented x 3 Skin: normal color Laboratory Results Last 24 Hours Test 12/31/17 20:13 01/01/18 07:51 01/01/18 11:42 Bedside Glucose 129 mg/dl 83 mg/dl 104 mg/dl Assessment and Plan Problem list: Bilateral leg spasms Bilateral hip and leg pain Hx multiple CVAs including recent right thalamic CVA last week Generalized weakness and deconditioning Anxiety/situational depression Goals of care (Z51.5) Palliative care recs: -Patient has opted for comfort care. She does not want to undergo further testing/procedures. Even if we were able to do imaging of spine, she would not want any sort of invasive intervention. -Pain is well-controlled today. -Continue fentanyl patch 25mcg/hr TD Q72h. -Change Zofran to ODT and continue on discharge. Patient prefers to have Zofran given along with her pain medication. -Discontinue IV Dilaudid. -Can have Roxicodone as needed for breakthrough pain. -Patient, , and son Leonard are all in agreement that patient will go to SNF upon discharge. First choice is [facility] and caseworker protective services has made referral. Total time spent 35 minutes with greater than >50% of time spent with patient and family counseling and discussing plan of care. Palliative Performance Scale: 30 % [facility]charge planning[facility] facility
[2018-01-01] MEDS: OXYCODONE HCL IR 5 MG TAB (IMMEDIATE RELEASE) PO PRN (17:37)
[2018-01-01] MEDS: ONDANSETRON INJ 2 MG/ML 2 ML VIAL IV PRN (17:37)
--- NOTE | 2018-01-01 19:36 | Progress Note ---
Subjective Date of Service: Jan 01, 2018. Subjective Patient is somewhat improved today her knee pain is somewhat better discussions with palliative care regarding goals of care will transition from symptom control rather than trying to define etiology of her leg spasms and pain her is at the bedside and is agreeable to this situation Problem List Medical Problems: (1) Acute right-sided weakness Status: Acute (2) Altered mental status Status: Acute (3) Anemia Status: Acute (4) Cellulitis Status: Acute (5) Elevated INR Status: Acute (6) Failure of outpatient treatment Status: Acute (7) Fall Status: Acute (8) Falls Status: Acute (9) Rectus sheath hematoma Status: Acute (10) Respiratory failure Status: Acute (11) Vertigo Status: Acute (12) Weakness Status: Acute Review of Systems Constitutional: + weakness, No fever, No chills Respiratory: No cough, No sputum, No shortness of breath Cardiac: No chest pain, No edema Abdomen: No pain, No nausea, No vomiting, No diarrhea Musculoskeletal: + joint pain, + muscle pain, + swelling Neurologic: + weakness, + balance problems Psychiatric: + depression symptoms, + anhedonism Objective Vital Signs Date Time Temp Pulse Resp B/P (MAP) Pulse Ox O2 Delivery O2 Flow Rate FiO2 01/01/18 15:57 Nasal Cannula 3.0 01/01/18 15:15 37.2 76 20 121/86 (98) 93 Nasal Cannula 2.0 01/01/18 07:56 Nasal Cannula 3.0 01/01/18 07:22 36.6 76 18 146/78 (100) 96 Nasal Cannula 3.0 01/01/18 00:00 Nasal Cannula 3.0 12/31/17 23:45 36.7 75 20 143/80 (101) 95 Nasal Cannula 3.0 Physical Exam General Appearance: WD/WN, + mild distress, + moderate distress Eyes: normal inspection, sclerae normal Respiratory/Chest: chest non-tender, + decreased breath sounds Cardiovascular: regular rate, rhythm (bases), no murmur Abdomen: normal bowel sounds, non tender, soft Extremities: + pertinent finding (her knees are flexed state she is also 3 changes to both knees and tenderness to the knee and hamstring area) Neurologic/Psychiatric: alert, oriented x 3 (she has some minor slurring of her speech with his usual for her) Laboratory Results Last 24 Hours Test 12/31/17 20:13 01/01/18 07:51 01/01/18 11:42 Bedside Glucose 129 mg/dl 83 mg/dl 104 mg/dl Assessment and Plan 77 yo F with: Previous stroke with contractures of her lower extremities presents with difficulty of ambulation and persistent lower extremity pain should toxic encephalopathy from presentation is suspected to be from baclofen which was used and attempts to reduce her lower artery spasm this encephalopathy is completely cleared with reduction of her baclofen dose Goals of Care- Palliative medicine met with the patient and her will improve her pain with fentanyl patch 25 mg and when necessary oxycodone 5-10 mg plus adding Celebrex for a anti-inflammatory effect Cerebrovascular disease/left cerebellar strokes February of 2017. Persistent muscle spasms > 6 months involving lower extremities Ambulatory dysfunction MRI negative for acute findings. - Continue Baclofen at 10 mg TID -clopidogrel 75 mg PO QAM and Pradaxa 150 mg PO BID - PT/OT continues to be required Major Depressive Disorder, ongoing increased dose of Prozac 30 mg QAM Hypertension carvedilol 25 mg PO BID Diabetes mellitus--- ISS with [facility] CODE STATUS: DNR - discussed with family - see above. Discharge planning: longterm facility
[2018-01-01] MEDS: HYDROmorphone INJ 0.5 MG/0.5 ML SYR IV PRN (23:54)
[2018-01-02 02:44] VITALS: BP 163/82; PULSE 74; TEMP 36.9; O2SAT 94
[2018-01-02] MEDS: INSULIN ASPART 100 UNITS/ML 3 ML PEN SC SCH ×4 (06:30→22:00)
[2018-01-02] MEDS: HYDROmorphone INJ 0.5 MG/0.5 ML SYR IV PRN ×2 (06:47→13:32)
[2018-01-02 07:40] VITALS: BP 142/62; PULSE 72; TEMP 36.7; O2SAT 94
[2018-01-02 08:03] VITALS: O2SAT 94
[2018-01-02] MEDS: NSS + 20MEQ KCL 1000ML 1,000 ML IV SCH ×2 (08:34→18:50)
[2018-01-02] MEDS: FLUOXETINE HCL 10 MG CAP PO SCH (08:34)
[2018-01-02] MEDS: BACLOFEN 10 MG TAB PO SCH ×3 (08:35→19:58)
[2018-01-02] MEDS: CLOPIDOGREL BISULFATE 75 MG TAB PO SCH (08:35)
[2018-01-02] MEDS: ACETAMINOPHEN 500 MG TAB PO SCH ×2 (08:35→19:59)
[2018-01-02] MEDS: DABIGATRAN ELEXILATE 75 MG CAP PO SCH ×2 (08:36→19:58)
[2018-01-02] MEDS: CeleBREX 100 MG CAP PO SCH ×2 (08:36→19:59)
[2018-01-02] MEDS: CHECK FENTANYL PATCH PLACEMENT SCH ×3 (08:36→23:26)
[2018-01-02] MEDS: CARVEDILOL 25 MG TAB PO SCH ×2 (08:37→18:51)
[2018-01-02] MEDS: ONDANSETRON INJ 2 MG/ML 2 ML VIAL IV PRN (09:01)
[2018-01-02 16:17] VITALS: BP 154/70; PULSE 79; TEMP 36.7; O2SAT 92
--- NOTE | 2018-01-02 18:29 | Progress Note ---
Subjective Date of Service: Jan 02, 2018. Subjective Patient is having a bad day today with persistent lower extremity pain she feels is from positioning by the nursing staff and will try to reposition her otherwise she has no new problems persistent bilateral knee pain and spasticity of her hamstrings Problem List Medical Problems: (1) Acute right-sided weakness Status: Acute (2) Altered mental status Status: Acute (3) Anemia Status: Acute (4) Cellulitis Status: Acute (5) Elevated INR Status: Acute (6) Failure of outpatient treatment Status: Acute (7) Fall Status: Acute (8) Falls Status: Acute (9) Rectus sheath hematoma Status: Acute (10) Respiratory failure Status: Acute (11) Vertigo Status: Acute (12) Weakness Status: Acute Review of Systems Constitutional: + weakness, + fatigue, No fever, No chills Respiratory: No cough, No sputum, No shortness of breath, No dyspnea on exertion Cardiac: No chest pain, No orthopnea, No PND, No edema Musculoskeletal: + joint pain, + muscle pain Neurologic: + paralysis, + weakness, + balance problems Psychiatric: + depression symptoms, + anhedonism Objective Vital Signs Date Time Temp Pulse Resp B/P (MAP) Pulse Ox O2 Delivery O2 Flow Rate FiO2 01/02/18 16:17 36.7 79 20 154/70 (98) 92 Nasal Cannula 3.0 01/02/18 08:03 94 Nasal Cannula 01/02/18 08:00 Nasal Cannula 3.0 01/02/18 07:40 36.7 72 12 142/62 (88) 94 Nasal Cannula 2.5 01/02/18 02:44 36.9 74 18 163/82 (109) 94 3.0 01/02/18 00:00 Nasal Cannula 3.0 Physical Exam General Appearance: WD/WN, + moderate distress Eyes: normal inspection, sclerae normal Respiratory/Chest: chest non-tender, + decreased breath sounds Cardiovascular: regular rate, rhythm, no murmur Abdomen: normal bowel sounds, non tender, no organomegaly Extremities: + pertinent finding (osteoarthritic changes to her knees with point tenderness to palpation) Laboratory Results Last 24 Hours Test 01/01/18 20:14 01/02/18 07:23 01/02/18 11:31 01/02/18 17:09 Bedside Glucose 115 mg/dl 90 mg/dl 92 mg/dl 84 mg/dl Assessment and Plan 77 yo F with: Previous stroke with contractures of her lower extremities and functional quadriplegia presents with difficulty of ambulation and persistent lower extremity pain toxic encephalopathy on presentation is from baclofen which was used and attempts to reduce her lower artery spasm this encephalopathy is completely cleared with reduction of her baclofen dose Goals of Care- Palliative medicine met with the patient and her will improve her pain with fentanyl patch 25 mg and when necessary oxycodone 5-10 mg plus adding Celebrex for a anti-inflammatory effect Cerebrovascular disease/left cerebellar strokes February of 2017. Very little headway with medical modulation of her discomfort will consider adjunctive antidepressant Persistent muscle spasms > 6 months involving lower extremities neurology cannot provide definite direction of the medical management at this time Ambulatory dysfunction MRI brain negative for acute findings. - Continue Baclofen at 10 mg TID -clopidogrel 75 mg PO QAM and Pradaxa 150 mg PO BID - PT/OT continues to be required Major Depressive Disorder, ongoing increased dose of Prozac 30 mg QAM this is a slow acting medication may consider a mood extending agent will discuss with psychiatry before making a decision Hypertension has been controlled on carvedilol 25 mg PO BID Diabetes mellitus--- reasonable with ISS with acc[facility] CODE STATUS: DNR - discussed with family - see above. Discharge planning: residential facility
[2018-01-02] MEDS: KETOROLAC TROMETHAMINE 15 MG/ML VIAL IV. PRN (18:57)
[2018-01-02 21:41] VITALS: O2SAT 92
[2018-01-02 23:05] VITALS: BP 167/80; PULSE 80; TEMP 36.7; O2SAT 97
[2018-01-03] MEDS: HYDROmorphone INJ 0.5 MG/0.5 ML SYR IV PRN ×3 (02:47→16:28)
[2018-01-03] MEDS: ONDANSETRON INJ 2 MG/ML 2 ML VIAL IV PRN ×3 (02:49→16:27)
[2018-01-03] MEDS: NSS + 20MEQ KCL 1000ML 1,000 ML IV SCH ×2 (04:58→14:36)
[2018-01-03] MEDS: INSULIN ASPART 100 UNITS/ML 3 ML PEN SC SCH ×4 (06:30→21:28)
[2018-01-03 07:26] VITALS: BP 175/76; PULSE 80; TEMP 37.7; O2SAT 96
[2018-01-03 08:51] VITALS: BP 187/79; PULSE 83
[2018-01-03] MEDS: CHECK FENTANYL PATCH PLACEMENT SCH ×2 (08:52→16:20)
[2018-01-03] MEDS: BACLOFEN 10 MG TAB PO SCH ×3 (08:54→19:30)
[2018-01-03] MEDS: CLOPIDOGREL BISULFATE 75 MG TAB PO SCH (08:54)
[2018-01-03] MEDS: CeleBREX 100 MG CAP PO SCH ×2 (08:54→19:29)
[2018-01-03] MEDS: CARVEDILOL 25 MG TAB PO SCH ×2 (08:54→16:27)
[2018-01-03] MEDS: FLUOXETINE HCL 10 MG CAP PO SCH (08:55)
[2018-01-03] MEDS: ACETAMINOPHEN 500 MG TAB PO SCH ×2 (08:55→19:30)
[2018-01-03] MEDS: DABIGATRAN ELEXILATE 75 MG CAP PO SCH ×2 (08:55→19:32)
--- NOTE | 2018-01-03 09:15 | Hospitalist Progress Note ---
Hospitalist Progress Note Date of Service Jan 03, 2018. (Yuki Boateng PA-C) Subjective Pt evaluation today including: conversation w/ patient, physical exam Pain: Generalized PO Intake: Poor Voiding: romero catheter in place The patient was seen and examined this morning. Pt reports doing "terrible" today and is asking for something for pain. She reports feeling like she needs to be repositioned every hour because her legs continue to hurt. Pt has eaten 50% of her oatmeal and orange juice this morning. She has not used boost or ensure due to vitamin K in these drinks, she is agreeable to trial of glucose control boost since this has a lower amount of vit k in it. Discussion held with CM today and are expecting hospice to evaluate the patient to determine if she would qualify. Ultimately the patient's family wants to take her home. Constitutional: No fever, No chills, No sweats Eyes: No redness, No diplopia ENT: + nasal symptoms (dryness), No unusual epistaxis, No sore throat, No trouble swallowing Respiratory: + cough, + sputum (yellow), No shortness of breath, No dyspnea on exertion Cardiovascular: No chest pain, No edema Abdomen: No pain, No nausea, No vomiting, No diarrhea, No constipation Musculoskeletal: No joint pain, No muscle pain Neurologic: + weakness, + problem reported (leg cramping), No numbness/ tingling Psychiatric: + depression symptoms, + anxiety Endo: + fatigue Skin: No rash, No itch (Yuki Boateng PA-C) Objective Vital Signs Date Time Temp Pulse Resp B/P (MAP) Pulse Ox O2 Delivery O2 Flow Rate FiO2 01/03/18 08:51 83 187/79 (115) 01/03/18 07:26 37.7 80 16 175/76 (109) 96 2.5 01/03/18 00:00 Nasal Cannula 3.0 01/02/18 23:05 36.7 80 20 167/80 (109) 97 Nasal Cannula 3.0 Humidified Oxygen 01/02/18 21:41 92 Nasal Cannula 3.0 01/02/18 16:17 36.7 79 20 154/70 (98) 92 Nasal Cannula 3.0 (Yuki Boateng PA-C) Physical Exam Notes: General Appearance: WD/WN, no apparent distress, pts speech is fairly clear today Eyes: PERRL, EOMI ENT: hearing grossly normal, + pertinent finding (MM dry) Neck: supple, no JVD Respiratory/Chest: lungs clear, no respiratory distress, no accessory muscle use, + pertinent finding (2L via NC with moisture) Cardiovascular: regular rate, rhythm, no murmur Abdomen: normal bowel sounds, non tender, soft Extremities: + pertinent finding (legs with bilateral contractures, + can wiggle toes and bend ankles, not knees, + no pain with calf palpation. + Nonpitting edema BLE) Neurologic/Psychiatric: alert, oriented x 3 Skin: normal color, warm/dry (Yuki Boateng PA-C) Laboratory Results Last 24 Hours Test 01/02/18 11:31 01/02/18 17:09 01/02/18 20:28 01/03/18 07:45 Bedside Glucose 92 mg/dl 84 mg/dl 87 mg/dl 97 mg/dl (Yuki Boateng PA-C) Assessment and Plan 77 yo F with: Previous stroke with contractures of her lower extremities and functional quadriplegia presents with difficulty of ambulation and persistent lower extremity pain toxic encephalopathy on presentation is from baclofen which was used and attempts to reduce her lower artery spasm. 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 --Very little headway with medical modulation of her discomfort will consider adjunctive antidepressant Ambulatory dysfunction / Persistent muscle spasms > 6 months involving lower extremities -- neurology cannot provide definite direction of the medical management at this time - MRI brain negative for acute findings. - Continue Baclofen at 10 mg TID -clopidogrel 75 mg PO QAM and Pradaxa 150 mg PO BID - PT/OT continues to be required Major Depressive Disorder - ongoing increased dose of Prozac 30 mg QAM this is a slow acting medication may consider a mood extending agent - will discuss with psychiatry before making a decision Hypertension - has been controlled on carvedilol 25 mg PO BID Diabetes mellitus- - reasonable with ISS with [facility] CODE STATUS: DNR - discussed with family - see above. Disposition: PT/OT on board, CM to assist with d/c planning. Hospice to eval the pt today (Yuki Boateng, BAY) MARY Physician Supervision Note: I interviewed and examined the patient. Discussed with Yuki Boateng PAC and agree with findings and plan as documented in the note. Any exceptions or clarifications are listed here: None Patient is a persistent problems with leg pain she is having urinary retention and incontinence at the same time a Romero catheter was placed with some good relief likely was having overflow incontinence this is likely also related to some lower leg spasms. Because of the pain her transdermal fentanyl patch was increased to 50 g 01/03 her is at the bedside he is understanding that was feeder pain control she will likely move to a halfway facility Vitals reviewed and stable patient is awake she is alert and oriented although in pain she has unexplained spasticity and functional quadriplegia Pain modulation with transdermal opiates intravenous opiates oral nonsteroidals in antidepressants neurology is helping the exact etiology of her spasticity is unknown she does have some improvement with baclofen although at higher doses has had encephalopathy Documented By: Franklyn De Oliveira (Franklyn De Oliveira M.D.)
[2018-01-03] MEDS ORDERED: HYDROmorphone INJ 0.5 MG/0.5 ML SYR ONE (12:20)
[2018-01-03] MEDS: ONDANSETRON 8MG OD TAB PO PRN (12:56)
[2018-01-03] MEDS: FENTANYL 25 MCG/HR TDSY TD SCH ×2 (13:38→16:20)
[2018-01-03] MEDS: FENTANYL PATCH REMOVE & WASTE SCH (13:40)
[2018-01-03 15:31] VITALS: BP 155/78; PULSE 75; TEMP 36.7; O2SAT 92
[2018-01-03 16:26] VITALS: BP 168/75; PULSE 76
[2018-01-03 22:49] VITALS: BP 149/71; PULSE 72; TEMP 36.6; O2SAT 93
[2018-01-04] MEDS: CHECK FENTANYL PATCH PLACEMENT SCH ×6 (00:11→16:12)
[2018-01-04] MEDS: NSS + 20MEQ KCL 1000ML 1,000 ML IV SCH (00:11)
[2018-01-04] MEDS: INSULIN ASPART 100 UNITS/ML 3 ML PEN SC SCH ×4 (06:30→20:41)
[2018-01-04 08:28] VITALS: BP 179/71; PULSE 80; TEMP 36.9; O2SAT 92
[2018-01-04] MEDS: BACLOFEN 10 MG TAB PO SCH ×3 (08:57→20:43)
[2018-01-04] MEDS: CLOPIDOGREL BISULFATE 75 MG TAB PO SCH (08:57)
[2018-01-04] MEDS: FLUOXETINE HCL 10 MG CAP PO SCH (08:58)
[2018-01-04] MEDS: DABIGATRAN ELEXILATE 75 MG CAP PO SCH ×2 (08:58→20:44)
[2018-01-04] MEDS: ACETAMINOPHEN 500 MG TAB PO SCH ×2 (08:59→20:42)
[2018-01-04] MEDS: CeleBREX 100 MG CAP PO SCH ×2 (09:00→20:44)
[2018-01-04] MEDS: CARVEDILOL 25 MG TAB PO SCH ×2 (09:00→17:22)
[2018-01-04] MEDS: BOOST GLUCOSE CONTROL PO SCH (09:07)
[2018-01-04] MEDS: HYDROmorphone INJ 0.5 MG/0.5 ML SYR IV PRN (09:08)
--- NOTE | 2018-01-04 11:48 | Hospitalist Progress Note ---
Hospitalist Progress Note Date of Service Jan 04, 2018. (Yuki Boateng PA-C) Subjective Pt evaluation today including: conversation w/ patient, conversation w/ family , physical exam, chart review, lab review, review of studies Pain: Generalized lower extremity pain PO Intake: Fair Voiding: no voiding problems The patient was seen and examined this morning. Pt reports feeling "terrible" again today. Her son, Leonard is present at bedside and if very supportive of her. She reports her leg pain is still uncontrolled, and complaints of having spasms which are suboptimally controlled so far. She tolerated minimal breakfast. She continues to need frequent turn and repositioning due to pain. Her toes are especially sore today. Discussion was held regarding comfort measures only. She ultimately wants comfort measures/hospice only. She has been evaluated by hospice agency yesterday, and may go home with home health and then transition to hospice, if she would be denied at this time. She is in agreement with this plan. All their questions and concerns were answered. ROS: 6 point ROS negative other than reviewed above. (Yuki Boateng PA-C) Objective Vital Signs Date Time Temp Pulse Resp B/P (MAP) Pulse Ox O2 Delivery O2 Flow Rate FiO2 01/04/18 08:28 36.9 80 20 179/71 (107) 92 3.0 01/04/18 08:00 Nasal Cannula 01/04/18 00:00 Nasal Cannula 3.0 01/03/18 22:49 36.6 72 16 149/71 (97) 93 Room Air 01/03/18 19:00 Nasal Cannula 3.0 01/03/18 16:26 76 168/75 (106) 01/03/18 16:00 Nasal Cannula 3.0 01/03/18 15:31 36.7 75 18 155/78 (103) 92 2.0 (Yuki Boateng PA-C) Physical Exam Notes: General Appearance: WD/WN, no apparent distress, +dysarthria at baseline, but speech is fairly clear today Eyes: PERRL, EOMI ENT: hearing grossly normal, + pertinent finding (MM dry) Neck: supple, no JVD Respiratory/Chest: lungs clear, no respiratory distress, no accessory muscle use, + pertinent finding (on room air) Cardiovascular: regular rate, rhythm, no murmur Abdomen: normal bowel sounds, non tender, soft, + romero catheter in place draining clear yellow urine Extremities: + pertinent finding (legs with bilateral contractures, + can wiggle toes and bend ankles, not knees, + no pain with calf palpation. + Nonpitting edema BLE. 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 This encephalopathy is completely cleared with reduction of her baclofen dose Goals of Care- - Palliative medicine met with the patient and her - will improve her pain with fentanyl patch 25 mg and when necessary oxycodone 5 -10 mg plus adding Celebrex for a anti-inflammatory effect. She is requiring dilaudid IV Q3H prn, will try to transition to PO dilaudid. - Pt ultimately wants comfort measures only. Hospice evaluation completed and awaiting approval. If denied, then she will go home with home health services and be able to transition to hospice at home. 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 --Very little headway with medical modulation of her discomfort will consider adjunctive antidepressant Ambulatory dysfunction / Persistent muscle spasms > 6 months involving lower extremities -- neurology cannot provide definite direction of the medical management at this time - MRI brain negative for acute findings. - Continue Baclofen at 10 mg TID -clopidogrel 75 mg PO QAM and Pradaxa 150 mg PO BID - PT/OT continues to be required for possible home health Major Depressive Disorder - ongoing increased dose of Prozac 30 mg QAM this is a slow acting medication may consider a mood extending agent - will discuss with psychiatry before making a decision - Consider adding Cymbalta for pain relief Hypertension - has been controlled on carvedilol 25 mg PO BID Diabetes mellitus- - reasonable with ISS with accu-Cheks achs CODE STATUS: DNR - discussed with family in detail. Disposition: PT/OT on board, CM to assist with d/c planning. Hospice evaluation complete, await approval. Medically stable for d/c to home once services have been arranged. (Yuki Boateng, PAPattC) i personally examined pt and verified all brantley points azael Boateng PAC sleeping, appearing comfortable d/w nursing new dose of fentanyl patch just applied vitals noted nad breathing unlabored no pallor or icterus pain - increase patch as above, ongoing supportive care otherwise as above (Jah Quintana D.Licha.)
[2018-01-04] MEDS ORDERED: NURSING VERBAL MED ORDER ONE (12:00)
[2018-01-04] MEDS: OXYCODONE HCL IR 5 MG TAB (IMMEDIATE RELEASE) PO PRN ×2 (12:20→17:58)
[2018-01-04] MEDS: ONDANSETRON INJ 2 MG/ML 2 ML VIAL IV PRN (12:20)
--- NOTE | 2018-01-04 13:18 | Palliative Care Progress Note ---
Palliative Care Progress Note Date of Service Jan 04, 2018. Subjective Pt evaluation today including: conversation w/ patient, conversation w/ family (sonLeonard), physical exam, chart review, conversation w/ procurement consultant (Ngoc Boateng PA-C), review of inpatient medication list Pain: 5/10 PO Intake: tolerating Patient having more pain today. Undecided about going home vs. SNF. Patient, son, and state that they want to hear [facility]'s determination of whether or not she is appropriate for hospice to make decision. Review of Systems Constitutional: + weakness ENT: No trouble swallowing Respiratory: No shortness of breath, No dyspnea on exertion Cardiac: No chest pain, No edema Abdomen: + nausea, No pain, No vomiting Female : No problem reported Psychiatric: No anxiety Objective Vital Signs Date Time Temp Pulse Resp B/P (MAP) Pulse Ox O2 Delivery O2 Flow Rate FiO2 01/04/18 08:28 36.9 80 20 179/71 (107) 92 3.0 01/04/18 08:00 Nasal Cannula 01/04/18 00:00 Nasal Cannula 3.0 01/03/18 22:49 36.6 72 16 149/71 (97) 93 Room Air 01/03/18 19:00 Nasal Cannula 3.0 01/03/18 16:26 76 168/75 (106) 01/03/18 16:00 Nasal Cannula 3.0 01/03/18 15:31 36.7 75 18 155/78 (103) 92 2.0 Physical Exam General Appearance: no apparent distress ENT: hearing grossly normal Neck: supple, no JVD Respiratory/Chest: no respiratory distress, no accessory muscle use Cardiovascular: regular rate, rhythm, no edema Abdomen: normal bowel sounds, non tender, soft Extremities: + pertinent finding (spasms of lower extremities are better) Neurologic/Psychiatric: alert, normal mood/affect, oriented x 3 Laboratory Results Last 24 Hours Test 01/03/18 16:44 01/03/18 20:08 01/04/18 07:55 01/04/18 11:39 Bedside Glucose 80 mg/dl 104 mg/dl 86 mg/dl Albumin 2.4 gm/dl Assessment and Plan Problem list: Bilateral leg spasms Bilateral hip and leg pain Hx multiple CVAs including recent right thalamic CVA last week Generalized weakness and deconditioning Anxiety/situational depression Goals of care (Z51.5) Palliative care recs: -Patient has opted for comfort care. -Awaiting [facility]'s determination on whether or not patient qualifies for hospice. Patient and family then need to decide home vs. SNF. Referral was made to [facility] and they can offer patient a bed per case management. -Increase fentanyl patch to 50mcg/hr TD Q72h. -Change Zofran to ODT and continue on discharge. Patient prefers to have Zofran given along with her pain medication. -Discontinue IV Dilaudid. -Can have Roxicodone as needed for breakthrough pain. Total time spent 35 minutes with greater than >50% of time spent with patient and family counseling and discussing plan of care. Palliative Performance Scale: 30 % Discharge planning: [facility] facility
[2018-01-04 14:07] VITALS: BP 156/80; PULSE 76; TEMP 36.4; O2SAT 95
[2018-01-04 16:09] VITALS: BP 136/76; PULSE 79; TEMP 36.6; O2SAT 94
[2018-01-04 16:20] VITALS: O2SAT 94
[2018-01-04] MEDS: FENTANYL 25 MCG/HR TDSY TD SCH ×2 (16:32)
[2018-01-04] MEDS: FENTANYL PATCH REMOVE & WASTE SCH (16:38)
[2018-01-04 23:53] VITALS: BP 142/85; PULSE 76; TEMP 36.6; O2SAT 93
[2018-01-05] MEDS: CeleBREX 100 MG CAP PO SCH (09:07)
[2018-01-05] MEDS: BOOST GLUCOSE CONTROL PO SCH (09:07)
[2018-01-05] MEDS: CARVEDILOL 25 MG TAB PO SCH ×2 (09:08→17:42)
[2018-01-05] MEDS: BACLOFEN 10 MG TAB PO SCH ×3 (09:08→21:24)
[2018-01-05] MEDS: CLOPIDOGREL BISULFATE 75 MG TAB PO SCH (09:09)
[2018-01-05] MEDS: DABIGATRAN ELEXILATE 75 MG CAP PO SCH ×2 (09:10→21:24)
[2018-01-05] MEDS: FLUOXETINE HCL 10 MG CAP PO SCH (09:10)
[2018-01-05] MEDS: ACETAMINOPHEN 500 MG TAB PO SCH ×2 (09:11→21:25)
[2018-01-05] MEDS: INSULIN ASPART 100 UNITS/ML 3 ML PEN SC SCH ×4 (09:23→20:49)
[2018-01-05 09:29] VITALS: BP 145/70; PULSE 78; TEMP 36.8; O2SAT 94
[2018-01-05] MEDS: ONDANSETRON 8MG OD TAB PO PRN (09:32)
[2018-01-05] MEDS: CHECK FENTANYL PATCH PLACEMENT SCH ×4 (09:38)
[2018-01-05] MEDS: HYDROmorphone INJ 0.5 MG/0.5 ML SYR IV PRN (10:05)
[2018-01-05] MEDS ORDERED: KETOROLAC TROMETHAMINE 15 MG/ML VIAL IV. STA (10:41)
[2018-01-05] MEDS ORDERED: LIDODERM (LIDOCAINE) PATCH 5% TD ONE (10:41)
[2018-01-05 10:58] VITALS: PULSE 111; O2SAT 94
[2018-01-05] MEDS: FENTANYL PATCH REMOVE & WASTE SCH (11:30)
[2018-01-05] MEDS ORDERED: BISACODYL 5 MG TABEC PO PRN (11:45)
[2018-01-05] MEDS ORDERED: POLYETHYLENE (MIRALAX) 17 GM PACK PO PRN (11:45)
[2018-01-05] MEDS ORDERED: BISACODYL 5 MG TABEC PO ONE (11:45)
[2018-01-05] MEDS ORDERED: GABAPENTIN 300 MG CAP PO ONE (16:35)
[2018-01-05 16:40] VITALS: PULSE 106; O2SAT 96
[2018-01-05 17:01] VITALS: BP 121/68; PULSE 74; TEMP 36.6; O2SAT 91
[2018-01-05] MEDS: KETOROLAC TROMETHAMINE 15 MG/ML VIAL IV PRN ×2 (17:44→18:28)
--- NOTE | 2018-01-05 19:56 | Progress Note ---
Subjective Date of Service: Jan 05, 2018. Subjective Pt evaluation today including: conversation w/ patient, physical exam, chart review, lab review, review of inpatient medication list called to eval by nursing - pt not breathing effectively - would sometimes and then other times have apnea, or ineffective breathing - she noted that she felt like her breathing wasn't right but could at times voluntarily take a better deep breath doesn't feel that current pain regimen is helping, does feel that baclofen helps some, doesnt' really feel that narvotics, even IV like dilauded, are really helping with the pain much notes pain mostly in area behind knees with contractures, hurts to move revisited later, on bipap, breathing better pain not yet really any different Problem List Medical Problems: (1) Acute right-sided weakness Status: Acute (2) Altered mental status Status: Acute (3) Anemia Status: Acute (4) Cellulitis Status: Acute (5) Elevated INR Status: Acute (6) Failure of outpatient treatment Status: Acute (7) Fall Status: Acute (8) Falls Status: Acute (9) Rectus sheath hematoma Status: Acute (10) Respiratory failure Status: Acute (11) Vertigo Status: Acute (12) Weakness Status: Acute Review of Systems all other ROS otherwise negative except for as above Objective Vital Signs Date Time Temp Pulse Resp B/P (MAP) Pulse Ox O2 Delivery O2 Flow Rate FiO2 01/05/18 17:01 36.6 74 20 121/68 (85) 91 BiPAP 01/05/18 16:40 106 96 40 01/05/18 16:00 BiPAP 01/05/18 10:58 111 94 40 01/05/18 09:29 36.8 78 20 145/70 (95) 94 Nasal Cannula 4.0 01/05/18 08:00 Nasal Cannula 3.0 01/05/18 00:00 Nasal Cannula 3.0 01/04/18 23:53 36.6 76 16 142/85 (104) 93 3.0 Physical Exam General Appearance: + pertinent finding (appearing somewhat uncomfortable) Eyes: EOMI ENT: hearing grossly normal Respiratory/Chest: + pertinent finding (breathing - lungs clear, no r/r/w - but at times fairly poor inspiratory effort, other times a "ratchety" inspiration with multiple stops almost like an inspiratory snore) Cardiovascular: regular rate, rhythm Extremities: + pertinent finding (contractures) Neurologic/Psychiatric: business job titles II-XII nml as tested, alert Skin: normal color Laboratory Results Last 24 Hours Test 01/05/18 08:18 01/05/18 11:38 01/05/18 16:50 Bedside Glucose 92 mg/dl 102 mg/dl 87 mg/dl Assessment and Plan 77 yo F with: 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 This encephalopathy is completely cleared with reduction of her baclofen dose however her spasms are far worse, and other attempts to manage pain have caused respiratory suppression respiratory suppression -appearing narcotics not helping w pain but are suppressing respirations - with pain will hold on reversing unless severe distress -bipap, supportive care, time contractures/chronic pain -narcotics mediated measures failed due to respiratory suppression -baclofen helped more but appeared possible culprit for encephalopathy -currently in supervised settign and in pain - so will increase baclofen again and follow closely goal of maximizing comfort -trial of gabapentin -toradol prn -lidocaine patches to areas behind legs where pain is worst Goals of Care- - Palliative medicine met with the patient and her - Pt ultimately wants comfort measures only. 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 --Very little headway with medical modulation of her discomfort will consider adjunctive antidepressant Ambulatory dysfunction / Persistent muscle spasms > 6 months involving lower extremities -- neurology cannot provide definite direction of the medical management at this time - MRI brain negative for acute findings. - clopidogrel 75 mg PO QAM and Pradaxa 150 mg PO BID - PT/OT continues to be required for possible home health vs SNF hospice Major Depressive Disorder - ongoing Prozac 30 mg QAM - Consider changing to Cymbalta for pain relief Hypertension - has been controlled on carvedilol 25 mg PO BID Diabetes mellitus- - reasonable with ISS with accu-Cheks achs CODE STATUS: DNR - discussed with family in detail. Disposition: PT/OT on board, CM to assist with d/c planning. Hospice evaluation complete, hopefully hospice in near future but would like to affect more stable pain control situation first Discharge planning: long term facility
[2018-01-05] MEDS: GABAPENTIN 300 MG CAP PO SCH (21:24)
[2018-01-05 21:30] VITALS: PULSE 64; O2SAT 96
[2018-01-05 23:49] VITALS: BP 153/71; PULSE 66; TEMP 36.8; O2SAT 100
[2018-01-06] VITALS (7 sets, daily range): BP systolic 124–155; BP diastolic 68–84; PULSE 63–83; TEMP 35.9–36.3; O2SAT 96–100
[2018-01-06] MEDS: INSULIN ASPART 100 UNITS/ML 3 ML PEN SC SCH ×4 (06:30→20:03)
[2018-01-06] MEDS: BOOST GLUCOSE CONTROL PO SCH (08:00)
[2018-01-06] MEDS: CLOPIDOGREL BISULFATE 75 MG TAB PO SCH (08:25)
[2018-01-06] MEDS: CARVEDILOL 25 MG TAB PO SCH ×2 (08:25→17:57)
[2018-01-06] MEDS: FLUOXETINE HCL 10 MG CAP PO SCH (08:25)
[2018-01-06] MEDS: DABIGATRAN ELEXILATE 75 MG CAP PO SCH ×2 (08:25→20:03)
[2018-01-06] MEDS: GABAPENTIN 300 MG CAP PO SCH ×2 (08:26→20:03)
[2018-01-06] MEDS: ACETAMINOPHEN 500 MG TAB PO SCH ×2 (08:26→20:03)
[2018-01-06] MEDS: BACLOFEN 10 MG TAB PO SCH ×3 (08:26→20:03)
[2018-01-06] MEDS: LIDODERM (LIDOCAINE) PATCH 5% TD SCH (08:27)
[2018-01-06] MEDS ORDERED: FENTANYL PATCH REMOVE & WASTE SCH (13:29)
[2018-01-06] MEDS ORDERED: FENTANYL 50 MCG/HR TDSY TD SCH (13:30)
[2018-01-06] MEDS ORDERED: CHECK FENTANYL PATCH PLACEMENT SCH (16:00)
--- NOTE | 2018-01-06 17:17 | Progress Note ---
Subjective Date of Service: Jan 06, 2018. Subjective Pt evaluation today including: conversation w/ patient, physical exam, chart review, lab review, review of inpatient medication list breathing about the same - feels worse w bipap off but also after discussion does not want any further w/u for the breathign - comfortable w bipap and doesn' t even want CXR at this point leg pain about the same still bad but holding off on anything because she doesn' t want to cloud mentatino - family coming Problem List Medical Problems: (1) Acute right-sided weakness Status: Acute (2) Altered mental status Status: Acute (3) Anemia Status: Acute (4) Cellulitis Status: Acute (5) Elevated INR Status: Acute (6) Failure of outpatient treatment Status: Acute (7) Fall Status: Acute (8) Falls Status: Acute (9) Rectus sheath hematoma Status: Acute (10) Respiratory failure Status: Acute (11) Vertigo Status: Acute (12) Weakness Status: Acute Review of Systems all other ROS otherwise negative except for as above Objective Vital Signs Date Time Temp Pulse Resp B/P (MAP) Pulse Ox O2 Delivery O2 Flow Rate FiO2 01/06/18 16:11 35.9 75 20 139/81 (100) 100 BiPAP 01/06/18 11:49 74 96 40 01/06/18 08:00 BiPAP 3.0 40 01/06/18 07:41 36.3 76 20 155/82 (106) 99 01/06/18 07:12 70 99 40 01/06/18 00:00 BiPAP 01/05/18 23:49 36.8 66 18 153/71 (98) 100 CPAP 01/05/18 21:30 64 96 40 Physical Exam General Appearance: no apparent distress (on bipap but does appear comfortable) Neck: trachea midline Respiratory/Chest: no respiratory distress, no accessory muscle use, + decreased breath sounds (no r/r/w but fairly poor effort even on bipap) Cardiovascular: regular rate, rhythm Extremities: + pertinent finding (contractures persist) Neurologic/Psychiatric: social research assistant II-XII nml as tested, alert Skin: normal color, warm/dry Laboratory Results Last 24 Hours Test 01/05/18 20:17 01/06/18 07:26 01/06/18 11:55 01/06/18 16:29 Bedside Glucose 104 mg/dl 95 mg/dl 87 mg/dl 90 mg/dl Assessment and Plan 77 yo F with: 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 This encephalopathy is completely cleared with reduction of her baclofen dose however her spasms are far worse, and other attempts to manage pain have caused respiratory suppression respiratory suppression -[employer] type pattern to breathing, also suspect narcotics were playing a role - at this point hard to tell how she would be doing off bipap since she wants to keep it on - for comfort certainly will not "force the issue" - continue supportive care. declines any further w/u whatsoever. -bipap, supportive care, time contractures/chronic pain -narcotics mediated measures failed due to respiratory suppression (and weren't really helping w pain much either) -baclofen helped more but appeared possible culprit for encephalopathy -currently in supervised setting and in pain - resumed baclofen again and following closely goal of maximizing comfort -trial of gabapentin initiated -toradol prn -lidocaine patches to areas behind legs where pain is worst Goals of Care- - Palliative medicine met with the patient and her - Pt ultimately wants comfort measures only. 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 --Very little headway with medical modulation of her discomfort will consider adjunctive antidepressant Ambulatory dysfunction / Persistent muscle spasms > 6 months involving lower extremities -- neurology cannot provide definite direction of the medical management at this time - MRI brain negative for acute findings. - clopidogrel 75 mg PO QAM and Pradaxa 150 mg PO BID - PT/OT continues to be required for possible home health vs SNF hospice - appears to be the main root cause of her decline moderate protein malnutrition -due to above frail state Major Depressive Disorder - ongoing Prozac 30 mg QAM - Consider changing to Cymbalta for pain relief Hypertension - has been controlled on carvedilol 25 mg PO BID Diabetes mellitus- - reasonable with ISS with accu-Cheks achs, goal is basically preventing severe highs without causing lows CODE STATUS: DNR - discussed with family in detail by previous hospital team. she confirms her comfort measures only status to me. Disposition: PT/OT on board, CM to assist with d/c planning. Hospice evaluation complete, hospice is goal
[2018-01-06] MEDS ORDERED: KETOROLAC TROMETHAMINE 15 MG/ML VIAL IV. ONE (17:30)
[2018-01-07 00:38] VITALS: BP 118/70; PULSE 66; TEMP 36.4; O2SAT 99
[2018-01-07 01:41] VITALS: PULSE 68; O2SAT 98
[2018-01-07] MEDS: ONDANSETRON INJ 2 MG/ML 2 ML VIAL IV PRN ×2 (03:29→12:16)
[2018-01-07] MEDS: KETOROLAC TROMETHAMINE 15 MG/ML VIAL IV PRN ×2 (03:49→17:08)
[2018-01-07] MEDS: OXYCODONE HCL IR 5 MG TAB (IMMEDIATE RELEASE) PO PRN ×2 (05:54→12:16)
[2018-01-07] MEDS: INSULIN ASPART 100 UNITS/ML 3 ML PEN SC SCH ×4 (06:30→20:31)
[2018-01-07 07:08] VITALS: BP 143/65; PULSE 70; TEMP 36.8; O2SAT 100
[2018-01-07 07:55] VITALS: PULSE 72; O2SAT 98
[2018-01-07] MEDS: FLUOXETINE HCL 10 MG CAP PO SCH (07:55)
[2018-01-07] MEDS: ACETAMINOPHEN 500 MG TAB PO SCH ×2 (07:55→21:23)
[2018-01-07] MEDS: BACLOFEN 10 MG TAB PO SCH ×3 (07:55→21:24)
[2018-01-07] MEDS: DABIGATRAN ELEXILATE 75 MG CAP PO SCH ×2 (07:55→21:21)
[2018-01-07] MEDS: CARVEDILOL 25 MG TAB PO SCH ×2 (07:55→17:11)
[2018-01-07] MEDS: BOOST GLUCOSE CONTROL PO SCH (07:55)
[2018-01-07] MEDS: GABAPENTIN 300 MG CAP PO SCH ×2 (07:56→21:22)
[2018-01-07] MEDS: CLOPIDOGREL BISULFATE 75 MG TAB PO SCH (07:56)
[2018-01-07] MEDS: LIDODERM (LIDOCAINE) PATCH 5% TD SCH (07:56)
[2018-01-07 15:30] VITALS: BP 186/93; PULSE 81; TEMP 36.5; O2SAT 96
--- NOTE | 2018-01-07 16:59 | Family Medicine Progress Note ---
Progress Note Date of Service Jan 07, 2018. Subjective Pt evaluation today including: conversation w/ patient, physical exam, chart review, lab review, review of studies Pain: Pain level unchanged from yesteday Voiding: romero catheter in place Discussion with family today regarding plans going forward. Patient would like to arrange home hospice and at this time we will continue current pain regimen to help preserve cognitive function. Patient will discuss end of like goals with her family regarding pain control going forward. Currently tolerating nasal cannula. Additional Comments: See HPI for pertinent positives and negatives. A total of ten systems were reviewed and were otherwise negative. Medications Current Inpatient Medications Medications (Trade) Dose Ordered Sig/Isidra Route Start Time Stop Time Status Last Admin Dose Admin Carvedilol (Coreg Tab) 25 mg BIDM PO 12/29/17 08:00 01/28/18 07:59 01/07/18 17:11 25 MG Clopidogrel Bisulfate (plAVix TAB) 75 mg QAM PO 12/29/17 08:00 01/28/18 08:59 01/07/18 07:56 75 MG Dabigatran (Pradaxa Cap) 150 mg BID PO 12/28/17 21:00 01/27/18 20:59 01/07/18 07:55 150 MG Albuterol/ Ipratropium (Duoneb) 3 ml QID PRN INH 12/28/17 20:45 01/27/18 20:44 Ondansetron HCl (Zofran Odt) 8 mg Q6H PRN PO 12/28/17 20:45 01/27/18 20:44 01/05/18 09:32 8 MG Insulin Aspart (novoLOG ASPART) SLIDING SCALE If C... ACHS SC 12/28/17 21:00 01/27/18 20:59 01/01/18 18:46 1 UNITS Glucose (Glucose 40% Gel) 15-30 GRAMS 15 GRAMS... UD PRN PO 12/28/17 20:45 01/27/18 20:44 Glucose (Glucose Chew Tab) 4-8 Tablets 4 Tabl... UD PRN PO 12/28/17 20:45 01/27/18 20:44 Dextrose (Dextrose 50% 50ML Syringe) 25-50ML OF 50% DW IV FOR... UD PRN IV 12/28/17 20:45 01/27/18 20:44 Glucagon (Glucagon Inj) 1 mg UD PRN SQ 12/28/17 20:45 01/27/18 20:44 Acetaminophen 100 ml @ 400 mls/hr Q8H PRN IV 12/28/17 20:45 01/27/18 20:44 12/30/17 07:28 400 MLS/HR Miscellaneous (Iv Fluids Completed) 1 ea PRN PRN N/A 12/28/17 21:15 12/28/18 21:14 Fluoxetine HCl (Prozac Cap) 30 mg QAM PO 12/29/17 11:45 01/29/18 07:59 01/07/18 07:55 30 MG Ondansetron HCl (Zofran Inj) 4 mg Q6H PRN IV 12/30/17 12:45 01/29/18 12:44 01/07/18 12:16 4 MG Acetaminophen (Tylenol Tab) 1,000 mg BID PO 12/31/17 20:00 01/30/18 19:59 01/07/18 07:55 1,000 MG Oxycodone HCl (Roxicodone Immediate Rel Tab) 10 mg Q6 PRN PO 01/01/18 09:00 01/15/18 08:59 01/07/18 12:16 10 MG Enteral Nutritional Formula (Boost Glucose Control) 1 can DAILY PO 01/04/18 08:00 02/03/18 07:59 01/07/18 07:55 1 CAN Baclofen (Lioresal Tab) 20 mg TID PO 01/05/18 14:00 01/28/18 08:59 01/07/18 14:03 20 MG Ketorolac Tromethamine (Toradol Inj) 15 mg Q6H PRN IV 01/05/18 10:45 01/10/18 10:44 01/07/18 17:08 15 MG Lidocaine (Lidoderm Patch 5%) 1 patch QAM TD 01/06/18 08:00 02/05/18 07:59 01/06/18 08:27 1 PATCH Miscellaneous (Remove Lidoderm Patch) 1 ea DAILY@21 N/A 01/05/18 21:00 02/04/18 20:59 01/05/18 21:25 1 EA Bisacodyl (Dulcolax Tab) 5 mg BID PRN PO 01/05/18 11:45 02/04/18 11:44 Polyethylene (Miralax Powder Packet) 17 gm DAILY PRN PO 01/05/18 11:45 02/04/18 11:44 Gabapentin (Neurontin Cap) 300 mg BID PO 01/05/18 20:00 02/04/18 19:59 01/07/18 07:56 300 MG Objective Vital Signs Date Time Temp Pulse Resp B/P (MAP) Pulse Ox O2 Delivery O2 Flow Rate FiO2 01/07/18 15:30 36.5 81 18 186/93 (124) 96 Nasal Cannula 4.5 01/07/18 08:00 BiPAP 40 01/07/18 07:55 72 98 40 01/07/18 07:08 36.8 70 20 143/65 (91) 100 BiPAP 01/07/18 01:41 68 98 40 01/07/18 00:38 36.4 66 20 118/70 (86) 99 CPAP 01/06/18 23:45 BiPAP 01/06/18 23:31 63 98 40 01/06/18 19:51 70 18 124/68 (86) CPAP 01/06/18 17:54 83 146/84 (104) Physical Exam General Appearance: no apparent distress, + cachetic Eyes: normal inspection, sclerae normal Respiratory/Chest: chest non-tender, + decreased breath sounds Cardiovascular: regular rate, rhythm, no edema, no gallop Abdomen: normal bowel sounds, non tender, soft Extremities: + swelling, + pertinent finding (Contracture of lower extremities) Neurologic/Psychiatric: alert Laboratory Results Results Past 24 Hours Test 01/06/18 19:59 01/07/18 07:53 01/07/18 11:21 Range/Units Bedside Glucose 93 81 82 70-90 mg/dl Assessment and Plan 77 yo F with: 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 - This encephalopathy is completely resolved with reduction of her baclofen dose however her spasms are far worse, and other attempts to manage pain have caused respiratory suppression - Resumed home dose of Baclofen 20mg TID and currently noticing improvement of pain control Respiratory Suppression - Tolerating 6L NC this morning - Off of BIPAP and respiratory suppression improved with withdrawal of narcotic use - Continue with supportive care and can resume BIPAP therapy if patient once again experiences respiratory difficulties Contractures/chronic pain - Pain currently well controlled with Baclofen, Toradol, LidocainePatch, and Gabapentin - Narcotics mediated measures failed due to respiratory suppression and limited pain intervention - Currently using Baclofen due to clinical improvement but may have contributed to encephalopathy so must continue to monitor status - Tolerating Gabapentin trial of 300mg PO BID - Toradol prn - Lidocaine patches over the posterior legs (most significant pain region) Goals of Care - Family meeting today --> Decided on home hospice - Palliative Care on board - Patient ultimately wants comfort measures only Cerebrovascular disease - History of recent R thalamic and R internal capsule CVA - 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 --Very little headway with medical modulation of her discomfort will consider adjunctive antidepressant - Ambulatory dysfunction / Persistent muscle spasms > 6 months involving lower extremities -- neurology cannot provide definite direction of the medical management at this time - MRI brain negative for acute findings. - Clopidogrel 75 mg PO QAM and Pradaxa 150 mg PO BID - PT/OT continues to be required for possible home health vs SNF hospice - appears to be the main root cause of her decline Moderate protein malnutrition - Ddue to above frail state Major Depressive Disorder - Prozac 30 mg QAM - Consider changing to Cymbalta for pain relief Hypertension - Carvedilol 25 mg PO BID Diabetes Mellitus - ISS with accu-Cheks ACHS CODE STATUS: DNR - discussed with family in detail by previous hospital team. she confirms her comfort measures only status to me. Disposition: PT/OT on board, to assist with d/c planning. Plan to discharge tomorrow on home hospice Resident Physician Supervision Note: I interviewed and examined the patient. Discussed with Dr. Rosas and agree with findings and plan as documented in the note. Any exceptions or clarifications are listed here: None Documented By: Jah Quintana wants to go home, extensive d/w pt and family outlining goals of care and outlining specific problems likely to arise in regards to pain/mentation/ breathing so that pt can give guidance to family before she is unable to express wishes vitals noted, moderate pain but declining pain meds due to wanting to stay mentally sound, breathing unlabored on NC O2 pain/contractures/cerebrovascular disease -end of life planning - hopefully home on hospice tomorrow Resident Tracking Resident Involvement: Resident Care Provided Care Provided: Adult [facility] Medicine
[2018-01-07 23:18] VITALS: BP 115/72; PULSE 74; TEMP 36.8; O2SAT 99
[2018-01-08] MEDS: INSULIN ASPART 100 UNITS/ML 3 ML PEN SC SCH ×2 (06:30→11:00)
[2018-01-08 07:27] VITALS: BP 130/71; PULSE 85; TEMP 36.7; O2SAT 96
[2018-01-08] MEDS: LIDODERM (LIDOCAINE) PATCH 5% TD SCH (08:00)
[2018-01-08] MEDS: BOOST GLUCOSE CONTROL PO SCH (08:00)
[2018-01-08] MEDS: BACLOFEN 10 MG TAB PO SCH (08:16)
[2018-01-08] MEDS: FLUOXETINE HCL 10 MG CAP PO SCH (08:16)
[2018-01-08] MEDS: CLOPIDOGREL BISULFATE 75 MG TAB PO SCH (08:17)
[2018-01-08] MEDS: CARVEDILOL 25 MG TAB PO SCH (08:17)
[2018-01-08] MEDS: ACETAMINOPHEN 500 MG TAB PO SCH (08:17)
[2018-01-08] MEDS: DABIGATRAN ELEXILATE 75 MG CAP PO SCH (08:17)
[2018-01-08] MEDS: GABAPENTIN 300 MG CAP PO SCH (08:17)
[2018-01-08] MEDS: KETOROLAC TROMETHAMINE 15 MG/ML VIAL IV PRN (08:58)
[2018-01-08] MEDS ORDERED: IBUP-1450 PO (10:10)
[2018-01-08] MEDS ORDERED: MRPL PO (10:10)
[2018-01-08] MEDS ORDERED: FLUO10CA24 PO (10:10)
[2018-01-08] MEDS ORDERED: NRN300 PO (10:10)
[2018-01-08] MEDS ORDERED: ONDA8TAB62 SL (10:10)
[2018-01-08] MEDS ORDERED: BACL1TAB PO (10:10)
--- NOTE | 2018-01-08 10:15 | Discharge Instructions ---
Discharge Instructions Date of Service Jan 08, 2018. Admission Reason for Admission: Altered Mental Status, Left Leg Weakness Discharge Discharge Diagnosis / Problem: comfort care Discharge Goals Goal(s): Diagnostic testing, Therapeutic intervention Activity Recommendations Activity Limitations: resume your previous activity . Instructions / Follow-Up Instructions / Follow-Up pain control: we've got multiple means to control pain for you - this is so that you won't be left without a means to keep pain under control as the need arises gabapentin -this works slowly but provides good around the clock coverage - right now we' re discharging you on 300mg in the morning and 600mg at bedtime, but as time progresses, we would expect the hospice team to quickly escalate the dose of this, as it can probably help "dull" the pain from the contractures to a decent degree baclofen -it's listed as 20mg every 6 hours "as needed" but if you find that it's helping , move to taking more every 6 hours around the clock morphine (roxanol) -this is a very concentrated liquid, so even if you reach the point that you can 't swallow a pill or even swallow the liquid, it gets absorbed across mucous membranes quickly. for now, we'll use 5mg (0.25ml) as needed for pain. if you' re experiencing shortness of breath, half of that dose should be fairly effective in cutting some of that sensation -if you find that it's making you nauseated, premedicate with the dissolving zofran (ondansetron) ibuprofen -as an anti-inflammatory, this is a fairly potent dose to help reduce the pain; if you reach a point where you can't swallow a pill, actually 30ml of "children' s motrin" would be the same dose, and might be easier to get down all of the above except for the ibuprofen certainly can cause sedation as a side effect, the ibuprofen at repeated high doses can upset your stomach, although this commonly doesn't happen until after a month or two of use the hospice team will also be able to modify/add/change as your needs change to help keep you as comfortable as possible Current Hospital Diet Patient's current hospital diet: Regular Diet Discharge Diet Recommended Diet: Regular Diet Pending Studies Studies pending at discharge: no Laboratory Results Hemoglobin A1c Test 12/22/17 15:11 Range/Units Estimated Average Glucose 108 mg/dl Hemoglobin A1c 5.4 4.5-5.6 % Lipid Panel Test 12/23/17 07:18 Range/Units Triglycerides Level 105 0-150 mg/dl Cholesterol Level 127 0-200 mg/dl HDL Cholesterol 51 mg/dl Cholesterol/HDL Ratio 2.5 LDL Cholesterol, Calculated 55 mg/dl Medical Emergencies . Who to Call and When: Medical Emergencies: If at any time you feel your situation is an emergency, please call 911 immediately. . Non-Emergent Contact Non-Emergency issues call your: Primary Care Provider . . "Provider Documentation" section prepared by Jah Quintana. . VTE Core Measure Inpt VTE Proph given/why not?: Unfractionated heparin SQ, SCD's
[2018-01-08] MEDS: ONDANSETRON INJ 2 MG/ML 2 ML VIAL IV PRN (10:20)
[2018-01-08] MEDS ORDERED: MoRPHine SULFATE 5 MG/0.25 ML UDP PO ONE (10:30)
[2018-01-08 10:50] VITALS: BP 130/71; PULSE 85; TEMP 36.7; O2SAT 96
--- NOTE | 2018-01-09 12:15 | Discharge Summary ---
Discharge Summary Date of Service Jan 09, 2018. Discharge Summary Admission Date: Dec 30, 2017 at 11:57 Discharge Date: Jan 08, 2018 Discharge Disposition: Home Principal Diagnosis: Toxic Encephalopathy Problems/Secondary Diagnoses: Respiratory Suppression, Chronic Pain, HTN, DM Immunizations: Have You Had Influenza Vaccine: Unknown History of Tetanus Vaccine?: Unknown History of Pneumococcal: Unknown History of Hepatitis B Vaccine: Unknown Medication Reconciliation New Medications: Ibuprofen (Motrin) 600 Mg Tab 600 MG PO Q6H PRN for Pain, #60 TAB TAKE WITH FOOD Morphine Sulfate (Morphine Sulfate) 20 Mg/1 Ml Soln 5 MG PO UD PRN for pain or shortness of breath, #30 ML 0.25ml [id number] prn pain; can use 1/2 dose for shortness of breath Ondansetron Odt (Zofran Odt) 8 Mg Soltab 8 MG SL Q6H PRN for Nausea, #60 TAB Fluoxetine HCl (Fluoxetine HCl) 10 Mg Cap 30 MG PO QAM, #30 CAP Gabapentin (Gabapentin) 300 Mg Cap 300 MG PO BID, #90 CAP take 300mg in AM, 600mg HS; titrate up as directed by hospice Changed Medications: Baclofen (Lioresal) 10 Mg Tab 20 MG PO QID PRN for spasm, #120 TAB (Changed from: TID) take prn spasm, but have a low threshold to give scheduled Continued Medications: Acetaminophen (Tylenol) 500 Mg Tab 1000 MG PO TID PRN for Pain, TAB Carvedilol (Coreg) 25 Mg Tab 25 MG PO BIDM Docusate Sodium (Docusate Sodium) 100 Mg Cap 100 MG PO BID, CAP Ipratropium-Albuterol (Duoneb) 3 Ml Nebu 1 TREATMENT INH QID PRN for Wheezing, INHA Lorazepam (Ativan) 0.5 Mg Tab 0.5 MG PO Q6H PRN for Anxiety, TAB Discontinued Medications: Atorvastatin (Lipitor) 40 Mg Tab 40 MG PO HS Cephalexin Monohydrate (Keflex) 500 Mg Cap 500 MG PO TID, CAP START DATE 12/25/17 PT TO TAKE X7 DAYS Clopidogrel (Plavix) 75 Mg Tab 75 MG PO QAM Dabigatran Etexilate Mesylate (Pradaxa) 150 Mg Cap 150 MG PO BID Fluoxetine (Prozac) 10 Mg Cap 20 MG PO QAM Insulin Lispro (Human) (Humalog Kwikpen) 100 Unit/Ml Inj 8-18 UNITS SC DIRECTED INJECT PER SLIDING SCALE: 350-400 = 8 UNITS 401-450 = 12 UNITS 451-500 = 16 UNITS 501-550 = 18 UNITS RECHECK BS IN 2 HRS Ondansetron Hcl (Zofran) 4 Mg Tab 4 MG PO Q4 PRN for Nausea Discharge Exam Review of Systems: Constitutional: + weight loss, + fatigue, No fever, No chills Respiratory: No cough, No sputum, No shortness of breath Cardiovascular: No chest pain, No palpitations Abdomen: No pain, No nausea, No vomiting, No diarrhea, No constipation Musculoskeletal: + problem reported (Bilateral lower extremity pain from contractures) Genitourinary - Female: No dysuria Physical Exam: General Appearance: + moderate distress, + cachetic Eyes: normal inspection, sclerae normal Respiratory/Chest: no accessory muscle use, + decreased breath sounds Cardiovascular: regular rate, rhythm, no edema, no gallop Abdomen / GI: normal bowel sounds, non tender, soft Extremities: + pertinent finding (Contracture of lower extremities, tenderness to palpation of popliteal region) Neurologic/Psychiatric: alert, oriented x 3 Hospital Course 77 yo F with: 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 - This encephalopathy is completely resolved with reduction of her baclofen dose however her spasms are far worse, and other attempts to manage pain have caused respiratory suppression - Resumed home dose of Baclofen 20mg TID and currently noticing improvement of pain control - Discharge with home hospice with pain control medications including Gabapentin , Baclofen, Roxanol, Ibuprofen Respiratory Suppression - Tolerating 6L NC this morning - Off of BIPAP and respiratory suppression improved with withdrawal of narcotic use Contractures/chronic pain - Pain currently well controlled with Baclofen, Toradol, Lidocaine Patch, and Gabapentin - Narcotics mediated measures failed due to respiratory suppression and limited pain intervention - Currently using Baclofen due to clinical improvement but may have contributed to encephalopathy so must continue to monitor status - Tolerating Gabapentin trial of 300mg PO BID - Lidocaine patches over the posterior legs (most significant pain region) - After lengthy discussion with patient and family, the patient expressed her wishes to stay as lucid as possible but would like to optimize pain medications at this time. The patient prior to discharge did require a dose of 5mg Roxanol to improve her pain control. The patient was discharged home with Baclofen, Gabapentin, and Ibuprofen in addition to the Roxanol with goal of COMFORT CARE. 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 --Very little headway with medical modulation of her discomfort will consider adjunctive antidepressant - Ambulatory dysfunction / Persistent muscle spasms > 6 months involving lower extremities -- neurology cannot provide definite direction of the medical management at this time - MRI brain negative for acute findings. - Clopidogrel 75 mg PO QAM and Pradaxa 150 mg PO BID - appears to be the main root cause of her decline Moderate protein malnutrition - Due to above frail state Major Depressive Disorder - Prozac 30 mg QAM Hypertension - Carvedilol 25 mg PO BID Diabetes Mellitus - ISS with accu-Cheks ACHS CODE STATUS: DNR - discussed with family in detail by previous hospital team. she confirms her comfort measures only status to me. Disposition: Discharge with home hospice Resident Physician Supervision Note: I interviewed and examined the patient. Discussed with Dr. Rosas and agree with findings and plan as documented in the note. Any exceptions or clarifications are listed here: None Documented By: Jah Quintana feeling ready to go home, stoically and even at times sarcastically facing discussed pain regimen extensively w pt and family - then ensured it was in writing as well vitals noted breathing unlabored no pallor icterus mentally sound end of life care related to cerebrovascular disease contractures and moderate malnutrition -home w comfort care as above Total Time Spent: Greater than 30 minutes This includes examination of the patient, discharge planning, medication reconciliation, and communication with other providers. Discharge Instructions Please refer to the electronic Patient Visit Report (Discharge Instructions) for additional information. Additional Copies To Amish Denise M.D. Resident Tracking Resident Involvement: Resident Care Provided Care Provided: Adult [facility] Medicine
[2018-01-09] MEDS ORDERED: FENTANYL PATCH REMOVE & WASTE SCH (13:30)
== END 2018-01-08 11:45 | disposition hospice, home (50) | DRG 91 ==
LOC: EDBD 14:25 → C.EDC 14:26 → C.MS4W 20:55 → EDBEDREQSVC 20:59 → EDBEDREQ 20:59 → ENRESERV 21:09 → OBSVTOIN 12-30 11:57
PROVIDERS: ADMIT Hospitalist; ATTEND Family Medicine
DX: G92 Toxic encephalopathy (principal); R53.2 Functional quadriplegia; I67.89 Other cerebrovascular disease; E44.0 Moderate protein-calorie malnutrition; T42.8X5A Adverse effect of antiparkinsonism drugs and other central muscle-tone depressants, initial encounter; R47.81 Slurred speech; R47.1 Dysarthria and anarthria; E11.9 Type 2 diabetes mellitus without complications; I10 Essential (primary) hypertension; E78.5 Hyperlipidemia, unspecified; Z51.5 Encounter for palliative care; F32.9 Major depressive disorder, single episode, unspecified; F41.9 Anxiety disorder, unspecified; E86.0 Dehydration; G89.29 Other chronic pain; M62.838 Other muscle spasm; M24.561 Contracture, right knee; M24.562 Contracture, left knee; M24.551 Contracture, right hip; M24.552 Contracture, left hip; Z66 Do not resuscitate; Z79.02 Long term (current) use of antithrombotics/antiplatelets; Z79.4 Long term (current) use of insulin; Z79.899 Other long term (current) drug therapy; Z87.891 Personal history of nicotine dependence; Z88.0 Allergy status to penicillin; Z88.5 Allergy status to narcotic agent; Z88.8 Allergy status to other drugs, medicaments and biological substances; Z91.81 History of falling; Z86.73 Personal history of transient ischemic attack (TIA), and cerebral infarction without residual deficits